=== PATIENT | female | born 1995 | race Caucasian/White ===

== ENCOUNTER 2023-05-24 08:57 | Outpatient (OUT) | payer BC, SELFPAY ==
--- NOTE | 2023-05-24 09:11 | US_ITS ---
The [address] [address] Patient Name: JOYCE CANTU MRN: [id number] date: 1995 Sex: F Assigned Patient Location: Current Patient Location: Accession/Order Number: [id number] Exam Date: 05/24/2023 09:15 Report Date: 05/24/2023 10:02 At the request of: NERIS ALLEN Procedure: US pelvis transvaginal EXAM: Pelvic ultrasound HISTORY: . Pelvic Pain , Amenorrhea N91.2 . COMPARISON: None. TECHNIQUE: Transvaginal scanning was performed FINDINGS: Scanning of the pelvis demonstrates an anteverted uterus measuring 7.3 x 3.7 x 5.1 cm. Endometrial complex measures 9 mm. Right ovary measures 4.8 x 2.2 x 2.1 cm. Color-flow is noted. Multiple follicles are noted and a peripheral location. Left ovary measures 2.8 x 2 x 2.4 cm. Color-flow is noted. Multiple follicles are noted in a peripheral location. Minimal fluid is noted in the cul-de-sac. US/US pelvis transvaginal IMPRESSION: 1 normal-appearing uterus and endometrial complex. 2. Multiple follicles in both ovaries which are in a somewhat peripheral location. This could be due to polycystic ovarian syndrome. Clinical correlation is suggested. 3. Minimal fluid in the cul-de-sac. Electronically authenticated by: GLENNY HERNANDEZ Date: 05/24/2023 10:02
[2023-05-24 10:23] LABS: HCG Quantitative <1 mIU/mL; Thyroid Stimulating Hormone 1.421 uIU/mL (0.358-3.740)
[2023-05-24 10:24] LABS: Basophils Absolute Auto 0.1 10^3/uL (0.0-0.1); Basophils Percent Auto 0.7 % (0.2-2.0); Eosinophils Absolute Auto 0.1 10^3/uL (0.0-0.7); Eosinophils Percent Auto 1.6 % (0.9-7.0); Hematocrit 37.1 % (36.0-48.0); Hemoglobin 12.6 g/dL (12.0-16.0); Immature Granulocytes Abs Auto 0.02 10^3/uL (0.00-0.03); Immature Granulocytes Pct Auto 0.3 % (0.0-0.5); Lymphocytes Absolute Auto 3.5 10^3/uL (1.2-3.8); Lymphocytes Percent Auto 51.6 % (20.5-60.0); Mean Corpuscular Volume 88.3 fL (81.0-99.0); Monocytes Absolute Auto 0.5 10^3/uL (0.3-0.8); Monocytes Percent Auto 6.8 % (1.7-12.0); Neutrophils Absolute Auto 2.6 10^3/uL (1.4-6.5); Platelet Count 287 10^3/uL (150-450); Red Cell Distribution Width 11.5 % (11.0-15.0); White Blood Count 6.7 10^3/uL (4.0-11.0)
[2023-05-25 04:07] LABS: Prolactin 10.1 ng/mL (4.8-23.3)
== END 2023-05-24 08:58 | disposition home or self-care (01) ==
LOC: US 09:03
PROVIDERS: PCP Nurse Practitioner Family; Visit Provider Obstetrics & Gynecology
DX: N91.2 Amenorrhea, unspecified (principal); R10.2 Pelvic and perineal pain
CPT/HCPCS: 36415; 76830; 84146; 84443; 84702; 85025

== ENCOUNTER 2024-05-08 09:06 | Outpatient (OUT) | payer BC, SELFPAY ==
--- NOTE | 2024-05-08 09:07 | US_ITS ---
The [address] [address] Patient Name: JOYCE CANTU MRN: [id number] date: 1995 Sex: F Assigned Patient Location: [facility] Current Patient Location: Accession/Order Number: [id number] Exam Date: 05/08/2024 09:08 Report Date: 05/09/2024 05:02 At the request of: NERIS ALLEN Procedure: US OB transvaginal EXAMINATION: US OB transvaginal HISTORY: MISSED MENSES COMPARISON: No relevant comparison available. FINDINGS: GESTATIONAL SAC: Present and normal appearing. YOLK SAC: Present and normal appearing. POLE: Present and normal appearing. CARDIAC: Present. UTERUS: Normal size and appearance. OVARIES: Right: Normal. Left: Normal. CERVIX: 4.0 cm in length and closed. CUL-DE-SAC: Normal. OTHER: Trace amount of free fluid within pelvic cul-de-sac, likely physiologic. AGE BY LMP: 8 weeks 1 day JAGJIT BY LMP: 12/17/2024 AGE BY US CRL: 7 weeks 1 day JAGJIT BY US CRL: 12/24/2024 US/US OB transvaginal IMPRESSION: 1. Single live intrauterine . Electronically authenticated by: KARSTEN RAWLS Date: 05/09/2024 05:02
--- OUTSIDE RECORDS SUMMARY | 2024-05-08 09:21 | XMS_ITS | CCD ---
Author Organization [facility] Care Team Providers Care [employer] Name Role Phone STEPHANIE OHARA Referring Unavailable STEPHANIE OHARA Primary Care Unavailable Stephanie Ohara Primary Care Provider [phone] CHAD MARIE Attending Unavailable STEPHANIE OHARA Primary Care Unavailable LEV, DR STEPHANIE Olguin Primary Care Unavailable OHARA, DR STEPHANIE Olguin Consulting Unavailable LEV, DR STEPHANIE Olguin Attending Unavailable LEV, DR STEPHANIE Olguin Admitting Unavailable JEANNINE ., CAREN Attending Unavailable JEANNINE ., CAREN Admitting Unavailable LEV, DR STEPHANIE Olguin Primary Care Unavailable JEANNINE .CAREN Consulting Unavailable TIFFANY ., DR CORDON Attending Unavailable OHARA, DR STEPHANIE Olguin Primary Care Unavailable TIFFANY ., DR CORDON Admitting Unavailable TIFFANY ., DR CORDON Consulting Unavailable TIFFANY ., DR CORDON Attending Unavailable TIFFANY ., DR CORDON Admitting Unavailable OHARA, DR STEPHANIE Olguin Primary Care Unavailable TIFFANY ., DR CORDON Attending Unavailable OHARA, DR STEPHANIE Olguin Primary Care Unavailable TIFFANY ., DR CORDON Admitting Unavailable TIFFANY ., DR CORDON Attending Unavailable OHARA, DR STEPHANIE Olguin Primary Care Unavailable TIFFANY ., DR CORDON Admitting Unavailable TIFFANY ., DR CORDON Attending Unavailable TIFFANY ., DR CORDON Admitting Unavailable OHARA, DR STEPHANIE Olguin Primary Care Unavailable TIFFANY ., DR CORDON Attending Unavailable TIFFANY ., DR CORDON Admitting Unavailable TIFFANY ., DR CORDON Consulting Unavailable LEV, DR STEPHANIE Olguin Primary Care Unavailable EMILY II, JOCELYN Consulting Unavailable TIFFANY ., DR CORDON Procedure Practitioner Unavail able TIFFANY ., DR CORDON Attending Unavailable TIFFANY ., DR CORDON Admitting Unavailable GLENNY TORRES V Consulting Unavailable LEV, DR STEPHANIE Olguin Primary Care Unavailable TFIFANY ., DR CORDON Consulting Unavailable OHARA, DR STEPHANIE Olguin Primary Care Unavailable TIFFANY ., DR CORDON Consulting Unavailable TIFFANY ., DR CORDON Attending Unavailable TIFFANY ., DR CORDON Admitting Unavailable JEANNINE ., CAREN Attending Unavailable JEANNINE ., CAREN Admitting Unavailable JEANNINE ., CAREN Consulting Unavailable LEV, DR STEPHANIE Olguin Primary Care Unavailable TIFFANY ., DR CORDON Attending Unavailable TIFFANY ., DR CORDON Admitting Unavailable GLENNY TORRES V Consulting Unavailable OHARA, DR STEPHANIE Olguin Primary Care Unavailable TIFFANY ., DR CORDON Consulting Unavailable TIFFANY ., DR CORDON Attending Unavailable TIFFANY ., DR CORDON Admitting Unavailable TIFFANY ., DR CORDON Consulting Unavailable LEV, DR STEPHANIE Olguin Primary Care Unavailable Estrada Castro Consulting Unavailable TIFFANY ., DR CORDON Attending Unavailable OHARA, DR STEPHANIE Olguin Primary Care Unavailable GLENNY TORRES V Consulting Unavailable TIFFANY ., DR CORDON Admitting Unavailable TIFFANY ., DR CORDON Consulting Unavailable Allergies Allergy Classification Reported Allergen(s) Allergy Type Date of Onset Reaction(s) Facility (1 source) Penicillins Propensity to adverse reactions to drug 8 [place], [place] (1 source) Amoxicillin Drug Allergy [facility] (2 sources) Penicillin Drug Allergy 3 [facility] Medications Current Medications Medication Drug Class(es) Dates Sig (Normalized) Sig (Original) benzoyl peroxide 0.025 mg/mg / clindamycin phosphate 0.012 mg/mg topical gel (1 source) Lincosamide Antibacterial Start: 11-15-2015 ACANYA 1.2-2.5 % GEL ethinyl estradiol 0.035 mg / norgestimate 0.25 mg oral tablet (1 source) Progestin, Estrogen Start: 01-10-2016 take 1 tablet by mouth once daily norgestimate-ethin yl estradiol (ORTHO-CYCLEN, 28,) 0.25-35 MG-MCG per tablet Indications: Dysmenorrhea in adolescent Take 1 tablet by mouth daily 1 packet 12 01/10/2016 Active ibuprofen 800 mg oral tablet (1 source) Nonsteroidal Anti-inflammatory Drug Start: 07-12-2020 End: 07-22-2020 take 1 tablet by mouth every eight hours as needed for pain ibuprofen (ADVIL;MOTRIN) 800 MG tablet Take 1 tablet by mouth every 8 hours as needed for Pain 30 tablet 0 07/12/2020 07/22/2020 Active minocycline 100 mg oral capsule (1 source) Tetracycline-class Drug minocycline (MINOCIN;DYNACIN) 100 MG capsule Take 50 mg by mouth daily 0 Active Problems Active Problems Problem Classification Problem Date Documented Date Episodic/Chronic Administrative/social admission (2 sources) Encounter for examination for admission to educational institution; Translations: [Encounter for examination for admission to educational institution] Onset: 10-13-2018 Episodic Immunizations and screening for infectious disease (9 sources) Encounter for screening for human papillomavirus (HPV); Translations: [Encounter for screening for infections with a predominantly sexual mode of transmission] Onset: 01-23-2022 Episodic Menstrual disorders (5 sources) Irregular menstruation, unspecified; Translations: [Secondary amenorrhea] Onset: 11-22-2021 Chronic OB-related trauma to perineum and vulva (2 sources) First degree perineal laceration during delivery; Translations: [Other specified trauma to perineum and vulva] Onset: 08-16-2022 Episodic Other complications of (4 sources) Uterine size-date discrepancy, third trimester; Translations: [UTERINE SZ-DATE DISCREPANCY 3RD TRI] Onset: 07-31-2022 Episodic Other and delivery including normal (16 sources) Encounter for care and examination of lactating mother; Translations: [Encounter for routine follow-up] Onset: 01-01-2022 Episodic Other screening for suspected conditions (not mental disorders or infectious disease) (9 sources) Encounter for screening for malignant neoplasm of cervix; Translations: [Encounter for other specified screening] Onset: 01-25-2022 Episodic Residual codes; unclassified (1 source) 39 weeks gestation of ; Translations: [39 WEEKS GESTATION OF ] Onset: 08-16-2022 Episodic Residual codes; unclassified (1 source) 38 weeks gestation of ; Translations: [38 WEEKS GESTATION OF ] Onset: 08-05-2022 Episodic Unclassified (1 source) Sprain of left ankle; Translations: [Sprain of left ankle, unspecified ligament, initial encounter] Past or Other Problems Problem Classification Problem Date Documented Date Episodic/Chronic Malaise and fatigue (1 source) Other fatigue; Translations: [OTHER FATIGUE] Onset: 06-08-2022 Episodic Other complications of (1 source) Other specified related conditions, unspecified trimester; Translations: [OTH SPEC PREG RELATED COND UNS TRI] Onset: 07-17-2022 Episodic Other female genital disorders (1 source) Other specified noninflammatory disorders of vagina; Translations: [OTH SPEC NONINFLAMMATORY D/O VAGINA] Onset: 07-17-2022 Episodic Residual codes; unclassified (1 source) 34 weeks gestation of ; Translations: [34 WEEKS GESTATION OF ] Onset: 07-07-2022 Episodic Residual codes; unclassified (1 source) Family history of diabetes mellitus; Translations: [FAMILY HISTORY OF DIABETES MELLITUS] Onset: 11-22-2021 Episodic Results Test Name Value Interpretation Reference Range Facility PAP ACOG PANEL 2: 21 to 29on 10-22-2022 . . [facility] Comment on above: Performed By: #### C BC #### [facility] [address] [address] [address] Missy Gonzalez Age Gdln ACOG Testing [facility] Comment on above: Performed By: #### C BC #### [facility] [address] [address] [address] Missy Gonzalez DIAGNOSIS: Comment [facility] Comment on above: Result Comment: NEGA TIVE FOR INTRAEPITHELIAL LESION OR MALIGNANCY. Performed By: #### C BC #### [facility] [address] [address] [address] Missy Gonzalez Methodology: Comment [facility] Comment on above: Result Comment: This liquid based ThinPrep(R) pap test was screened with the use of an image guided system. Performed By: #### C BC #### [facility] [address] [address] [address] Missy Gonzalez Note: Comment [facility] Comment on above: Result Comment: The Pap smear is a screening test designed to aid in the detection of premalignant and malignant conditions of the uterine cervix. It is not a diagnostic procedure and should not be used as the sole means of detecting cervical cancer. Both false-positive and false-negative reports do occur. . Performed By: #### C BC #### [facility] [address] [place] [address] Dr. Missy Gonzalez Performed by: Comment Normal [facility] Comment on above: Result Comment: Cindy Blum, Chef Under Performed By: #### C BC #### [facility] [address] [place] [address] Dr. Missy Gonzalez Reflex Criteria: Comment Normal [facility] Comment on above: Result Comment: The HPV DNA reflex criteria were not met with this specimen result therefore, no HPV testing was performed. . Performed By: #### C BC #### [facility] [address] [place] [address] Dr. Missy Gonzalez Specimen adequacy: Comment Normal [facility] Comment on above: Result Comment: Sati sfactory for evaluation. No endocervical component is identified. Performed By: #### C BC #### [facility] [address] [place] [address] Dr. Missy Gonzalez CBC AUTO DIFFon 08-08-2022 BASO # 0.1 103/ul Normal 0.0-0.1 [facility] Comment on above: Performed By: #### C BC #### [facility] [address] [place] [address] Dr. Missy Gonzalez Basophils/100 WBC (Bld) 0.4 % Normal 0.2-2.0 [facility] Comment on above: Performed By: #### C BC #### [facility] [address] [place] [address] Dr. Missy Gonzalez EO # 0.1 103/ul Normal 0.0-0.7 [facility] Comment on above: Performed By: #### C BC #### [facility] [address] [place] [address] Dr. Missy Gonzalez Eosinophils/100 WBC (Bld) 0.9 % Normal 0.9-7.0 [facility] Comment on above: Performed By: #### C BC #### [facility] [address] [place] [address] Dr. Missy Gonzalez Erythrocyte distribution width (RBC) [Ratio] 13.7 % Normal 11.0-15.0 [facility] Comment on above: Performed By: #### C BC #### [facility] [address] [place] [address] Dr. Missy Gonzalez Hematocrit (Bld) [Volume fraction] 28.9 % Critically low 36.0-48.0 [facility] Comment on above: Performed By: #### C BC #### [facility] [address] [place] [address] Dr. Missy Gonzalez Hemoglobin (Bld) [Mass/Vol] 10.0 g/dL Critically low 12.0-16.0 [facility] Comment on above: Performed By: #### C BC #### [facility] [address] [place] [address] Dr. Missy Gonzalez IG # 0.15 10e3/ul Critically high 0.00-0.03 [facility] Comment on above: Performed By: #### C BC #### [facility] [address] [place] [address] Dr. Missy Gonzalez IG % 1.2 % Critically high 0.0-0.5 [facility] Comment on above: Performed By: #### C BC #### [facility] [address] [place] [address] Dr. Missy Gonzalez LYMPH # 2.7 103/ul Normal 1.2-3.8 [facility] Comment on above: Performed By: #### C BC #### [facility] [address] [place] [address] Dr. Missy Gonzalez Lymphocytes/100 WBC (Bld) 21.4 % Normal 20.5-60.0 [facility] Comment on above: Performed By: #### C BC #### [facility] [address] [place] [address] Dr. Missy Gonzalez MANUAL DIFF REQ NO Normal [facility] Comment on above: Performed By: #### C BC #### [facility] [address] [place] [address] Dr. Missy Gonzalez MCH (RBC) [Entitic mass] 31.7 pg Normal 26.7-34.0 [facility] Comment on above: Performed By: #### C BC #### [facility] [address] [address] [address] Missy Gonzalez MCHC (RBC) [Mass/Vol] 34.6 g/dL Normal 29.9-35.2 [facility] Comment on above: Performed By: #### C BC #### [facility] [address] [address] [address] Missy Gonzalez MCV (RBC) [Entitic vol] 91.7 fL Normal 81.0-99.0 [facility] Comment on above: Performed By: #### C BC #### [facility] [address] [address] [address] Missy Gonzalez MONO # 0.9 103/ul Critically high 0.3-0.8 [facility] Comment on above: Performed By: #### C BC #### [facility] [address] [place] [address] Dr. Missy Gonzalez Monocytes/100 WBC (Bld) 6.8 % Normal 1.7-12.0 [facility] Comment on above: Performed By: #### C BC #### [facility] [address] [place] [address] Dr. Missy Gonzalez NEUT # 8.9 103/ul Critically high 1.4-6.5 [facility] Comment on above: Performed By: #### C BC #### [facility] [address] [place] [address] Dr. Missy Gonzalez Neutrophils/100 WBC (Bld) 69.3 % Normal 43.0-75.0 [facility] Comment on above: Performed By: #### C BC #### [facility] [address] [place] [address] Dr. Missy Gonzalez Platelet mean volume (Bld) [Entitic vol] 10.8 fL Normal 9.5-13.5 [facility] Comment on above: Performed By: #### C BC #### [facility] [address] [address] [address] Missy Gonzalez PLT 235 103/ul Normal 150-450 [facility] Comment on above: Performed By: #### C BC #### [facility] [address] [address] [address] Missy Gonzalez RBC 3.15 106/ul Critically low 4.20-5.40 [facility] Comment on above: Performed By: #### C BC #### [facility] [address] [address] [address] Missy Gonzalez WBC 12.8 103/ul Critically high 4.0-11.0 [facility] Comment on above: Performed By: #### C BC #### [facility] [address] [place] [address] Dr. Missy Gonzalez CBC AUTO DIFFon 08-06-2022 BASO # 0.1 103/ul Normal 0.0-0.1 [facility] Comment on above: Performed By: #### P REG #### [facility] [address] [place] [address] Dr. Missy Gonzalez Basophils/100 WBC (Bld) 0.6 % Normal 0.2-2.0 [facility] Comment on above: Performed By: #### P REG #### [facility] [address] [place] [address] Dr. Missy Gonzalez EO # 0.1 103/ul Normal 0.0-0.7 [facility] Comment on above: Performed By: #### P REG #### [facility] [address] [place] [address] Dr. Missy Gonzalez Eosinophils/100 WBC (Bld) 0.9 % Normal 0.9-7.0 [facility] Comment on above: Performed By: #### P REG #### [facility] [address] [place] [address] Dr. Missy Gonzalez Erythrocyte distribution width (RBC) [Ratio] 13.0 % Normal 11.0-15.0 [facility] Comment on above: Performed By: #### P REG #### [facility] [address] [place] [address] Dr. Missy Gonzalez Hematocrit (Bld) [Volume fraction] 34.6 % Critically low 36.0-48.0 [facility] Comment on above: Performed By: #### P REG #### [facility] [address] [address] [address] Missy Gonzalez Hemoglobin (Bld) [Mass/Vol] 12.3 g/dL Normal 12.0-16.0 [facility] Comment on above: Performed By: #### P REG #### [facility] [address] [address] [address] Missy Gonzalez IG # 0.05 10e3/ul Critically high 0.00-0.03 [facility] Comment on above: Performed By: #### P REG #### [facility] [address] [address] [address] Missy Gonzalez IG % 0.6 % Critically high 0.0-0.5 [facility] Comment on above: Performed By: #### P REG #### [facility] [address] [place] [address] Dr. Missy Gonzalez LYMPH # 2.3 103/ul Normal 1.2-3.8 [facility] Comment on above: Performed By: #### P REG #### [facility] [address] [address] [address] Missy Gonzalez Lymphocytes/100 WBC (Bld) 27.9 % Normal 20.5-60.0 [facility] Comment on above: Performed By: #### P REG #### [facility] [address] [place] [address] Dr. Missy Gonzalez MANUAL DIFF REQ NO Normal [facility] Comment on above: Performed By: #### P REG #### [facility] [address] [address] [address] Missy Gonzalez MCH (RBC) [Entitic mass] 31.6 pg Normal 26.7-34.0 [facility] Comment on above: Performed By: #### P REG #### [facility] [address] [address] [address] Missy Gonzalez MCHC (RBC) [Mass/Vol] 35.5 g/dL Critically high 29.9-35.2 [facility] Comment on above: Performed By: #### P REG #### [facility] [address] [place] [address] Dr. Missy Gonzalez MCV (RBC) [Entitic vol] 88.9 fL Normal 81.0-99.0 [facility] Comment on above: Performed By: #### P REG #### [facility] [address] [place] [address] Dr. Missy Gonzalez MONO # 0.6 103/ul Normal 0.3-0.8 [facility] Comment on above: Performed By: #### P REG #### [facility] [address] [place] [address] Dr. Missy Gonzalez Monocytes/100 WBC (Bld) 6.9 % Normal 1.7-12.0 [facility] Comment on above: Performed By: #### P REG #### [facility] [address] [place] [address] Dr. Missy Gonzalez NEUT # 5.2 103/ul Normal 1.4-6.5 [facility] Comment on above: Performed By: #### P REG #### [facility] [address] [place] [address] Dr. Missy Gonzalez Neutrophils/100 WBC (Bld) 63.1 % Normal 43.0-75.0 [facility] Comment on above: Performed By: #### P REG #### [facility] [address] [place] [address] Dr. Missy Gonzalez Platelet mean volume (Bld) [Entitic vol] 10.2 fL Normal 9.5-13.5 [facility] Comment on above: Performed By: #### P REG #### [facility] [address] [place] [address] Dr. Missy Gonzalez PLT 245 103/ul Normal 150-450 [facility] Comment on above: Performed By: #### P REG #### [facility] [address] [place] [address] Dr. Missy Gonzalez RBC 3.89 106/ul Critically low 4.20-5.40 [facility] Comment on above: Performed By: #### P REG #### [facility] [address] [place] [address] Dr. Missy Gonzalez WBC 8.2 103/ul Normal 4.0-11.0 [facility] Comment on above: Performed By: #### P REG #### [facility] [address] [place] [address] Dr. Missy Gonzalez DRUG SCREEN RAPID (URINE)on 08-06-2022 AMP Negative Normal NEGATIVE [facility] Comment on above: Performed By: #### D RUGRPD #### [facility] [address] [place] [address] Dr. Missy Gonzalez BAR Negative Normal NEGATIVE [facility] Comment on above: Performed By: #### D RUGRPD #### [facility] [address] [place] [address] Dr. Missy Gonzalez BUP Negative Normal NEGATIVE [facility] Comment on above: Performed By: #### D RUGRPD #### [facility] [address] [place] [address] Dr. Missy Gonzalez BZO Negative Normal NEGATIVE [facility] Comment on above: Performed By: #### D RUGRPD #### [facility] [address] [place] [address] Dr. Missy Gonzalez MCKENNA Negative Normal NEGATIVE [facility] Comment on above: Performed By: #### D RUGRPD #### [facility] [address] [place] [address] Dr. Missy Gonzalez CUT-OFFS SEE BELOW Normal [facility] Comment on above: Result Comment: AMP (Amphetamine): 500ng/mL, BAR (Barbituates): 200 ng/mL, BZO (Benzodiazepines): 150 ng/mL, BUP (Buprenorphine): 10 ng/mL, MCKENNA (Cocaine): 150 ng/mL, mAMP (Methamphetamine): 500 ng/mL, MTD (Methadone): 200 ng/mL, OPI (Opiates): 100 ng/mL, OXY (Oxycodone): 100 ng/mL, PCP (Phencyclidine): 25 ng/mL, PPX (Propoxyphene): 300 ng/mL, THC (Cannabinoids): 50 ng/mL, TCA (Trycyclic Antidepressants): 300 ng/mL Performed By: #### D RUGRPD #### [facility] [address] [address] [address] Missy Gonzalez DRUG CUT HEADER DRUG CLASS TEST SYSTEM CUT-OFF CONCENTRATIONS ARE FOLLOWS: Normal [facility] Comment on above: Performed By: #### D RUGRPD #### [facility] [address] [address] [address] Missy Gonzalez mAMP Negative Normal NEGATIVE [facility] Comment on above: Performed By: #### D RUGRPD #### [facility] [address] [address] [address] Missy Gonzalez MTD Negative Normal NEGATIVE [facility] Comment on above: Performed By: #### D RUGRPD #### [facility] [address] [place] [address] Dr. Missy Gonzalez OPI Negative Normal NEGATIVE [facility] Comment on above: Performed By: #### D RUGRPD #### [facility] [address] [place] [address] Dr. Missy Gonzalez OXY Negative Normal NEGATIVE [facility] Comment on above: Performed By: #### D RUGRPD #### [facility] [address] [place] [address] Dr. Missy Gonzalez PCP Negative Normal NEGATIVE [facility] Comment on above: Performed By: #### D RUGRPD #### [facility] [address] [place] [address] Dr. Missy Gonzalez PPX Negative Normal NEGATIVE [facility] Comment on above: Performed By: #### D RUGRPD #### [facility] [address] [address] [address] Missy Gonzalze TCA Negative Normal NEGATIVE [facility] Comment on above: Performed By: #### D RUGRPD #### [facility] [address] [address] [address] Missy Gonzalez THC Negative Normal NEGATIVE [facility] Comment on above: Performed By: #### D RUGRPD #### [facility] [address] [place] [address] Dr. Missy Gonzalez TYPE AND SCREENon 08-06-2022 TYPE AND SCREEN Negative Normal [facility] Comment on above: Performed By: #### C BC #### [facility] [address] [address] [address] Missy Gonzalez US PREG GROWTHon 07-31-2022 US PREG GROWTH EXAMINATION: US PREG GROWTH HISTORY: Uterine size for dates discrepancy COMPARISON: No relevant comparison available. FINDINGS: Heart Rate: 140.0 bpm Amniotic Fluid Volume: 9.8 cm Number: 1.0 Position: Cephalic presentation, longitudinal lie Maximum Vertical Pocket: 1.9 cm cm 1.6 cm cm 4.8 cm cm 1.4 cm cm BIOMETRY: BPD: 9.5 cm cm; 38 weeks 4 days; 82% HC: 33.6 cmcm; 38 weeks 3 days, 37% AC: 33.4 cm cm; 37 weeks 2 days, 44% FL: 7.1 cm cm; 36 weeks 2 days; 12.8 % % EFW: 3176.7 grams, 7 lbs. 0 oz., 42% FL/AC: 21.3 FL/BPD: 75.0 HC/AC: 1.0 GESTATIONAL AGE: Age by EDC: 38 weeks 1 days JAGJIT by EDC: 08/13/2022 Age by US: 37 weeks 5 days JAGJIT by US: 08/16/2022 IMPRESSION: Normal interval growth Electronically authenticated by: GLENNY TORRES Date: 2022-07-31 13:51 Normal [facility] CHLAMYDIA/GONOCOCCUS CEDRIC (SW AB/URINE/PAPon 07-19-2022 Chlamydia trachomatis, CEDRIC Negative Normal Negative [facility] Comment on above: Performed By: #### P REG #### [facility] [address] [place] [address] Dr. Missy Gonzalez Neisseria gonorrhoeae, CEDRIC Negative Normal Negative [facility] Comment on above: Performed By: #### P REG #### [facility] [address] [address] [address] Missy Gonzalez VAGINITIS/VAGINOSIS DNA PROB Anurag 07-18-2022 Sarah species Negative Normal Negative [facility] Comment on above: Performed By: #### V AGINT #### [facility] [address] [address] [address] Missy Gonzalez Gardnerella vaginalis Negative Normal Negative [facility] Comment on above: Performed By: #### V AGINT #### [facility] [address] [address] [address] Missy Gonzalez Trichomonas vaginalis Negative Normal Negative [facility] Comment on above: Performed By: #### V AGINT #### [facility] [address] [address] [address] Missy Gonzalez GROUP B STREP CULTUREon 06-19 S. agalactiae Ag Ql (Unsp spec) Culture Observations: NEGATIVE FOR GROUP B STREPTOCOCCUS. Normal [facility] Comment on above: Performed By: #### C BC #### [facility] [address] [address] [address] Missy Gonzalez US PREG CERVICAL LENGTHon US PREG CERVICAL LENGTH EXAMINATION: US PREG CERVICAL LENGTH HISTORY: Uterine size for dates discrepancy COMPARISON: No relevant comparison available. FINDINGS: Cervix: 3.9 cm, closed IMPRESSION: Closed cervix measuring 3.9 cm Electronically authenticated by: GLENNY TORRES Date: 2022-07-03 16:13 Normal [facility] US PREG GROWTHon 07-03-2022 US PREG GROWTH EXAMINATION: US PREG GROWTH HISTORY: Uterine size for dates discrepancy COMPARISON: No relevant comparison available. FINDINGS: Heart Rate: 172.0 bpm Amniotic Fluid Volume: 12.9 cm Number: 1.0 Position: Cephalic presentation, longitudinal lie Maximum Vertical Pocket: 5.1 cm cm 1.5 cm cm 3.8 cm cm 2.5 cm cm BIOMETRY: BPD: 8.8 cm cm; 35 weeks 3 days; 84% HC: 31.6 cmcm; 35 weeks 3 days, 51% AC: 30.5 cm cm; 34 weeks 3 days, 66% FL: 6.5 cm cm; 33 weeks 4 days; 27.7 % % EFW: 2414.0 grams, 5 lbs. 5 oz., 55% FL/AC: 21.3 FL/BPD: 74.2 HC/AC: 1.0 GESTATIONAL AGE: Age by EDC: 34 weeks 0 days JAGJIT by EDC: 08/13/2022 Age by US: 34 weeks 5 days JAGJIT by US: 08/08/2022 IMPRESSION: Normal interval growth Electronically authenticated by: GLENNY TORRES Date: 2022-07-03 16:12 Normal [facility] US PREG ANATOMY SINGLEon US PREG ANATOMY SINGLE EXAMINATION: US PREG ANATOMY SINGLE HISTORY: screening COMPARISON: No relevant comparison available. TECHNIQUE: Transabdominal sonographic examination was performed for obstetrical and evaluation. FINDINGS: Number: 1 Heart Rate: 145.2 bpm H.B. /min Amniotic Fluid Volume: Placental Location: POSTERIOR with lower margin 4.5 cm from os. Cervix Length: 5 cm , closed. ANATOMY: Normal Structures -cerebellum, choroid plexus, cisterna magna, lateral cerebral ventricles, orbits, midline falx, hard palate, four-chamber heart, RVOT, LVOT, stomach, kidneys, bladder, umbilical cord insertion into abdomen, three-vessel cord, cervical spine, thoracic spine, lumbar spine, sacral spine, right upper extremity, left upper extremity, right lower extremity, left lower extremity. SUBOPTIMALLY SEEN: None ABNORMALITIES: None BIOMETRY: BPD: 5.1 cm 21 weeks 3 days HC: 18.2 cm 20 weeks 4 days AC: 16.1 cm 21 weeks 2 days FL: 3.2 cm 20 weeks 0 days EFW:372.5 grams; 84% FL/AC: 20.0 FL/BPD: 63.2 HC/AC: 1.1 GESTATIONAL AGE: Age by EDC: 20 weeks 0 days JAGJIT by EDC: 08/13/2022 Age by current US: 20 weeks 6 days JAGJIT by current US: 08/07/2022 IMPRESSION: 1. Single live intrauterine with growth detailed above. Electronically authenticated by: ESTRADA CASTRO Date: 2022-03-27 22:23 Normal [facility] HEP B SURFACE ANTIGEN SCREEN on 01-25-2022 HBsAg Screen Negative Normal Negative [facility] Comment on above: Performed By: #### P REG #### [facility] [address] [place] [address] Dr. Missy Gonzalez HEPATITIS C VIRUS AB W/ REFL EX QUANTon 01-25-2022 HCV AB 0.1 s/co ratio Normal 0.0-0.9 [facility] Comment on above: Performed By: #### P REG #### [facility] [address] [place] [address] Dr. Missy Gonzalez Interpretation: Comment Normal [facility] Comment on above: Result Comment: Nega tive Not infected with HCV, unless recent infection is suspected or other evidence exists to indicate HCV infection. Performed By: #### P REG #### [facility] [address] [place] [address] Dr. Missy Gonzalez HIV 1 AND 2 WITH REFLEXon HIV Screen 4th Generation wRfx Non-Reactive Normal Non Reactive [facility] Comment on above: Result Comment: HIV Negative HIV-1/HIV-2 antibodies and HIV-1 p24 antigen were NOT detected. There is no laboratory evidence of HIV infection. Performed By: #### P REG #### [facility] [address] [address] [address] Missy Gonzalez RPR QUANTon 01-25-2022 Rapid Plasma Reagin, Quant Non-Reactive Normal NonRea<1:1 [facility] Comment on above: Result Comment: Plea se Note: This test does not meet current guidelines for screening and diagnosis of syphilis. This test is intended for following treatment response in patients being treated for syphilis infection. To screen for syphilis infection, a reflex cascade that includes both RPR and a treponema-specific assay should be utilized, such as Treponema pallidum (Syphilis) Screening [place] ([id number]) or Rapid Plasma Reagin (RPR) Test With Reflex to Quantitative RPR and Confirmatory Treponema pallidum Antibodies ([id number]). Performed By: #### P REG #### [facility] [address] [place] [address] Dr. Missy Gonzalez RUBELLA AB IGGon 01-25-2022 Rubella Antibodies, IgG 1.27 index Normal Immune >0.99 [facility] Comment on above: Result Comment: Non- immune <0.90 Equivocal 0.90 - 0.99 Immune >0.99 Performed By: #### P REG #### [facility] [address] [place] [address] Dr. Missy Gonzalez CBC AUTO DIFFon 01-23-2022 BASO # 0.0 103/ul Normal 0.0-0.1 [facility] Comment on above: Performed By: #### P REG #### [facility] [address] [place] [address] Dr. Missy Gonzalez Basophils/100 WBC (Bld) 0.3 % Normal 0.2-2.0 [facility] Comment on above: Performed By: #### P REG #### [facility] [address] [place] [address] Dr. Missy Gonzalez EO # 0.1 103/ul Normal 0.0-0.7 [facility] Comment on above: Performed By: #### P REG #### [facility] [address] [place] [address] Dr. Missy Gonzalez Eosinophils/100 WBC (Bld) 0.8 % Critically low 0.9-7.0 [facility] Comment on above: Performed By: #### P REG #### [facility] [address] [place] [address] Dr. Missy Gonzalez Erythrocyte distribution width (RBC) [Ratio] 11.3 % Normal 11.0-15.0 [facility] Comment on above: Performed By: #### P REG #### [facility] [address] [place] [address] Dr. Missy Gonzalez Hematocrit (Bld) [Volume fraction] 35.2 % Critically low 36.0-48.0 [facility] Comment on above: Performed By: #### P REG #### [facility] [address] [place] [address] Dr. Missy Gonzalez Hemoglobin (Bld) [Mass/Vol] 12.0 g/dL Normal 12.0-16.0 [facility] Comment on above: Performed By: #### P REG #### [facility] [address] [place] [address] Dr. Missy Gonzalez IG # 0.03 10e3/ul Normal 0.00-0.03 [facility] Comment on above: Performed By: #### P REG #### [facility] [address] [place] [address] Dr. Missy Gonzalez IG % 0.4 % Normal 0.0-0.5 [facility] Comment on above: Performed By: #### P REG #### [facility] [address] [place] [address] Dr. Missy Gonzalez LYMPH # 1.9 103/ul Normal 1.2-3.8 [facility] Comment on above: Performed By: #### P REG #### [facility] [address] [place] [address] Dr. Missy Gonzalez Lymphocytes/100 WBC (Bld) 24.3 % Normal 20.5-60.0 [facility] Comment on above: Performed By: #### P REG #### [facility] [address] [place] [address] Dr. Missy Gonzalez MANUAL DIFF REQ NO Normal [facility] Comment on above: Performed By: #### P REG #### [facility] [address] [place] [address] Dr. Missy Gonzalez MCH (RBC) [Entitic mass] 30.8 pg Normal 26.7-34.0 [facility] Comment on above: Performed By: #### P REG #### [facility] [address] [place] [address] Dr. Missy Gonzalez MCHC (RBC) [Mass/Vol] 34.1 g/dL Normal 29.9-35.2 [facility] Comment on above: Performed By: #### P REG #### [facility] [address] [place] [address] Dr. Missy Gonzalez MCV (RBC) [Entitic vol] 90.5 fL Normal 81.0-99.0 [facility] Comment on above: Performed By: #### P REG #### [facility] [address] [place] [address] Dr. Missy Gonzalez MONO # 0.5 103/ul Normal 0.3-0.8 [facility] Comment on above: Performed By: #### P REG #### [facility] [address] [place] [address] Dr. Missy Gonzalez Monocytes/100 WBC (Bld) 6.3 % Normal 1.7-12.0 [facility] Comment on above: Performed By: #### P REG #### [facility] [address] [place] [address] Dr. Missy Gonzalez NEUT # 5.4 103/ul Normal 1.4-6.5 [facility] Comment on above: Performed By: #### P REG #### [facility] [address] [place] [address] Dr. Missy Gonzalez Neutrophils/100 WBC (Bld) 67.9 % Normal 43.0-75.0 [facility] Comment on above: Performed By: #### P REG #### [facility] [address] [place] [address] Dr. Missy Gonzalez Platelet mean volume (Bld) [Entitic vol] 9.5 fL Normal 9.5-13.5 [facility] Comment on above: Performed By: #### P REG #### [facility] [address] [place] [address] Dr. Missy Gonzalez PLT 320 103/ul Normal 150-450 [facility] Comment on above: Performed By: #### P REG #### [facility] [address] [place] [address] Dr. Missy Gonzalez RBC 3.89 106/ul Critically low 4.20-5.40 [facility] Comment on above: Performed By: #### P REG #### [facility] [address] [place] [address] Dr. Missy Gonzalez WBC 8.0 103/ul Normal 4.0-11.0 [facility] Comment on above: Performed By: #### P REG #### [facility] [address] [place] [address] Dr. Missy Gonzalez CULTURE URINEon 01-23-2022 CULTURE URINE Culture Observations : LIGHT GROWTH OF MIXED GENITAL JOSE. NO POTENTIAL PATHOGENS SEEN. Normal [facility] Comment on above: Performed By: #### U RCX #### [facility] [address] [place] [address] Dr. Missy Gonzalze GLYCOHEMOGLOBIN A1Con 2021 ADA RECOMMENDATION SEE BELOW Normal [facility] Comment on above: Result Comment: ADA RECOMMENDED LIMIT 4.0 - 6.0 ADA THERAPEUTIC TARGET < 7.0 ACTION SUGGESTED > 7.0 Performed By: #### A 1C #### [facility] [address] [place] [address] Dr. Missy Gonzalez Glucose [Mass/Vol] 103 mg/dL Normal [facility] Comment on above: Performed By: #### A 1C #### [facility] [address] [place] [address] Dr. Missy Gonzalez HbA1c (Bld) [Mass fraction] 5.2 % Normal 4.5-6.2 [facility] Comment on above: Performed By: #### A 1C #### [facility] [address] [place] [address] Dr. Missy Gonzalez MATEO BOX TEST PT SEND OUTo n 01-23-2022 SENT TO REF LAB 01/23/2022 Normal [facility] Comment on above: Performed By: #### C BC #### [facility] [address] [place] [address] Dr. Missy Gonzalez TYPE AND SCREENon 01-23-2022 TYPE AND SCREEN Negative Normal [facility] Comment on above: Performed By: #### C BC #### [facility] [address] [place] [address] Dr. Missy Gonzalez US PREG TVon 12-29-2021 US PREG TV EXAMINATION: US PREG TV HISTORY: Missed period COMPARISON: No relevant comparison available. FINDINGS: Transvaginal images Oneill intrauterine gestation Gestational sac: 2.50 cm, 7 weeks 1 day CRL: 1.31 cm, 7 weeks 4 days Yolk sac: 0.5 cm Heart rate: 140 bpm Cervix: Closed, 4.2 cm The uterus is normal in appearance. Anteverted, anteflexed The right ovary measures 4.3 x 1.6 x 3.9 cm. Corpus luteal cyst The left ovary is normal in appearance Clinical age: 8 weeks 5 days Clinical JAGJIT: 08/05/2022 Ultrasound age: 7 weeks 4 days Ultrasound JAGJIT: 08/13/2022 IMPRESSION: Viable oneill intrauterine gestation measuring 7 weeks 4 days Electronically authenticated by: GLENNY TORRES Date: 2021-12-29 16:46 Normal [facility] VIT D 1 25 DIHYDROXYon 11-19 Calcitriol(1,25 di-OH Vit D) 72.5 pg/mL Normal 19.9-79.3 [facility] Comment on above: Result Comment: Ef fective November 20, 2021 Calcitriol(1,25 di-OH Vit D) reference interval will be changing to: pg/mL . 0 - 6 months: 44.3 - 212.9 7 months - 1 year: 40.3 - 112.4 >1 year: 24.8 - 81.5 Performed By: #### P REG #### [facility] [address] [place] [address] Dr. Missy Gonzalez CBC AUTO DIFFon 11-16-2021 BASO # 0.1 103/ul Normal 0.0-0.1 [facility] Comment on above: Performed By: #### C BC #### [facility] [address] [place] [address] Dr. Missy Gonzalez Basophils/100 WBC (Bld) 0.7 % Normal 0.2-2.0 [facility] Comment on above: Performed By: #### C BC #### [facility] [address] [place] [address] Dr. Missy Gonzalez EO # 0.1 103/ul Normal 0.0-0.7 [facility] Comment on above: Performed By: #### C BC #### [facility] [address] [place] [address] Dr. Missy Gonzalez Eosinophils/100 WBC (Bld) 0.7 % Critically low 0.9-7.0 [facility] Comment on above: Performed By: #### C BC #### [facility] [address] [place] [address] Dr. Missy Gonzalez Erythrocyte distribution width (RBC) [Ratio] 11.2 % Normal 11.0-15.0 [facility] Comment on above: Performed By: #### C BC #### [facility] [address] [place] [address] Dr. Missy Gonzalez Hematocrit (Bld) [Volume fraction] 40.4 % Normal 36.0-48.0 [facility] Comment on above: Performed By: #### C BC #### [facility] [address] [place] [address] Dr. Missy Gonzalez Hemoglobin (Bld) [Mass/Vol] 13.4 g/dL Normal 12.0-16.0 [facility] Comment on above: Performed By: #### C BC #### [facility] [address] [place] [address] Dr. Missy Gonzalez IG # 0.02 10e3/ul Normal 0.00-0.03 [facility] Comment on above: Performed By: #### C BC #### [facility] [address] [place] [address] Dr. Missy Gonzalez IG % 0.3 % Normal 0.0-0.5 [facility] Comment on above: Performed By: #### C BC #### [facility] [address] [place] [address] Dr. Missy Gonzalez LYMPH # 2.6 103/ul Normal 1.2-3.8 [facility] Comment on above: Performed By: #### C BC #### [facility] [address] [place] [address] Dr. Missy Gonzalez Lymphocytes/100 WBC (Bld) 36.6 % Normal 20.5-60.0 [facility] Comment on above: Performed By: #### C BC #### [facility] [address] [place] [address] Dr. Missy Gonzalez MANUAL DIFF REQ NO Normal [facility] Comment on above: Performed By: #### C BC #### [facility] [address] [place] [address] Dr. Missy Gonzalez MCH (RBC) [Entitic mass] 30.7 pg Normal 26.7-34.0 [facility] Comment on above: Performed By: #### C BC #### [facility] [address] [place] [address] Dr. Missy Gonzalez MCHC (RBC) [Mass/Vol] 33.2 g/dL Normal 29.9-35.2 [facility] Comment on above: Performed By: #### C BC #### [facility] [address] [place] [address] Dr. Missy Gonzalez MCV (RBC) [Entitic vol] 92.7 fL Normal 81.0-99.0 [facility] Comment on above: Performed By: #### C BC #### [facility] [address] [place] [address] Dr. Missy Gonzalez MONO # 0.5 103/ul Normal 0.3-0.8 [facility] Comment on above: Performed By: #### C BC #### [facility] [address] [place] [address] Dr. Missy Gonzalez Monocytes/100 WBC (Bld) 6.5 % Normal 1.7-12.0 [facility] Comment on above: Performed By: #### C BC #### [facility] [address] [place] [address] Dr. Missy Gonzalez NEUT # 3.9 103/ul Normal 1.4-6.5 [facility] Comment on above: Performed By: #### C BC #### [facility] [address] [place] [address] Dr. Missy Gonzalez Neutrophils/100 WBC (Bld) 55.2 % Normal 43.0-75.0 [facility] Comment on above: Performed By: #### C BC #### [facility] [address] [place] [address] Dr. Missy Gonzalez Platelet mean volume (Bld) [Entitic vol] 8.7 fL Critically low 9.5-13.5 [facility] Comment on above: Performed By: #### C BC #### [facility] [address] [place] [address] Dr. Missy Gonzalez PLT 294 103/ul Normal 150-450 [facility] Comment on above: Performed By: #### C BC #### [facility] [address] [place] [address] Dr. Missy Gonzalez RBC 4.36 106/ul Normal 4.20-5.40 [facility] Comment on above: Performed By: #### C BC #### [facility] [address] [place] [address] Dr. Missy Gonzalez WBC 7.1 103/ul Normal 4.0-11.0 [facility] Comment on above: Performed By: #### C BC #### [facility] [address] [place] [address] Dr. Missy Gonzalez GLYCOHEMOGLOBIN A1Con 2021 ADA RECOMMENDATION SEE BELOW Normal [facility] Comment on above: Result Comment: ADA RECOMMENDED LIMIT 4.0 - 6.0 ADA THERAPEUTIC TARGET < 7.0 ACTION SUGGESTED > 7.0 Performed By: #### A 1C #### [facility] [address] [place] [address] Dr. Missy Gonzalez Glucose [Mass/Vol] 100 mg/dL Normal [facility] Comment on above: Performed By: #### A 1C #### [facility] [address] [place] [address] Dr. Missy Gonzalez HbA1c (Bld) [Mass fraction] 5.1 % Normal 4.5-6.2 [facility] Comment on above: Performed By: #### A 1C #### [facility] [address] [place] [address] Dr. Missy Gonzalez PREG HCG QUALon 11-16-2021 , QUAL Negative Normal NEGATIVE [facility] Comment on above: Performed By: #### P REG #### [facility] [address] [place] [address] Dr. Missy Gonzalez PROF 14(COMP METB)on 022 Albumin [Mass/Vol] 4.6 g/dL Normal 3.4-5.0 [facility] Comment on above: Performed By: #### T SH, CMP #### [facility] [address] [place] [address] Dr. Missy Gonzalez Albumin/Globulin [Mass ratio] 1.2 {ratio} Normal [facility] Comment on above: Performed By: #### T SH, CMP #### [facility] [address] [place] [address] Dr. Missy Gonzalez ALP [Catalytic activity/Vol] 69 U/L Normal 46-116 [facility] Comment on above: Performed By: #### T SH, CMP #### [facility] [address] [place] [address] Dr. Missy Gonzalez ALT [Catalytic activity/Vol] 30 U/L Normal 14-59 [facility] Comment on above: Performed By: #### T SH, CMP #### [facility] [address] [place] [address] Dr. Missy Gonzalez Anion gap [Moles/Vol] 15.0 mmol/L Normal [facility] Comment on above: Performed By: #### T SH, CMP #### [facility] [address] [place] [address] Dr. Missy Gonzalez AST [Catalytic activity/Vol] 20 U/L Normal 15-37 [facility] Comment on above: Performed By: #### T SH, CMP #### [facility] [address] [place] [address] Dr. Missy Gonzalez Bilirubin [Mass/Vol] 0.4 mg/dL Normal 0.2-1.0 [facility] Comment on above: Performed By: #### T SH, CMP #### [facility] [address] [place] [address] Dr. Missy Gonzalez Calcium [Mass/Vol] 9.1 mg/dL Normal 8.5-10.1 [facility] Comment on above: Performed By: #### T SH, CMP #### [facility] [address] [place] [address] Dr. Missy Gonzalez Chloride [Moles/Vol] 102 mmol/L Normal 98-107 [facility] Comment on above: Performed By: #### T SH, CMP #### [facility] [address] [place] [address] Dr. Missy Gonzalez CO2 [Moles/Vol] 27.3 mmol/L Normal 21.0-32.0 [facility] Comment on above: Performed By: #### T SH, CMP #### [facility] [address] [place] [address] Dr. Missy Gonzalez Creatinine [Mass/Vol] 0.63 mg/dL Normal 0.55-1.02 [facility] Comment on above: Performed By: #### T SH, CMP #### [facility] [address] [place] [address] Dr. Missy Gonzalez EGFR-AF NAURUAN >60 Normal >=60 [facility] Comment on above: Performed By: #### T SH, CMP #### [facility] [address] [place] [address] Dr. Missy Gonzalez EGFR-NON AF NAURUAN >60 Normal >=60 [facility] Comment on above: Performed By: #### T SH, CMP #### [facility] [address] [address] [address] Missy Gonzalez Globulin (S) [Mass/Vol] 3.8 g/dL Normal [facility] Comment on above: Performed By: #### T SH, CMP #### [facility] [address] [address] [address] Missy Gonzalez Glucose [Mass/Vol] 86 mg/dL Normal 74-106 [facility] Comment on above: Performed By: #### T SH, CMP #### [facility] [address] [place] [address] Dr. Missy Gonzalez Potassium [Moles/Vol] 4.3 mmol/L Normal 3.5-5.1 [facility] Comment on above: Performed By: #### T SH, CMP #### [facility] [address] [place] [address] Dr. Missy Gonzalez Protein [Mass/Vol] 8.4 g/dL Critically high 6.4-8.2 [facility] [facility] Comment on above: Performed By: #### T SH, CMP #### [facility] [address] [place] [address] Dr. Missy Gonzalez Sodium [Moles/Vol] 140 mmol/L Normal 136-145 [facility] Comment on above: Performed By: #### T SH, CMP #### [facility] [address] [address] [address] Missy Gonzalez Urea nitrogen [Mass/Vol] 11.0 mg/dL Normal 7.0-18.0 [facility] Comment on above: Performed By: #### T SH, CMP #### [facility] [address] [place] [address] Dr. Missy Gonzalez Urea nitrogen/Creatinine [Mass ratio] 17.5 mg/mg Normal [facility] Comment on above: Performed By: #### T SH, CMP #### [facility] [address] [place] [address] Dr. Msisy Gonzalez TSHon 11-16-2021 TSH 1.070 uIU/mL Normal 0.358-3.740 [facility] Comment on above: Performed By: #### T SH, CMP #### [facility] [address] [place] [address] Dr. Missy Gonzalez TSH RANGE SEE BELOW Normal [facility] Comment on above: Result Comment: <0.3 4 UIU/ml HYPERTHYROID 0.34-5.60 UIU/ml EUTHYROID >5.60 UIU/ml HYPOTHYROID Performed By: #### T SH, CMP #### [facility] [address] [place] [address] Dr. Missy Gonzalez Coding Summary.on 08-23-2020 Coding Summary. CODING DATE: 08/23/2020 FINAL [facility] STATUS: Home (Routine DC) PAYOR: Self Pay ADMIT DX: REASON FOR VISIT DX: Z01.419 Encounter for gynecological examination (general) (routine) without abnormal findings FINAL DX: PRINCIPAL: Z01.419 Encounter for gynecological examination (general) (routine) without abnormal findings SECONDARY: Z11.51 Encounter for screening for human papillomavirus (HPV) PYMT PROC APC STAT DESCRIPTION DOCTOR NAME DATE NOTE: The code number assigned matches the documented diagnosis and / or procedure in the patient's chart. However, the narrative phrase printed from the coding software may appear abbreviated, or result in slightly different terminology. Coded By: Ana Maria Guevara CphT Date Saved: 08/23/2020 07:49 am Normal [facility] XR ANKLE LEFT (MIN 3 VIEWS)o n 07-12-2020 XR ANKLE LEFT (MIN 3 VIEWS) X-RAY: LEFT ANKLE, THREE VIEWS REASON FOR EXAMINATION: Left ankle pain after tripping and falling a lot work. COMPARISONS: None available. FINDINGS: No fracture, dislocation or osseous destruction is seen. The ankle mortise is well maintained. Soft tissue swelling laterally. IMPRESSION: NO FRACTURE OR DISLOCATION. SOFT TISSUES LUNG LATERALLY. Interpreted by: Thelma Del Valle MD Signed by: Thelma Del Valle MD 07/12/20 Final result Normal [facility] NO FRACTURE OR DISLOCATION. SOFT TISSUES LUNG LATERALLY. [place], [place] X-RAY: LEFT ANKLE, THREE VIEWS REASON FOR EXAMINATION: Left ankle pain after tripping and falling a lot work. COMPARISONS: None available. FINDINGS: No fracture, dislocation or osseous destruction is seen. The ankle mortise is well maintained. Soft tissue swelling laterally. [place], [place] Chucho, Chpo Incoming Radiant Results From [employer]cribe[employer]Pacs - 07/12/2020 1:16 PM EST X-RAY: LEFT ANKLE, THREE VIEWS REASON FOR EXAMINATION: Left ankle pain after tripping and falling a lot work. COMPARISONS: None available. FINDINGS: No fracture, dislocation or osseous destruction is seen. The ankle mortise is well maintained. Soft tissue swelling laterally. IMPRESSION: NO FRACTURE OR DISLOCATION. SOFT TISSUES LUNG LATERALLY. [place], [place] Lab Miscellaneous-LCon 07-06 Test Code 427491 [facility] Comment on above: Performed By: #### 1 [id number] #### [facility] [address] [place] [address] Test Name IG PAP RFLX HPV [facility] Comment on above: Performed By: #### 1 [id number] #### [facility] [address] [place] [address] Physician Orderon 07-06-2020 Physician Order [id number]# 1.00CD:127 Normal [facility] Measles (Rubeola) Imon 10-15 Measles (Rubeola) Im 2.18 Normal >1.09 [facility] Comment on above: Result Comment: Interpretation: IMMUNE Reference Range: <0.91 Not Immune 0.91-1.09 Equivocal >1.09 Immune Performed By: #### M EI, RAOUL, VZI, EMELI #### [id number] [place] [address] Health Promotion Officer: Jacques Carpenter MD Mumps,Immun,Abon 10-15-2018 Mumps,Immun,Ab 3.24 Normal >1.09 [facility] Comment on above: Result Comment: Interpretation: IMMUNE Reference Range: <0.91 Not Immune 0.91-1.09 Equivocal >1.09 Immune Performed By: #### M EI, RAOUL, VZI, EMELI #### [address] [id number] Health Promotion Officer: Jacques Carpenter MD VZ Immunityon 10-15-2018 VZ Immunity 1.31 Normal >1.09 [facility] Comment on above: Result Comment: Interpretation: IMMUNE Reference Range: <0.91 Not Immune 0.91-1.09 Equivocal >1.09 Immune Performed By: #### M LUZ ELENA, RAOUL, VZI, EMELI #### [address] [id number] Health Promotion Officer: Jacques Carpenter MD Hep B Surf Abon 10-14-2018 Hep B Surf Ab 88.71 mIU/mL High <10 [facility] Comment on above: Result Comment: REFERENCE RANGE: <10.0 NON-REACTIVE/NOT IMMUNE >=10.0 REACTIVE/IMMUNE The presence of Anti-HBs usually indicates recovery from acute or chronic HBV infection or acquired immunity from HBV vaccination. Positive results (quantitative levels of equal to or greater than 10.0 mIU/mL) indicate an adequate immunity from previous infection, vaccination or immune globulin adminstration. Anti-HBc would help define positivity due to Hepatitis B infection. Performed By: #### A HBS #### [id number] Health Promotion Officer: Jacques Carpenter MD Rubella Ab, IgGon 10-14-2018 Rubella Ab, IgG 78.6 IU/mL Normal [facility] Comment on above: Result Comment: REFERENCE RANGE: <5.0 NON-REACTIVE (non-immune) 5.0 TO 9.9 EQUIVOCAL >=10.0 REACTIVE (immune) Performed By: #### M EI, RAOUL, VZI, EMELI #### [address] [id number] Health Promotion Officer: Jacques Carpenter MD Vital Signs Date Time Vital Sign Value Performing Clinician Facility 07-12-2020 12:46-0500 BMI (Body Mass Index) 31.01 kg/m2 Chadmadhuri Silveira [facility], [place] 07-12-2020 12:46-0500 Body Temperature 97.3 [degF] Chad Frank [place], [place] 07-12-2020 12:46-0500 Body weight 89.81 kg [place], [place] 07-12-2020 12:46-0500 BP Diastolic 102 mm[Hg] [place] 07-12-2020 12:46-0500 BP Systolic 152 mm[Hg] [place] 07-12-2020 12:46-0500 Height 170.2 cm [place] 07-12-2020 12:46-0500 Pulse (Heart Rate) 66 /min [place] 07-12-2020 12:46-0500 Pulse Oximetry 98 % [place] 07-12-2020 12:46-0500 Respiratory Rate 20 /min [place] 07-11-2020 17:08-0500 Body mass index (BMI) [Ratio] COMMENT [facility] Comment on above: Result Comment: Test Ordered: [id number] IGP ,rfx Aptima HPV all pth IGP,rfx Aptima HPV all pth Note WB TESTS RESULT FLAG UNITS REF RANGE LAB Clinician Provided Cytology Information No. of containers..01 ThinPrep Vial DIAGNOSIS: 01 NEGATIVE FOR INTRAEPITHELIAL LESION OR MALIGNANCY. CELLULAR CHANGES ASSOCIATED WITH INFLAMMATION ARE PRESENT. 01 Satisfactory for evaluation. Endocervical and/or squamous metaplastic cells (endocervical component) are present. 01 Phuong Campbell, Chef Under (ASCP) 01 Note 01 The Pap smear is a screening test designed to aid in the detection of premalignant and malignant conditions of the uterine cervix. It is not a diagnostic procedure and should not be used as the sole means of detecting cervical cancer. Both false-positive and false-negative reports do occur. Test Methodology: Note 01 This liquid based ThinPrep(R) pap test was screened with the use of an image guided system. . 01 The HPV DNA reflex criteria were not met with this specimen result therefore, no HPV testing was performed. FLAG LEGEND: L-Low Normal,H-High Normal,LL-Alert Low,HH-Alert High <-Panic Low,>-Panic High,A-Abnormal,AA-Critical Abnormal Performed at: 01 [facility] [address] [id number] Carie Hartman MD, Performed at: [facility] [address] [facility] [address] [id number] MD Minnie Darnell Performed By: #### 1 [id number] #### [facility] [address] [place] [id number] Encounters Encounter Date Encounter Type Care Provider Facility Start: 10-15-2022 End: 10-15-2022 ambulatory CAREN PAEZ . Facility:[facility] Start: 08-20-2022 End: 08-20-[address] NERIS ALLEN . Facility:[facility] Start: 08-15-2022 End: 08-15-[address] NERIS ALLEN . Facility:[facility] Start: 08-13-[address] NERIS ALLEN . Facili ty:[facility]1 Start: 08-06-2022 End: 08-08-2022 Evaluation and management of inpatient DR NERIS ALLEN . Facility:[facility] Start: 07-31-2022 End: 08-01-[address] NERIS ALLEN . Facility:[facility] Start: 07-16-2022 End: 07-16-2022 ambulatory CAREN PAEZ . Facility:[facility] Start: 07-02-2022 End: 07-03-[address] NERIS ALLEN . Facility:[facility] Start: 03-26-2022 End: 03-27-[address] NERIS ALLEN . Facility:[facility] Start: 03-22-[address] NERIS ALLEN . Facili ty:[facility]1 Start: 01-23-2022 End: 01-24-[address] STEPHANIE OHARA Facility:[facility] Start: 12-29-2021 End: 12-30-[address] NERIS ALLEN . Facility:[facility] Start: 11-22-2021 Encounter for genera l adult medical examination without abnormal findings DR STEPHANIE OHARA [facility] Start: 11-16-2021 End: 11-17-[address] STEPHANIE OHARA Facility:[facility] Start: 11-16-2021 End: 11-17-2021 Encounter for general adult medical examination without abnormal findings DR STEPHANIE OHARA Facility:[facility] Start: 07-12-2020 End: 07-12-2020 Emergency department patient visit CHAD MARIE [facility] Start: 07-12-2020 End: 07-12-2020 Emergency department patient visit Chad Marie Work Phone: [facility] ED Comment on above: Sprain of left ankle , unspecified ligament, initial encounter (Primary Dx) Start: 10-13-2018 End: 10-14-2018 Patient encounter procedure STEPHANIE OHARA [facility] Procedures Date Procedure Procedure Detail Performing Clinician Start: 08-06-2022 Delivery of Products of Conception, External Approach DR STEPHANIE OHARA Start: 08-06-2022 Drainage of Amniotic Fluid, Therapeutic from Products of Conception, Via Natural or Artificial Opening DR STEPHANIE OHARA Start: 08-06-2022 Introduction of Othe r Hormone into Peripheral Vein, Percutaneous Approach DR STEPHANIE OHARA Start: 08-06-2022 Repair Perineum Skin , External Approach DR STEPHANIE OHARA Start: 08-06-2022 Repair Vulva, 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 al Approach DR STEPHANIE OHARA Start: 07-12-2020 Radex ankle complete minimum 3 views Chad Marie Work Phone: Start: 10-13-2018 Hepatitis b surf ant ibody hbsab STEPHANIE OHARA Start: 10-13-2018 Antibody mumps STEPHANIEROXANE Broderick RAUN Start: 10-13-2018 Antibody rubeola STEPHANIE OHARA Start: 10-13-2018 Antibody varicella-zoster STEPHANIE LEV Start: 10-13-2018 Immunoassay infectio us agent antibody priyanka nos STEPHANIE OHARA Plan of Treatment Date Care Activity Detail Author Start: 02-16-2020 Influenza vaccination Flu vaccine (# 1) [place], [place] Start: 12-31-2019 DTaP/Tdap/Td vaccine (7 - Tdap) DTaP/Tdap/Td vaccine (7 - Tdap) [place] Start: 10-02-2018 Screening for Chlamy giuseppe trachomatis Chlamydia screen [place], [place] Start: 2018 Screening for malign ant neoplasm of cervix Cervical cancer screen [place], [place] Start: 2012 HIV screening HIV screen [place], [place] Start: 2008 HPV vaccine (1 - 2-d ose series) HPV vaccine (1 - 2-dose series) [place], [place] Start: 1997 Hepatitis C screening Hepatitis C sc reen [place], [place] Payers Date Payer Category Payer Unknown [id number] 1.2.8 [id number] 1997 Unknown [id number] 2.16.8 [id number] 1997 Unknown [id number] 2.16.8 [id number] 1997 Unknown [id number] 2.16.84 0.1.668146.3.579.2.593 1997 Unknown [id number] 2.16.84 0.1.524180.3.579.2.593 1997 Unknown [id number] 2.16.84 0.1.230382.3.579.2.593 1997 Unknown [id number] 2.16.84 0.1.976661.3.579.2.593 1997 Unknown [id number] 2.16.84 0.1.501628.3.579.2.593 1997 Unknown [id number] 2.16.84 0.1.441946.3.579.2.593 1997 Unknown [id number] 2.16.84 0.1.184453.3.579.2.593 1997 Unknown [id number] 2.16.84 0.1.571976.3.579.2.593 1997 Unknown [id number] 2.16.84 0.1.111615.3.579.2.593 1997 Unknown [id number] 2.16.84 0.1.059917.3.579.2.593 1997 Unknown [id number] 2.16.84 0.1.751803.3.579.2.593 1997 Unknown [id number] 2.16.84 0.1.334833.3.579.2.593 1997 Unknown [id number] 2.16.84 0.1.115201.3.579.2.593 1959 Self-pay 1959 Unknown [id number] 1959 Unknown [id number] 1959 Unknown [id number] Unknown [id number] .16.84 0.1.988478.3.579.2.593 Social History Date Type Detail Facility Start: 07-12-2020 Tobacco smoking stat [facility] Never smoker [place], [place] Start: 07-12-2020 Tobacco use and exposure Never used [place] Start: 07-12-2020 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 * Ankle Sprain (Lao) documented in this encounter Assessments Diagnosis Sprain of left ankle, unspecified ligament, initial encounter- Primary Additional Source Comments INFORMATION SOURCE (unrecogn ized section and content) DATE CREATED AUTHOR 10/21/2018 [facility] DATE CREATED AUTHOR AUTHOR'S ORGANIZ ATION 07/12/2020 [facility] DATE CREATED AUTHOR AUTHOR'S ORGANIZ ATION [facility] DATE CREATED AUTHOR AUTHOR'S ORGANIZ ATION 10/23/2022 [facility] Reason for Visit (unrecogniz ed section and content) Reason Comments Ankle Pain fell while at work a nd injured left ankle Ordered Prescriptions (unrec ognized section and content) Prescription Sig Dispensed Refills Start Date End Da te ibuprofen (ADVIL;MOTRIN) 800 MG tablet Take 1 tablet by mouth every 8 hours as needed for Pain 30 tablet 0 07/12/2020 07/22/2020 FOR RECORDS PERTAINING TO PATIENTS WHO ARE OR HAVE BEEN ENROLLED IN A CHEMICAL DEPENDENCY/SUBSTANCEABUSE PROGRAM, SOME INFORMATION MAY BE OMITTED. This clinical summary was aggregated from multiple sources. Caution should be exercised in using it in the provision of clinical care. This summary normalizes information from multiple sources, and as a consequence, information in this document may materially change the coding, format and clinical context of patient data. In addition, data may be omitted in some cases. CLINICAL DECISIONS SHOULD BE BASED ON THE PRIMARY CLINICAL RECORDS. [employer] provides no warranty or guarantee of the accuracy or completeness of information in this document.
== END 2024-05-08 09:07 | disposition home or self-care (01) ==
LOC: NOMS 09:06
PROVIDERS: PCP Nurse Practitioner Family; Visit Provider Obstetrics & Gynecology
DX: Z34.91 Encounter for supervision of normal pregnancy, unspecified, first trimester (principal); Z3A.01 Less than 8 weeks gestation of pregnancy; N92.6 Irregular menstruation, unspecified
CPT/HCPCS: 76817

== ENCOUNTER 2024-06-01 16:05 | Outpatient (OUT) | payer BC, SELFPAY ==
[2024-06-01 17:25] LABS: BOX Test Reference Lab UNITY; BOX Test Sent Out UNITY
[2024-06-01 17:28] LABS: Basophils Percent Auto 0.2 % (0.2-2.0); Eosinophils Absolute Auto 0.1 10^3/uL (0.0-0.7); Eosinophils Percent Auto 0.6 % (0.9-7.0); Hematocrit 36.3 % (36.0-48.0); Hemoglobin 12.4 g/dL (12.0-16.0); Immature Granulocytes Abs Auto 0.03 10^3/uL (0.00-0.03); Immature Granulocytes Pct Auto 0.3 % (0.0-0.5); Lymphocytes Absolute Auto 2.4 10^3/uL (1.2-3.8); Lymphocytes Percent Auto 26.4 % (20.5-60.0); Mean Corpuscular HGB Conc 34.2 g/dL (29.9-35.2); Mean Corpuscular Hemoglobin 30.8 pg (26.7-34.0); Mean Corpuscular Volume 90.1 fL (81.0-99.0); Mean Platelet Volume 9.5 fL (9.5-13.5); Monocytes Absolute Auto 0.5 10^3/uL (0.3-0.8); Monocytes Percent Auto 5.6 % (1.7-12.0); Neutrophils Percent Auto 66.9 % (43.0-75.0); Platelet Count 327 10^3/uL (150-450); Red Blood Count 4.03 10^6/uL (4.20-5.40); Red Cell Distribution Width 11.5 % (11.0-15.0)
[2024-06-01 17:43] LABS: Estimated Average Glucose 97 mg/dL
[2024-06-01 17:56] LABS: Amphetamine Screen Urine NEGATIVE (NEGATIVE); Barbiturates Screen Urine NEGATIVE (NEGATIVE); Benzodiazepines Screen Urine NEGATIVE (NEGATIVE); Buprenorphine Screen Urine NEGATIVE (NEGATIVE); Cannabinoid Screen Urine NEGATIVE (NEGATIVE); Cocaine Screen Urine NEGATIVE (NEGATIVE); Methadone Screen Urine NEGATIVE (NEGATIVE); Methamphetamines Screen Urine NEGATIVE (NEGATIVE); Opiate Screen Urine NEGATIVE (NEGATIVE); Oxycodone Screen Urine NEGATIVE (NEGATIVE); Phencyclidine Screen Urine NEGATIVE (NEGATIVE); Tricyclic Antidepressant Urine NEGATIVE (NEGATIVE)
[2024-06-03 08:10] LABS: HBsAg Screen Negative (Negative)
[2024-06-03 09:09] LABS: HIV Ab/p24 Ag Screen Non Reactive (Non Reactive); Rubella Antibodies, IgG 1.31 index (Immune >0.99)
[2024-06-03 14:08] LABS: Rapid Plasma Reagin, Quant Non Reactive titer (NonRea<1:1)
[2024-06-04 05:07] LABS: HCV Ab Non Reactive (Non Reactive)
== END 2024-06-01 16:06 | disposition home or self-care (01) ==
LOC: LAB 16:08
PROVIDERS: PCP Nurse Practitioner Family; Visit Provider Obstetrics & Gynecology
DX: Z34.01 Encounter for supervision of normal first pregnancy, first trimester (principal); Z36.0 Encounter for antenatal screening for chromosomal anomalies
CPT/HCPCS: 36415; 80307; 83036; 85025; 86592; 86762; 86803; 86850; 86900; 86901; 87086; 87340; 87389

== ENCOUNTER 2024-07-06 21:57 | Outpatient (REF) | payer BC, SELFPAY ==
--- OUTSIDE RECORDS SUMMARY | 2024-07-06 22:01 | XMS_ITS | CCD ---
Author Organization [facility] Care Team Providers Care Personnel Technician Name Role Phone STEPHANIE OHARA Referring Unavailable STEPHANIE OHARA Primary Care Unavailable Stephanie Ohara Primary Care Provider [phone] CHAD MARIE Attending Unavailable LEV, STEPHANIE Primary Care Unavailable LEV, DR STEPHANIE Olguin Primary Care Unavailable OHARA, DR STEPHANIE Olguin Consulting Unavailable LEV, DR STEPHANIE Olguin Attending Unavailable LEV, DR STEPHANIE Olguin Admitting Unavailable JEANNINE ., SOFIA Attending Unavailable EJANNINE ., SOFIA Admitting Unavailable LEV, DR STEPHANIE Olguin Primary Care Unavailable JEANNINE ., SOFIA Consulting Unavailable ANI ., DR CORDON Attending Unavailable OHARA, DR STEPHANIE Olguin Primary Care Unavailable ANI ., DR CORDON Admitting Unavailable ANI ., DR CORDON Consulting Unavailable ANI ., DR CORDON Attending Unavailable ANI ., DR CORDON Admitting Unavailable OHARA, DR STEPHANIE Olguin Primary Care Unavailable ANI ., DR CORDON Attending Unavailable OHARA, DR STEPHANIE Olguin Primary Care Unavailable ANI ., DR CORDON Admitting Unavailable ANI ., DR CORDON Attending Unavailable OHARA, DR STEPHANIE Olguin Primary Care Unavailable ANI ., DR CORDON Admitting Unavailable ANI ., DR CORDON Attending Unavailable ANI ., DR CORDON Admitting Unavailable OHARA, DR STEPHANIE Olguin Primary Care Unavailable ANI ., DR CORDON Attending Unavailable ANI ., DR CORDON Admitting Unavailable ANI ., DR CORDON Consulting Unavailable LEV, DR STEPHANIE Olguin Primary Care Unavailable EMILY II, JOCELYN Consulting Unavailable ANI ., DR CORDON Procedure Practitioner Unavail able ANI ., DR CORDON Attending Unavailable ANI ., DR CORDON Admitting Unavailable GLENNY TORRES V Consulting Unavailable LEV, DR STEPHANIE Olguin Primary Care Unavailable ANI ., DR CORDON Consulting Unavailable OHARA, DR STEPHANIE Olguin Primary Care Unavailable ANI ., DR CORDON Consulting Unavailable ANI ., DR CORDON Attending Unavailable ANI ., DR CORDON Admitting Unavailable JEANNINE ., SOFIA Attending Unavailable JEANNINE ., SOFIA Admitting Unavailable JEANNINE ., SOFIA Consulting Unavailable LEV, DR STEPHANIE Olguin Primary Care Unavailable ANI ., DR CORDON Attending Unavailable ANI ., DR CORDON Admitting Unavailable GLENNY TORRES V Consulting Unavailable LEV, DR STEPHANIE Olguin Primary Care Unavailable ANI ., DR CORDON Consulting Unavailable ANI ., DR CORDON Attending Unavailable ANI ., DR CORDON Admitting Unavailable ANI ., DR CORDON Consulting Unavailable LEV, DR STEPHANIE Olguin Primary Care Unavailable Estrada Castro Consulting Unavailable ANI ., DR CORDON Attending Unavailable OHARA, DR STEPHANIE Olguin Primary Care Unavailable GLENNY TORRES V Consulting Unavailable ANI ., DR CORDON Admitting Unavailable ANI ., DR CORDON Consulting Unavailable Unavailable Primary Care Provider UnavailNERIS [place] Attending Unavailable Allergies Allergy Classification Reported Allergen(s) Allergy Type Date of Onset Reaction(s) Facility (1 source) Penicillins Propensity to adverse reactions to drug 8 [place], [place] (1 source) Amoxicillin Drug Allergy [facility] (2 sources) Penicillin Drug Allergy 3 [facility] (6 sources) Penicillins Drug Allergy 4 [facility] Medications Current Medications Medication Drug Class(es) Dates Sig (Normalized) Sig (Original) benzoyl peroxide 0.025 mg/mg / clindamycin phosphate 0.012 mg/mg topical gel (1 source) Lincosamide Antibacterial Start: 11-15-2015 ACANYA 1.2-2.5 % GEL 24 hr buPROPion hydrochloride 150 mg extended release oral tablet (3 sources) Aminoketone Start: 01-15-2024 take 1 tablet by mouth once daily buPROPion XL (Wellbutrin XL) 150 MG 24 hr tablet Take 150 mg by mouth Daily 01/15/2024 Active ethinyl estradiol 0.035 mg / norgestimate 0.25 mg oral tablet (1 source) Progestin, Estrogen Start: 01-10-2016 take 1 tablet by mouth once daily norgestimate-ethiny l estradiol (ORTHO-CYCLEN, 28,) 0.25-35 MG-MCG per tablet Indications: Dysmenorrhea in adolescent Take 1 tablet by mouth daily 1 packet 12 01/10/2016 Active FLUoxetine 20 mg oral capsule (3 sources) Serotonin Reuptake Inhibitor Start: 02-04-2024 take 1 capsule by mouth once daily in the morning FLUoxetine (PROzac) 20 MG capsule TAKE 1 CAPSULE BY MOUTH EVERY DAY IN THE MORNING 02/04/2024 Active ibuprofen 800 mg oral tablet (1 [...] 50 mg by mouth daily 0 Active ondansetron 4 mg disintegrating oral tablet (4 sources) Serotonin-3 Receptor Antagonist Start: 04-23-2024 End: 05-23-2024 take 1 tablet by mouth every six hours for nausea ondansetron ODT (Zofran-ODT) 4 MG disintegrating tablet Indications: Nausea and vomiting in Take 1 tablet (4 mg) by mouth every 6 (six) hours if needed for nausea or vomiting 30 tablet 2 04/23/2024 05/23/2024 Active Vit-Fe Fumarate-FA (PNV Plus Multivitamin) 27-1 MG tablet (3 sources) Start: 06-08-2024 End: 07-08-2024 take 1 tablet by mouth once daily Vit-Fe Fumarate-FA (PNV Plus Multivitamin) 27-1 MG tablet Indications: First trimester Take 1 tablet by mouth Daily 30 tablet 11 06/08/2024 07/08/2024 Active Vit-Fe Fumarate-FA ( Vitamins) 28-0.8 MG tablet (3 sources) Start: 06-08-2024 End: 06-08-2025 take 1 tablet by mouth once daily Vit-Fe Fumarate-FA ( Vitamins) 28-0.8 MG tablet Indications: First trimester Take 1 tablet by mouth Daily 30 tablet 3 06/08/2024 06/08/2025 Active promethazine hydrochloride 12.5 mg oral tablet (6 sources) Phenothiazine Start: 06-08-2024 End: 09-06-2024 take 1 tablet by mouth every four hours promethazine (Phenergan) 12.5 MG tablet Indications: Nausea and vomiting in Take 1 tablet (12.5 mg) by mouth every 4 (four) hours 180 tablet 1 06/08/2024 09/06/2024 Active Start: 06-08-2024 take 1 tablet by ivan th every six hours as needed for nausea and nausea, then take 1 tablet by mouth every six hours as needed for nausea and nausea promethazine (Phenergan) 12.5 MG tablet Indications: First trimester Take 1 tablet (12.5 mg) by mouth every 6 (six) hours if needed for nausea or vomiting for up to 30 doses Take 1 tablet by mouth every 6 hours as needed for nausea. 30 tablet 2 06/08/2024 Active sertraline 50 mg oral tablet (6 sources) Serotonin Reuptake Inhibitor Start: 02-16-2024 sertraline (Zoloft) 50 MG tablet 02/16/2024 Active Completed/Discontinued Medications Medication Drug Class(es) Dates Sig (Normalized) Sig (Original) nitrofurantoin, macrocrystals 25 mg / nitrofurantoin, monohydrate 75 mg oral capsule (3 sources) Nitrofuran Antibacterial Start: 05-25-2024 End: 06-08-2024 take 1 capsule by mouth in the morning nitrofurantoin, macrocrystal-monoh ydrate, (Macrobid) 100 MG capsule Indications: UTI symptoms Take 1 capsule (100 mg) by mouth in the morning and 1 capsule (100 mg) before bedtime. Do all this for 7 days. 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 (2 sources) First degree perineal laceration during delivery; Translations: [Other specified trauma to perineum and vulva] Onset: 08-16-2022 Episodic Other complications of (4 sources) Uterine size-date discrepancy, third trimester; Translations: [UTERINE SZ-DATE DISCREPANCY 3RD TRI] Onset: 07-31-2022 Episodic Other complications of (2 sources) Vomiting of , unspecified; Translations: [Unspecified vomiting of , unspecified as to episode of care or not applicable] 06-08-2024 Episodic Other and delivery including normal (20 sources) Encounter for care and examination of [...] WEEKS GESTATION OF ] Onset: 08-05-2022 Episodic Residual codes; unclassified (2 sources) Gestation period, 11 weeks; Translations: [11 weeks gestation of ] 06-08-2024 Episodic Unclassified (1 source) Sprain of left ankle; Translations: [Sprain of left ankle, unspecified ligament, initial encounter] Past or Other Problems Problem Classification Problem Date Documented Date Episodic/Chronic Malaise and fatigue (1 source) Other fatigue; Translations: [OTHER FATIGUE] Onset: 11-22-2021 Episodic Other complications of (1 source) Other [...] Test Name Value Interpretation Reference Range Facility BOX TESTon 06-01-2024 BOX TEST SENT OUT [facility] BOX1 [facility] BOX2 06/01/2024 [facility] BOX [facility] HCG ( test) Ql (U)o n 05-08-2024 Interpretation and review of laboratory results Abnormal [facility] Preg Test, Ur Positive Negative [facility] Urinalysis macro (dipstick) panel (U)on 05-08-2024 Bilirubin, UA Negative Negative - 4(70) +++ mg/dL [facility] Blood, UA Negative Negative - 50 Brett/mcL [facility] Clarity, UA Clear [facility] Color, UA Yellow [facility] Glucose, UA Negative Negative - 2000(110) ++++ mg/dL [facility] Interpretation and review of laboratory results Normal [facility] Ketones, UA Negative Negative - 160(16) ++++ mg/dL [facility] Leukocytes, UA Negative Negative - 500+++ Torsten/mcL [facility] Nitrite, UA Negative Negative - Positive [facility] pH, UA 5.5 5 - 9 [facility] Protein, UA Negative Negative - 2000(20) ++++ mg/dL [facility] Spec Grav, UA 1.02 1 - 1.03 [facility] Urobilinogen, UA 1.0 0.2 - 12 mg/dL [facility] PAP ACOG PANEL 2: to on 10-22-2022 . . [facility] Comment on above: Performed By: #### C BC #### [facility] [address] [address] [address] Missy Gonzalez Age Gdln ACOG Testing Normal [facility] Comment on above: Performed By: #### C BC #### [facility] [address] [place], [place] [address] Dr. Missy Gonzalez DIAGNOSIS: Comment [facility] Comment on above: Result Comment: NEGA TIVE FOR INTRAEPITHELIAL LESION OR MALIGNANCY. Performed By: #### C BC #### [facility] [address] [place] [address] Dr. Missy Gonzalez Methodology: Comment Normal [facility] Comment on above: Result Comment: This liquid based ThinPrep(R) pap test was screened with the use of an image guided system. Performed By: #### C BC #### [facility] [address] [place] [address] Dr. Missy Gonzalez Note: Comment Normal [facility] Comment on above: Result Comment: The Pap smear is a screening test designed to aid in the detection of premalignant and malignant conditions of the uterine cervix. It is not a diagnostic procedure and should not be used as the sole means of detecting cervical cancer. Both false-positive and false-negative reports do occur. . Performed By: #### C BC #### [facility] [address] [place] [address] Dr. Missy Gonzalez Performed by: Comment Normal [facility] Comment on above: Result Comment: Cindy Blum, Dredge Operator Supervisor Performed By: #### C BC #### [facility] [address] [place] [address] Dr. Missy Gonzalez Reflex Criteria: Comment Normal [facility] Comment on above: Result Comment: The HPV DNA reflex criteria were not met with this specimen result therefore, no HPV testing was performed. . Performed By: #### C BC #### [facility] [address] [place] [address] Dr. Missy Gonzalez Specimen adequacy: Comment Normal [facility] Comment on above: Result Comment: Sati sfactory for evaluation. No endocervical component is identified. Performed By: #### C BC #### [facility] [address] [place] [address] Dr. Missy Gonzalez CBC AUTO DIFFon 08-08-2022 BASO # 0.1 103/ul Normal 0.0-0.1 [facility] Comment on above: Performed By: #### C BC #### [facility] [address] [place] [address] Dr. Missy Gonzalez Basophils/100 WBC (Bld) 0.4 % Normal 0.2-2.0 [facility] Comment on above: Performed By: #### C BC #### [facility] [address] [place] [address] Dr. Missy Gonzalez EO # 0.1 103/ul Normal 0.0-0.7 [facility] Comment on above: Performed By: #### C BC #### [facility] [address] [place] [address] Dr. Missy Gonzalez Eosinophils/100 WBC (Bld) 0.9 % Normal 0.9-7.0 [facility] Comment on above: Performed By: #### C BC #### [facility] [address] [place] [address] Dr. Missy Gonzalez Erythrocyte distribution width (RBC) [Ratio] 13.7 % Normal 11.0-15.0 [facility] Comment on above: Performed By: #### C BC #### [facility] [address] [place] [address] Dr. Missy Gonzalez Hematocrit (Bld) [Volume fraction] 28.9 % Critically low 36.0-48.0 [facility] Comment on above: Performed By: #### C BC #### [facility] [address] [place] [address] Dr. Missy Gonzalez Hemoglobin (Bld) [Mass/Vol] 10.0 g/dL Critically low 12.0-16.0 [facility] Comment on above: Performed By: #### C BC #### [facility] [address] [place] [address] Dr. Missy Gonzalez IG # 0.15 10e3/ul Critically high 0.00-0.03 [facility] Comment on above: Performed By: #### C BC #### [facility] [address] [place] [address] Dr. Missy Gonzalez IG % 1.2 % Critically high 0.0-0.5 [facility] Comment on above: Performed By: #### C BC #### [facility] [address] [place] [address] Dr. Missy Gonzalez LYMPH # 2.7 103/ul Normal 1.2-3.8 [facility] Comment on above: Performed By: #### C BC #### [facility] [address] [place] [address] Dr. Missy Gonzalez Lymphocytes/100 WBC (Bld) 21.4 % Normal 20.5-60.0 [facility] Comment on above: Performed By: #### C BC #### [facility] [address] [place] [address] Dr. Missy Gonzalez MANUAL DIFF REQ NO Normal [facility] Comment on above: Performed By: #### C BC #### [facility] [address] [place] [address] Dr. Missy Gonzalez MCH (RBC) [Entitic mass] 31.7 pg Normal 26.7-34.0 [facility] Comment on above: Performed By: #### C BC #### [facility] [address] [place] [address] Dr. Missy Gonzalez MCHC (RBC) [Mass/Vol] 34.6 g/dL Normal 29.9-35.2 [facility] Comment on above: Performed By: #### C BC #### [facility] [address] [place] [address] Dr. Missy Gonzalez MCV (RBC) [Entitic vol] 91.7 fL Normal 81.0-99.0 [facility] Comment on above: Performed By: #### C BC #### [facility] [address] [place] [address] Dr. Missy Gonzalez MONO # 0.9 103/ul Critically high 0.3-0.8 [facility] Comment on above: Performed By: #### C BC #### [facility] [address] [place] [address] Dr. Missy Gonzalez Monocytes/100 WBC (Bld) 6.8 % Normal 1.7-12.0 [facility] Comment on above: Performed By: #### C BC #### [facility] [address] [place] [address] Dr. Missy Gonzalez NEUT # 8.9 103/ul Critically high 1.4-6.5 [facility] Comment on above: Performed By: #### C BC #### [facility] [address] [address] [address] Missy Gonzalez Neutrophils/100 WBC (Bld) 69.3 % Normal 43.0-75.0 [facility] Comment on above: Performed By: #### C BC #### [facility] [address] [address] [address] Missy Gonzalez Platelet mean volume (Bld) [Entitic vol] 10.8 fL Normal 9.5-13.5 [facility] Comment on above: Performed By: #### C BC #### [facility] [address] [place] [address] Dr. Missy Gonzalez PLT 235 103/ul Normal 150-450 [facility] Comment on above: Performed By: #### C BC #### [facility] [address] [place] [address] Dr. Missy Gonzalez RBC 3.15 106/ul Critically low 4.20-5.40 [facility] Comment on above: Performed By: #### C BC #### [facility] [address] [place] [address] Dr. Missy Gonzalez WBC 12.8 103/ul Critically high 4.0-11.0 [facility] Comment on above: Performed By: #### C BC #### [facility] [address] [place] [address] Dr. Missy Gonzalez CBC AUTO DIFFon 08-06-2022 BASO # 0.1 103/ul Normal 0.0-0.1 [facility] Comment on above: Performed By: #### P REG #### [facility] [address] [place] [address] Dr. Missy Gonzalez Basophils/100 WBC (Bld) 0.6 % Normal 0.2-2.0 [facility] Comment on above: Performed By: #### P REG #### [facility] [address] [place] [address] Dr. Missy Gonzalez EO # 0.1 103/ul Normal 0.0-0.7 [facility] Comment on above: Performed By: #### P REG #### [facility] [address] [address] [address] Missy Gonzalez Eosinophils/100 WBC (Bld) 0.9 % Normal 0.9-7.0 [facility] Comment on above: Performed By: #### P REG #### [facility] [address] [address] [address] Missy Gonzalez Erythrocyte distribution width (RBC) [Ratio] 13.0 % Normal 11.0-15.0 [facility] Comment on above: Performed By: #### P REG #### [facility] [address] [place] [address] Dr. Missy Gonzalez Hematocrit (Bld) [Volume fraction] 34.6 % Critically low 36.0-48.0 [facility] Comment on above: Performed By: #### P REG #### [facility] [address] [place] [address] Dr. Missy Gonzalez Hemoglobin (Bld) [Mass/Vol] 12.3 g/dL Normal 12.0-16.0 [facility] Comment on above: Performed By: #### P REG #### [facility] [address] [place] [address] Dr. Missy Gonzalez IG # 0.05 10e3/ul Critically high 0.00-0.03 [facility] Comment on above: Performed By: #### P REG #### [facility] [address] [place] [address] Dr. Misys Gonzalez IG % 0.6 % Critically high 0.0-0.5 [facility] Comment on above: Performed By: #### P REG #### [facility] [address] [address] [address] Missy Gonzalez LYMPH # 2.3 103/ul Normal 1.2-3.8 [facility] Comment on above: Performed By: #### P REG #### [facility] [address] [place] [address] Dr. Missy Gonzalez Lymphocytes/100 WBC (Bld) 27.9 % Normal 20.5-60.0 [facility] Comment on above: Performed By: #### P REG #### [facility] [address] [place] [address] Dr. Missy Gonzalez MANUAL DIFF REQ NO Normal [facility] Comment on above: Performed By: #### P REG #### [facility] [address] [place] [address] Dr. Missy Gonzalez MCH (RBC) [Entitic mass] 31.6 pg Normal 26.7-34.0 [facility] Comment on above: Performed By: #### P REG #### [facility] [address] [place] [address] Dr. Missy Gonzalez MCHC (RBC) [Mass/Vol] 35.5 g/dL Critically high 29.9-35.2 [facility] Comment on above: Performed By: #### P REG #### [facility] [address] [place] [address] Dr. Missy Gonzalez MCV (RBC) [Entitic vol] 88.9 fL Normal 81.0-99.0 [facility] Comment on above: Performed By: #### P REG #### [facility] [address] [place] [address] Dr. Missy Gonzalez MONO # 0.6 103/ul Normal 0.3-0.8 [facility] Comment on above: Performed By: #### P REG #### [facility] [address] [place] [address] Dr. Missy Gonzalez Monocytes/100 WBC (Bld) 6.9 % Normal 1.7-12.0 [facility] Comment on above: Performed By: #### P REG #### [facility] [address] [place] [address] Dr. Missy Gonzalez NEUT # 5.2 103/ul Normal 1.4-6.5 [facility] Comment on above: Performed By: #### P REG #### [facility] [address] [place] [address] Dr. Missy Gonzalez Neutrophils/100 WBC (Bld) 63.1 % Normal 43.0-75.0 [facility] Comment on above: Performed By: #### P REG #### [facility] [address] [address] [address] Missy Gonzalez Platelet mean volume (Bld) [Entitic vol] 10.2 fL Normal 9.5-13.5 [facility] Comment on above: Performed By: #### P REG #### [facility] [address] [address] [address] Missy Gonzalez PLT 245 103/ul Normal 150-450 [facility] Comment on above: Performed By: #### P REG #### [facility] [address] [address] [address] Missy Gonzalez RBC 3.89 106/ul Critically low 4.20-5.40 [facility] Comment on above: Performed By: #### P REG #### [facility] [address] [place] [address] Dr. Missy Gonzalez WBC 8.2 103/ul Normal 4.0-11.0 [facility] Comment on above: Performed By: #### P REG #### [facility] [address] [place] [address] Dr. Missy Gonzalez DRUG SCREEN RAPID (URINE)on 08-06-2022 AMP Negative Normal NEGATIVE [facility] Comment on above: Performed By: #### D RUGRPD #### [facility] [address] [place] [address] Dr. Missy Gonzalez BAR Negative Normal NEGATIVE [facility] Comment on above: Performed By: #### D RUGRPD #### [facility] [address] [place] [address] Dr. Missy Gonzalez BUP Negative Normal NEGATIVE [facility] Comment on above: Performed By: #### D RUGRPD #### [facility] [address] [address] [address] Missy Gonzalez BZO Negative Normal NEGATIVE [facility] Comment on above: Performed By: #### D RUGRPD #### [facility] [address] [place] [address] Dr. Missy Gonzalez MCKENNA Negative Normal NEGATIVE [facility] Comment on above: Performed By: #### D RUGRPD #### [facility] [address] [place] [address] Dr. Missy Gonzalez CUT-OFFS SEE BELOW Normal [facility] Comment on above: Result Comment: AMP [...] ng/mL Performed By: #### D RUGRPD #### [facility] [address] [place] [address] Dr. Missy Gonzalez DRUG CUT HEADER DRUG CLASS TEST SYSTEM CUT-OFF CONCENTRATIONS ARE FOLLOWS: Normal [facility] Comment on above: Performed By: #### D RUGRPD #### [facility] [address] [place] [address] Dr. Missy Gonzalez mAMP Negative Normal NEGATIVE [facility] Comment on above: Performed By: #### D RUGRPD #### [facility] [address] [place] [address] Dr. Missy Gonzalez MTD Negative Normal NEGATIVE [facility] Comment on above: Performed By: #### D RUGRPD #### [facility] [address] [place] [address] Dr. Missy Gonzalez OPI Negative Normal NEGATIVE [facility] Comment on above: Performed By: #### D RUGRPD #### [facility] [address] [place] [address] Dr. Missy Gonzalez OXY Negative Normal NEGATIVE [facility] Comment on above: Performed By: #### D RUGRPD #### [facility] [address] [place] [address] Dr. Missy Gonzalez PCP Negative Normal NEGATIVE [facility] Comment on above: Performed By: #### D RUGRPD #### [facility] [address] [address] [address] Missy Gonzalez PPX Negative Normal NEGATIVE [facility] Comment on above: Performed By: #### D RUGRPD #### [facility] [address] [address] [address] Missy Gonzalez TCA Negative Normal NEGATIVE [facility] Comment on above: Performed By: #### D RUGRPD #### [facility] [address] [address] [address] Missy Gonzalez THC Negative Normal NEGATIVE [facility] Comment on above: Performed By: #### D RUGRPD #### [facility] [address] [place] [address] Dr. Missy Gonzalez TYPE AND SCREENon 08-06-2022 TYPE AND SCREEN Negative Normal [facility] Comment on above: Performed By: #### C BC #### [facility] [address] [place] [address] Dr. Missy Gonzalez US PREG GROWTHon 07-31-2022 [...] GLENNY TORRES Date: 2022-07-31 13:51 Normal [facility] CHLAMYDIA/GONOCOCCUS CEDRIC (SW AB/URINE/PAPon 07-19-2022 Chlamydia trachomatis, CEDRIC Negative Normal Negative [facility] Comment on above: Performed By: #### P REG #### [facility] [address] [place] [address] Dr. Missy Gonzalez Neisseria gonorrhoeae, CEDRIC Negative Normal Negative [facility] Comment on above: Performed By: #### P REG #### [facility] [address] [place] [address] Dr. Missy Gonzalez VAGINITIS/VAGINOSIS DNA PROB Anurag 07-18-2022 Sarah species Negative Normal Negative [facility] Comment on above: Performed By: #### V AGINT #### [facility] [address] [place] [address] Dr. Missy Gonzalez Gardnerella vaginalis Negative Normal Negative [facility] Comment on above: Performed By: #### V AGINT #### [facility] [address] [place] [address] Dr. Missy Gonzalez Trichomonas vaginalis Negative Normal Negative [facility] Comment on above: Performed By: #### V AGINT #### [facility] [address] [place] [address] Dr. Missy Gonzalez GROUP B STREP CULTUREon 06-19 S. agalactiae Ag Ql (Unsp spec) Culture Observations: NEGATIVE FOR GROUP B STREPTOCOCCUS. Normal [facility] Comment on above: Performed By: #### C BC #### [facility] [address] [place] [address] Dr. Missy Gonzalez US PREG CERVICAL LENGTHon US PREG CERVICAL LENGTH EXAMINATION: US PREG CERVICAL LENGTH HISTORY: Uterine size for dates discrepancy COMPARISON: No relevant comparison available. FINDINGS: Cervix: 3.9 cm, closed IMPRESSION: Closed cervix measuring 3.9 cm Electronically authenticated by: GLENNY TORRES Date: 2022-07-03 16:13 Normal [facility] US PREG GROWTHon 07-03-2022 US PREG GROWTH [...] by: GLENNY TORRES Date: 2022-07-03 16:12 Normal [facility] US PREG ANATOMY SINGLEon US PREG [...] with growth detailed above. Electronically authenticated by: SETRADA CASTRO Date: 2022-03-27 22:23 Normal [facility] HEP B SURFACE ANTIGEN SCREEN on 01-25-2022 HBsAg Screen Negative Normal Negative [facility] Comment on above: Performed By: #### P REG #### [facility] [address] [address] [address] Missy Gonzalez HEPATITIS C VIRUS AB W/ REFL EX QUANTon 01-25-2022 HCV AB 0.1 s/co ratio Normal 0.0-0.9 [facility] Comment on above: Performed By: #### P REG #### [facility] [address] [address] [address] Missy Gonzalez Interpretation: Comment Normal [facility] Comment on above: Result Comment: Nega tive Not infected with HCV, unless recent infection is suspected or other evidence exists to indicate HCV infection. Performed By: #### P REG #### [facility] [address] [address] [address] Missy Gonzalez HIV 1 AND 2 WITH REFLEXon HIV Screen 4th Generation wRfx Non-Reactive Normal Non Reactive [facility] Comment on above: Result Comment: HIV Negative HIV-1/HIV-2 antibodies and HIV-1 p24 antigen were NOT detected. There is no laboratory evidence of HIV infection. Performed By: #### P REG #### [facility] [address] [address] [address] Missy Gonzalez RPR QUANTon 01-25-2022 Rapid Plasma Reagin, Quant Non-Reactive Normal NonRea<1:1 [facility] Comment on above: Result Comment: Danielle munguia Note: This test does not meet current guidelines for screening and diagnosis of syphilis. This test is intended for following treatment response in patients being treated for syphilis infection. To screen for syphilis infection, a reflex cascade that includes both RPR and a treponema-specific assay should be utilized, such as Treponema pallidum (Syphilis) Screening [place] (820504) or Rapid Plasma Reagin (RPR) Test With Reflex to Quantitative RPR and Confirmatory Treponema pallidum Antibodies (488781). Performed By: #### P REG #### [facility] [address] [place] [address] Dr. Missy Gonzalez RUBELLA AB IGGon 01-25-2022 Rubella Antibodies, IgG 1.27 index Normal Immune >0.99 [facility] Comment on above: Result Comment: Non- immune <0.90 Equivocal 0.90 - 0.99 Immune >0.99 Performed By: #### P REG #### [facility] [address] [place] [address] Dr. Missy Gonzalez CBC AUTO DIFFon 01-23-2022 BASO # 0.0 103/ul Normal 0.0-0.1 [facility] Comment on above: Performed By: #### P REG #### [facility] [address] [place] [address] Dr. Missy Gonzalez Basophils/100 WBC (Bld) 0.3 % Normal 0.2-2.0 [facility] Comment on above: Performed By: #### P REG #### [facility] [address] [place] [address] Dr. Missy Gonzalez EO # 0.1 103/ul Normal 0.0-0.7 [facility] Comment on above: Performed By: #### P REG #### [facility] [address] [place] [address] Dr. Missy Gonzalez Eosinophils/100 WBC (Bld) 0.8 % Critically low 0.9-7.0 [facility] Comment on above: Performed By: #### P REG #### [facility] [address] [place] [address] Dr. Missy Gonzalez Erythrocyte distribution width (RBC) [Ratio] 11.3 % Normal 11.0-15.0 [facility] Comment on above: Performed By: #### P REG #### [facility] [address] [place] [address] Dr. Missy Gonzalez Hematocrit (Bld) [Volume fraction] 35.2 % Critically low 36.0-48.0 [facility] Comment on above: Performed By: #### P REG #### [facility] [address] [place] [address] Dr. Missy Gonzalez Hemoglobin (Bld) [Mass/Vol] 12.0 g/dL Normal 12.0-16.0 [facility] Comment on above: Performed By: #### P REG #### [facility] [address] [place] [address] Dr. Missy Gonzalez IG # 0.03 10e3/ul Normal 0.00-0.03 [facility] Comment on above: Performed By: #### P REG #### [facility] [address] [place] [address] Dr. iMssy Gonzalez IG % 0.4 % Normal 0.0-0.5 [facility] Comment on above: Performed By: #### P REG #### [facility] [address] [place] [address] Dr. Missy Gonzalez LYMPH # 1.9 103/ul Normal 1.2-3.8 [facility] Comment on above: Performed By: #### P REG #### [facility] [address] [place] [address] Dr. Missy Gonzalez Lymphocytes/100 WBC (Bld) 24.3 % Normal 20.5-60.0 [facility] Comment on above: Performed By: #### P REG #### [facility] [address] [place] [address] Dr. Missy Gonzalez MANUAL DIFF REQ NO Normal [facility] Comment on above: Performed By: #### P REG #### [facility] [address] [place] [address] Dr. Missy Gonzalez MCH (RBC) [Entitic mass] 30.8 pg Normal 26.7-34.0 [facility] Comment on above: Performed By: #### P REG #### [facility] [address] [place] [address] Dr. Missy Gonzalez MCHC (RBC) [Mass/Vol] 34.1 g/dL Normal 29.9-35.2 [facility] Comment on above: Performed By: #### P REG #### [facility] [address] [address] [address] Missy Gonzalez MCV (RBC) [Entitic vol] 90.5 fL Normal 81.0-99.0 [facility] Comment on above: Performed By: #### P REG #### [facility] [address] [address] [address] Missy Gonzalez MONO # 0.5 103/ul Normal 0.3-0.8 [facility] Comment on above: Performed By: #### P REG #### [facility] [address] [address] [address] Missy Gonzalez Monocytes/100 WBC (Bld) 6.3 % Normal 1.7-12.0 [facility] Comment on above: Performed By: #### P REG #### [facility] [address] [address] [address] Missy Gonzalez NEUT # 5.4 103/ul Normal 1.4-6.5 [facility] Comment on above: Performed By: #### P REG #### [facility] [address] [address] [address] Missy Gonzalez Neutrophils/100 WBC (Bld) 67.9 % Normal 43.0-75.0 [facility] Comment on above: Performed By: #### P REG #### [facility] [address] [address] [address] Missy Gonzalez Platelet mean volume (Bld) [Entitic vol] 9.5 fL Normal 9.5-13.5 [facility] Comment on above: Performed By: #### P REG #### [facility] [address] [address] [address] Missy Gonzalez PLT 320 103/ul Normal 150-450 [facility] Comment on above: Performed By: #### P REG #### [facility] [address] [address] [address] Missy Gonzalez RBC 3.89 106/ul Critically low 4.20-5.40 [facility] Comment on above: Performed By: #### P REG #### [facility] [address] [address] [address] Missy Gonzalez WBC 8.0 103/ul Normal 4.0-11.0 [facility] Comment on above: Performed By: #### P REG #### [facility] [address] [address] [address] Missy Gonzalez CULTURE URINEon 01-23-2022 CULTURE URINE Culture Observations : LIGHT GROWTH OF MIXED GENITAL JOSE. NO POTENTIAL PATHOGENS SEEN. Normal [facility] Comment on above: Performed By: #### U RCX #### [facility] [address] [place] [address] Dr. Missy Gonzalez GLYCOHEMOGLOBIN A1Con 2021 ADA RECOMMENDATION SEE BELOW Normal [facility] Comment on above: Result Comment: ADA RECOMMENDED LIMIT 4.0 - 6.0 ADA THERAPEUTIC TARGET < 7.0 ACTION SUGGESTED > 7.0 Performed By: #### A 1C #### [facility] [address] [place] [address] Dr. Missy Gonzalez Glucose [Mass/Vol] 103 mg/dL Normal [facility] Comment on above: Performed By: #### A 1C #### [facility] [address] [place] [address] Dr. Missy Gonzalez HbA1c (Bld) [Mass fraction] 5.2 % Normal 4.5-6.2 [facility] Comment on above: Performed By: #### A 1C #### [facility] [address] [place] [address] Dr. Missy Gonzalez MATEO BOX TEST PT SEND OUTo n 01-23-2022 SENT TO REF LAB 01/23/2022 Normal [facility] Comment on above: Performed By: #### C BC #### [facility] [address] [address] [address] Missy Gonzalez TYPE AND SCREENon 01-23-2022 TYPE AND SCREEN Negative Normal [facility] Comment on above: Performed By: #### C BC #### [facility] [address] [place] [address] Dr. Missy Gonzalez US PREG TVon 12-29-2021 [...] GLENNY TORRES Date: 2021-12-29 16:46 Normal [facility] VIT D 1 25 DIHYDROXYon 11-19 Calcitriol(1,25 di-OH Vit D) 72.5 pg/mL Normal 19.9-79.3 [facility] Comment on above: Result Comment: Ef fective November 20, 2021 Calcitriol(1,25 di-OH Vit D) reference interval will be changing to: pg/mL . 0 - 6 months: 44.3 - 212.9 7 months - 1 year: 40.3 - 112.4 >1 year: 24.8 - 81.5 Performed By: #### P REG #### [facility] [address] [place] [address] Dr. Missy Gonzalez CBC AUTO DIFFon 11-16-2021 BASO # 0.1 103/ul Normal 0.0-0.1 [facility] Comment on above: Performed By: #### C BC #### [facility] [address] [place] [address] Dr. Missy Gonzalez Basophils/100 WBC (Bld) 0.7 % Normal 0.2-2.0 [facility] Comment on above: Performed By: #### C BC #### [facility] [address] [place] [address] Dr. Missy Gonzalez EO # 0.1 103/ul Normal 0.0-0.7 [facility] Comment on above: Performed By: #### C BC #### [facility] [address] [place] [address] Dr. Missy Gonzalez Eosinophils/100 WBC (Bld) 0.7 % Critically low 0.9-7.0 [facility] Comment on above: Performed By: #### C BC #### [facility] [address] [place] [address] Dr. Missy Gonzalez Erythrocyte distribution width (RBC) [Ratio] 11.2 % Normal 11.0-15.0 [facility] Comment on above: Performed By: #### C BC #### [facility] [address] [place] [address] Dr. Missy Gonzalez Hematocrit (Bld) [Volume fraction] 40.4 % Normal 36.0-48.0 [facility] Comment on above: Performed By: #### C BC #### [facility] [address] [place] [address] Dr. Missy Gonzalez Hemoglobin (Bld) [Mass/Vol] 13.4 g/dL Normal 12.0-16.0 [facility] Comment on above: Performed By: #### C BC #### [facility] [address] [place] [address] Dr. Missy Gonzalez IG # 0.02 10e3/ul Normal 0.00-0.03 [facility] Comment on above: Performed By: #### C BC #### [facility] [address] [place] [address] Dr. Missy Gonzalez IG % 0.3 % Normal 0.0-0.5 [facility] Comment on above: Performed By: #### C BC #### [facility] [address] [place] [address] Dr. Missy Gonzalez LYMPH # 2.6 103/ul Normal 1.2-3.8 [facility] Comment on above: Performed By: #### C BC #### [facility] [address] [place] [address] Dr. Missy Gonzalez Lymphocytes/100 WBC (Bld) 36.6 % Normal 20.5-60.0 [facility] Comment on above: Performed By: #### C BC #### [facility] [address] [place] [address] Dr. Missy Gonzalez MANUAL DIFF REQ NO Normal [facility] Comment on above: Performed By: #### C BC #### [facility] [address] [place] [address] Dr. Missy Gonzalez MCH (RBC) [Entitic mass] 30.7 pg Normal 26.7-34.0 [facility] Comment on above: Performed By: #### C BC #### [facility] [address] [place] [address] Dr. Missy Goznalez MCHC (RBC) [Mass/Vol] 33.2 g/dL Normal 29.9-35.2 [facility] Comment on above: Performed By: #### C BC #### [facility] [address] [place] [address] Dr. Missy Gonzalez MCV (RBC) [Entitic vol] 92.7 fL Normal 81.0-99.0 [facility] Comment on above: Performed By: #### C BC #### [facility] [address] [place] [address] Dr. Missy Gonzalez MONO # 0.5 103/ul Normal 0.3-0.8 [facility] Comment on above: Performed By: #### C BC #### [facility] [address] [place] [address] Dr. Missy Gonzalez Monocytes/100 WBC (Bld) 6.5 % Normal 1.7-12.0 [facility] Comment on above: Performed By: #### C BC #### [facility] [address] [place] [address] Dr. Missy Gonzalez NEUT # 3.9 103/ul Normal 1.4-6.5 [facility] Comment on above: Performed By: #### C BC #### [facility] [address] [place] [address] Dr. Missy Gonzalez Neutrophils/100 WBC (Bld) 55.2 % Normal 43.0-75.0 [facility] Comment on above: Performed By: #### C BC #### [facility] [address] [place] [address] Dr. Missy Gonzalez Platelet mean volume (Bld) [Entitic vol] 8.7 fL Critically low 9.5-13.5 [facility] Comment on above: Performed By: #### C BC #### [facility] [address] [place] [address] Dr. Missy Gonzalez PLT 294 103/ul Normal 150-450 [facility] Comment on above: Performed By: #### C BC #### [facility] [address] [place] [address] Dr. Missy Gonzalez RBC 4.36 106/ul Normal 4.20-5.40 [facility] Comment on above: Performed By: #### C BC #### [facility] [address] [place] [address] Dr. Missy Gonzalez WBC 7.1 103/ul Normal 4.0-11.0 [facility] Comment on above: Performed By: #### C BC #### [facility] [address] [place] [address] Dr. Missy Gonzalez GLYCOHEMOGLOBIN A1Con 2021 ADA RECOMMENDATION SEE BELOW Normal [facility] Comment on above: Result Comment: ADA RECOMMENDED LIMIT 4.0 - 6.0 ADA THERAPEUTIC TARGET < 7.0 ACTION SUGGESTED > 7.0 Performed By: #### A 1C #### [facility] [address] [place] [address] Dr. Missy Gonzalez Glucose [Mass/Vol] 100 mg/dL Normal [facility] Comment on above: Performed By: #### A 1C #### [facility] [address] [place] [address] Dr. Missy Gonzalez HbA1c (Bld) [Mass fraction] 5.1 % Normal 4.5-6.2 [facility] Comment on above: Performed By: #### A 1C #### [facility] [address] [place] [address] Dr. Missy Gonzalez PREG HCG QUALon 11-16-2021 , QUAL Negative Normal NEGATIVE [facility] Comment on above: Performed By: #### P REG #### [facility] [address] [place] [address] Dr. Missy Gonzalez PROF 14(COMP METB)on 022 Albumin [Mass/Vol] 4.6 g/dL Normal 3.4-5.0 [facility] Comment on above: Performed By: #### T MAYRA, CMP #### [facility] [address] [place] [address] Dr. Missy Gonzalez Albumin/Globulin [Mass ratio] 1.2 {ratio} Normal [facility] Comment on above: Performed By: #### T MAYRA, CMP #### [facility] [address] [place] [address] Dr. Missy Gonzalez ALP [Catalytic activity/Vol] 69 U/L Normal 46-116 [facility] Comment on above: Performed By: #### T MAYRA, CMP #### [facility] [address] [place] [address] Dr. Missy Gonzalez ALT [Catalytic activity/Vol] 30 U/L Normal 14-59 [facility] Comment on above: Performed By: #### T MAYRA, CMP #### [facility] [address] [place] [address] Dr. Missy Gonzalez Anion gap [Moles/Vol] 15.0 mmol/L Normal [facility] Comment on above: Performed By: #### T MAYRA, CMP #### [facility] [address] [place] [address] Dr. Missy Gonzalez AST [Catalytic activity/Vol] 20 U/L Normal 15-37 [facility] Comment on above: Performed By: #### T MAYRA, CMP #### [facility] [address] [place] [address] Dr. Missy Gonzalez Bilirubin [Mass/Vol] 0.4 mg/dL Normal 0.2-1.0 [facility] Comment on above: Performed By: #### T MAYRA, CMP #### [facility] [address] [place] [address] Dr. Missy Gonzalez Calcium [Mass/Vol] 9.1 mg/dL Normal 8.5-10.1 [facility] Comment on above: Performed By: #### T MAYRA, CMP #### [facility] [address] [address] [address] Missy Gonzalez Chloride [Moles/Vol] 102 mmol/L Normal 98-107 [facility] Comment on above: Performed By: #### T SH, CMP #### [facility] [address] [place] [address] Dr. Missy Gonzalez CO2 [Moles/Vol] 27.3 mmol/L Normal 21.0-32.0 [facility] Comment on above: Performed By: #### T SH, CMP #### [facility] [address] [place] [address] Dr. Missy Gonzalez Creatinine [Mass/Vol] 0.63 mg/dL Normal 0.55-1.02 [facility] Comment on above: Performed By: #### T SH, CMP #### [facility] [address] [place] [address] Dr. Missy Gonzalez EGFR-AF VINCENTIAN >60 Normal >=60 [facility] Comment on above: Performed By: #### T SH, CMP #### [facility] [address] [place] [address] Dr. Missy Gonzalez EGFR-NON AF VINCENTIAN >60 Normal >=60 [facility] Comment on above: Performed By: #### T SH, CMP #### [facility] [address] [place] [address] Dr. Missy Gonzalez Globulin (S) [Mass/Vol] 3.8 g/dL Normal [facility] Comment on above: Performed By: #### T SH, CMP #### [facility] [address] [place] [address] Dr. Missy Gonzalez Glucose [Mass/Vol] 86 mg/dL Normal 74-106 [facility] Comment on above: Performed By: #### T SH, CMP #### [facility] [address] [place] [place] [address] Dr. Missy Gonzalez Potassium [Moles/Vol] 4.3 mmol/L Normal 3.5-5.1 [facility] Comment on above: Performed By: #### T SH, CMP #### [facility] [address] [place] [address] Dr. Missy Gonzalez Protein [Mass/Vol] 8.4 g/dL Critically high 6.4-8.2 [facility] Comment on above: Performed By: #### T SH, CMP #### [facility] [address] [address] [address] Missy Gonzalez Sodium [Moles/Vol] 140 mmol/L Normal 136-145 [facility] Comment on above: Performed By: #### T SH, CMP #### [facility] [address] [address] [address] Missy Gonzalez Urea nitrogen [Mass/Vol] 11.0 mg/dL Normal 7.0-18.0 [facility] Comment on above: Performed By: #### T SH, CMP #### [facility] [address] [place] [address] Dr. Missy Gonzalez Urea nitrogen/Creatinine [Mass ratio] 17.5 mg/mg Normal [facility] Comment on above: Performed By: #### T SH, CMP #### [facility] [address] [place] [address] Dr. Missy Gonzalez TSHon 11-16-2021 TSH 1.070 uIU/mL Normal 0.358-3.740 [facility] Comment on above: Performed By: #### T SH, CMP #### [facility] [address] [place] [address] Dr. Missy Gonzalez TSH RANGE SEE BELOW Normal [facility] Comment on above: Result Comment: <0.3 4 UIU/ml HYPERTHYROID 0.34-5.60 UIU/ml EUTHYROID >5.60 UIU/ml HYPOTHYROID Performed By: #### T SH, CMP #### [facility] [address] [place] [address] Dr. Missy Gonzalez Coding Summary.on 08-23-2020 Coding Summary. CODING DATE: 08/23/2020 FINAL [facility] STATUS: Home (Routine DC) PAYOR: Self [...] Del Valle MD 07/12/20 Final result Normal [facility] NO FRACTURE OR DISLOCATION. SOFT TISSUES LUNG LATERALLY. [place], [place] X-RAY: LEFT ANKLE, THREE VIEWS REASON FOR EXAMINATION: Left ankle pain after tripping and falling a lot work. COMPARISONS: None available. FINDINGS: No fracture, dislocation or osseous destruction is seen. The ankle mortise is well maintained. Soft tissue swelling laterally. [facility] Incoming Radiant Results From [facility] - 07/12/2020 1:16 PM EST X-RAY: LEFT ANKLE, THREE VIEWS REASON FOR EXAMINATION: Left ankle pain after tripping and falling a lot work. COMPARISONS: None available. FINDINGS: No fracture, dislocation or osseous destruction is seen. The ankle mortise is well maintained. Soft tissue swelling laterally. IMPRESSION: NO FRACTURE OR DISLOCATION. SOFT TISSUES LUNG LATERALLY. [facility] Miscellaneous-LCon 07-06 Test Code 356147 [facility] Comment on above: Performed By: #### 1 [id number] #### [facility] [address] [place] [address] Test Name IG PAP RFLX HPV [facility] Comment on above: Performed By: #### 1 [id number] #### [facility] [address] [place] [address] Physician Orderon 07-06-2020 Physician Order [id number]# 1.00CD:127 Normal [facility] Measles (Rubeola) Imon 10-15 Measles (Rubeola) Im 2.18 Normal >1.09 [facility] Comment on above: Result Comment: Interpretation: IMMUNE Reference Range: <0.91 Not Immune 0.91-1.09 Equivocal >1.09 Immune Performed By: #### M EI, RAOUL, VZI, EMELI #### [employer] [address] [place] [id number] Windows [employer] Developer: Jacques Carpenter MD Mumps,Immun,Abon 10-15-2018 Mumps,Immun,Ab 3.24 Normal >1.09 [facility] Comment on above: Result Comment: Interpretation: IMMUNE Reference Range: <0.91 Not Immune 0.91-1.09 Equivocal >1.09 Immune Performed By: #### M EI, RAOUL, VZI, EMELI #### [employer] [address] [place] [phone] [employer] Developer: Jacques Carpenter MD VZ Immunityon 10-15-2018 VZ Immunity 1.31 Normal >1.09 [facility] Comment on above: Result Comment: Interpretation: IMMUNE Reference Range: <0.91 Not Immune 0.91-1.09 Equivocal >1.09 Immune Performed By: #### M EI, RAOUL, VZI, EMELI #### [employer] [address] [place] [address] [id number] [employer] Developer: Jacques Carpenter MD Hep B Surf Abon 10-14-2018 Hep B Surf Ab 88.71 mIU/mL High <10 [facility] Comment on above: Result Comment: REFERENCE RANGE: [...] infection. Performed By: #### A HBS #### [employer] [address], [place] [id number] [employer] Developer: Jacques Carpenter MD Rubella Ab, IgGon 10-14-2018 Rubella Ab, IgG 78.6 IU/mL Normal [facility] Comment on above: Result Comment: REFERENCE RANGE: <5.0 NON-REACTIVE (non-immune) 5.0 TO 9.9 EQUIVOCAL >=10.0 REACTIVE (immune) Performed By: #### M EI, RAOUL, VZI, EMELI #### [employer] [address], [place] [id number] [employer] Developer: Jacques Carpenter MD Vital Signs Date Time Vital Sign Value Performing Clinician Facility 06-08-2024 16:05-0500 Body mass index (BMI) [Ratio] 31.48 kg/m2 [employer] Work Phone: [facility] 06-08-2024 16:05-0500 Body weight 91.17 kg [employer] Work Phone: [facility] 06-08-2024 16:05-0500 Diastolic blood pressure 70 mm[Hg] [facility] 06-08-2024 16:05-0500 Systolic blood pressure 118 mm[Hg] [facility] 07-12-2020 12:46-0500 BMI (Body Mass Index) 31.01 kg/m2 [facility] 07-12-2020 12:46-0500 Body Temperature 97.3 [degF] [facility] 07-12-2020 12:46-0500 Body weight 89.81 kg [facility] [place] 07-12-2020 12:46-0500 BP Diastolic 102 mm[Hg] [facility] , [place] 07-12-2020 12:46-0500 BP Systolic 152 mm[Hg] [facility]madhuri Marie [facility] , [place] 07-12-2020 12:46-0500 Height 170.2 cm Chadmadhuri Marie [facility] [place] 07-12-2020 12:46-0500 Pulse (Heart Rate) 66 /min Chadmadhuri Silveira [facility] 07-12-2020 12:46-0500 Pulse Oximetry 98 % Chadmadhuri Marie [facility] [place] 07-12-2020 12:46-0500 Respiratory Rate 20 /min [facility] 07-11-2020 17:08-0500 Body mass index (BMI) [Ratio] [...] (endocervical component) are present. 01 Phuong Campbell, Dredge Operator Supervisor (ASCP) 01 Note 01 The Pap smear [...] <-Panic Low,>-Panic High,A-Abnormal,AA-Critical Abnormal Performed at: 01 [facility] [address] [place] [address] Carie Hartman MD, Performed at: [facility] [address] [place], [place] [id number] MD Minnie Darnell Performed By: #### 1 [id number] #### [facility] [address] [place] [address] Encounters Encounter Date Encounter Type Care Provider Facility Start: 07-06-2024 End: 07-06-2024 Bamboo flowsheet Sofia VERDUGO Work Phone: [facility] Start: 07-06-2024 End: 07-06-2024 Bamboo flowsheet Sofia VERDUGO Work Phone: [facility] Start: 06-08-2024 End: 06-08-2024 ambulatory NERIS ANI Not Available Start: 06-08-2024 End: 06-08-2024 flow sheet Neris Ani DO Work Phone: [facility] Comment on above: First trimester preg dominique; 11 weeks gestation of ; Nausea and vomiting in Start: 06-08-2024 End: 06-08-2024 Bamboo flowsheet Neris Ani DO Work Phone: [facility] Start: 06-08-2024 End: 06-08-2024 Bamboo flowsheet Neris Ani DO Work Phone: [facility] Start: 06-01-2024 End: 06-01-2024 Clinisync Result Encounter Neris Ani DO Work Phone: [facility] Unsolicited Start: 06-01-2024 End: 06-01-2024 Clinisync Result Encounter Neris Law DO Work Phone: [facility] Unsolicited Start: 05-08-2024 End: 05-08-2024 ambulatory NERIS LAW Not Available Start: 05-08-2024 End: 05-08-2024 Office outpatient visit 5 minutes [facility] Ani Nurse [facility] Comment on above: GA: 7w1d Start: 10-15-2022 End: 10-15-2022 ambulatory SOFIA PAEZ . Facility:[facility] Start: 08-20-2022 End: 08-20-[address] NERIS LAW . Facility:[facility] Start: 08-15-2022 End: 08-15-[address] NERIS LAW . Facility:[facility] Start: 08-13-[address] NERIS LAW . Facili ty:[facility] Start: 08-06-2022 End: 08-08-2022 Evaluation and management of inpatient DR NERIS LAW . Facility:[facility] Start: 07-31-2022 End: 08-01-[address] NERIS LAW . Facility:[facility] Start: 07-16-2022 End: 07-16-2022 ambulatory SOFIA PAEZ . Facility:[facility] Start: 07-02-2022 End: 07-03-[address] NERIS LAW . Facility:[facility] Start: 03-26-2022 End: 03-27-[address] NERIS LAW . Facility:[facility] Start: 03-22-[address] NERIS LAW . Facili ty:[facility] Start: 01-23-2022 End: 01-24-[address] STEPHANIE OHARA Facility:[facility] Start: 12-29-2021 End: 12-30-[address] NERIS LAW . Facility:[facility] Start: 11-22-2021 Encounter for genera l adult medical examination without abnormal findings DR STEPHANIE OHARA [facility] Start: 11-16-2021 End: 11-17-[address] STEPHANIE OHARA Facility:[facility] Start: 11-16-2021 End: 11-17-2021 Encounter for general adult medical examination without abnormal findings DR STEPHANIE OHARA Facility: Start: 07-12-2020 End: 07-12-2020 Emergency department patient visit CHAD MARIE [facility] Start: 07-12-2020 End: 07-12-2020 Emergency department patient visit Chad Marie Work Phone: [facility] ED Comment on above: Sprain of left ankle , unspecified ligament, initial encounter (Primary Dx) Start: 10-13-2018 End: 10-14-2018 Patient encounter procedure STEPHANIE OHARA [facility] Procedures Date Procedure Procedure Detail Performing Clinician Start: 06-01-2024 BOX TEST Neris Fazi o DO Work Phone: Start: 05-08-2024 End: 05-08-2024 Urnls dip stick/tablet rgnt non-auto w/o micrscp Sofia VERDUGO Work Phone: Start: 08-06-2022 Delivery of Products of Conception, External Approach DR STEPHANIE OHARA Start: 08-06-2022 Drainage of Amniotic Fluid, Therapeutic from Products of Conception, Via Natural or Artificial Opening DR STEPHANIE OHARA Start: 08-06-2022 Introduction of Othe r Hormone into Peripheral Vein, Percutaneous Approach DR STEPHANIE OHARA Start: 08-06-2022 Repair Perineum Skin , External Approach DR STEPHANIE OHARA Start: 08-06-2022 Repair Vulva, Toggle Press Operator al Approach DR STEPHANIE OHARA Start: 07-12-2020 Radex ankle complete minimum 3 views Chad Marie Work Phone: Start: 10-13-2018 Hepatitis b surf ant ibody hbsab STEPHANIE OHARA Start: 10-13-2018 Antibody mumps STEPHANIE Broderick RAUN Start: 10-13-2018 Antibody rubeola STEPHANIE OHARA Start: 10-13-2018 Antibody varicella-zoster STEPHANIE OHARA Start: 10-13-2018 Immunoassay infectio us agent antibody priyanka nos STEPHANIE OHARA Plan of Treatment Date Care Activity Detail Author Start: 07-06-2024 End: 07-06-2024 Patient encounter procedure [facility] Comment on above: Arrived Start: 06-08-2024 End: 06-08-2024 Patient encounter procedure 06/08/2024 3:30 PM EST Routine [facility] [address] [place] [id number] Neris Law DO [address] [place] [address] [facility] Start: 05-08-2024 End: 05-08-2025 ABO/Rh ABO/Rh Lab Routine Missed menses , unspecified gestational age Expected: 05/08/2024 (Approximate), Expires: 05/08/2025 [facility] Comment on above: Expected: 05/08/2024 (Approximate), Expires: 05/08/2025 Start: 05-08-2024 End: 05-08-2025 Blood type and Indirect antibody screen panel - Blood Type and screen Lab Routine Missed menses , unspecified gestational age Expected: 05/08/2024 (Approximate), Expires: 05/08/2025 [facility] Work Phone: Comment on above: Expected: 05/08/2024 (Approximate), Expires: 05/08/2025 Start: 05-08-2024 End: 05-08-2025 Drugs of abuse panel - Urine by Screen method Rapid drug screen, urine Lab Routine , unspecified gestational age Encounter for supervision of normal first in first trimester Expected: 05/08/2024 (Approximate), Expires: 05/08/2025 [facility] Comment on above: Expected: 05/08/2024 (Approximate), Expires: 05/08/2025 Start: 05-08-2024 End: 05-08-2025 US Pelvis transvaginal US OB transvaginal Imaging Routine Missed menses Expected: 05/08/2024 (Approximate), Expires: 05/08/2025 [facility] Comment on above: Expected: 05/08/2024 (Approximate), Expires: 05/08/2025 Start: 02-16-2024 Influenza vaccination Influenza Vacc ine (#1) [facility] Start: 02-16-2020 Influenza vaccination Flu vaccine (# 1) [facility] [place] Start: 12-31-2019 DTaP/Tdap/Td vaccine (7 - Tdap) DTaP/Tdap/Td vaccine (7 - Tdap) [place], [place] Start: 10-02-2018 Screening for Chlamy giuseppe trachomatis Chlamydia screen [place], [place] Start: 2018 Screening for malign ant neoplasm of cervix Cervical cancer screen [place], [place] Start: 2012 HIV screening [facility] [place] [place] Start: 2008 HPV vaccine (1 - 2-d ose series) HPV vaccine (1 - 2-dose series) [place], [place] Start: 1997 Hepatitis C screening Hepatitis C sc reen [place], [place] Bacteria identified in Urine by Culture Urine culture Microbiology Routine Missed menses Ordered: 05/08/2024 [facility] Comment on above: Ordered: 05/08/2024 CBC W Auto Different ial panel - Blood CBC and differential Lab Routine Missed menses , unspecified gestational age Ordered: 05/08/2024 [facility] Comment on above: Ordered: 05/08/2024 Hemoglobin A1c/Hemoglobin.total in Blood Hemoglobin A1c Lab Routine Missed menses , unspecified gestational age Ordered: 05/08/2024 [facility] Comment on above: Ordered: 05/08/2024 Hepatitis B virus surface Ag [Presence] in Serum or Plasma by Immunoassay Hepatitis B surface antigen Lab Routine Missed menses , unspecified gestational age Ordered: 05/08/2024 [facility] Comment on above: Ordered: 05/08/2024 Hepatitis C virus Ab [Presence] in Serum or Plasma by Immunoassay Hepatitis C antibody Lab Routine Missed menses , unspecified gestational age Ordered: 05/08/2024 [facility] Comment on above: Ordered: 05/08/2024 HIV-1/HIV-2 antigen/antibody combination immunoassay HIV-1 and HIV-2 antibodies Lab Routine Missed menses , unspecified gestational age Ordered: 05/08/2024 [facility] Comment on above: Ordered: 05/08/2024 Reagin Ab [Presence] in Serum by RPR RPR Lab Routine Missed menses , unspecified gestational age Ordered: 05/08/2024 [facility] Comment on above: Ordered: 05/08/2024 Rubella antibody, IgG Rubella an tibody, IgG Lab Routine Missed menses , unspecified gestational age Ordered: 05/08/2024 [facility] Comment on above: Ordered: 05/08/2024 Immunizations Immunization Date Immunization Notes Care Provider Nano dhillon 03-26-2023 influenza virus vacc ine, unspecified formulation Noms Nurse [facility] Payers Date Payer Category Payer [facility] BCBS [id number] 2020 Unknown [id number] 1997 Unknown [id number] 2.16.840.1.829897.3.579.2. 173 1997 Unknown [id number] 2.16.840.1.108728.3.579.2. 185 1997 Unknown [id number] 2.16.840.1.135816.3.579.2. 593 1997 Unknown [id number] 2.16.840.1.725744.3.579.2. 593 1997 Unknown [id number] 2.16.840.1.047931.3.579.2. 593 1997 Unknown [id number] 2.16.840.1.967721.3.579.2. 593 1997 Unknown [id number] 2.16.840.1.899311.3.579.2. 593 1997 Unknown [id number] 2.16.840.1.557941.3.579.2. 593 1997 Unknown [id number] 2.16.840.1.596080.3.579.2. 593 1997 Unknown [id number] 2.16.840.1.675858.3.579.2. 593 1997 Unknown [id number] 2.16.840.1.473916.3.579.2. 593 1997 Unknown [id number] 2.16.840.1.258540.3.579.2. 593 1997 Unknown [id number] 2.16.840.1.331165.3.579.2. 593 1997 Unknown [id number] 2.16.840.1.457289.3.579.2. 593 1997 Unknown [id number] 2.16.840.1.129285.3.579.2. 593 1997 Unknown [id number] 2.16.840.1.444627.3.579.2. 1259 1997 Unknown [id number] 2.16.840.1.579664.3.579.2. 1259 1959 Self-pay 1959 Unknown [id number] 1959 Unknown [id number] 1959 Unknown [id number] Unknown [id number] 2.16.840.1.386765.3.579.2. 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) [place], [place] Start: 1997 Sex Assigned At Not on file M [place] Exposure to SARS-CoV -2 (event) Not sure [facility] [place] Start: 05-08-2024 Alcoholic beverage intake Lifetime non-drinker (finding) [facility] Start: 06-06-2023 History of Social function [facility] Start: 06-06-2023 Tobacco use panel [facility] Start: 04-02-2024 [facility] History of Present illness Narrative 06-08-2024 Bisi Corley MA - 06/08/2024 3:30 PM EST Note Date & Type Note Facility 06-08-2024 History of Presen t illness Narrative Reason for Appointment: Patient ID: Emy Cantu is a 29 y.o. female who presents for Routine Visit Patient presents today for Return OB appointment. MEDICATIONS Current Outpatient Medications Medication Instructions buPROPion XL (WELLBUTRIN XL) 150 mg, Daily FLUoxetine (PROzac) 20 MG capsule TAKE 1 CAPSULE BY MOUTH EVERY DAY IN THE MORNING ondansetron ODT (Zofran-ODT) 4 MG disintegrating tablet DISSOLVE 1 TABLET UNDER TONGUE EVERY 6 HOURS IF NEEDED FOR NAUSEA OR VOMITING Vit-Fe Fumarate-FA (PNV Plus Multivitamin) 27-1 MG tablet 1 tablet, Oral, Daily promethazine (PHENERGAN) 12.5 mg, Oral, Every 4 hours sertraline (Zoloft) 50 MG tablet ALLERGIES Allergies Allergen Reactions Penicillins Hives Other Reaction(s): Unknown PROBLEMS Active Ambulatory Problems Diagnosis Date Noted No Active Ambulatory Problems Resolved Ambulatory Problems Diagnosis Date Noted No Resolved Ambulatory Problems Past Medical History: Diagnosis Date Anxiety HISTORY PAST MEDICAL HISTORY SOCIAL HISTORY Past Medical History: Diagnosis Date Anxiety Social History Tobacco Use Smoking status: Never Smokeless tobacco: Never Substance Use Topics Alcohol use: Never Drug use: Never FAMILY HISTORY Family History Problem Relation Name Age of Onset Hypertension Maternal Grandfather Diabetes Maternal Grandfather Cancer Paternal Grandmother Other (Heart problems) Paternal Grandfather Hypertension Paternal Grandfather SURGICAL HISTORY Past Surgical History: Procedure Laterality Date WISDOM TOOTH EXTRACTION 04/19/2017 wisdom teeth REVIEW OF SYSTEMS Review of Systems: Review of Systems Constitutional: Negative. HENT: Negative. Eyes: Negative. Respiratory: Negative. Cardiovascular: Negative. Gastrointestinal: Negative. Genitourinary: Negative. Musculoskeletal: Negative. Skin: Negative. Neurological: Negative. All other systems reviewed and are negative. Hematological: Negative. Endocrine: Negative. Allergic/Immunologic: Negative. OBJECTIVE Objective: Physical Exam Constitutional: Appearance: Normal appearance. She is normal weight. HENT: Head: Normocephalic. Cardiovascular: Rate and Rhythm: Normal rate. Pulses: Normal pulses. Pulmonary: Effort: Pulmonary effort is normal. Breath sounds: Normal breath sounds. Abdominal: Palpations: Abdomen is soft. Musculoskeletal: General: Normal range of motion. Neurological: General: No focal deficit present. Mental Status: She is alert and oriented to person, place, and time. Psychiatric: Mood and Affect: Mood normal. Behavior: Behavior normal. Thought Content: Thought content normal. Judgment: Judgment normal. Vitals and nursing note reviewed. Vitals: Estimated body mass index is 31.48 kg/m as calculated from the following: Height as of 10/15/22: 5' 7 . Weight as of this encounter: 201 lb. BP: 118/70 Patient's last menstrual period was 03/12/2024. ASSESSMENT & PLAN ICD-10-CM 1. First trimester Z34.91 POCT urinalysis dipstick manually resulted Vit-Fe Fumarate-FA (PNV Plus Multivitamin) 27-1 MG tablet 2. 11 weeks gestation of Z3A.11 3. Nausea and vomiting in O21.9 promethazine (Phenergan) 12.5 MG tablet Return OB: Patient presents today for a routine obstetrics appointment. Patient is currently 11w4d . Patient states she is doing well but has complaints of being tired due to current . Patient has verbalizes frequent movement. labor precautions was discussed/given and patient was instructed to perform kick counts three times a day. Pt complains of having nausea and zofran is not helping. Promethazine was sent to pharmacy along with PNV. Orders Placed This Encounter Procedures POCT urinalysis dipstick manually resulted Follow Up: Patient is to return to office in 2 week for routine OB appointment. Documented by Bisi Corley MA on behalf of: Neris Law DO documented in this encounter [facility] History of Present illness Narrative 05-08-2024 Nell Lockwood LPN - 05/08/2024 9:30 AM EST Note Date & Type Note Facility 05-08-2024 History of Presen t illness Narrative Reason for Appointment: Patient ID: Emy Cantu is a 29 y.o. female who presents for Amenorrhea Patient presents today for a Nurse OB Intake appointment. Patient is 7w1d with a Estimated Date of Delivery: 12/24/24 OB History Para Term AB Living 2 SAB IAB Ectopic Multiple Live Births # Outcome Date GA Lbr Jaskaran/2nd Weight Sex Type Anes PTL Lv 2 Current 1 08/07/22 7 lb 4 oz M Current Medications: has a current medication list which includes the following prescription(s): sertraline and ondansetron odt. Medical History: Active Ambulatory Problems Diagnosis Date Noted No Active Ambulatory Problems Resolved Ambulatory Problems Diagnosis Date Noted No Resolved Ambulatory Problems Past Medical History: Diagnosis Date Anxiety Family History Problem Relation Name Age of Onset Hypertension Maternal Grandfather Diabetes Maternal Grandfather Cancer Paternal Grandmother Other (Heart problems) Paternal Grandfather Hypertension Paternal Grandfather Social History Tobacco Use Smoking status: Never Smokeless tobacco: Never Substance Use Topics Alcohol use: Never Drug use: Never Past Surgical History: Procedure Laterality Date WISDOM TOOTH EXTRACTION 04/19/2017 wisdom teeth Allergies Allergen Reactions Penicillins Hives Other Reaction(s): Unknown Vitals: Estimated body mass index is 28.82 kg/m as calculated from the following: Height as of 10/15/22: 5' 7 . Weight as of 10/15/22: 184 lb. BP: Patient's last menstrual period was 03/12/2024. Assessment/Plan Diagnoses and all orders for this visit: Missed menses - Type and screen; Future - ABO/Rh; Future - CBC and differential - Hemoglobin A1c - RPR - Rubella antibody, IgG - Hepatitis B surface antigen - Hepatitis C antibody - HIV-1 and HIV-2 antibodies - Urine culture - US OB transvaginal; Future - POCT , urine manually resulted - POCT urinalysis dipstick manually resulted , unspecified gestational age - Type and screen; Future - ABO/Rh; Future - CBC and differential - Hemoglobin A1c - RPR - Rubella antibody, IgG - Hepatitis B surface antigen - Hepatitis C antibody - HIV-1 and HIV-2 antibodies - Rapid drug screen, urine; Future Encounter for supervision of normal first in first trimester - Rapid drug screen, urine; Future Nurse Note: OB Intake: Patient presents today for first OB visit. Patients history has been reviewed in great detail including any potential risks. Patient signed consent forms and patient desires testing in both trimesters. Patient currently has no complaints and has been advised to drink 6-8 glasses of water a day, eat no raw or undercooked meat, and stay away from [facility]. Patient has also been advised to not change litter boxes and eat 6 small meals a day. Patient has been consulted regarding the do's and don'ts of . Patient was given labs and all questions and concerns were answered. Follow Up: Patient is to return in 4 weeks for routine OB appointment. Follow Up: Patient is to have labs drawn at directed and return to office for initial OB appointment with provider. Patient may call office as needed with any concerns or questions. Nurse Visit Completed by: Nell Lockwood LPN documented in this encounter [facility] Evaluation note Note Date & Type Note Facility Evaluation note Diagnosis Missed menses , unspecified gestational age Encounter for supervision of normal first in first trimester documented in this encounter [facility] Evaluation note Note Date & Type Note Facility Evaluation note Diagnosis First trimester state, incidental 11 weeks gestation of Nausea and vomiting in Unspecified vomiting of , unspecified as to episode of care documented in this encounter [facility] Summary Purpose Family History No Family History Records FoundNo Family History Records FoundNo Family History Records FoundNo Family History Records FoundNo Family History Records Found Advance Directives Documents on File Type Date Recorded 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 * Ankle Sprain ([place]) documented in this encounter Assessments Diagnosis Sprain of left ankle, unspecified ligament, initial encounter- Primary Additional Source Comments INFORMATION SOURCE (unrecogn ized section and content) DATE CREATED AUTHOR 10/21/2018 [facility] DATE CREATED AUTHOR AUTHOR'S ORGANIZ ATION 07/12/2020 [facility] DATE CREATED AUTHOR AUTHOR'S ORGANIZ ATION 09/29/2020 [facility] DATE CREATED AUTHOR AUTHOR'S ORGANIZ ATION 10/23/2022 [facility] DATE CREATED AUTHOR AUTHOR'S ORGANIZ ATION 06/10/2024 [facility] EPIC Reason for Visit (unrecogniz ed section and content) Reason Comments Ankle Pain fell while at work a nd injured left ankle Reason Comments Amenorrhea Reason Comments Routine Visit Ordered Prescriptions (unrec ognized section and content) [...] BE BASED ON THE PRIMARY CLINICAL RECORDS. [employer] [facility]. provides no warranty or guarantee of the accuracy or completeness of information in this document.
== END 2024-07-06 21:58 | disposition home or self-care (01) ==
LOC: LAB 21:57
PROVIDERS: PCP Nurse Practitioner Family; Visit Provider Physician Assistant
DX: Z01.419 Encounter for gynecological examination (general) (routine) without abnormal findings (principal)
CPT/HCPCS: 88175

== ENCOUNTER 2024-07-30 16:15 | Outpatient (OUT) | payer BC, SELFPAY ==
--- OUTSIDE RECORDS SUMMARY | 2024-07-30 16:20 | XMS_ITS | CCD ---
Author Organization [facility] Care Team Providers Care Dubbing Machine Operator Name Role Phone STEPHANIE OHARA Referring Unavailable STEPHANIE OHARA Primary Care Unavailable Stephanie Ohara Primary Care Provider CHAD MARIE Attending Unavailable LEV, STEPHANIE Primary Care Unavailable LEV, DR STEPHANIE Olguin Primary Care Unavailable OHARA, DR STEPHANIE Olguin Consulting Unavailable LEV, DR STEPHANIE Olguin Attending Unavailable LEV, DR STEPHANIE Olguin Admitting Unavailable JEANNINE ., SOFIA Attending Unavailable JEANNINE ., SOFIA Admitting Unavailable LEV, DR STEPHANIE [...] Primary Care Provider UnavailNERIS [place] Attending Unavailable JEANNINE, SOFIA Attending Unavailable Allergies Allergy Classification Reported Allergen(s) Allergy Type Date of Onset Reaction(s) Facility (1 source) Penicillins Propensity to adverse reactions to drug 8 [place], [place] (1 source) Amoxicillin Drug Allergy [facility] (2 sources) Penicillin Drug Allergy 3 [facility] (10 sources) Penicillins Drug Allergy 4 [facility] Medications Current Medications Medication Drug Class(es) [...] 01/10/2016 Active FLUoxetine 20 mg oral capsule (7 sources) Serotonin Reuptake Inhibitor Start: 02-04-2024 take [...] Active ondansetron 4 mg disintegrating oral tablet (8 sources) Serotonin-3 Receptor Antagonist Start: 04-23-2024 End: 05-23-2024 take 1 tablet by mouth every six hours for nausea ondansetron ODT (Zofran-ODT) 4 MG disintegrating tablet Indications: Nausea and vomiting in Take 1 tablet (4 mg) by mouth every 6 (six) hours if needed for nausea or vomiting 30 tablet 2 04/23/2024 05/23/2024 Active Vit-Fe Fumarate-FA (PNV Plus Multivitamin) 27-1 MG tablet (6 sources) Start: 06-08-2024 End: 07-08-2024 take 1 tablet by mouth once daily Vit-Fe Fumarate-FA (PNV Plus Multivitamin) 27-1 MG tablet Indications: First trimester Take 1 tablet by mouth Daily 30 tablet 11 06/08/2024 07/08/2024 Active Vit-Fe Fumarate-FA ( Vitamins) 28-0.8 MG tablet (7 sources) Start: 06-08-2024 End: 06-08-2025 take 1 tablet by mouth once daily Vit-Fe Fumarate-FA ( Vitamins) 28-0.8 MG tablet Indications: First trimester Take 1 tablet by mouth Daily 30 tablet 3 06/08/2024 06/08/2025 Active promethazine hydrochloride 12.5 mg oral tablet (14 sources) Phenothiazine Start: 06-08-2024 End: 09-06-2024 take [...] 06/08/2024 Active sertraline 50 mg oral tablet (10 sources) Serotonin Reuptake Inhibitor Start: 02-16-2024 sertraline (Zoloft) 50 MG tablet 02/16/2024 Active Completed/Discontinued Medications Medication Drug Class(es) Dates Sig (Normalized) Sig (Original) 24 hr buPROPion hydrochloride 150 mg extended release oral tablet (5 sources) Aminoketone Start: 01-15-2024 End: 07-06-2024 take 1 tablet by mouth once daily buPROPion XL (Wellbutrin XL) 150 MG 24 hr tablet Take 150 mg by mouth Daily 01/15/2024 07/06/2024 Discontinued (Other) nitrofurantoin, macrocrystals 25 mg / nitrofurantoin, monohydrate [...] Episodic Immunizations and screening for infectious disease (11 sources) Encounter for screening for human papillomavirus [...] care or not applicable] 06-08-2024 Episodic Other female genital disorders (2 sources) Vaginal discharge; Translations: [Other specified noninflammatory disorders of vagina] 07-06-2024 Episodic Other and delivery including normal (20 sources) Encounter for care and examination of lactating mother; Translations: [Encounter for routine follow-up] Onset: 01-01-2022 Episodic Other screening for suspected conditions (not mental disorders or infectious disease) (11 sources) Encounter for screening for malignant neoplasm [...] [11 weeks gestation of ] 06-08-2024 Episodic Residual codes; unclassified (2 sources) Gestation period, 16 weeks; Translations: [16 weeks gestation of ] 07-06-2024 Episodic Unclassified (1 source) Sprain of left [...] Test Name Value Interpretation Reference Range Facility IGP,APTIMA HPV,AGE GDLNon AGE GDLN ACOG TESTING Note . [facility] Comment on above: TESTS RESULT FLAG UN ITS REF RANGE LAB Clinician Provided Cytology Information Source.............Cervix No. of containers..01 ThinPrep Vial Age Algo ACOG Jordyn... FLAG LEGEND: L-Low Normal,H-High Normal,LL-Alert Low,HH-Alert High <-Panic Low,>-Panic High,A-Abnormal,AA-Critical Abnormal Performed at: 01 =G [facility] [place] [id number] Carie Hartman MD, IGP, RFX APTIMA HPV ASCU Note . [facility] Comment on above: TESTS RESULT FLAG UN ITS REF RANGE LAB DIAGNOSIS: 02 NEGATIVE FOR INTRAEPITHELIAL LESION OR MALIGNANCY. Specimen adequacy: 02 Satisfactory for evaluation. No endocervical component is identified. Performed by: 02 August Lentz, Soap Worker ([facility]) . 02 Note: Note 02 The Pap smear is a screening test designed to aid in the detection of premalignant and malignant conditions of the uterine cervix. It is not a diagnostic procedure and should not be used as the sole means of detecting cervical cancer. Both false-positive and false-negative reports do occur. Test Methodology: Note 02 This liquid based ThinPrep(R) pap test was screened with the use of an image guided system. . 02 The HPV DNA reflex criteria were not met with this specimen result therefore, no HPV testing was performed. FLAG LEGEND: L-Low Normal,H-High Normal,LL-Alert Low,HH-Alert High <-Panic Low,>-Panic High,A-Abnormal,AA-Critical Abnormal Performed at: [address] [facility] [address] [place] [address] Carie Hartman MD, Performed at: = - [facility] [address] [id number] Manganese Breaker: Carie Hartman MD, Phone: [phone] Performed at: [facility], [place] [id number] Manganese Breaker: Carie Hartman MD, Phone: [phone] [facility]HTRX)on 07-08-2024 ATOPOBIUM VAGINAE 0 [facility] ATOPOBIUM VAGINAE Not detected [facility] BVAB 2,3 (BACTERIAL VAGINOSIS ASSOCIATED BACTERIA 2, 3); MOBILUNCUS SPP 0 [facility] BVAB 2,3 (BACTERIAL VAGINOSIS ASSOCIATED BACTERIA 2, 3); MOBILUNCUS SPP Not detected [facility] SARAH ALBICANS, PARAPSILOSIS, TROPICALIS 0 [facility] SARAH ALBICANS, PARAPSILOSIS, TROPICALIS Not detected [facility] SARAH GLABRATA 0 [facility] SARAH GLABRATA Not detected [facility] SARAH KRUSEI 0 [facility] SARAH KRUSEI Not detected [facility] CHLAMYDIA TRACHOMATIS 0 [facility] CHLAMYDIA TRACHOMATIS Not detected [facility] GARDNERELLA VAGINALIS 0 [facility] GARDNERELLA VAGINALIS Not detected [facility] MEGASPHAERA (TYPES 1, 2) 0 [facility] MEGASPHAERA (TYPES 1, 2) Not detected [facility] MYCOPLASMA GENITALIUM 0 [facility] MYCOPLASMA GENITALIUM Not detected [facility] NEISSERIA GONORRHOEAE 0 [facility] NEISSERIA GONORRHOEAE Not detected [facility] TRICHOMONAS VAGINALIS 0 [facility] TRICHOMONAS VAGINALIS Not detected [facility] BOX TESTon 06-01-2024 BOX TEST SENT OUT [facility] [address] [facility] [address] 06/01/2024 [facility] test[facility] Ql (U)o n 05-08-2024 Interpretation and review of laboratory results Abnormal [facility] Preg Test, Ur Positive Negative [facility] Urinalysis macro (dipstick) panel (U)on 05-08-2024 Bilirubin, UA Negative Negative - 4(70) +++ mg/dL [facility] Blood, UA Negative Negative - 50 Brett/mcL [facility] Clarity, UA Clear [facility] Color, UA Yellow [facility] Glucose, UA Negative Negative - 2000(110) ++++ mg/dL [facility] Interpretation and review of laboratory results Normal [facility] Ketones, UA Negative Negative - 160(16) ++++ mg/dL [facility] Leukocytes, UA Negative Negative - 500+++ Torsten/mcL [facility] Nitrite, UA Negative Negative - Positive [facility] pH, UA 5.5 5 - 9 [facility] Protein, UA Negative Negative - 2000(20) ++++ mg/dL [facility] Spec Grav, UA 1.02 1 - 1.03 [facility] Urobilinogen, UA 1.0 0.2 - 12 mg/dL [facility] PAP ACOG PANEL 2: 21 to 29on 10-22-2022 . . Normal [facility] Comment on above: Performed By: #### C BC #### [facility] [address] [address] [address] Missy Gonzalez Age Gdln ACOG Testing - [facility] Comment on above: Performed By: #### C BC #### [facility] [address] [place] [address] Dr. Missy Gonzalez DIAGNOSIS: Comment [facility] Comment on above: Result Comment: NEGA TIVE FOR INTRAEPITHELIAL LESION OR MALIGNANCY. Performed By: #### C BC #### [facility] [address] [address] [address] Missy Gonzalez Methodology: Comment [facility] Comment on above: Result Comment: This liquid based ThinPrep(R) pap test was screened with the use of an image guided system. Performed By: #### C BC #### [facility] [address] [place] [address] Dr. Missy Gonzalez Note: Comment [facility] Comment on above: Result Comment: The Pap smear is a screening test designed to aid in the detection of premalignant and malignant conditions of the uterine cervix. It is not a diagnostic procedure and should not be used as the sole means of detecting cervical cancer. Both false-positive and false-negative reports do occur. . Performed By: #### C BC #### [facility] [address] [address] [address] Missy Gonzalez Performed by: Comment [facility] Comment on above: Result Comment: Cindy Blum, Soap Worker Performed By: #### C BC #### [facility] [address] [address] [address] Missy Gonzalez Reflex Criteria: Comment Normal [facility] Comment on above: Result Comment: The HPV DNA reflex criteria were not met with this specimen result therefore, no HPV testing was performed. . Performed By: #### C BC #### [facility] [address] [place] [address] Dr. Missy Gonzalez Specimen adequacy: Comment Normal [facility] Comment on above: Result Comment: Sati sfactory for evaluation. No endocervical component is identified. Performed By: #### C BC #### [facility] [address] [place] [address] Dr. Missy Gonzalez CBC AUTO DIFFon 08-08-2022 BASO # 0.1 103/ul Normal 0.0-0.1 [facility] Comment on above: Performed By: #### C BC #### [facility] [address] [place] [address] Dr. Missy Gonzalez Basophils/100 WBC (Bld) 0.4 % Normal 0.2-2.0 [facility] Comment on above: Performed By: #### C BC #### [facility] [address] [place] [address] Dr. Missy Gonzalez EO # 0.1 103/ul Normal 0.0-0.7 [facility] Comment on above: Performed By: #### C BC #### [facility] [address] [place] [address] Dr. Missy Gonzalez Eosinophils/100 WBC (Bld) 0.9 % Normal 0.9-7.0 [facility] Comment on above: Performed By: #### C BC #### [facility] [address] [place] [address] Dr. Missy Gonazlez Erythrocyte distribution width (RBC) [Ratio] 13.7 % Normal 11.0-15.0 [facility] Comment on above: Performed By: #### C BC #### [facility] [address] [place] [address] Dr. Missy Gonzalez Hematocrit (Bld) [Volume fraction] 28.9 % Critically low 36.0-48.0 [facility] Comment on above: Performed By: #### C BC #### [facility] [address] [place] [address] Dr. Missy Gonzalez Hemoglobin (Bld) [Mass/Vol] 10.0 g/dL Critically low 12.0-16.0 [facility] Comment on above: Performed By: #### C BC #### [facility] [address] [place] [address] Dr. Missy Gonzalez IG # 0.15 10e3/ul Critically high 0.00-0.03 [facility] Comment on above: Performed By: #### C BC #### [facility] [address] [place] [address] Dr. Missy Gonzalez IG % 1.2 % Critically high 0.0-0.5 [facility] Comment on above: Performed By: #### C BC #### [facility] [address] [place] [address] Dr. Missy Gonzalez LYMPH # 2.7 103/ul Normal 1.2-3.8 [facility] Comment on above: Performed By: #### C BC #### [facility] [address] [place] [address] Dr. Missy Gonzalez Lymphocytes/100 WBC (Bld) 21.4 % Normal 20.5-60.0 [facility] Comment on above: Performed By: #### C BC #### [facility] [address] [place] [address] Dr. Missy Gonzalez MANUAL DIFF REQ NO Normal [facility] Comment on above: Performed By: #### C BC #### [facility] [address] [place] [address] Dr. Missy Gonzalez MCH (RBC) [Entitic mass] 31.7 pg Normal 26.7-34.0 [facility] Comment on above: Performed By: #### C BC #### [facility] [address] [place] [address] Dr. Missy Gonzalez MCHC (RBC) [Mass/Vol] 34.6 g/dL Normal 29.9-35.2 [facility] Comment on above: Performed By: #### C BC #### [facility] [id number] Missy Gonzalez MCV (RBC) [Entitic vol] 91.7 fL Normal 81.0-99.0 [facility] Comment on above: Performed By: #### C BC #### [facility] [id number] Missy Gonzalez MONO # 0.9 103/ul Critically high 0.3-0.8 [facility] Comment on above: Performed By: #### C BC #### [facility] [address] [address] [address] Missy Gonzalez Monocytes/100 WBC (Bld) 6.8 % Normal 1.7-12.0 [facility] Comment on above: Performed By: #### C BC #### [facility] [address] [place] [address] Dr. Missy Gonzalez NEUT # 8.9 103/ul Critically high 1.4-6.5 [facility] Comment on above: Performed By: #### C BC #### [facility] [address] [place] [address] Dr. Missy Gonzalez Neutrophils/100 WBC (Bld) 69.3 % Normal 43.0-75.0 [facility] Comment on above: Performed By: #### C BC #### [facility] [address] [place] [address] Dr. Missy Gonzalez Platelet mean volume (Bld) [Entitic vol] 10.8 fL Normal 9.5-13.5 [facility] Comment on above: Performed By: #### C BC #### [facility] [address] [place] [address] Dr. Missy Gonzalez PLT 235 103/ul Normal 150-450 [facility] Comment on above: Performed By: #### C BC #### [facility] [address] [place], [place] [id number] Dr. Missy Gonzalez RBC 3.15 106/ul Critically low 4.20-5.40 [facility] Comment on above: Performed By: #### C BC #### [facility] [address] [address] [address] Missy Gonzalez WBC 12.8 103/ul Critically high 4.0-11.0 [facility] Comment on above: Performed By: #### C BC #### [facility] [address] [place] [address] Dr. Missy Gonzalez CBC AUTO DIFFon 08-06-2022 BASO # 0.1 103/ul Normal 0.0-0.1 [facility] Comment on above: Performed By: #### P REG #### [facility] [address] [place] [address] Dr. Missy Gonzalez Basophils/100 WBC (Bld) 0.6 % Normal 0.2-2.0 [facility] Comment on above: Performed By: #### P REG #### [facility] [address] [place] [address] Dr. Missy Gonzalez EO # 0.1 103/ul Normal 0.0-0.7 [facility] Comment on above: Performed By: #### P REG #### [facility] [address] [place] [address] Dr. Missy Gonzalez Eosinophils/100 WBC (Bld) 0.9 % Normal 0.9-7.0 [facility] Comment on above: Performed By: #### P REG #### [facility] [address] [place] [address] Dr. Missy Gonzalez Erythrocyte distribution width (RBC) [Ratio] 13.0 % Normal 11.0-15.0 [facility] Comment on above: Performed By: #### P REG #### [facility] [address] [place] [address] Dr. Missy Gonzalez Hematocrit (Bld) [Volume fraction] 34.6 % Critically low 36.0-48.0 [facility] Comment on above: Performed By: #### P REG #### [facility] [address] [place] [address] Dr. Missy Gonzalez Hemoglobin (Bld) [Mass/Vol] 12.3 g/dL Normal 12.0-16.0 [facility] Comment on above: Performed By: #### P REG #### [facility] [address] [address] [address] Missy Gonzalez IG # 0.05 10e3/ul Critically high 0.00-0.03 [facility] Comment on above: Performed By: #### P REG #### [facility] [address] [address] [address] Missy Gonzalez IG % 0.6 % Critically high 0.0-0.5 [facility] Comment on above: Performed By: #### P REG #### [facility] [address] [place] [address] Dr. Missy Gonzalez LYMPH # 2.3 103/ul Normal 1.2-3.8 [facility] Comment on above: Performed By: #### P REG #### [facility] [address] [place] [address] Dr. Missy Gonzalez Lymphocytes/100 WBC (Bld) 27.9 % Normal 20.5-60.0 [facility] Comment on above: Performed By: #### P REG #### [facility] [address] [place] [address] Dr. Missy Gonzalez MANUAL DIFF REQ NO Normal [facility] Comment on above: Performed By: #### P REG #### [facility] [address] [place] [address] Dr. Missy Gonzalez MCH (RBC) [Entitic mass] 31.6 pg Normal 26.7-34.0 [facility] Comment on above: Performed By: #### P REG #### [facility] [address] [place] [address] Dr. Missy Gonzalez MCHC (RBC) [Mass/Vol] 35.5 g/dL Critically high 29.9-35.2 [facility] Comment on above: Performed By: #### P REG #### [facility] [address] [place] [address] Dr. Missy Gonzalez MCV (RBC) [Entitic vol] 88.9 fL Normal 81.0-99.0 [facility] Comment on above: Performed By: #### P REG #### [facility] [address] [place] [address] Dr. Missy Gonzalez MONO # 0.6 103/ul Normal 0.3-0.8 [facility] Comment on above: Performed By: #### P REG #### [facility] [address] [address] [address] Missy Gonzalez Monocytes/100 WBC (Bld) 6.9 % Normal 1.7-12.0 [facility] Comment on above: Performed By: #### P REG #### [facility] [address] [address] [address] Missy Gonzalez NEUT # 5.2 103/ul Normal 1.4-6.5 [facility] Comment on above: Performed By: #### P REG #### [facility] [address] [place] [address] Dr. Missy Gonzalez Neutrophils/100 WBC (Bld) 63.1 % Normal 43.0-75.0 [facility] Comment on above: Performed By: #### P REG #### [facility] [address] [place] [address] Dr. Missy Gonzalez Platelet mean volume (Bld) [Entitic vol] 10.2 fL Normal 9.5-13.5 [facility] Comment on above: Performed By: #### P REG #### [facility] [address] [place] [address] Dr. Missy Gonzalez PLT 245 103/ul Normal 150-450 [facility] Comment on above: Performed By: #### P REG #### [facility] [address] [address] [address] Missy Gonzalez RBC 3.89 106/ul Critically low 4.20-5.40 [facility] Comment on above: Performed By: #### P REG #### [facility] [address] [place] [address] Dr. Missy Gonzalez WBC 8.2 103/ul Normal 4.0-11.0 [facility] Comment on above: Performed By: #### P REG #### [facility] [address] [place] [address] Dr. Missy Gonzalez DRUG SCREEN RAPID (URINE)on 08-06-2022 AMP Negative Normal NEGATIVE [facility] Comment on above: Performed By: #### D RUGRPD #### [facility] [address] [place] [address] Dr. Missy Gonzalez BAR Negative Normal NEGATIVE [facility] Comment on above: Performed By: #### D RUGRPD #### [facility] [address] [place] [address] Dr. Missy Gonzalez BUP Negative Normal NEGATIVE [facility] Comment on above: Performed By: #### D RUGRPD #### [facility] [address] [place] [address] Dr. Missy Gonzalez BZO Negative Normal NEGATIVE [facility] Comment on above: Performed By: #### D RUGRPD #### [facility] [address] [place] [address] Dr. Missy Gonzalez MCKENNA Negative Normal NEGATIVE [facility] Comment on above: Performed By: #### D RUGRPD #### [facility] [address] [place] [address] Dr. Missy Gonzalez CUT-OFFS SEE BELOW Normal [facility] Comment on above: Result Comment: AMP (Amphetamine): 500ng/mL, BAR (Barbituates): 200 ng/mL, BZO (Benzodiazepines): 150 ng/mL, BUP (Buprenorphine): 10 ng/mL, MCKENNA (Cocaine): 150 ng/mL, mAMP (Methamphetamine): 500 ng/mL, MTD (Methadone): 200 ng/mL, OPI (Opiates): 100 ng/mL, OXY (Oxycodone): 100 ng/mL, PCP (Phencyclidine): 25 ng/mL, PPX (Propoxyphene): 300 ng/mL, THC (Cannabinoids): 50 ng/mL, TCA (Trycyclic Antidepressants): 300 ng/mL Performed By: #### D RUGRPD #### [facility] [address] [place] [address] Dr. Missy Gonzalez DRUG CUT HEADER DRUG CLASS TEST SYSTEM CUT-OFF CONCENTRATIONS ARE FOLLOWS: Normal [facility] Comment on above: Performed By: #### D RUGRPD #### [facility] [address] [address] [address] Missy Gonzalez mAMP Negative Normal NEGATIVE [facility] Comment on above: Performed By: #### D RUGRPD #### [facility] [address] [address] [address] Missy Gonzalez MTD Negative Normal NEGATIVE [facility] Comment on above: Performed By: #### D RUGRPD #### [facility] [address] [address] [address] Missy Gonzalez OPI Negative Normal NEGATIVE [facility] Comment on above: Performed By: #### D RUGRPD #### [facility] Laboratory [address] [address] [address] Missy Gonzalez OXY Negative Normal NEGATIVE [facility] Comment on above: Performed By: #### D RUGRPD #### [facility] [address] [place] [address] Dr. Missy Gonzalez PCP Negative Normal NEGATIVE [facility] Comment on above: Performed By: #### D RUGRPD #### [facility] [address] [place] [address] Dr. Missy Gonzalez PPX Negative Normal NEGATIVE [facility] Comment on above: Performed By: #### D RUGRPD #### [facility] [address] [place] [address] Dr. Missy Gonzalez TCA Negative Normal NEGATIVE [facility] Comment on above: Performed By: #### D RUGRPD #### [facility] [address] [place] [address] Dr. Missy Gonzalez THC Negative Normal NEGATIVE [facility] Comment on above: Performed By: #### D RUGRPD #### [facility] [address] [place] [address] Dr. Missy Gonzalez TYPE AND SCREENon 08-06-2022 TYPE AND SCREEN Negative Normal [facility] Comment on above: Performed By: #### C BC #### [facility] [address] [place] [address] Dr. Missy Gonzalez US PREG GROWTHon 07-31-2022 [...] GLENNY TORRES Date: 2022-07-31 13:51 Normal [facility] CHLAMYDIA/GONOCOCCUS CEDRIC (SW AB/URINE/PAPon 07-19-2022 Chlamydia trachomatis, CEDRIC Negative Normal Negative [facility] Comment on above: Performed By: #### P REG #### [facility] [address] [place] [address] Dr. Missy Gonzalez Neisseria gonorrhoeae, CEDRIC Negative Normal Negative [facility] Comment on above: Performed By: #### P REG #### [facility] [address] [place] [address] Dr. Missy Gonzalez VAGINITIS/VAGINOSIS DNA PROB Anurag 07-18-2022 Sarah species Negative Normal Negative [facility] Comment on above: Performed By: #### V AGINT #### [facility] [address] [place] [address] Dr. Missy Gonzalez Gardnerella vaginalis Negative Normal Negative [facility] Comment on above: Performed By: #### V AGINT #### [facility] [address] [place] [address] Dr. Missy Gonzalez Trichomonas vaginalis Negative Normal Negative [facility] Comment on above: Performed By: #### V AGINT #### [facility] [address] [address] [address] Missy Gonzalez GROUP B STREP CULTUREon 06-19 S. agalactiae Ag Ql (Unsp spec) Culture Observations: NEGATIVE FOR GROUP B STREPTOCOCCUS. Normal [facility] Comment on above: Performed By: #### C BC #### [facility] [address] [place] [address] Dr. Missy Gonzalez US PREG CERVICAL LENGTHon US PREG CERVICAL LENGTH EXAMINATION: US PREG CERVICAL LENGTH HISTORY: Uterine size for dates discrepancy COMPARISON: No relevant comparison available. FINDINGS: Cervix: 3.9 cm, closed IMPRESSION: Closed cervix measuring 3.9 cm Electronically authenticated by: GLENNY TORRES Date: 2022-07-03 16:13 Normal [facility] US PREG GROWTHon 07-03-2022 US PREG GROWTH [...] by: GLENNY TORRES Date: 2022-07-03 16:12 Normal [facility] US PREG ANATOMY SINGLEon US PREG ANATOMY [...] by: ESTRADA CASTRO Date: 2022-03-27 22:23 Normal [facility] HEP B SURFACE ANTIGEN SCREEN on 01-25-2022 HBsAg Screen Negative Normal Negative [facility] Comment on above: Performed By: #### P REG #### [facility] [address] [address] [address] Missy Gonzalez HEPATITIS C VIRUS AB W/ REFL EX QUANTon 01-25-2022 HCV AB 0.1 s/co ratio Normal 0.0-0.9 [facility] Comment on above: Performed By: #### P REG #### [facility] [address] [address] [address] Missy Gonzalez Interpretation: Comment Normal [facility] Comment on above: Result Comment: Nega tive Not infected with HCV, unless recent infection is suspected or other evidence exists to indicate HCV infection. Performed By: #### P REG #### [facility] [address] [place] [address] Dr. Missy Gonzalez HIV 1 AND 2 WITH REFLEXon HIV Screen 4th Generation wRfx Non-Reactive Normal Non Reactive [facility] Comment on above: Result Comment: HIV Negative HIV-1/HIV-2 antibodies and HIV-1 p24 antigen were NOT detected. There is no laboratory evidence of HIV infection. Performed By: #### P REG #### [facility] [address] [address] [address] Missy Gonzalez RPR QUANTon 01-25-2022 Rapid Plasma Reagin, Quant Non-Reactive Normal NonRea<1:1 [facility] Comment on above: Result Comment: Plea se Note: This test does not meet current guidelines for screening and diagnosis of syphilis. This test is intended for following treatment response in patients being treated for syphilis infection. To screen for syphilis infection, a reflex cascade that includes both RPR and a treponema-specific assay should be utilized, such as Treponema pallidum (Syphilis) Screening Branch (047041) or Rapid Plasma Reagin (RPR) Test With Reflex to Quantitative RPR and Confirmatory Treponema pallidum Antibodies (770957). Performed By: #### P REG #### [facility] [address] [place] [address] Dr. Missy Gonzalez RUBELLA AB IGGon 01-25-2022 Rubella Antibodies, IgG 1.27 index Normal Immune >0.99 [facility] Comment on above: Result Comment: Non- immune <0.90 Equivocal 0.90 - 0.99 Immune >0.99 Performed By: #### P REG #### [facility] [address] [place] [address] Dr. Missy Gonzalez CBC AUTO DIFFon 01-23-2022 BASO # 0.0 103/ul Normal 0.0-0.1 [facility] Comment on above: Performed By: #### P REG #### [facility] [address] [place] [address] Dr. Missy Gonzalez Basophils/100 WBC (Bld) 0.3 % Normal 0.2-2.0 [facility] Comment on above: Performed By: #### P REG #### [facility] [address] [place] [address] Dr. Missy Gonzalez EO # 0.1 103/ul Normal 0.0-0.7 [facility] Comment on above: Performed By: #### P REG #### [facility] [address] [place] [address] Dr. Missy Gonzalez Eosinophils/100 WBC (Bld) 0.8 % Critically low 0.9-7.0 [facility] Comment on above: Performed By: #### P REG #### [facility] [address] [place] [address] Dr. Missy Gonzalez Erythrocyte distribution width (RBC) [Ratio] 11.3 % Normal 11.0-15.0 [facility] Comment on above: Performed By: #### P REG #### [facility] [address] [place] [address] Dr. Missy Gonzalez Hematocrit (Bld) [Volume fraction] 35.2 % Critically low 36.0-48.0 [facility] Comment on above: Performed By: #### P REG #### [facility] [address] [place] [address] Dr. Missy Gonzalez Hemoglobin (Bld) [Mass/Vol] 12.0 g/dL Normal 12.0-16.0 [facility] Comment on above: Performed By: #### P REG #### [facility] [address] [place] [address] Dr. Missy Gonzalez IG # 0.03 10e3/ul Normal 0.00-0.03 [facility] Comment on above: Performed By: #### P REG #### [facility] [address] [place] [address] Dr. Missy Gonzalez IG % 0.4 % Normal 0.0-0.5 [facility] Comment on above: Performed By: #### P REG #### [facility] [address] [place] [address] Dr. Missy Gonzalez LYMPH # 1.9 103/ul Normal 1.2-3.8 [facility] Comment on above: Performed By: #### P REG #### [facility] [address] [place] [address] Dr. Missy Gonzalez Lymphocytes/100 WBC (Bld) 24.3 % Normal 20.5-60.0 [facility] Comment on above: Performed By: #### P REG #### [facility] [address] [place] [address] Dr. Missy Gonzalez MANUAL DIFF REQ NO Normal [facility] Comment on above: Performed By: #### P REG #### [facility] [address] [place] [address] Dr. Missy Gonzalez MCH (RBC) [Entitic mass] 30.8 pg Normal 26.7-34.0 [facility] Comment on above: Performed By: #### P REG #### [facility] [address] [place] [address] Dr. Missy Gonzalez MCHC (RBC) [Mass/Vol] 34.1 g/dL Normal 29.9-35.2 [facility] Comment on above: Performed By: #### P REG #### [facility] [address] [place] [address] Dr. Missy Gonzalez MCV (RBC) [Entitic vol] 90.5 fL Normal 81.0-99.0 [facility] Comment on above: Performed By: #### P REG #### [facility] [address] [place] [address] Dr. Missy Gonzalez MONO # 0.5 103/ul Normal 0.3-0.8 [facility] Comment on above: Performed By: #### P REG #### [facility] [address] [place] [address] Dr. Missy Gonzalez Monocytes/100 WBC (Bld) 6.3 % Normal 1.7-12.0 [facility] Comment on above: Performed By: #### P REG #### [facility] [address] [place] [address] Dr. Missy Gonzalez NEUT # 5.4 103/ul Normal 1.4-6.5 [facility] Comment on above: Performed By: #### P REG #### [facility] [address] [place] [address] Dr. Missy Gonzalez Neutrophils/100 WBC (Bld) 67.9 % Normal 43.0-75.0 [facility] Comment on above: Performed By: #### P REG #### [facility] [address] [address] [address] Missy Gonzalez Platelet mean volume (Bld) [Entitic vol] 9.5 fL Normal 9.5-13.5 [facility] Comment on above: Performed By: #### P REG #### [facility] [address] [address] [address] Missy Gonzalez PLT 320 103/ul Normal 150-450 [facility] Comment on above: Performed By: #### P REG #### [facility] [address] [place] [address] Dr. Missy Gonzalez RBC 3.89 106/ul Critically low 4.20-5.40 [facility] Comment on above: Performed By: #### P REG #### [facility] [address] [place] [address] Dr. Missy Gonzalez WBC 8.0 103/ul Normal 4.0-11.0 [facility] Comment on above: Performed By: #### P REG #### [facility] [address] [place] [address] Dr. Missy Gonzalez CULTURE URINEon 01-23-2022 CULTURE URINE Culture Observations : LIGHT GROWTH OF MIXED GENITAL JOSE. NO POTENTIAL PATHOGENS SEEN. Normal [facility] Comment on above: Performed By: #### U RCX #### [facility] [address] [place] [address] Dr. Missy Gonzalez GLYCOHEMOGLOBIN A1Con 2021 ADA RECOMMENDATION SEE BELOW Normal [facility] Comment on above: Result Comment: ADA RECOMMENDED LIMIT 4.0 - 6.0 ADA THERAPEUTIC TARGET < 7.0 ACTION SUGGESTED > 7.0 Performed By: #### A 1C #### [facility] [address] [place] [address] Dr. Missy Gonzalez Glucose [Mass/Vol] 103 mg/dL Normal [facility] Comment on above: Performed By: #### A 1C #### [facility] [address] [place] [address] Dr. Missy Gonzalez HbA1c (Bld) [Mass fraction] 5.2 % Normal 4.5-6.2 [facility] Comment on above: Performed By: #### A 1C #### [facility] [address] [place] [address] Dr. Missy Gonzalez MATEO BOX TEST PT SEND OUTo n 01-23-2022 SENT TO REF LAB 01/23/2022 Normal [facility] Comment on above: Performed By: #### C BC #### [facility] [address] [place] [address] Dr. Missy Gonzalez TYPE AND SCREENon 01-23-2022 TYPE AND SCREEN Negative Normal [facility] Comment on above: Performed By: #### C BC #### [facility] [address] [place] [address] Dr. Missy Gonzalez US PREG TVon 12-29-2021 [...] GLENNY TORRES Date: 2021-12-29 16:46 Normal [facility] VIT D 1 25 DIHYDROXYon 11-19 Calcitriol(1,25 di-OH Vit D) 72.5 pg/mL Normal 19.9-79.3 [facility] Comment on above: Result Comment: Ef fective November 20, 2021 Calcitriol(1,25 di-OH Vit D) reference interval will be changing to: pg/mL . 0 - 6 months: 44.3 - 212.9 7 months - 1 year: 40.3 - 112.4 >1 year: 24.8 - 81.5 Performed By: #### P REG #### [facility] [address] [place] [address] Dr. Missy Gonzalez CBC AUTO DIFFon 11-16-2021 BASO # 0.1 103/ul Normal 0.0-0.1 [facility] Comment on above: Performed By: #### C BC #### [facility] [address] [place] [address] Dr. Missy Gonzalez Basophils/100 WBC (Bld) 0.7 % Normal 0.2-2.0 [facility] Comment on above: Performed By: #### C BC #### [facility] [address] [place] [address] Dr. Missy Gonzalez EO # 0.1 103/ul Normal 0.0-0.7 [facility] Comment on above: Performed By: #### C BC #### [facility] [address] [place] [address] Dr. Missy Gonzalez Eosinophils/100 WBC (Bld) 0.7 % Critically low 0.9-7.0 [facility] Comment on above: Performed By: #### C BC #### [facility] [address] [place] [address] Dr. Missy Gonzalez Erythrocyte distribution width (RBC) [Ratio] 11.2 % Normal 11.0-15.0 [facility] Comment on above: Performed By: #### C BC #### [facility] [address] [place] [address] Dr. Missy Gonzalez Hematocrit (Bld) [Volume fraction] 40.4 % Normal 36.0-48.0 [facility] Comment on above: Performed By: #### C BC #### [facility] [address] [place] [address] Dr. Missy Gonzalez Hemoglobin (Bld) [Mass/Vol] 13.4 g/dL Normal 12.0-16.0 [facility] Comment on above: Performed By: #### C BC #### [facility] [address] [place] [address] Dr. Missy Gonzalez IG # 0.02 10e3/ul Normal 0.00-0.03 [facility] Comment on above: Performed By: #### C BC #### [facility] [address] [place] [address] Dr. Missy Gonzalez IG % 0.3 % Normal 0.0-0.5 [facility] Comment on above: Performed By: #### C BC #### [facility] [address] [place] [address] Dr. Missy Gonzalez LYMPH # 2.6 103/ul Normal 1.2-3.8 [facility] Comment on above: Performed By: #### C BC #### [facility] [address] [place] [address] Dr. Missy Gonzalez Lymphocytes/100 WBC (Bld) 36.6 % Normal 20.5-60.0 [facility] Comment on above: Performed By: #### C BC #### [facility] [address] [place] [address] Dr. Missy Gonzalez MANUAL DIFF REQ NO Normal [facility] Comment on above: Performed By: #### C BC #### [facility] [address] [place] [address] Dr. Missy Gonzalez MCH (RBC) [Entitic mass] 30.7 pg Normal 26.7-34.0 [facility] Comment on above: Performed By: #### C BC #### [facility] [address] [place] [address] Dr. Missy Gonzalez MCHC (RBC) [Mass/Vol] 33.2 g/dL Normal 29.9-35.2 [facility] Comment on above: Performed By: #### C BC #### [facility] [address] [place] [address] Dr. Missy Gonzalez MCV (RBC) [Entitic vol] 92.7 fL Normal 81.0-99.0 [facility] Comment on above: Performed By: #### C BC #### [facility] [address] [place] [address] Dr. Missy Gonzalez MONO # 0.5 103/ul Normal 0.3-0.8 [facility] Comment on above: Performed By: #### C BC #### [facility] [address] [address] [address] Missy Gonzalez Monocytes/100 WBC (Bld) 6.5 % Normal 1.7-12.0 [facility] Comment on above: Performed By: #### C BC #### [facility] [address] [address] [address] Missy Gonzalez NEUT # 3.9 103/ul Normal 1.4-6.5 [facility] Comment on above: Performed By: #### C BC #### [facility] [address] [place] [address] Dr. Missy Gonzalez Neutrophils/100 WBC (Bld) 55.2 % Normal 43.0-75.0 [facility] Comment on above: Performed By: #### C BC #### [facility] [address] [place] [address] Dr. Missy Gonzalez Platelet mean volume (Bld) [Entitic vol] 8.7 fL Critically low 9.5-13.5 [facility] Comment on above: Performed By: #### C BC #### [facility] [address] [place] [address] Dr. Missy Gonzalez PLT 294 103/ul Normal 150-450 [facility] Comment on above: Performed By: #### C BC #### [facility] [address] [place] [address] Dr. Missy Gonzalez RBC 4.36 106/ul Normal 4.20-5.40 [facility] Comment on above: Performed By: #### C BC #### [facility] [address] [place] [address] Dr. Missy Gonzalez WBC 7.1 103/ul Normal 4.0-11.0 [facility] Comment on above: Performed By: #### C BC #### [facility] [address] [place] [address] Dr. Missy Gonzalez GLYCOHEMOGLOBIN A1Con 2021 ADA RECOMMENDATION SEE BELOW Normal [facility] Comment on above: Result Comment: ADA RECOMMENDED LIMIT 4.0 - 6.0 ADA THERAPEUTIC TARGET < 7.0 ACTION SUGGESTED > 7.0 Performed By: #### A 1C #### [facility] [address] [place] [address] Dr. Missy Gonzalez Glucose [Mass/Vol] 100 mg/dL Normal [facility] Comment on above: Performed By: #### A 1C #### [facility] [address] [place] [address] Dr. Missy Gonzalez HbA1c (Bld) [Mass fraction] 5.1 % Normal 4.5-6.2 [facility] Comment on above: Performed By: #### A 1C #### [facility] [address] [place] [address] Dr. Missy Gonzalez PREG HCG QUALon 11-16-2021 , QUAL Negative Normal NEGATIVE [facility] Comment on above: Performed By: #### P REG #### [facility] [address] [place] [address] Dr. Missy Gonzalez PROF 14(COMP METB)on 022 Albumin [Mass/Vol] 4.6 g/dL Normal 3.4-5.0 [facility] Comment on above: Performed By: #### T MAYRA, CMP #### [facility] [address] [place] [address] Dr. Missy Gonzalez Albumin/Globulin [Mass ratio] 1.2 {ratio} Normal [facility] Comment on above: Performed By: #### T MAYRA, CMP #### [facility] [address] [place] [address] Dr. Missy Gonzalez ALP [Catalytic activity/Vol] 69 U/L Normal 46-116 [facility] Comment on above: Performed By: #### T SH, CMP #### [facility] [address] [place] [address] Dr. Missy Gonzalez ALT [Catalytic activity/Vol] 30 U/L Normal 14-59 [facility] Comment on above: Performed By: #### T MAYRA, CMP #### [facility] [address] [place] [address] Dr. Missy Gonzalez Anion gap [Moles/Vol] 15.0 mmol/L Normal [facility] Comment on above: Performed By: #### T SH, CMP #### [facility] [address] [place] [address] Dr. Missy Gonzalez AST [Catalytic activity/Vol] 20 U/L Normal 15-37 [facility] Comment on above: Performed By: #### T SH, CMP #### [facility] [address] [place] [address] Dr. Missy Gonzalez Bilirubin [Mass/Vol] 0.4 mg/dL Normal 0.2-1.0 [facility] Comment on above: Performed By: #### T SH, CMP #### [facility] [address] [place] [address] Dr. Missy Gonzalez Calcium [Mass/Vol] 9.1 mg/dL Normal 8.5-10.1 [facility] Comment on above: Performed By: #### T SH, CMP #### [facility] [address] [place] [address] Dr. Missy Gonzalez Chloride [Moles/Vol] 102 mmol/L Normal 98-107 [facility] Comment on above: Performed By: #### T SH, CMP #### [facility] [address] [place] [address] Dr. Missy Gonzalez CO2 [Moles/Vol] 27.3 mmol/L Normal 21.0-32.0 [facility] Comment on above: Performed By: #### T SH, CMP #### [facility] [address] [place] [address] Dr. Missy Gonzalez Creatinine [Mass/Vol] 0.63 mg/dL Normal 0.55-1.02 [facility] Comment on above: Performed By: #### T SH, CMP #### [facility] [address] [place] [address] Dr. Missy Gonzalez EGFR-AF LAO >60 Normal >=60 [facility] Comment on above: Performed By: #### T SH, CMP #### [facility] [address] [place] [address] Dr. Missy Gonzalez EGFR-NON AF LAO >60 Normal >=60 [facility] Comment on above: Performed By: #### T SH, CMP #### [facility] [address] [address] [address] Missy Gonzalez Globulin (S) [Mass/Vol] 3.8 g/dL Normal [facility] Comment on above: Performed By: #### T SH, CMP #### [facility] [address] [address] [address] Missy Gonzalez Glucose [Mass/Vol] 86 mg/dL Normal 74-106 [facility] Comment on above: Performed By: #### T SH, CMP #### [facility] [address] [place] [address] Dr. Missy Gonzalez Potassium [Moles/Vol] 4.3 mmol/L Normal 3.5-5.1 [facility] Comment on above: Performed By: #### T SH, CMP #### [facility] [address] [place] [address] Dr. Missy Gonzalez Protein [Mass/Vol] 8.4 g/dL Critically high 6.4-8.2 [facility] Comment on above: Performed By: #### T SH, CMP #### [facility] [address] [place] [address] Dr. Missy Gonzalez Sodium [Moles/Vol] 140 mmol/L Normal 136-145 [facility] Comment on above: Performed By: #### T SH, CMP #### [facility] [address] [place] [address] Dr. Missy Gonzalez Urea nitrogen [Mass/Vol] 11.0 mg/dL Normal 7.0-18.0 [facility] Comment on above: Performed By: #### T SH, CMP #### [facility] [address] [place] [address] Dr. Missy Gonzalez Urea nitrogen/Creatinine [Mass ratio] 17.5 mg/mg Normal [facility] Comment on above: Performed By: #### T SH, CMP #### [facility] [address] [place] [address] Dr. Missy Gonzalez TSHon 11-16-2021 TSH 1.070 uIU/mL Normal 0.358-3.740 [facility] Comment on above: Performed By: #### T SH, CMP #### [facility] [address] [place], [place] [address] Dr. Missy Gonzalez TSH RANGE SEE BELOW Normal [facility] Comment on above: Result Comment: <0.3 4 UIU/ml HYPERTHYROID 0.34-5.60 UIU/ml EUTHYROID >5.60 UIU/ml HYPOTHYROID Performed By: #### T SH, CMP #### [facility] [address] [place], [place] [address] Dr. Missy Gonzalez Coding Summary.on 08-23-2020 Coding Summary. CODING DATE: 08/23/2020 FINAL [facility] STATUS: Home (Routine DC) PAYOR: Self Pay [...] CphT Date Saved: 08/23/2020 07:[address] [facility] XR ANKLE LEFT (MIN 3 VIEWS)o n [...] result Normal [facility] NO FRACTURE OR DISLOCATION. SOFT TISSUES LUNG LATERALLY. [facility] [place], [place] X-RAY: LEFT ANKLE, THREE VIEWS REASON FOR EXAMINATION: Left ankle pain after tripping and falling a lot work. COMPARISONS: None available. FINDINGS: No fracture, dislocation or osseous destruction is seen. The ankle mortise is well maintained. Soft tissue swelling laterally. [place], [place] Chucho, Chpo Incoming Radiant Results From [employer] - 07/12/2020 1:16 PM EST X-RAY: LEFT ANKLE, THREE VIEWS REASON FOR EXAMINATION: Left ankle pain after tripping and falling a lot work. COMPARISONS: None available. FINDINGS: No fracture, dislocation or osseous destruction is seen. The ankle mortise is well maintained. Soft tissue swelling laterally. IMPRESSION: NO FRACTURE OR DISLOCATION. SOFT TISSUES LUNG LATERALLY. [facility] 07[facility] [facility] Comment on above: Performed By: #### 1 [id number] #### [facility] [address] [place] [address] Test Name IG PAP RFLX HPV [facility] Comment on above: Performed By: #### 1 [id number] #### [facility] [address] [place] [address] Physician Orderon 07-06-2020 Physician Order [id number]# 1.00CD:[address] [facility] Measles (Rubeola) Imon 10-15 Measles (Rubeola) Im 2.18 Normal >1.09 [facility] Comment on above: Result Comment: Interpretation: IMMUNE Reference Range: <0.91 Not Immune 0.91-1.09 Equivocal >1.09 Immune Performed By: #### M EI, RAOUL, VZI, EMELI #### [facility] [address] [place] [address] [phone] Manganese Breaker: Jacques Carpenter MD Mumps,Immun,Abon 10-15-2018 Mumps,Immun,Ab 3.24 Normal >1.09 [facility] in Hospital Comment on above: Result Comment: Interpretation: IMMUNE Reference Range: <0.91 Not Immune 0.91-1.09 Equivocal >1.09 Immune Performed By: #### M EI, RAOUL, VZI, EMELI #### [facility] [address] [place] [address] [phone] Manganese Breaker: Jacques Carpenter MD VZ Immunityon 10-15-2018 VZ Immunity 1.31 Normal >1.09 [facility] Comment on above: Result Comment: Interpretation: IMMUNE Reference Range: <0.91 Not Immune 0.91-1.09 Equivocal >1.09 Immune Performed By: #### M EI, RAOUL, VZI, EMELI #### [facility] [address] [place] [address] [phone] Manganese Breaker: Jacques Carpenter MD Hep B Surf Abon 10-14-2018 Hep B Surf Ab 88.71 mIU/mL High <10 [facility] Comment on above: Result Comment: REFERENCE [...] infection. Performed By: #### A HBS #### [facility] [address] [place] [address] [phone] Manganese Breaker: Jacques Carpenter MD Rubella Ab, IgGon 10-14-2018 Rubella Ab, IgG 78.6 IU/mL Normal [facility] Comment on above: Result Comment: REFERENCE RANGE: <5.0 NON-REACTIVE (non-immune) 5.0 TO 9.9 EQUIVOCAL >=10.0 REACTIVE (immune) Performed By: #### M EI, RAOUL, VZI, EMELI #### [facility] [address] [place] [address] [phone] Manganese Breaker: Jacques Carpenter MD Vital Signs Date Time Vital Sign Value Performing Clinician Facility 07-06-2024 16:11-0500 Body mass index (BMI) [Ratio] 31.59 kg/m2 Sofia VERDUGO Work Phone: [facility] 07-06-2024 16:11-0500 Body weight 91.49 kg Sofia VERDUGO Work Phone: [facility] 07-06-2024 16:11-0500 Diastolic blood pressure 76 mm[Hg] Sofia Jeannine PA Work Phone: [facility] 07-06-2024 16:11-0500 Systolic blood pressure 114 mm[Hg] Sofia Jeannine PA Work Phone: [facility] 06-08-2024 16:05-0500 Body mass index (BMI) [Ratio] 31.48 kg/m2 Neris Ani DO Work Phone: [facility] 06-08-2024 16:05-0500 Body weight 91.17 kg Neris Ani DO Work Phone: [facility] 06-08-2024 16:05-0500 Diastolic blood pressure 70 mm[Hg] Neris Ani DO Work Phone: [facility] 06-08-2024 16:05-0500 Systolic blood pressure 118 mm[Hg] Neris Ani DO Work Phone: [facility] 07-12-2020 12:46-0500 BMI (Body Mass Index) 31.01 kg/m2 [facility] 07-12-2020 12:46-0500 Body Temperature 97.3 [degF] [facility] 07-12-2020 12:46-0500 Body weight 89.81 kg [facility] [place] 07-12-2020 12:46-0500 BP Diastolic 102 mm[Hg] [facility] [place] 07-12-2020 12:46-0500 BP Systolic 152 mm[Hg] [facility] [place] 07-12-2020 12:46-0500 Height 170.2 cm [facility] [place] 07-12-2020 12:46-0500 Pulse (Heart Rate) 66 /min [facility] 07-12-2020 12:46-0500 Pulse Oximetry 98 % [facility] [place] 07-12-2020 12:46-0500 Respiratory Rate 20 /min Chad Silveira [facility] , [facility] 07-11-2020 17:08-0500 Body mass index (BMI) [Ratio] COMMENT [facility] Comment on above: Result Comment: Test Ordered: [...] (endocervical component) are present. 01 Phuong Campbell, Soap Worker (ASCP) 01 Note 01 The Pap smear [...] Low,>-Panic High,A-Abnormal,AA-Critical Abnormal Performed at: 01 [facility] [address] [place] [address] Carie Hartman MD, Performed at: [facility] [place] [id number] MD Minnie Darnell Performed By: #### 1 [id number] #### [facility] [address] [place] [address] Encounters Encounter Date Encounter Type Care Provider Facility Start: 07-06-2024 End: 07-06-2024 Patient encounter procedure Sofia EVRDUGO Work Phone: [facility] Work Phone: Start: 07-06-2024 End: 07-06-2024 Periodic preventive med est patient 18-39 yrs Sofia VERDUGO Work Phone: [facility] Comment on above: Well woman exam with routine gynecological exam; Second trimester ; 16 weeks gestation of ; Vaginal discharge; STD exposure; Screening, , for anatomic survey Start: 07-06-2024 End: 07-06-2024 ambulatory SOFIA PAEZ Not Available Start: 07-06-2024 End: 07-06-2024 Bamboo flowsheet Sofia VERDUGO Work Phone: [facility] Start: 07-06-2024 End: 07-10-2024 Bamboo flowsheet Sofia VERDUGO Work Phone: [facility] Start: 07-06-2024 End: 07-10-2024 Clinisync Result Encounter Sofia VERDUGO Work Phone: [facility] Unsolicited Start: 07-06-2024 End: 07-08-2024 External Result Encounter Sofia VERDUGO Work Phone: [facility] Unsolicited Start: 06-08-2024 End: 06-08-2024 ambulatory NERIS DARDENO Not Available Start: 06-08-2024 End: 06-08-2024 flow sheet Neris Law DO Work Phone: [facility] Comment on above: First trimester preg dominique; 11 weeks gestation of ; Nausea and vomiting in Start: 06-08-2024 End: 06-08-2024 Bamboo flowsheet Neris Ani DO Work Phone: [facility] Start: 06-08-2024 End: 06-08-2024 Bamboo flowsheet Neris Ani DO Work Phone: [facility] Start: 06-01-2024 End: 06-01-2024 Clinisync [...] Start: 08-15-2022 End: 08-15-[address] NERIS ALW . Facility:[facility] Start: 08-13-[address] NERIS [...] examination without abnormal findings DR STEPHANIE OHARA [facility] Start: 11-16-2021 End: 11-17-[address] STEPHANIE OHARA Facility:[facility] Start: 11-16-2021 End: 11-17-2021 Encounter for general adult medical examination without abnormal findings DR STEPHANIE OHARA Facility:[facility] Start: 07-12-2020 End: 07-12-2020 Emergency department patient visit CHAD MARIE [facility] Start: 07-12-2020 End: 07-12-2020 Emergency department patient visit Chad Marie Work Phone: [facility] ED Comment on above: Sprain of left ankle , unspecified ligament, initial encounter (Primary Dx) Start: 10-13-2018 End: 10-14-2018 Patient encounter procedure STEPHANIE OHARA [facility] Procedures Date Procedure Procedure Detail Performing Clinician Start: 07-06-2024 RECURRENT VAGINITIS (HTRX) Sofia VERDUGO Work Phone: Start: 07-06-2024 IGP,APTIMA HPV,AGE GDLN Sofia VERDUGO Work Phone: Start: 06-01-2024 BOX TEST Neris ga DO Work Phone: Start: 05-08-2024 End: 05-08-2024 [...] DR STEPHANIE OHARA Start: 08-06-2022 Repair Vulva, Learning Coach al Approach DR STEPHANIE OHARA Start: 07-12-2020 [...] Treatment Date Care Activity Detail Author Start: 08-10-2024 End: 08-10-2024 Patient encounter procedure 08/10/2024 3:20 PM EST Routine [facility] [address] [phone] Neris Law, DO [address] [place] [address] [facility] Start: 08-10-2024 End: 08-10-2024 Professional / ancillary services management 08/10/2024 2:30 PM EST Ancillary Procedure [facility] [address] [place] [phone] [facility] Start: 07-06-2024 End: 07-06-2024 Patient encounter procedure [facility] Comment on above: Arrived Start: 07-06-2024 End: 01-03-2025 Alpha fetoprotein, maternal Alpha fetoprotein, maternal Lab Routine Second trimester 16 weeks gestation of Expected: 07/06/2024 (Approximate), Expires: 01/03/2025 [facility] Comment on above: Expected: 07/06/2024 (Approximate), Expires: 01/03/2025 Start: 07-06-2024 End: 07-06-2025 US for US OB 14+ weeks anatomy scan Imaging Routine Screening, , for anatomic survey Expected: 07/06/2024, Expires: 07/06/2025 [facility] Comment on above: Expected: 07/06/2024 , Expires: 07/06/2025 Start: 06-08-2024 End: 06-08-2024 Patient encounter procedure 06/08/2024 3:30 PM EST Routine [facility] [address] [place] [phone] Neris Law DO [address] [place] [address] [facility] Start: 05-08-2024 End: 05-08-2025 ABO/Rh ABO/Rh Lab Routine Missed menses , unspecified gestational age Expected: 05/08/2024 (Approximate), Expires: 05/08/2025 [facility] Comment on above: Expected: 05/08/2024 (Approximate), Expires: 05/08/2025 Start: 05-08-2024 End: 05-08-2025 Blood type and Indirect antibody screen panel - Blood Type and screen Lab Routine Missed menses , unspecified gestational age Expected: 05/08/2024 (Approximate), Expires: 05/08/2025 [facility] Work Phone: Comment on above: Expected: 05/08/2024 (Approximate), Expires: 05/08/2025 Start: 05-08-2024 End: 05-08-2025 Drugs of abuse panel - Urine by Screen method Rapid drug screen, urine Lab Routine , unspecified gestational age Encounter for supervision of normal first in first trimester Expected: 05/08/2024 (Approximate), Expires: 05/08/2025 [facility] Comment on above: Expected: 05/08/2024 (Approximate), Expires: 05/08/2025 Start: 05-08-2024 End: 05-08-2025 US Pelvis transvaginal US OB transvaginal Imaging Routine Missed menses Expected: 05/08/2024 (Approximate), Expires: 05/08/2025 [facility] Comment on above: Expected: 05/08/2024 (Approximate), Expires: 05/08/2025 Start: 02-16-2024 Influenza vaccination Influenza Vacc ine (#1) [facility] Start: 02-16-2020 Influenza vaccination Flu vaccine (# 1) [place] Start: 12-31-2019 DTaP/Tdap/Td vaccine (7 - Tdap) DTaP/Tdap/Td vaccine (7 - Tdap) [place] Start: 10-02-2018 Screening for Chlamy giuseppe trachomatis Chlamydia screen [place], [place] Start: 2018 Screening for malign ant neoplasm of cervix Cervical cancer screen [place], [place] Start: 2012 HIV screening HIV screen [facility] [place], [place] Start: 2008 HPV vaccine (1 - 2-d ose series) HPV vaccine (1 - 2-dose series) [place], [place] Start: 1997 Hepatitis C screening Hepatitis C sc reen [place], [place] Bacteria identified in Urine by Culture Urine culture Microbiology Routine Missed menses Ordered: 05/08/2024 [facility] Comment on above: Ordered: 05/08/2024 CBC W Auto Different ial panel - Blood CBC and differential Lab Routine Missed menses , unspecified gestational age Ordered: 05/08/2024 [facility] Comment on above: Ordered: 05/08/2024 CHLAMYDIA TRACHOMATI S (GENITO/STI) CHLAMYDIA TRACHOMATIS (GENITO/STI) Lab Routine STD exposure Ordered: 07/06/2024 [facility] Comment on above: Ordered: 07/06/2024 Cytology Cervical or vaginal smear or scraping study Pap Smear Pathology and Cytology Routine Well woman exam with routine gynecological exam Ordered: 07/06/2024 [facility] Comment on above: Ordered: 07/06/2024 Hemoglobin A1c/Hemoglobin.total in Blood Hemoglobin A1c Lab Routine Missed menses , unspecified gestational age Ordered: 05/08/2024 [facility] Comment on above: Ordered: 05/08/2024 Hepatitis B virus surface Ag [Presence] in Serum or Plasma by Immunoassay Hepatitis B surface antigen Lab Routine Missed menses , unspecified gestational age Ordered: 05/08/2024 [facility] Comment on above: Ordered: 05/08/2024 Hepatitis C virus Ab [Presence] in Serum or Plasma by Immunoassay Hepatitis C antibody Lab Routine Missed menses , unspecified gestational age Ordered: 05/08/2024 [facility] Comment on above: Ordered: 05/08/2024 HIV-1/HIV-2 antigen/antibody combination immunoassay HIV-1 and HIV-2 antibodies Lab Routine Missed menses , unspecified gestational age Ordered: 05/08/2024 [facility] Comment on above: Ordered: 05/08/2024 Neisseria gonorrhoea e DNA [Presence] in Unspecified specimen by CEDRIC with probe detection Neisseria gonorrhea DNA probe, direct Lab Routine STD exposure Ordered: 07/06/2024 [facility] Comment on above: Ordered: 07/06/2024 Reagin Ab [Presence] in Serum by RPR RPR Lab Routine Missed menses , unspecified gestational age Ordered: 05/08/2024 [facility] Comment on above: Ordered: 05/08/2024 Rubella antibody, IgG Rubella an tibody, IgG Lab Routine Missed menses , unspecified gestational age Ordered: 05/08/2024 [facility] Comment on above: Ordered: 05/08/2024 SURESWAB(R) ADVANCED VAGINITIS PLUS, TMA SURESWAB(R) ADVANCED VAGINITIS PLUS, TMA Pathology and Cytology Routine Vaginal discharge Ordered: 07/06/2024 [facility] Work Phone: Comment on above: Ordered: 07/06/2024 Immunizations Immunization Date Immunization Notes Care Provider Nano ellis 03-26-2023 influenza virus vacc ine, unspecified formulation Nom Nurse [facility] Payers Date Payer Category Payer [facility] .[id number] 2020 Unknown [id number]. [id number] 1997 Unknown [id number] 2.16.840.1.804239.3.579.2. 173 1997 Unknown [id number] 2.16.840.1.199487.3.579.2. 185 1997 Unknown [id number] 2.16.840.1.026341.3.579.2. 593 1997 Unknown [id number] 2.16.840.1.378428.3.579.2. 593 1997 Unknown [id number] 2.16.840.1.322188.3.579.2. 593 1997 Unknown [id number] 2.16.840.1.927372.3.579.2. 593 1997 Unknown [id number] 2.16.840.1.235233.3.579.2. 593 1997 Unknown [id number] 2.16.840.1.013136.3.579.2. 593 1997 Unknown [id number] 2.16.840.1.177428.3.579.2. 593 1997 Unknown [id number] 2.16.840.1.184812.3.579.2. 593 1997 Unknown [id number] 2.16.840.1.501074.3.579.2. 593 1997 Unknown [id number] 2.16.840.1.109748.3.579.2. 593 1997 Unknown [id number] 2.16.840.1.632918.3.579.2. 593 1997 Unknown [id number] 2.16.840.1.352751.3.579.2. 593 1997 Unknown [id number] 2.16.840.1.684313.3.579.2. 593 1997 Unknown [id number] 2.16.840.1.735890.3.579.2. 1259 1997 Unknown [id number] 2.16.840.1.020133.3.579.2. 1259 1997 Unknown [id number] 2.16.840.1.136788.3.579.2. 1259 1959 Self-pay 1959 Unknown [id number] 1959 Unknown [id number] 1959 Unknown [id number] Unknown [id number] 2.16.840.1.134302.3.579.2. 593 Social History Date Type Detail Facility Start: 07-12-2020 End: 06-06-2023 Tobacco smoking status [facility] Never smoker [facility] Start: 07-12-2020 End: 06-06-2023 Tobacco use and exposure Never used [place] Start: 07-12-2020 Alcohol intake Current non-dr sap specialist of alcohol (finding) [place], [place] Start: 1997 Sex Assigned At Not on file [place] Exposure to SARS-CoV -2 (event) Not sure [place] Start: 05-08-2024 End: 07-06-2024 Alcoholic beverage intake Lifetime non-drinker (finding) [facility] Start: 06-06-2023 End: 05-08-2024 History of Social function [facility] Start: 06-06-2023 End: 05-08-2024 Tobacco use panel [facility] Start: 04-02-2024 [facility] History of Present illness Narrative 07-06-2024 LUCINA Singletary - 07/06/2024 4:00 PM EST Note Date & Type Note Facility 07-06-2024 History of Presen t illness Narrative Reason for Appointment: Patient ID: Emy Cantu is a 29 y.o. female who presents for Routine Visit, STI Screening, and Well Women Visit Patient presents today for Annual Exam. and Return OB appointment. MEDICATIONS Current Outpatient Medications Medication Instructions FLUoxetine (PROzac) 20 MG capsule TAKE 1 CAPSULE BY MOUTH EVERY DAY IN THE MORNING ondansetron ODT (Zofran-ODT) 4 MG disintegrating tablet DISSOLVE 1 TABLET UNDER TONGUE EVERY 6 HOURS IF NEEDED FOR NAUSEA OR VOMITING Vit-Fe Fumarate-FA (PNV Plus Multivitamin) 27-1 MG tablet 1 tablet, Oral, Daily Vit-Fe Fumarate-FA ( Vitamins) 28-0.8 MG tablet 1 tablet, Oral, Daily promethazine (PHENERGAN) 12.5 mg, Oral, Every 4 hours promethazine (PHENERGAN) 12.5 mg, Oral, Every 6 hours PRN, Take 1 tablet by mouth every 6 hours as needed for nausea. sertraline (Zoloft) 50 MG tablet ALLERGIES Allergies [...] Exam Constitutional: Appearance: Normal appearance. She is well-developed and normal weight. Genitourinary: Vulva normal. Right Adnexa: not tender and no mass present. Left Adnexa: not tender and no mass present. No cervical discharge. Breasts: Breasts are soft. Right: Normal. Left: Normal. HENT: Head: Normocephalic. Nose: Nose normal. Mouth/Throat: Mouth: Mucous membranes are moist. Cardiovascular: Rate and Rhythm: Normal rate and regular rhythm. Pulses: Normal pulses. Pulmonary: Effort: Pulmonary effort is normal. Breath sounds: Normal breath sounds. Abdominal: General: Bowel sounds are normal. There is no distension. Palpations: Abdomen is soft. Tenderness: There is no abdominal tenderness. There is no guarding or rebound. Musculoskeletal: General: No swelling. Normal range of motion. Cervical back: Normal range of motion. Right lower leg: No edema. Left lower leg: No edema. Neurological: General: No focal deficit present. Mental Status: She is alert and oriented to person, place, and time. Skin: General: Skin is warm and dry. Psychiatric: Mood and Affect: Mood normal. Behavior: Behavior normal. Thought Content: Thought content normal. Judgment: Judgment normal. Vitals and nursing note reviewed. Exam conducted with a monomer recovery supervisor present. Vitals: Estimated body mass index is 31.59 kg/m as calculated from the following: Height as of 10/15/22: 5' 7 . Weight as of this encounter: 201 lb 11.2 oz. BP: 114/76 Patient's last menstrual period was 03/12/2024. ASSESSMENT & PLAN ICD-10-CM 1. Well woman exam with routine gynecological exam Z01.419 Pap Smear 2. Second trimester Z34.92 Alpha fetoprotein, maternal Alpha fetoprotein, maternal 3. 16 weeks gestation of Z3A.16 Alpha fetoprotein, maternal Alpha fetoprotein, maternal 4. Vaginal discharge N89.8 SURESWAB(R) ADVANCED VAGINITIS PLUS, TMA 5. STD exposure Z20.2 CHLAMYDIA TRACHOMATIS (GENITO/STI) Neisseria gonorrhea DNA probe, direct 6. Screening, , for anatomic survey Z36.89 US OB 14+ weeks anatomy scan Return OB/Annual Exam: Patient presents today for an annual exam/routine obstetrics appointment. Patient is currently 15w4d . Patient is doing well and states she has no complaints. Pap/cultures was obtained without difficulty and [facility]. Orders Placed This Encounter Procedures US OB 14+ weeks anatomy scan CHLAMYDIA TRACHOMATIS (GENITO/STI) Neisseria gonorrhea DNA probe, direct Alpha fetoprotein, maternal Follow Up: Patient is to return to our office in 4 weeks for routine OB appointment Documented by Nell Lockwood LPN on behalf of: LUCINA Singletary documented in this encounter [facility] History of Present illness Narrative 06-08-2024 Bisi [...] or undercooked meat, and stay away from [facility]. Patient has also been advised to not [...] Nell Lockwood LPN documented in this encounter [facility] Evaluation note Note Date & Type Note Facility Evaluation note Diagnosis Missed menses , unspecified gestational age Encounter for supervision of normal first in first trimester documented in this encounter [facility] Healthcare Evaluation note Note Date & Type Note Facility Evaluation note Diagnosis First trimester state, incidental 11 weeks gestation of Nausea and vomiting in Unspecified vomiting of , unspecified as to episode of care documented in this encounter [facility] Healthcare Evaluation note Note Date & Type Note Facility Evaluation note Diagnosis Well woman exam with routine gynecological exam Routine gynecological examination Second trimester state, incidental 16 weeks gestation of Vaginal discharge Leukorrhea, not specified as infective STD exposure Screening, , for anatomic survey Encounter for anatomic survey documented in this encounter [facility] Healthcare Summary Purpose Family History No Family History Records FoundNo Family History Records FoundNo Family History Records FoundNo Family History Records FoundNo Family History Records Found Advance Directives Documents on File Type Date Recorded Patient Burner 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 * Ankle Sprain (Citizen Of [place]) documented in this encounter Assessments Diagnosis Sprain of left ankle, unspecified ligament, initial encounter- Primary Additional Source Comments INFORMATION SOURCE (unrecogn ized section and content) DATE CREATED AUTHOR 10/21/2018 [facility] DATE CREATED AUTHOR AUTHOR'S ORGANIZ ATION 07/12/2020 Jordana Eugene [facility] DATE CREATED AUTHOR AUTHOR'S ORGANIZ ATION 09/29/2020 [facility] DATE CREATED AUTHOR AUTHOR'S ORGANIZ ATION 10/23/2022 [facility] DATE CREATED AUTHOR AUTHOR'S ORGANIZ ATION 07/08/2024 [facility] EPIC Reason for Visit (unrecogniz ed section and content) Reason Comments Ankle Pain fell while at work a nd injured left ankle Reason Comments Amenorrhea Reason Comments Routine Visit Reason Comments Routine Visit STI Screening Well Women Visit Ordered Prescriptions (unrec ognized section and [...] BE BASED ON THE PRIMARY CLINICAL RECORDS. [employer] provides no warranty or guarantee of the accuracy or completeness of information in this document.
[2024-07-30 16:47] LABS: Basophils Percent Auto 0.2 % (0.2-2.0); Eosinophils Percent Auto 0.7 % (0.9-7.0); Hematocrit 35.7 % (36.0-48.0); Hemoglobin 12.4 g/dL (12.0-16.0); Immature Granulocytes Abs Auto 0.04 10^3/uL (0.00-0.03); Immature Granulocytes Pct Auto 0.7 % (0.0-0.5); Lymphocytes Absolute Auto 2.2 10^3/uL (1.2-3.8); Lymphocytes Percent Auto 36.7 % (20.5-60.0); Mean Corpuscular HGB Conc 34.7 g/dL (29.9-35.2); Mean Corpuscular Hemoglobin 31.2 pg (26.7-34.0); Mean Corpuscular Volume 89.7 fL (81.0-99.0); Mean Platelet Volume 9.3 fL (9.5-13.5); Monocytes Absolute Auto 0.4 10^3/uL (0.3-0.8); Monocytes Percent Auto 6.4 % (1.7-12.0); Neutrophils Absolute Auto 3.3 10^3/uL (1.4-6.5); Neutrophils Percent Auto 55.3 % (43.0-75.0); Platelet Count 323 10^3/uL (150-450); Red Blood Count 3.98 10^6/uL (4.20-5.40)
[2024-07-30 17:10] LABS: Alanine Aminotransferase 47 U/L (14-59); Albumin Globulin Ratio 0.7; Albumin Level 2.9 g/dL (3.4-5.0); Alkaline Phosphatase 102 U/L (46-116); Anion Gap 13.5; Aspartate Amino Transferase 37 U/L (15-37); BUN Creatinine Ratio 7.7; Bilirubin Total 0.3 mg/dL (0.2-1.0); Calcium 8.7 mg/dL (8.5-10.1); Carbon Dioxide 23.5 mmol/L (21.0-32.0); Chloride 103 mmol/L (98-107); Estimated GFR (African America >60 (>=60 mL/min/1.73m^2); Estimated GFR (Non-African Ame >60 (>=60 mL/min/1.73m^2); Globulin 4.2 g/dL; Glucose 91 mg/dL (74-106); Sodium 136 mmol/L (136-145); Thyroid Stimulating Hormone 0.202 uIU/mL (0.358-3.740); Total Protein 7.1 g/dL (6.4-8.2)
== END 2024-07-30 16:16 | disposition home or self-care (01) ==
LOC: LAB 16:17
PROVIDERS: PCP Nurse Practitioner Family; Visit Provider Obstetrics & Gynecology
DX: Z34.92 Encounter for supervision of normal pregnancy, unspecified, second trimester (principal); O99.891 Other specified diseases and conditions complicating pregnancy; R39.9 Unspecified symptoms and signs involving the genitourinary system; R42 Dizziness and giddiness; Z3A.19 19 weeks gestation of pregnancy
CPT/HCPCS: 36415; 80053; 82728; 84443; 85025

== ENCOUNTER 2024-07-30 16:21 | Outpatient (OUT) | payer BC, SELFPAY ==
--- OUTSIDE RECORDS SUMMARY | 2024-07-30 16:25 | XMS_ITS | CCD ---
Author Organization [facility] Care Team Providers Care Stripe Matcher Name Role Phone STEPHANIE OHARA Referring Unavailable STEPHANIE OHARA Primary Care Unavailable Stephanie Ohara Primary Care Provider [phone] CHAD MARIE Attending Unavailable LEV, STEPHANIE Primary [...] Propensity to adverse reactions to drug 8 [place], [place] (1 source) Amoxicillin Drug Allergy [facility] (2 sources) Penicillin Drug Allergy 3 [facility] (10 sources) Penicillins Drug Allergy 4 [facility] Medications Current Medications Medication Drug [...] GDLNon AGE GDLN ACOG TESTING Note . [facility] Comment on above: TESTS RESULT FLAG UN ITS REF RANGE LAB Clinician Provided Cytology Information Source.............Cervix No. of containers..01 ThinPrep Vial Age Algo ACOG Jordyn... FLAG LEGEND: L-Low Normal,H-High Normal,LL-Alert Low,HH-Alert High <-Panic Low,>-Panic High,A-Abnormal,AA-Critical Abnormal Performed at: 01 =G [facility] [place] [address] Carie Hartman MD, IGP, RFX APTIMA HPV ASCU Note . [facility] Comment on above: TESTS RESULT FLAG UN ITS REF RANGE LAB DIAGNOSIS: 02 NEGATIVE FOR INTRAEPITHELIAL LESION OR MALIGNANCY. Specimen adequacy: 02 Satisfactory for evaluation. No endocervical component is identified. Performed by: 02 August Lentz, Emergency Medical Tech ([facility]) . 02 Note: Note [...] Low,>-Panic High,A-Abnormal,AA-Critical Abnormal Performed at: [address] [facility] [address] [place] [address] Carie Hartman MD, Performed at: = - [facility] [address] [id number] Coconut Candy Maker: Carie Hartman MD, Phone: [phone] Performed at: [facility], [place] [id number] Coconut Candy Maker: Carie Hartman MD, Phone: [phone] [facility] RECURRENT VAGINITIS (HTRX)on 07-08-2024 ATOPOBIUM VAGINAE 0 [facility] ATOPOBIUM VAGINAE Not detected [facility] BVAB 2,3 (BACTERIAL VAGINOSIS ASSOCIATED BACTERIA 2, 3); MOBILUNCUS SPP 0 [facility] BVAB 2,3 (BACTERIAL VAGINOSIS ASSOCIATED BACTERIA 2, 3); MOBILUNCUS SPP Not detected [facility] SARAH ALBICANS, PARAPSILOSIS, TROPICALIS 0 [facility] SARAH ALBICANS, PARAPSILOSIS, TROPICALIS Not detected [facility] SARAH GLABRATA 0 [facility] SARAH GLABRATA Not detected [facility] SARAH KRUSEI 0 [facility] SARAH KRUSEI Not detected [facility] CHLAMYDIA TRACHOMATIS 0 [facility] CHLAMYDIA TRACHOMATIS Not detected [facility] GARDNERELLA VAGINALIS 0 [facility] GARDNERELLA VAGINALIS Not detected [facility] MEGASPHAERA (TYPES 1, 2) 0 [facility] MEGASPHAERA (TYPES 1, 2) Not detected [facility] MYCOPLASMA GENITALIUM 0 [facility] MYCOPLASMA GENITALIUM Not detected [facility] NEISSERIA GONORRHOEAE 0 [facility] NEISSERIA GONORRHOEAE Not detected [facility] TRICHOMONAS VAGINALIS 0 [facility] TRICHOMONAS VAGINALIS Not detected [facility] BOX TESTon 06-01-2024 BOX TEST SENT OUT [facility] BOX1 [facility] B[address]2 06/01/2024 [facility] ( test) Ql (U)o n 05-08-2024 Interpretation and review of laboratory results Abnormal [facility] Preg Test, Ur Positive Negative [facility] Urinalysis macro (dipstick) panel (U)on 05-08-2024 Bilirubin, UA Negative Negative - 4(70) +++ mg/dL [facility] Blood, UA Negative Negative - 50 Brett/mcL [facility] Clarity, UA Clear [facility] Color, UA Yellow [facility] Glucose, UA Negative Negative - 2000(110) ++++ mg/dL [facility] Interpretation and review of laboratory results Normal [facility] Ketones, UA Negative Negative - 160(16) ++++ mg/dL [facility] Leukocytes, UA Negative Negative - 500+++ Torsten/mcL [facility] Nitrite, UA Negative Negative - Positive [facility] pH, UA 5.5 5 - 9 [facility] Protein, UA Negative Negative - 2000(20) ++++ mg/dL [facility] Spec Grav, UA 1.02 1 - 1.03 [facility] Urobilinogen, UA 1.0 0.2 - 12 mg/dL [facility] PAP ACOG PANEL 2: 23 to 31on 10-22-[address] [facility] Comment on above: Performed By: #### C BC #### [facility] [address] [address] [address] Missy Gonzalez Age Gdln ACOG Testing - [facility] Comment on above: Performed By: #### C BC #### [facility] [address] [place] [address] Dr. Missy Gonzalez DIAGNOSIS: Comment [facility] Comment on above: Result Comment: NEGA TIVE FOR INTRAEPITHELIAL LESION OR MALIGNANCY. Performed By: #### C BC #### [facility] [address] [address] [address] Missy Gonzalez Methodology: Comment [facility] Comment on above: Result Comment: This liquid based ThinPrep(R) pap test was screened with the use of an image guided system. Performed By: #### C BC #### [facility] [address] [place] [address] Dr. Missy Gonzalez Note: Comment [facility] Comment on above: Result Comment: The Pap smear is a screening test designed to aid in the detection of premalignant and malignant conditions of the uterine cervix. It is not a diagnostic procedure and should not be used as the sole means of detecting cervical cancer. Both false-positive and false-negative reports do occur. . Performed By: #### C BC #### [facility] [address] [address] [address] Missy Gonzalez Performed by: Comment [facility] Comment on above: Result Comment: Cindy Blum, Emergency Medical Tech Performed By: #### C BC #### [facility] [address] [address] [address] Missy Gonzalez Reflex Criteria: Comment Normal [facility] Comment on above: Result Comment: The HPV DNA reflex criteria were not met with this specimen result therefore, no HPV testing was performed. . Performed By: #### C BC #### [facility] [address] [place] [address] Dr. Missy Gonzalez Specimen adequacy: Comment Normal [facility] Comment on above: Result Comment: Sati sfactory for evaluation. No endocervical component is identified. Performed By: #### C BC #### [facility] [address] [place] [address] Dr. Missy Gonzalez CBC AUTO DIFFon 08-08-2022 BASO # 0.1 103/ul Normal 0.0-0.1 [facility] Comment on above: Performed By: #### C BC #### [facility] [address] [place] [address] Dr. Missy Gonzalez Basophils/100 WBC (Bld) 0.4 % Normal 0.2-2.0 [facility] Comment on above: Performed By: #### C BC #### [facility] [address] [place] [address] Dr. Missy Gonzalez EO # 0.1 103/ul Normal 0.0-0.7 [facility] Comment on above: Performed By: #### C BC #### [facility] [address] [place] [address] Dr. Missy Gonzalez Eosinophils/100 WBC (Bld) 0.9 % Normal 0.9-7.0 [facility] Comment on above: Performed By: #### C BC #### [facility] [address] [place] [address] Dr. Missy Gonzalez Erythrocyte distribution width (RBC) [Ratio] 13.7 % Normal 11.0-15.0 [facility] Comment on above: Performed By: #### C BC #### [facility] [address] [place] [address] Dr. Missy Gonzalez Hematocrit (Bld) [Volume fraction] 28.9 % Critically low 36.0-48.0 [facility] Comment on above: Performed By: #### C BC #### [facility] [address] [place] [address] Dr. Missy Gonzalez Hemoglobin (Bld) [Mass/Vol] 10.0 g/dL Critically low 12.0-16.0 [facility] Comment on above: Performed By: #### C BC #### [facility] [address] [place] [address] Dr. Missy Gonzalez IG # 0.15 10e3/ul Critically high 0.00-0.03 [facility] Comment on above: Performed By: #### C BC #### [facility] [address] [place] [address] Dr. Missy Gonzalez IG % 1.2 % Critically high 0.0-0.5 [facility] Comment on above: Performed By: #### C BC #### [facility] [address] [place] [address] Dr. Missy Gonzalez LYMPH # 2.7 103/ul Normal 1.2-3.8 [facility] Comment on above: Performed By: #### C BC #### [facility] [address] [place] [address] Dr. Missy Gonzalez Lymphocytes/100 WBC (Bld) 21.4 % Normal 20.5-60.0 [facility] Comment on above: Performed By: #### C BC #### [facility] [address] [place] [address] Dr. Missy Gonzalez MANUAL DIFF REQ NO Normal [facility] Comment on above: Performed By: #### C BC #### [facility] [address] [place] [address] Dr. Missy Gonzalez MCH (RBC) [Entitic mass] 31.7 pg Normal 26.7-34.0 [facility] Comment on above: Performed By: #### C BC #### [facility] [address] [place] [address] Dr. Missy Gonzalez MCHC (RBC) [Mass/Vol] 34.6 g/dL Normal 29.9-35.2 [facility] Comment on above: Performed By: #### C BC #### [facility] [address] [id number] [address] Missy Gonzalez MCV (RBC) [Entitic vol] 91.7 fL Normal 81.0-99.0 [facility] Comment on above: Performed By: #### C BC #### [facility] [address] [id number] [address] Missy Gonzalez MONO # 0.9 103/ul Critically high 0.3-0.8 [facility] Comment on above: Performed By: #### C BC #### [facility] [address] [address] [address] Missy Gonzalez Monocytes/100 WBC (Bld) 6.8 % Normal 1.7-12.0 [facility] Comment on above: Performed By: #### C BC #### [facility] [address] [place] [address] Dr. Missy Gonzalez NEUT # 8.9 103/ul Critically high 1.4-6.5 [facility] Comment on above: Performed By: #### C BC #### [facility] [address] [place] [address] Dr. Missy Gonzalez Neutrophils/100 WBC (Bld) 69.3 % Normal 43.0-75.0 [facility] Comment on above: Performed By: #### C BC #### [facility] [address] [place] [address] Dr. Missy Gonzalez Platelet mean volume (Bld) [Entitic vol] 10.8 fL Normal 9.5-13.5 [facility] Comment on above: Performed By: #### C BC #### [facility] [address] [place] [address] Dr. Missy Gonzalez PLT 235 103/ul Normal 150-450 [facility] Comment on above: Performed By: #### C BC #### [facility] [address] [place], [place] [id number] Dr. Missy Gonzalez RBC 3.15 106/ul Critically low 4.20-5.40 [facility] Comment on above: Performed By: #### C BC #### [facility] [address] [address] [address] Missy Gonzalez WBC 12.8 103/ul Critically high 4.0-11.0 [facility] Comment on above: Performed By: #### C BC #### [facility] [address] [place] [address] Dr. Missy Gonzalez CBC AUTO DIFFon 08-06-2022 BASO # 0.1 103/ul Normal 0.0-0.1 [facility] Comment on above: Performed By: #### P REG #### [facility] [address] [place] [address] Dr. Missy Gonzalez Basophils/100 WBC (Bld) 0.6 % Normal 0.2-2.0 [facility] Comment on above: Performed By: #### P REG #### [facility] [address] [place] [address] Dr. Missy Gonzalez EO # 0.1 103/ul Normal 0.0-0.7 [facility] Comment on above: Performed By: #### P REG #### [facility] [address] [place] [address] Dr. Misys Gonzalez Eosinophils/100 WBC (Bld) 0.9 % Normal 0.9-7.0 [facility] Comment on above: Performed By: #### P REG #### [facility] [address] [place] [address] Dr. Missy Gonzalez Erythrocyte distribution width (RBC) [Ratio] 13.0 % Normal 11.0-15.0 [facility] Comment on above: Performed By: #### P REG #### [facility] [address] [place] [address] Dr. Missy Gonzalez Hematocrit (Bld) [Volume fraction] 34.6 % Critically low 36.0-48.0 [facility] Comment on above: Performed By: #### P REG #### [facility] [address] [place] [address] Dr. Missy Gonzalez Hemoglobin (Bld) [Mass/Vol] 12.3 g/dL Normal 12.0-16.0 [facility] Comment on above: Performed By: #### P REG #### [facility] [address] [address] [address] Missy Gonzalez IG # 0.05 10e3/ul Critically high 0.00-0.03 [facility] Comment on above: Performed By: #### P REG #### [facility] [address] [address] [address] Missy Gonzalez IG % 0.6 % Critically high 0.0-0.5 [facility] Comment on above: Performed By: #### P REG #### [facility] [address] [place] [address] Dr. Missy Gonzalez LYMPH # 2.3 103/ul Normal 1.2-3.8 [facility] Comment on above: Performed By: #### P REG #### [facility] [address] [place] [address] Dr. Missy Gonzalez Lymphocytes/100 WBC (Bld) 27.9 % Normal 20.5-60.0 [facility] Comment on above: Performed By: #### P REG #### [facility] [address] [place] [address] Dr. Missy Gonzalez MANUAL DIFF REQ NO Normal [facility] Comment on above: Performed By: #### P REG #### [facility] [address] [place] [address] Dr. Missy Gonzalez MCH (RBC) [Entitic mass] 31.6 pg Normal 26.7-34.0 [facility] Comment on above: Performed By: #### P REG #### [facility] [address] [place] [address] Dr. Missy Gonzalez MCHC (RBC) [Mass/Vol] 35.5 g/dL Critically high 29.9-35.2 [facility] Comment on above: Performed By: #### P REG #### [facility] [address] [place] [address] Dr. Missy Gonzalez MCV (RBC) [Entitic vol] 88.9 fL Normal 81.0-99.0 [facility] Comment on above: Performed By: #### P REG #### [facility] [address] [place] [address] Dr. Missy Gonzalez MONO # 0.6 103/ul Normal 0.3-0.8 [facility] Comment on above: Performed By: #### P REG #### [facility] [address] [address] [address] Missy Gonzalez Monocytes/100 WBC (Bld) 6.9 % Normal 1.7-12.0 [facility] Comment on above: Performed By: #### P REG #### [facility] [address] [address] [address] Missy Gonzalez NEUT # 5.2 103/ul Normal 1.4-6.5 [facility] Comment on above: Performed By: #### P REG #### [facility] [address] [place] [address] Dr. Missy Gonzalez Neutrophils/100 WBC (Bld) 63.1 % Normal 43.0-75.0 [facility] Comment on above: Performed By: #### P REG #### [facility] [address] [place] [address] Dr. Missy Gonzalez Platelet mean volume (Bld) [Entitic vol] 10.2 fL Normal 9.5-13.5 [facility] Comment on above: Performed By: #### P REG #### [facility] [address] [place] [address] Dr. Missy Gonzalez PLT 245 103/ul Normal 150-450 [facility] Comment on above: Performed By: #### P REG #### [facility] [address] [address] [address] Missy Gonzalez RBC 3.89 106/ul Critically low 4.20-5.40 [facility] Comment on above: Performed By: #### P REG #### [facility] [address] [place] [address] Dr. Missy Gonzalez WBC 8.2 103/ul Normal 4.0-11.0 [facility] Comment on above: Performed By: #### P REG #### [facility] [address] [place] [address] Dr. Missy Gonzalez DRUG SCREEN RAPID (URINE)on 08-06-2022 AMP Negative Normal NEGATIVE [facility] Comment on above: Performed By: #### D RUGRPD #### [facility] [address] [place] [address] Dr. Missy Gonzalez BAR Negative Normal NEGATIVE [facility] Comment on above: Performed By: #### D RUGRPD #### [facility] [address] [place] [address] Dr. Missy Gonzalez BUP Negative Normal NEGATIVE [facility] Comment on above: Performed By: #### D RUGRPD #### [facility] [address] [place] [address] Dr. Missy Gonzalez BZO Negative Normal NEGATIVE [facility] Comment on above: Performed By: #### D RUGRPD #### [facility] [address] [place] [address] Dr. Missy Gonzalez MCKENNA Negative Normal NEGATIVE [facility] Comment on above: Performed By: #### D RUGRPD #### [facility] [address] [place] [address] Dr. Missy Gonzalez CUT-OFFS SEE BELOW Normal [facility] Comment on above: Result Comment: AMP (Amphetamine): 500ng/mL, BAR (Barbituates): 200 ng/mL, BZO (Benzodiazepines): 150 ng/mL, BUP (Buprenorphine): 10 ng/mL, MCKENNA (Cocaine): 150 ng/mL, mAMP (Methamphetamine): 500 ng/mL, MTD (Methadone): 200 ng/mL, OPI (Opiates): 100 ng/mL, OXY (Oxycodone): 100 ng/mL, PCP (Phencyclidine): 25 ng/mL, PPX (Propoxyphene): 300 ng/mL, THC (Cannabinoids): 50 ng/mL, TCA (Trycyclic Antidepressants): 300 ng/mL Performed By: #### D RUGRPD #### [facility] [address] [place] [address] Dr. Missy Gonzalez DRUG CUT HEADER DRUG CLASS TEST SYSTEM CUT-OFF CONCENTRATIONS ARE FOLLOWS: Normal [facility] Comment on above: Performed By: #### D RUGRPD #### [facility] [address] [address] [address] Missy Gonzalez mAMP Negative Normal NEGATIVE [facility] Comment on above: Performed By: #### D RUGRPD #### [facility] [address] [address] [address] Missy Gonzalez MTD Negative Normal NEGATIVE [facility] Comment on above: Performed By: #### D RUGRPD #### [facility] [address] [address] [address] Missy Gonzalez OPI Negative Normal NEGATIVE [facility] Comment on above: Performed By: #### D RUGRPD #### [facility] [address] [address] [address] Missy Gonzalez OXY Negative Normal NEGATIVE [facility] Comment on above: Performed By: #### D RUGRPD #### [facility] [address] [place] [address] Dr. Missy Gonzalez PCP Negative Normal NEGATIVE [facility] Comment on above: Performed By: #### D RUGRPD #### [facility] [address] [place] [address] Dr. Missy Gonzalez PPX Negative Normal NEGATIVE [facility] Comment on above: Performed By: #### D RUGRPD #### [facility] [address] [place] [address] Dr. Missy Gonzalez TCA Negative Normal NEGATIVE [facility] Comment on above: Performed By: #### D RUGRPD #### [facility] [address] [place] [address] Dr. Missy Gonzalez THC Negative Normal NEGATIVE [facility] Comment on above: Performed By: #### D RUGRPD #### [facility] [address] [place] [address] Dr. Missy Gonzalez TYPE AND SCREENon 08-06-2022 TYPE AND SCREEN Negative Normal [facility] Comment on above: Performed By: #### C BC #### [facility] [address] [place] [address] Dr. Missy Gonzalez US PREG GROWTHon 07-31-2022 [...] GLENNY TORRES Date: 2022-07-31 13:51 Normal [facility] CHLAMYDIA/GONOCOCCUS CEDRIC (SW AB/URINE/PAPon 07-19-2022 Chlamydia trachomatis, CEDRIC Negative Normal Negative [facility] Comment on above: Performed By: #### P REG #### [facility] [address] [place] [address] Dr. Missy Gonzalez Neisseria gonorrhoeae, CEDRIC Negative Normal Negative [facility] Comment on above: Performed By: #### P REG #### [facility] [address] [place] [address] Dr. Missy Gonzalez VAGINITIS/VAGINOSIS DNA PROB Anurag 07-18-2022 Sarah species Negative Normal Negative [facility] Comment on above: Performed By: #### V AGINT #### [facility] [address] [place] [address] Dr. Missy Gonzalez Gardnerella vaginalis Negative Normal Negative [facility] Comment on above: Performed By: #### V AGINT #### [facility] [address] [place] [address] Dr. Missy Gonzalez Trichomonas vaginalis Negative Normal Negative [facility] Comment on above: Performed By: #### V AGINT #### [facility] [address] [address] [address] Missy Gonzalez GROUP B STREP CULTUREon 06-19 S. agalactiae Ag Ql (Unsp spec) Culture Observations: NEGATIVE FOR GROUP B STREPTOCOCCUS. Normal [facility] Comment on above: Performed By: #### C BC #### [facility] [address] [place] [address] Dr. Missy Gonzalez US PREG CERVICAL LENGTHon US PREG CERVICAL LENGTH EXAMINATION: US PREG CERVICAL LENGTH HISTORY: Uterine size for dates discrepancy COMPARISON: No relevant comparison available. FINDINGS: Cervix: 3.9 cm, closed IMPRESSION: Closed cervix measuring 3.9 cm Electronically authenticated by: GLENNY TORRES Date: 2022-07-03 16:[address] [facility] US PREG GROWTHon 07-03-2022 US PREG [...] by: GLENNY TORRES Date: 2022-07-03 16:[address] [facility] US PREG ANATOMY SINGLEon US PREG ANATOMY [...] ESTRADA CASTRO Date: 2022-03-27 22:23 Normal [facility] HEP B SURFACE ANTIGEN SCREEN on 01-25-2022 HBsAg Screen Negative Normal Negative [facility] Comment on above: Performed By: #### P REG #### [facility] [address] [address] [address] Missy Gonzalez HEPATITIS C VIRUS AB W/ REFL EX QUANTon 01-25-2022 HCV AB 0.1 s/co ratio Normal 0.0-0.9 [facility] Comment on above: Performed By: #### P REG #### [facility] [address] [address] [address] Missy Gonzalez Interpretation: Comment Normal [facility] Comment on above: Result Comment: Nega tive Not infected with HCV, unless recent infection is suspected or other evidence exists to indicate HCV infection. Performed By: #### P REG #### [facility] [address] [place] [address] Dr. Missy Gonzalez HIV 1 AND 2 WITH REFLEXon HIV Screen 4th Generation wRfx Non-Reactive Normal Non Reactive [facility] Comment on above: Result Comment: HIV Negative HIV-1/HIV-2 antibodies and HIV-1 p24 antigen were NOT detected. There is no laboratory evidence of HIV infection. Performed By: #### P REG #### [facility] [address] [address] [address] Missy Gonzalez RPR QUANTon 01-25-2022 Rapid Plasma Reagin, Quant Non-Reactive Normal NonRea<1:1 [facility] Comment on above: Result Comment: Plea se Note: This test does not meet current guidelines for screening and diagnosis of syphilis. This test is intended for following treatment response in patients being treated for syphilis infection. To screen for syphilis infection, a reflex cascade that includes both RPR and a treponema-specific assay should be utilized, such as Treponema pallidum (Syphilis) Screening [place] (469248) or Rapid Plasma Reagin (RPR) Test With Reflex to Quantitative RPR and Confirmatory Treponema pallidum Antibodies ([id number]). Performed By: #### P REG #### [facility] [address] [place] [address] Dr. Missy Gonzalez RUBELLA AB IGGon 01-25-2022 Rubella Antibodies, IgG 1.27 index Normal Immune >0.99 [facility] Comment on above: Result Comment: Non- immune <0.90 Equivocal 0.90 - 0.99 Immune >0.99 Performed By: #### P REG #### [facility] [address] [place] [address] Dr. Missy Gonzalez CBC AUTO DIFFon 01-23-2022 BASO # 0.0 103/ul Normal 0.0-0.1 [facility] Comment on above: Performed By: #### P REG #### [facility] [address] [place] [address] Dr. Missy Gonzalez Basophils/100 WBC (Bld) 0.3 % Normal 0.2-2.0 [facility] Comment on above: Performed By: #### P REG #### [facility] [address] [place] [address] Dr. Missy Gonzalez EO # 0.1 103/ul Normal 0.0-0.7 [facility] Comment on above: Performed By: #### P REG #### [facility] [address] [place] [address] Dr. Missy Gonzalez Eosinophils/100 WBC (Bld) 0.8 % Critically low 0.9-7.0 [facility] Comment on above: Performed By: #### P REG #### [facility] [address] [place] [address] Dr. Missy Gonzalez Erythrocyte distribution width (RBC) [Ratio] 11.3 % Normal 11.0-15.0 [facility] Comment on above: Performed By: #### P REG #### [facility] [address] [place] [address] Dr. Missy Gonzalez Hematocrit (Bld) [Volume fraction] 35.2 % Critically low 36.0-48.0 [facility] Comment on above: Performed By: #### P REG #### [facility] [address] [place] [address] Dr. Missy Gonzalez Hemoglobin (Bld) [Mass/Vol] 12.0 g/dL Normal 12.0-16.0 [facility] Comment on above: Performed By: #### P REG #### [facility] [address] [place] [address] Dr. Missy Gonzalez IG # 0.03 10e3/ul Normal 0.00-0.03 [facility] Comment on above: Performed By: #### P REG #### [facility] [address] [place] [address] Dr. Missy Gonzalez IG % 0.4 % Normal 0.0-0.5 [facility] Comment on above: Performed By: #### P REG #### [facility] [address] [place] [address] Dr. Missy Gonzalez LYMPH # 1.9 103/ul Normal 1.2-3.8 [facility] Comment on above: Performed By: #### P REG #### [facility] [address] [place] [address] Dr. Missy Gonzalez Lymphocytes/100 WBC (Bld) 24.3 % Normal 20.5-60.0 [facility] Comment on above: Performed By: #### P REG #### [facility] [address] [place] [address] Dr. Missy Gonzalez MANUAL DIFF REQ NO Normal [facility] Comment on above: Performed By: #### P REG #### [facility] [address] [place] [address] Dr. Missy Gonzalez MCH (RBC) [Entitic mass] 30.8 pg Normal 26.7-34.0 [facility] Comment on above: Performed By: #### P REG #### [facility] [address] [place] [address] Dr. Missy Gonzalez MCHC (RBC) [Mass/Vol] 34.1 g/dL Normal 29.9-35.2 [facility] Comment on above: Performed By: #### P REG #### [facility] [address] [place] [address] Dr. Missy Gonzalez MCV (RBC) [Entitic vol] 90.5 fL Normal 81.0-99.0 [facility] Comment on above: Performed By: #### P REG #### [facility] [address] [place] [address] Dr. Missy Gonzalez MONO # 0.5 103/ul Normal 0.3-0.8 [facility] Comment on above: Performed By: #### P REG #### [facility] [address] [place] [address] Dr. Missy Gonzalez Monocytes/100 WBC (Bld) 6.3 % Normal 1.7-12.0 [facility] Comment on above: Performed By: #### P REG #### [facility] [address] [place] [address] Dr. Missy Gonzalez NEUT # 5.4 103/ul Normal 1.4-6.5 [facility] Comment on above: Performed By: #### P REG #### [facility] [address] [place] [address] Dr. Missy Gonzalez Neutrophils/100 WBC (Bld) 67.9 % Normal 43.0-75.0 [facility] Comment on above: Performed By: #### P REG #### [facility] [address] [address] [address] Missy Gonzalez Platelet mean volume (Bld) [Entitic vol] 9.5 fL Normal 9.5-13.5 [facility] Comment on above: Performed By: #### P REG #### [facility] [address] [address] [address] Missy Gonzalez PLT 320 103/ul Normal 150-450 [facility] Comment on above: Performed By: #### P REG #### [facility] [address] [place] [address] Dr. Missy Gonzalez RBC 3.89 106/ul Critically low 4.20-5.40 [facility] Comment on above: Performed By: #### P REG #### [facility] [address] [place] [address] Dr. Missy Gonzalez WBC 8.0 103/ul Normal 4.0-11.0 [facility] Comment on above: Performed By: #### P REG #### [facility] [address] [place] [address] Dr. Missy Gonzalez CULTURE URINEon 01-23-2022 CULTURE URINE Culture Observations : LIGHT GROWTH OF MIXED GENITAL JOSE. NO POTENTIAL PATHOGENS SEEN. Normal [facility] Comment on above: Performed By: #### U RCX #### [facility] [address] [place] [address] Dr. Missy Gonzalez GLYCOHEMOGLOBIN A1Con 2021 ADA RECOMMENDATION SEE BELOW Normal [facility] Comment on above: Result Comment: ADA RECOMMENDED LIMIT 4.0 - 6.0 ADA THERAPEUTIC TARGET < 7.0 ACTION SUGGESTED > 7.0 Performed By: #### A 1C #### [facility] [address] [place] [address] Dr. Missy Gonzalez Glucose [Mass/Vol] 103 mg/dL Normal [facility] Comment on above: Performed By: #### A 1C #### [facility] [address] [place] [address] Dr. Missy Gonzalez HbA1c (Bld) [Mass fraction] 5.2 % Normal 4.5-6.2 [facility] Comment on above: Performed By: #### A 1C #### [facility] [address] [place] [address] Dr. Missy Gonzalez MATEO BOX TEST PT SEND OUTo n 01-23-2022 SENT TO REF LAB 01/23/2022 Normal [facility] Comment on above: Performed By: #### C BC #### [facility] [address] [place] [address] Dr. Missy Gonzalez TYPE AND SCREENon 01-23-2022 TYPE AND SCREEN Negative Normal [facility] Comment on above: Performed By: #### C BC #### [facility] [address] [place] [address] Dr. Missy Gonzalez US PREG TVon 12-29-2021 [...] GLENNY TORRES Date: 2021-12-29 16:46 Normal [facility] VIT D 1 25 DIHYDROXYon 11-19 Calcitriol(1,25 di-OH Vit D) 72.5 pg/mL Normal 19.9-79.3 [facility] Comment on above: Result Comment: Ef fective November 20, 2021 Calcitriol(1,25 di-OH Vit D) reference interval will be changing to: pg/mL . 0 - 6 months: 44.3 - 212.9 7 months - 1 year: 40.3 - 112.4 >1 year: 24.8 - 81.5 Performed By: #### P REG #### [facility] [address] [place] [address] Dr. Missy Gonzalez CBC AUTO DIFFon 11-16-2021 BASO # 0.1 103/ul Normal 0.0-0.1 [facility] Comment on above: Performed By: #### C BC #### [facility] [address] [place] [address] Dr. Missy Gonzalez Basophils/100 WBC (Bld) 0.7 % Normal 0.2-2.0 [facility] Comment on above: Performed By: #### C BC #### [facility] [address] [place] [address] Dr. Missy Gonzalez EO # 0.1 103/ul Normal 0.0-0.7 [facility] Comment on above: Performed By: #### C BC #### [facility] [address] [place] [address] Dr. Missy Gonzalez Eosinophils/100 WBC (Bld) 0.7 % Critically low 0.9-7.0 [facility] Comment on above: Performed By: #### C BC #### [facility] [address] [place] [address] Dr. Missy Gonzalez Erythrocyte distribution width (RBC) [Ratio] 11.2 % Normal 11.0-15.0 [facility] Comment on above: Performed By: #### C BC #### [facility] [address] [place] [address] Dr. Missy Gonzalez Hematocrit (Bld) [Volume fraction] 40.4 % Normal 36.0-48.0 [facility] Comment on above: Performed By: #### C BC #### [facility] [address] [place] [address] Dr. Missy Gonzalez Hemoglobin (Bld) [Mass/Vol] 13.4 g/dL Normal 12.0-16.0 [facility] Comment on above: Performed By: #### C BC #### [facility] [address] [place] [address] Dr. Missy Gonzalez IG # 0.02 10e3/ul Normal 0.00-0.03 [facility] Comment on above: Performed By: #### C BC #### [facility] [address] [place] [address] Dr. Missy Gonzalez IG % 0.3 % Normal 0.0-0.5 [facility] Comment on above: Performed By: #### C BC #### [facility] [address] [place] [address] Dr. Missy Gonzalez LYMPH # 2.6 103/ul Normal 1.2-3.8 [facility] Comment on above: Performed By: #### C BC #### [facility] [address] [place] [address] Dr. Missy Gonzalez Lymphocytes/100 WBC (Bld) 36.6 % Normal 20.5-60.0 [facility] Comment on above: Performed By: #### C BC #### [facility] [address] [place] [address] Dr. Missy Gonzalez MANUAL DIFF REQ NO Normal [facility] Comment on above: Performed By: #### C BC #### [facility] [address] [place] [address] Dr. Missy Gonzalez MCH (RBC) [Entitic mass] 30.7 pg Normal 26.7-34.0 [facility] Comment on above: Performed By: #### C BC #### [facility] [address] [place] [address] Dr. Missy Gonzalez MCHC (RBC) [Mass/Vol] 33.2 g/dL Normal 29.9-35.2 [facility] Comment on above: Performed By: #### C BC #### [facility] [address] [place] [address] Dr. Missy Gonzalez MCV (RBC) [Entitic vol] 92.7 fL Normal 81.0-99.0 [facility] Comment on above: Performed By: #### C BC #### [facility] [address] [place] [address] Dr. Missy Gonzalez MONO # 0.5 103/ul Normal 0.3-0.8 [facility] Comment on above: Performed By: #### C BC #### [facility] [address] [address] [address] Missy Gonzalez Monocytes/100 WBC (Bld) 6.5 % Normal 1.7-12.0 [facility] Comment on above: Performed By: #### C BC #### [facility] [address] [address] [address] Missy Gonzalez NEUT # 3.9 103/ul Normal 1.4-6.5 [facility] Comment on above: Performed By: #### C BC #### [facility] [address] [place] [address] Dr. Missy Gonzalez Neutrophils/100 WBC (Bld) 55.2 % Normal 43.0-75.0 [facility] Comment on above: Performed By: #### C BC #### [facility] [address] [place] [address] Dr. Missy Gonzalez Platelet mean volume (Bld) [Entitic vol] 8.7 fL Critically low 9.5-13.5 [facility] Comment on above: Performed By: #### C BC #### [facility] [address] [place] [address] Dr. Missy Gonzalez PLT 294 103/ul Normal 150-450 [facility] Comment on above: Performed By: #### C BC #### [facility] [address] [place] [address] Dr. Missy Gonzalez RBC 4.36 106/ul Normal 4.20-5.40 [facility] Comment on above: Performed By: #### C BC #### [facility] [address] [place] [address] Dr. Missy Gonzalez WBC 7.1 103/ul Normal 4.0-11.0 [facility] Comment on above: Performed By: #### C BC #### [facility] [address] [place] [address] Dr. Missy Gonzalez GLYCOHEMOGLOBIN A1Con 2021 ADA RECOMMENDATION SEE BELOW Normal [facility] Comment on above: Result Comment: ADA RECOMMENDED LIMIT 4.0 - 6.0 ADA THERAPEUTIC TARGET < 7.0 ACTION SUGGESTED > 7.0 Performed By: #### A 1C #### [facility] [address] [place] [address] Dr. Missy Gonzalez Glucose [Mass/Vol] 100 mg/dL Normal [facility] Comment on above: Performed By: #### A 1C #### [facility] [address] [place] [address] Dr. Missy Gonzalez HbA1c (Bld) [Mass fraction] 5.1 % Normal 4.5-6.2 [facility] Comment on above: Performed By: #### A 1C #### [facility] [address] [place] [address] Dr. Missy Gonzalez PREG HCG QUALon 11-16-2021 , QUAL Negative Normal NEGATIVE [facility] Comment on above: Performed By: #### P REG #### [facility] [address] [place] [address] Dr. Missy Gonzalez PROF 14(COMP METB)on 022 Albumin [Mass/Vol] 4.6 g/dL Normal 3.4-5.0 [facility] Comment on above: Performed By: #### T MAYRA, CMP #### [facility] [address] [place] [address] Dr. Missy Gonzalez Albumin/Globulin [Mass ratio] 1.2 {ratio} Normal [facility] Comment on above: Performed By: #### T MAYRA, CMP #### [facility] [address] [place] [address] Dr. Missy Gonzalez ALP [Catalytic activity/Vol] 69 U/L Normal 46-116 [facility] Comment on above: Performed By: #### T SH, CMP #### [facility] [address] [place] [address] Dr. Missy Gonzalez ALT [Catalytic activity/Vol] 30 U/L Normal 14-59 [facility] Comment on above: Performed By: #### T MAYRA, CMP #### [facility] [address] [place] [address] Dr. Missy Gonzalez Anion gap [Moles/Vol] 15.0 mmol/L Normal [facility] Comment on above: Performed By: #### T SH, CMP #### [facility] [address] [place] [address] Dr. Missy Gonzalez AST [Catalytic activity/Vol] 20 U/L Normal 15-37 [facility] Comment on above: Performed By: #### T SH, CMP #### [facility] [address] [place] [address] Dr. Missy Gonzalez Bilirubin [Mass/Vol] 0.4 mg/dL Normal 0.2-1.0 [facility] Comment on above: Performed By: #### T SH, CMP #### [facility] [address] [place] [address] Dr. Missy Gonzalez Calcium [Mass/Vol] 9.1 mg/dL Normal 8.5-10.1 [facility] Comment on above: Performed By: #### T SH, CMP #### [facility] [address] [place] [address] Dr. Missy Gonzalez Chloride [Moles/Vol] 102 mmol/L Normal 98-107 [facility] Comment on above: Performed By: #### T SH, CMP #### [facility] [address] [place] [address] Dr. Missy Gonzalez CO2 [Moles/Vol] 27.3 mmol/L Normal 21.0-32.0 [facility] Comment on above: Performed By: #### T SH, CMP #### [facility] [address] [place] [address] Dr. Missy Gonzalez Creatinine [Mass/Vol] 0.63 mg/dL Normal 0.55-1.02 [facility] Comment on above: Performed By: #### T SH, CMP #### [facility] [address] [place] [address] Dr. Missy Gonzalez EGFR-AF BARBADIAN >60 Normal >=60 [facility] Comment on above: Performed By: #### T SH, CMP #### [facility] [address] [place] [address] Dr. Missy Gonzalez EGFR-NON AF BARBADIAN >60 Normal >=60 [facility] Comment on above: Performed By: #### T SH, CMP #### [facility] [address] [address] [address] Missy Gonzalez Globulin (S) [Mass/Vol] 3.8 g/dL Normal [facility] Comment on above: Performed By: #### T SH, CMP #### [facility] [address] [address] [address] Missy Gonzalez Glucose [Mass/Vol] 86 mg/dL Normal 74-106 [facility] Comment on above: Performed By: #### T SH, CMP #### [facility] [address] [place] [address] Dr. iMssy Gonzalez Potassium [Moles/Vol] 4.3 mmol/L Normal 3.5-5.1 [facility] Comment on above: Performed By: #### T SH, CMP #### [facility] [address] [place] [address] Dr. Missy Gonzalez Protein [Mass/Vol] 8.4 g/dL Critically high 6.4-8.2 [facility] Comment on above: Performed By: #### T SH, CMP #### [facility] [address] [place] [address] Dr. Missy Gonzalez Sodium [Moles/Vol] 140 mmol/L Normal 136-145 [facility] Comment on above: Performed By: #### T SH, CMP #### [facility] [address] [place] [address] Dr. Missy Gonzalez Urea nitrogen [Mass/Vol] 11.0 mg/dL Normal 7.0-18.0 [facility] Comment on above: Performed By: #### T SH, CMP #### [facility] [address] [place] [address] Dr. Missy Gonzalez Urea nitrogen/Creatinine [Mass ratio] 17.5 mg/mg Normal [facility] Comment on above: Performed By: #### T SH, CMP #### [facility] [address] [place] [address] Dr. Missy Gonzalez TSHon 11-16-2021 TSH 1.070 uIU/mL Normal 0.358-3.740 [facility] Comment on above: Performed By: #### T SH, CMP #### [facility] [address] [place], [place] [address] Dr. Missy Gonzalez TSH RANGE SEE BELOW Normal [facility] Comment on above: Result Comment: <0.3 4 UIU/ml HYPERTHYROID 0.34-5.60 UIU/ml EUTHYROID >5.60 UIU/ml HYPOTHYROID Performed By: #### T SH, CMP #### [facility] [address] [place], [place] [address] Dr. Missy Gonzalez Coding Summary.on 08-23-2020 Coding Summary. CODING DATE: 08/23/2020 FINAL [facility] STATUS: Home (Routine DC) PAYOR: Self [...] CphT Date Saved: 08/23/2020 07:49 am Normal [facility] XR ANKLE LEFT (MIN 3 VIEWS)o n [...] Del Valle MD 07/12/20 Final result Normal [facility] NO FRACTURE OR DISLOCATION. SOFT TISSUES LUNG LATERALLY. [facility] [place], [place] X-RAY: LEFT ANKLE, THREE VIEWS REASON FOR EXAMINATION: Left ankle pain after tripping and falling a lot work. COMPARISONS: None available. FINDINGS: No fracture, dislocation or osseous destruction is seen. The ankle mortise is well maintained. Soft tissue swelling laterally. [place], [place] Chucho, Chpo Incoming Radiant Results From [facility] - 07/12/2020 1:16 PM EST X-RAY: LEFT ANKLE, THREE VIEWS REASON FOR EXAMINATION: Left ankle pain after tripping and falling a lot work. COMPARISONS: None available. FINDINGS: No fracture, dislocation or osseous destruction is seen. The ankle mortise is well maintained. Soft tissue swelling laterally. IMPRESSION: NO FRACTURE OR DISLOCATION. SOFT TISSUES LUNG LATERALLY. [facility]06 Test Code 442303 [facility] Comment on above: Performed By: #### 1 [id number] #### [facility] [address] [place] [address] Test Name IG PAP RFLX HPV [facility] Comment on above: Performed By: #### 1 [id number] #### [facility] [address] [place] [address] Physician Orderon 07-06-2020 Physician Order [id number]# 1.00CD:127 Normal [facility] Measles (Rubeola) Imon 10-15 Measles (Rubeola) Im 2.18 Normal >1.09 [facility] Comment on above: Result Comment: Interpretation: IMMUNE Reference Range: <0.91 Not Immune 0.91-1.09 Equivocal >1.09 Immune Performed By: #### M EI, RAOUL, VZI, EMELI #### [facility] [employer] [address] [place] [address] [phone] [employer]ut Candy Maker: Jacques Carpenter MD Mumps,Immun,Abon 10-15-2018 Mumps,Immun,Ab 3.24 Normal >1.09 [facility] Comment on above: Result Comment: Interpretation: IMMUNE Reference Range: <0.91 Not Immune 0.91-1.09 Equivocal >1.09 Immune Performed By: #### M EI, RAOUL, VZI, EMELI #### [facility] [employer] [address] [place] [address] [phone] [employer] Maker: Jacques Carpenter MD VZ Immunityon 10-15-2018 VZ Immunity 1.31 Normal >1.09 [facility] Comment on above: Result Comment: Interpretation: IMMUNE Reference Range: <0.91 Not Immune 0.91-1.09 Equivocal >1.09 Immune Performed By: #### M EI, RAOUL, VZI, EMELI #### [facility] [employer] [address] [place] [address] [phone] [employer]ut Candy Maker: Jacques Carpenter MD Hep B Surf Abon 10-14-2018 Hep B Surf Ab 88.71 mIU/mL High <10 [facility] Comment on above: Result Comment: REFERENCE [...] infection. Performed By: #### A HBS #### [facility] [employer] [address] [place] [address] [phone] [employer] Maker: Jacques Carpenter MD Rubella Ab, IgGon 10-14-2018 Rubella Ab, IgG 78.6 IU/mL Normal [facility] Comment on above: Result Comment: REFERENCE RANGE: <5.0 NON-REACTIVE (non-immune) 5.0 TO 9.9 EQUIVOCAL >=10.0 REACTIVE (immune) Performed By: #### M EI, RAOUL, VZI, EMELI #### [facility] [employer] [address] [place] [address] [phone] [employer] C[employer] Maker: Jacques Carpenter MD Vital Signs Date Time Vital Sign Value Performing Clinician Facility 07-06-2024 16:11-0500 Body mass index (BMI) [Ratio] 31.59 kg/m2 Sofia VERDUGO Work Phone: [facility] 07-06-2024 16:11-0500 Body weight 91.49 kg Sofia VERDUGO Work Phone: [facility] 07-06-2024 16:11-0500 Diastolic blood pressure 76 mm[Hg] Sofia Jeannine PA Work Phone: [facility] 07-06-2024 16:11-0500 Systolic blood pressure 114 mm[Hg] Sofia Jeannine PA Work Phone: [facility] 06-08-2024 16:05-0500 Body mass index (BMI) [Ratio] 31.48 kg/m2 Neris Ani DO Work Phone: [facility] 06-08-2024 16:05-0500 Body weight 91.17 kg Neris Ani DO Work Phone: [facility] 06-08-2024 16:05-0500 Diastolic blood pressure 70 mm[Hg] Neris Ani DO Work Phone: [facility] 06-08-2024 16:05-0500 Systolic blood pressure 118 mm[Hg] Neris Ani DO Work Phone: [facility] 07-12-2020 12:46-0500 BMI (Body Mass Index) 31.01 kg/m2 [facility] [place] 07-12-2020 12:46-0500 Body Temperature 97.3 [degF] [facility] [place] 07-12-2020 12:46-0500 Body weight 89.81 kg [facility] [place] 07-12-2020 12:46-0500 BP Diastolic 102 mm[Hg] [facility] [place] 07-12-2020 12:46-0500 BP Systolic 152 mm[Hg] [facility] [place] 07-12-2020 12:46-0500 Height 170.2 cm [facility] [place] 07-12-2020 12:46-0500 Pulse (Heart Rate) 66 /min [facility] 07-12-2020 12:46-0500 Pulse Oximetry 98 % [facility] [place] 07-12-2020 12:46-0500 Respiratory Rate 20 /min Chad Silveira [facility] , [facility] 07-11-2020 17:08-0500 Body mass index (BMI) [Ratio] COMMENT [facility] Comment on above: Result Comment: Test [...] (endocervical component) are present. 01 Phuong Campbell, Emergency Medical Tech (ASCP) 01 Note 01 The Pap smear [...] High,A-Abnormal,AA-Critical Abnormal Performed at: 01 [facility] [address] [place] [address] Carie Hartman MD, Performed at: [facility] [place] [id number] MD Minnie Darnell Performed By: #### 1 [id number] #### [facility] [address] [place] [address] Encounters Encounter Date Encounter Type Care Provider Facility Start: 07-06-2024 End: 07-06-2024 Patient encounter procedure Sofia VERDUGO Work Phone: [facility] Work Phone: Start: 07-06-2024 End: 07-06-2024 Periodic preventive med est patient 18-39 yrs Sofia VERDUGO Work Phone: [facility] Comment on above: Well woman exam with routine gynecological exam; Second trimester ; 16 weeks gestation of ; Vaginal discharge; STD exposure; Screening, , for anatomic survey Start: 07-06-2024 End: 07-06-2024 ambulatory SOFIA PAZE Not Available Start: 07-06-2024 End: 07-06-2024 Bamboo [...] examination without abnormal findings DR STEPHANIE OHARA [facility] Start: 11-16-2021 End: 11-17-[address] STEPHANIE OHARA Facility:[facility] Start: 11-16-2021 End: 11-17-2021 Encounter for general adult medical examination without abnormal findings DR STEPHANIE OHARA Facility:[facility] Start: 07-12-2020 End: 07-12-2020 Emergency department patient visit CHAD [facility] Start: 07-12-2020 End: 07-12-2020 Emergency department patient visit Chad Marie Work Phone: [facility] ED Comment on above: Sprain of left ankle , unspecified ligament, initial encounter (Primary Dx) Start: 10-13-2018 End: 10-14-2018 Patient encounter procedure STEPHANIE OHARA [facility] Procedures Date Procedure Procedure Detail Performing Clinician [...] DR STEPHANIE OHARA Start: 08-06-2022 Repair Vulva, Correction Worker al Approach DR STEPHANIE OHARA Start: 07-12-2020 Radex ankle complete minimum 3 views Chad Marie Work Phone: Start: 10-13-2018 Hepatitis b surf ant ibody hbsab STEHPANIE OHARA Start: 10-13-2018 Antibody mumps STEPHANIE Broderick RAUN Start: 10-13-2018 Antibody rubeola STEPHANIE OHARA Start: 10-13-2018 Antibody varicella-zoster STEPHANIE OHARA Start: 10-13-2018 Immunoassay infectio us agent antibody priyanka nos STEPHANIE OHARA Plan of Treatment Date Care Activity Detail Author Start: 08-10-2024 End: 08-10-2024 Patient encounter procedure 08/10/2024 3:20 PM EST Routine [facility] [address] [place] [id number] Neris Law, DO [address] [place] [address] [facility] Start: 08-10-2024 End: 08-10-2024 Professional / ancillary services management 08/10/2024 2:30 PM EST Ancillary Procedure [facility] [address] [place] [phone] [facility] Start: 07-06-2024 End: 07-06-2024 [...] encounter procedure 06/08/2024 3:30 PM EST Routine [facility] [address] [place] [phone] Neris Law DO [address] [place] [address] [facility] Start: 05-08-2024 End: 05-08-2025 ABO/Rh ABO/Rh Lab Routine Missed menses , unspecified gestational age Expected: 05/08/2024 (Approximate), Expires: 05/08/2025 [facility] Comment on above: Expected: 05/08/2024 (Approximate), Expires: 05/08/2025 Start: 05-08-2024 End: 05-08-2025 Blood type and Indirect antibody screen panel - Blood Type and screen Lab Routine Missed menses , unspecified gestational age Expected: 05/08/2024 (Approximate), Expires: 05/08/2025 [facility] Work Phone: Comment on above: Expected: 05/08/2024 (Approximate), Expires: 05/08/2025 Start: 05-08-2024 End: 05-08-2025 Drugs of abuse panel - Urine by Screen method Rapid drug screen, urine Lab Routine , unspecified gestational age Encounter for supervision of normal first in first trimester Expected: 05/08/2024 (Approximate), Expires: 05/08/2025 [facility] Comment on above: Expected: 05/08/2024 (Approximate), Expires: 05/08/2025 Start: 05-08-2024 End: 05-08-2025 US Pelvis transvaginal US OB transvaginal Imaging Routine Missed menses Expected: 05/08/2024 (Approximate), Expires: 05/08/2025 [facility] Comment on above: Expected: 05/08/2024 (Approximate), Expires: 05/08/2025 Start: 02-16-2024 Influenza vaccination Influenza Vacc ine (#1) [facility] Start: 02-16-2020 Influenza vaccination Flu vaccine (# 1) [place], [place] Start: 12-31-2019 DTaP/Tdap/Td vaccine (7 - Tdap) DTaP/Tdap/Td vaccine (7 - Tdap) [place], [place] Start: 10-02-2018 Screening for Chlamy giuseppe trachomatis Chlamydia screen [place], [place] Start: 2018 Screening for malign ant neoplasm of cervix Cervical cancer screen [place], [place] Start: 2012 HIV screening HIV screen [facility] [place], [place] Start: 2008 HPV vaccine (1 - 2-d ose series) HPV vaccine (1 - 2-dose series) [place], [place] Start: 1997 Hepatitis C screening Hepatitis C sc reen [place], [place] Bacteria identified in Urine by Culture Urine culture Microbiology Routine Missed menses Ordered: 05/08/2024 [facility] Comment on above: Ordered: 05/08/2024 CBC W Auto Different ial panel - Blood CBC and differential Lab Routine Missed menses , unspecified gestational age Ordered: 05/08/2024 [facility] Comment on above: Ordered: 05/08/2024 CHLAMYDIA TRACHOMATI S (GENITO/STI) CHLAMYDIA TRACHOMATIS (GENITO/STI) Lab Routine STD exposure Ordered: 07/06/2024 [facility] Comment on above: Ordered: 07/06/2024 Cytology Cervical or vaginal smear or scraping study Pap Smear Pathology and Cytology Routine Well woman exam with routine gynecological exam Ordered: 07/06/2024 [facility] Comment on above: Ordered: 07/06/2024 Hemoglobin A1c/Hemoglobin.total in Blood Hemoglobin A1c Lab Routine Missed menses , unspecified gestational age Ordered: 05/08/2024 [facility] Comment on above: Ordered: 05/08/2024 Hepatitis B virus surface Ag [Presence] in Serum or Plasma by Immunoassay Hepatitis B surface antigen Lab Routine Missed menses , unspecified gestational age Ordered: 05/08/2024 [facility] Comment on above: Ordered: 05/08/2024 Hepatitis C virus Ab [Presence] in Serum or Plasma by Immunoassay Hepatitis C antibody Lab Routine Missed menses , unspecified gestational age Ordered: 05/08/2024 [facility] Comment on above: Ordered: 05/08/2024 HIV-1/HIV-2 antigen/antibody combination immunoassay HIV-1 and HIV-2 antibodies Lab Routine Missed menses , unspecified gestational age Ordered: 05/08/2024 [facility] Comment on above: Ordered: 05/08/2024 Neisseria gonorrhoea e DNA [Presence] in Unspecified specimen by CEDRIC with probe detection Neisseria gonorrhea DNA probe, direct Lab Routine STD exposure Ordered: 07/06/2024 [facility] Comment on above: Ordered: 07/06/2024 Reagin Ab [Presence] in Serum by RPR RPR Lab Routine Missed menses , unspecified gestational age Ordered: 05/08/2024 [facility] Comment on above: Ordered: 05/08/2024 Rubella antibody, IgG Rubella an tibody, IgG Lab Routine Missed menses , unspecified gestational age Ordered: 05/08/2024 [facility] Comment on above: Ordered: 05/08/2024 SURESWAB(R) ADVANCED VAGINITIS PLUS, TMA SURESWAB(R) ADVANCED VAGINITIS PLUS, TMA Pathology and Cytology Routine Vaginal discharge Ordered: 07/06/2024 [facility] Work Phone: Comment on above: Ordered: 07/06/2024 Immunizations Immunization Date Immunization Notes Care Provider Nano ellis 03-26-2023 influenza virus vacc ine, unspecified formulation Nom Nurse [facility] Payers Date Payer Category Payer [facility] [id number] 2020 Unknown [id number]. [id number] 1997 Unknown [id number] 2.16.840.1.460613.3.579.2. 173 1997 Unknown [id number] 2.16.840.1.230949.3.579.2. 185 1997 Unknown [id number] 2.16.840.1.058077.3.579.2. 593 1997 Unknown [id number] 2.16.840.1.678372.3.579.2. 593 1997 Unknown [id number] 2.16.840.1.193625.3.579.2. 593 1997 Unknown [id number] 2.16.840.1.549825.3.579.2. 593 1997 Unknown [id number] 2.16.840.1.578750.3.579.2. 593 1997 Unknown [id number] 2.16.840.1.368064.3.579.2. 593 1997 Unknown [id number] 2.16.840.1.004363.3.579.2. 593 1997 Unknown [id number] 2.16.840.1.508553.3.579.2. 593 1997 Unknown [id number] 2.16.840.1.812653.3.579.2. 593 1997 Unknown [id number] 2.16.840.1.115236.3.579.2. 593 1997 Unknown [id number] 2.16.840.1.818995.3.579.2. 593 1997 Unknown [id number] 2.16.840.1.450906.3.579.2. 593 1997 Unknown [id number] 2.16.840.1.395329.3.579.2. 593 1997 Unknown [id number] 2.16.840.1.940925.3.579.2. 1259 1997 Unknown [id number] 2.16.840.1.005623.3.579.2. 1259 1997 Unknown [id number] 2.16.840.1.796128.3.579.2. 1259 1959 Self-pay 1959 Unknown [id number] 1959 Unknown [id number] 1959 Unknown [id number] Unknown [id number] 2.16.840.1.084535.3.579.2. 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 Exam conducted with a art museum docent present. Vitals: Estimated body mass index is [...] obtained without difficulty [facility]. Orders Placed This [...] or undercooked meat, and stay away from [facility]. Patient has also been advised to [...] Nell Lockwood LPN documented in this encounter [facility] Evaluation note Note Date & Type Note Facility Evaluation note Diagnosis Missed menses , unspecified gestational age Encounter for supervision of normal first in first trimester documented in this encounter [facility] Evaluation note Note Date & Type Note Facility Evaluation note Diagnosis First trimester state, incidental 11 weeks gestation of Nausea and vomiting in Unspecified vomiting of , unspecified as to episode of care documented in this encounter [facility] Evaluation note Note Date & Type Note Facility Evaluation note Diagnosis Well woman exam with routine gynecological exam Routine gynecological examination Second trimester state, incidental 16 weeks gestation of Vaginal discharge Leukorrhea, not specified as infective STD exposure Screening, , for anatomic survey Encounter for anatomic survey documented in this encounter [facility] Summary Purpose Family History No Family History Records FoundNo Family History Records FoundNo Family History Records FoundNo Family History Records FoundNo Family History Records Found Advance Directives Documents on File Type Date Recorded 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 * Ankle Sprain (Turkish) documented in this encounter Assessments Diagnosis Sprain of left ankle, unspecified ligament, initial encounter- Primary Additional Source Comments INFORMATION SOURCE (unrecogn ized section and content) DATE CREATED AUTHOR 10/21/2018 [facility] DATE CREATED AUTHOR AUTHOR'S ORGANIZ ATION 07/12/2020 [facility] DATE CREATED AUTHOR AUTHOR'S ORGANIZ ATION 09/29/2020 [facility] DATE CREATED AUTHOR AUTHOR'S ORGANIZ ATION 10/23/2022 [facility] DATE CREATED AUTHOR AUTHOR'S ORGANIZ ATION 07/08/2024 [facility] EPIC Reason for [...] BE BASED ON THE PRIMARY CLINICAL RECORDS. [employer] provides no warranty or guarantee of the accuracy or completeness of information in this document.
== END 2024-07-30 16:22 | disposition home or self-care (01) ==
LOC: LAB 16:21
PROVIDERS: PCP Nurse Practitioner Family; Visit Provider Physician Assistant
DX: Z34.92 Encounter for supervision of normal pregnancy, unspecified, second trimester (principal)
CPT/HCPCS: 36415; 82105

== ENCOUNTER 2024-09-28 07:45 | Outpatient (OUT) | payer BC, SELFPAY ==
--- OUTSIDE RECORDS SUMMARY | 2024-09-28 07:49 | XMS_ITS | CCD ---
Author Organization [facility] Care Team Providers Care Hogshead Packer Name Role Phone STEPHANIE OHARA Referring Unavailable [...] [employer] Unavailable Unavailable Primary Care Provider Unavailabl e ANI, NERIS Attending Unavailable JEANNINE, SOFIA Referring Unavailable ANI, NERIS Attending Unavailable JEANNINE, SOFIA Attending Unavailable ANI, NERIS Attending Unavailable Allergies Allergy Classification Reported Allergen(s) Allergy Type Date of Onset Reaction(s) Facility (1 source) Penicillins Propensity to adverse reactions to drug 8 [place], [place] (1 source) Amoxicillin Drug Allergy [facility] (2 sources) Penicillin Drug Allergy 3 [facility] (15 sources) Penicillins Drug Allergy 4 [facility] Medications Current Medications Medication Drug Class(es) [...] Active ondansetron 4 mg disintegrating oral tablet (13 sources) Serotonin-3 Receptor Antagonist Start: 08-18-2024 ondansetron ODT (Zofran-ODT) 4 MG disintegrating tablet Indications: Vomiting of , unspecified DISSOLVE 1 TABLET UNDER TONGUE EVERY 6 HOURS IF NEEDED FOR NAUSEA OR VOMITING 30 tablet 4 08/18/2024 Active Start: 04-23-2024 End: 05-23-2024 take 1 tablet by mouth every six hours for nausea ondansetron ODT (Zofran-ODT) 4 MG disintegrating tablet Indications: Nausea and vomiting in Take 1 tablet (4 mg) by mouth every 6 (six) hours if needed for nausea or vomiting 30 tablet 2 04/23/2024 05/23/2024 Active polysaccharide iron complex 391 mg oral capsule (3 sources) Start: 07-30-2024 End: 08-29-2024 take 1 capsule by mouth once daily iron polysaccharides (ProFe) 391.3 (180 Fe) MG capsule Indications: Iron deficiency anemia, unspecified iron deficiency anemia type Take 1 capsule (391.3 mg) by mouth Daily 30 capsule 3 07/30/2024 08/29/2024 Active Vit-Fe Fumarate-FA (PNV Plus Multivitamin) 27-1 MG tablet (6 sources) Start: 06-08-2024 End: 07-08-2024 take 1 tablet by mouth once daily Vit-Fe Fumarate-FA (PNV Plus Multivitamin) 27-1 MG tablet Indications: First trimester Take 1 tablet by mouth Daily 30 tablet 11 06/08/2024 07/08/2024 Active Vit-Fe Fumarate-FA ( Vitamins) 28-0.8 MG tablet (12 sources) Start: 06-08-2024 End: 06-08-2025 take 1 tablet by mouth once daily Vit-Fe Fumarate-FA ( Vitamins) 28-0.8 MG tablet Indications: First trimester Take 1 tablet by mouth Daily 30 tablet 3 06/08/2024 06/08/2025 Active sertraline 50 mg oral tablet (15 sources) Serotonin Reuptake Inhibitor Start: 02-16-2024 sertraline [...] by mouth Daily 01/15/2024 07/06/2024 Discontinued (Other) FLUoxetine 20 mg oral capsule (12 sources) Serotonin Reuptake Inhibitor Start: 02-04-2024 End: 09-02-2024 take 1 capsule by mouth once daily in the morning FLUoxetine (PROzac) 20 MG capsule TAKE 1 CAPSULE BY MOUTH EVERY DAY IN THE MORNING 02/04/2024 09/02/2024 Discontinued metoclopramide 10 mg oral tablet (5 sources) Dopamine-2 Receptor Antagonist Start: 07-07-2024 End: 09-02-2024 metoclopramide (Reglan) 10 MG tablet Indications: Nausea and vomiting in Take 1 tablet (10 mg) by mouth in the morning and 1 tablet (10 mg) at noon and 1 tablet (10 mg) in the evening. Take before meals. Take 1 tablet by mouth 30 minutes prior to meals 3 times daily as needed for nausea.. 90 tablet 07/07/2024 09/02/2024 Discontinued nitrofurantoin, macrocrystals 25 mg / nitrofurantoin, monohydrate 75 mg oral capsule (3 sources) Nitrofuran Antibacterial Start: 05-25-2024 End: 06-08-2024 take 1 capsule by mouth in the morning nitrofurantoin, macrocrystal-monohy drate, (Macrobid) 100 MG capsule Indications: UTI symptoms Take 1 capsule (100 mg) by mouth in the morning and 1 capsule (100 mg) before bedtime. Do all this for 7 days. 14 capsule 05/25/2024 06/08/2024 Discontinued (Therapy completed) promethazine hydrochloride 12.5 mg oral tablet (20 sources) Phenothiazine Start: 06-08-2024 End: 09-06-2024 take 1 tablet by mouth every four hours promethazine (Phenergan) 12.5 MG tablet Indications: Nausea and vomiting in Take 1 tablet (12.5 mg) by mouth every 4 (four) hours 180 tablet 1 06/08/2024 09/02/2024 Discontinued Start: 06-08-2024 End: 09-02-2024 take 1 tablet by mouth every six [...] needed for nausea. 30 tablet 2 06/08/2024 09/02/2024 Discontinued Problems Active Problems Problem Classification Problem Date Documented Date Episodic/Chronic Administrative/social admission (2 sources) Encounter for examination for admission to educational institution; Translations: [Encounter for examination for admission to educational institution] Onset: 10-13-2018 Episodic Conditions associated with dizziness or vertigo (2 sources) Lightheadedness; Translations: [Dizziness and giddiness] 07-30-2024 Episodic Deficiency and other anemia (2 sources) Iron deficiency anemia; Translations: [Iron deficiency anemia, unspecified] 07-30-2024 Episodic Genitourinary symptoms and ill-defined conditions (2 sources) Urinary symptoms ; Translations: [Unspecified symptoms and signs involving the genitourinary system] 07-30-2024 Episodic Immunizations and screening for infectious disease [...] conditions (not mental disorders or infectious disease) (13 sources) Encounter for screening for malignant neoplasm [...] [16 weeks gestation of ] 07-06-2024 Episodic Residual codes; unclassified (2 sources) Gestation period, 19 weeks; Translations: [19 weeks gestation of ] 07-30-2024 Episodic Residual codes; unclassified (2 sources) Gestation period, 23 weeks; Translations: [23 weeks gestation of ] 09-02-2024 Episodic Unclassified (1 source) Sprain of left [...] Test Name Value Interpretation Reference Range Facility Urinalysis macro (dipstick) panel (U)on 09-02-2024 Bilirubin, UA Negative Negative - 4(70) +++ mg/dL [facility] Blood, UA Negative Negative - 50 Brett/mcL [facility] Clarity, UA Clear [facility] Color, UA Yellow [facility] Glucose, UA Negative Negative - 2000(110) ++++ mg/dL [facility] Interpretation and review of laboratory results Abnormal [facility] Ketones, UA Negative Negative - 160(16) ++++ mg/dL [facility] Leukocytes, UA Trace Negative - 500+++ Torsten/mcL [facility] Nitrite, UA Negative Negative - Positive [facility] pH, UA 6.5 5 - 9 [facility] Protein, UA Negative Negative - 2000(20) ++++ mg/dL [facility] Spec Grav, UA 1.02 1 - 1.03 [facility] Urobilinogen, UA 1.0 0.2 - 12 mg/dL [facility] US OB 14+ WEEKS ANATOMY SCAN on 07-31-2024 US OB 14+ WEEKS ANATOMY SCAN TITLE OF EXAM: OB Ultrasound: REASON FOR EXAM: Anatomy, near syncope episode. COMPARISON: None TECHNIQUE: Grayscale and M-mode Doppler imaging is performed. FINDINGS: heart rate: 154 bpm BPD: 4.6 cm (19.9 weeks, 80%) HC: 17.2 cm (19.8 weeks, 72%) AC: 15.2 cm (20.4 weeks, 83%) FL: 3.1 cm (19.6 weeks, 60%) GA for sonogram: 19.7 wk (18.3-21.1) Cervix length: 5.4 cm JAGJIT: 12/24/2024 Weight Estimate: Weight: 327 gm / 0 lbs, 11 oz (90% for 279-375 gm) [place] Normal: 281 gm (234-329 gm) [place] Wt%: 90% for 19.1 wks Lie: Transverse Amniotic Fluid: Subjectively normal Placental Location: Anterior Distance from Placenta edge to Cervical os: 7.4 cm Cervical Length: 5.4 cm Closed Heart Rate: 154 bpm Anatomy Observed: Lateral Ventricles: Visualized Cerebellum: Visualized Posterior Fossa: Visualized Nose Lips: Visualized Orbits: Visualized 4 Chamber heart: Visualized RVOT/LVOT: Visualized Diaphragm: Visualized Stomach: Visualized Kidneys: Visualized Abd Cord Insert: Visualized Bladder: Visualized Umbilical Arteries: Visualized 3 Vessel Cord: Visualized Spine: Visualized Extremities: Visualized Gender: XX AUA: 19 w 6 d JAGJIT: 12/19/2024 GA: 19 w 1 d JAGJIT: 12/24/2024 Single live intrauterine gestation with noted visualized anatomy above, including the brain, heart, face, orbits, diaphragm, stomach, kidneys, and appendicular skeleton. No appreciable abnormality of these structures. Three-vessel umbilical cord. Placental cord insertion appears to be distant from the placental edge. No appreciable placenta previa or abruptio. IMPRESSION: Single live intrauterine gestation sonographically measuring 19.7 weeks. No appreciable anatomic abnormality of the observed and maternal structures. Notable weight 90th percentile. Dictated and transcribed 07/31/24/dpd This report has been electronically signed and approved by the interpreting radiologist. Normal Not Available Comment on above: Order Comment: US OB ANATOMY SINGLE W US OB CERVICAL LENGTH Estimated Date of Delivery: 12/24/24 Gestational Age as of 07/06/2024: 15w4d ALL CBC WITH AUTO DIFFon BASOPHILS ABSOLUTE AUTO 0 [facility] Basophils/100 WBC (Bld) 0.2 % 0.2 - 2.0 % [facility] Eosinophils/100 WBC (Bld) 0.7 % Low 0.9 - 7.0 % [facility] Erythrocyte distribution width (RBC) [Ratio] 12 % 11.0 - 15.0 % [facility] Hematocrit (Bld) [Volume fraction] 35.7 % Low 36.0 - 48.0 % [facility] Hemoglobin (Bld) [Mass/Vol] 12.4 g/dL 12.0 - 16.0 g/dL [facility] IMMATURE GRANULOCYTES ABS AUTO 0.04 High [facility] Immature granulocytes/100 WBC (Bld) 0.7 % High 0.0 - 0.5 % [facility] Interpretation and review of laboratory results Abnormal [facility] LYMPHOCYTES ABSOLUTE AUTO 2.2 [facility] Lymphocytes/100 WBC (Bld) 36.7 % 20.5 - 60.0 % [facility] MCH (RBC) [Entitic mass] 31.2 pg 26.7 - 34.0 pg [facility] MCHC (RBC) [Mass/Vol] 34.7 g/dL 29.9 - 35.2 g/dL [facility] MCV (RBC) [Entitic vol] 89.7 fL 81.0 - 99.0 fL [facility] MONOCYTES ABSOLUTE AUTO 0.4 [facility] Monocytes/100 WBC (Bld) 6.4 % 1.7 - 12.0 % [facility] NEUTROPHILS ABSOLUTE AUTO 3.3 [facility] Neutrophils/100 WBC (Bld) 55.3 % 43.0 - 75.0 % [facility] Platelet mean volume (Bld) [Entitic vol] 9.3 fL Low 9.5 - 13.5 fL [facility] TBH EO # 0 [facility] TB PLT 323 [facility] RBC 3.98 Low [facility] WBC 6 [facility] IGP,APTIMA HPV,AGE GDLNon AGE GDLN ACOG TESTING Note . [facility] Comment on above: TESTS RESULT FLAG UN ITS REF RANGE LAB Clinician Provided Cytology Information Source.............Cervix No. of containers..01 ThinPrep Vial Age Algo ACOG Jordyn... FLAG LEGEND: L-Low Normal,H-High Normal,LL-Alert Low,HH-Alert High <-Panic Low,>-Panic High,A-Abnormal,AA-Critical Abnormal Performed at: 01 =[facility] [address] [place] [address] Carie Hartman MD, IGP, RFX APTIMA HPV ASCU Note . [facility] Comment on above: TESTS RESULT FLAG UN ITS REF RANGE LAB DIAGNOSIS: 02 NEGATIVE FOR INTRAEPITHELIAL LESION OR MALIGNANCY. Specimen adequacy: 02 Satisfactory for evaluation. No endocervical component is identified. Performed by: Jaxon Lentz, Homeworker ([facility]) . 02 Note: Note 02 The [...] <-Panic Low,>-Panic High,A-Abnormal,AA-Critical Abnormal Performed at: [address] [id number] Carie Hartman MD, Performed at: =[facility] [id number] Computer Technologist: Carie Hartman MD, Phone: [phone] Performed at: [facility] [address] [id number] Computer Technologist: Carie Hartman MD, Phone: [phone] [facility] RECURRENT VAGINITIS (HTRX)on 07-08-2024 ATOPOBIUM VAGINAE 0 [facility] ATOPOBIUM VAGINAE Not detected [facility] BVAB 2,3 (BACTERIAL VAGINOSIS ASSOCIATED BACTERIA 2, 3); MOBILUNCUS SPP 0 [facility] BVAB 2,3 (BACTERIAL VAGINOSIS ASSOCIATED BACTERIA 2, 3); MOBILUNCUS SPP Not detected [facility] SARAH ALBICANS, PARAPSILOSIS, TROPICALIS 0 [facility] SARAH ALBICANS, PARAPSILOSIS, TROPICALIS Not detected [facility] SARAH GLABRATA 0 [facility] SARAH GLABRATA Not detected [facility] SARAH KRUSEI 0 [facility] SARAH KRUSEI Not detected [facility] CHLAMYDIA TRACHOMATIS 0 [facility] CHLAMYDIA TRACHOMATIS Not detected [facility] GARDNERELLA VAGINALIS 0 [facility] GARDNERELLA VAGINALIS Not detected [facility] MEGASPHAERA (TYPES 1, 2) 0 [facility] MEGASPHAERA (TYPES 1, 2) Not detected [facility] MYCOPLASMA GENITALIUM 0 [facility] MYCOPLASMA GENITALIUM Not detected [facility] NEISSERIA GONORRHOEAE 0 [facility] NEISSERIA GONORRHOEAE Not detected [facility] TRICHOMONAS VAGINALIS 0 [facility] TRICHOMONAS VAGINALIS Not detected [facility] BOX TESTon 06-01-2024 BOX TEST SENT OUT [facility] BOX1 [facility] BOX2 06/01/2024 [facility] ( test) Ql (U)o n 05-08-2024 Interpretation and review of laboratory results Abnormal [facility] Preg Test, Ur Positive Negative [facility] Urinalysis macro (dipstick) panel (U)on 05-08-2024 Bilirubin, UA Negative Negative - 4(70) +++ mg/dL [facility] Blood, UA Negative Negative - 50 Brett/mcL [facility] Clarity, UA Clear [facility] Color, UA Yellow [facility] Glucose, UA Negative Negative - 2000(110) ++++ mg/dL [facility] Interpretation and review of laboratory results Normal [facility] Ketones, UA Negative Negative - 160(16) ++++ mg/dL [facility] Leukocytes, UA Negative Negative - 500+++ Torsten/mcL [facility] Nitrite, UA Negative Negative - Positive [facility] pH, UA 5.5 5 - 9 [facility] Protein, UA Negative Negative - 2000(20) ++++ mg/dL [facility] Spec Grav, UA 1.02 1 - 1.03 [facility] Urobilinogen, UA 1.0 0.2 - 12 mg/dL [facility] PAP ACOG PANEL 2: 21 to 29on 10-22-2022 . . Normal [facility] Comment on above: Performed By: #### C BC #### [facility] [address] [address] [address] Missy Gonzalez Age Gdln ACOG Testing - [facility] Comment on above: Performed By: #### C BC #### [facility] [address] [address] [address] Missy Gonzalez DIAGNOSIS: Comment [facility] Comment on above: Result Comment: NEGA TIVE FOR INTRAEPITHELIAL LESION OR MALIGNANCY. Performed By: #### C BC #### [facility] [address] [address] [address] Missy Gonzalez Methodology: Comment [facility] Comment on above: Result Comment: This liquid based ThinPrep(R) pap test was screened with the use of an image guided system. Performed By: #### C BC #### [facility] [address] [address] [address] Missy Gonzalez Note: Comment [facility] Comment on above: Result Comment: The Pap smear is a screening test designed to aid in the detection of premalignant and malignant conditions of the uterine cervix. It is not a diagnostic procedure and should not be used as the sole means of detecting cervical cancer. Both false-positive and false-negative reports do occur. . Performed By: #### C BC #### [facility] [address] [place] [address] Dr. Missy Gonzalez Performed by: Comment Normal [facility] Comment on above: Result Comment: Cindy Blum, Homeworker Performed By: #### C BC #### [facility] [address] [place] [address] Dr. Missy Gonzalez Reflex Criteria: Comment Normal [facility] Comment on above: Result Comment: The HPV DNA reflex criteria were not met with this specimen result therefore, no HPV testing was performed. . Performed By: #### C BC #### [facility] [address] [place] [address] Dr. Missy Gonzalez Specimen adequacy: Comment Normal [facility] Comment on above: Result Comment: Sati sfactory for evaluation. No endocervical component is identified. Performed By: #### C BC #### [facility] [address] [place] [address] Dr. Missy Gonzalez CBC AUTO DIFFon 08-08-2022 BASO # 0.1 103/ul Normal 0.0-0.1 [facility] Comment on above: Performed By: #### C BC #### [facility] [address] [place] [address] Dr. Missy Gonzalez Basophils/100 WBC (Bld) 0.4 % Normal 0.2-2.0 [facility] Comment on above: Performed By: #### C BC #### [facility] [address] [place] [address] Dr. Missy Gonzalez EO # 0.1 103/ul Normal 0.0-0.7 [facility] Comment on above: Performed By: #### C BC #### [facility] [address] [place] [address] Dr. Missy Gonzalez Eosinophils/100 WBC (Bld) 0.9 % Normal 0.9-7.0 [facility] Comment on above: Performed By: #### C BC #### [facility] [address] [place] [address] Dr. Missy Gonzalez Erythrocyte distribution width (RBC) [Ratio] 13.7 % Normal 11.0-15.0 [facility] Comment on above: Performed By: #### C BC #### [facility] [address] [place] [address] Dr. Missy Gonzalez Hematocrit (Bld) [Volume fraction] 28.9 % Critically low 36.0-48.0 [facility] Comment on above: Performed By: #### C BC #### [facility] [address] [place] [address] Dr. Missy Gonzalez Hemoglobin (Bld) [Mass/Vol] 10.0 g/dL Critically low 12.0-16.0 [facility] Comment on above: Performed By: #### C BC #### [facility] [address] [place] [address] Dr. Missy Gonzalez IG # 0.15 10e3/ul Critically high 0.00-0.03 [facility] Comment on above: Performed By: #### C BC #### [facility] [address] [place] [address] Dr. Missy Gonzalez IG % 1.2 % Critically high 0.0-0.5 [facility] Comment on above: Performed By: #### C BC #### [facility] [address] [place] [address] Dr. Missy Gonzalez LYMPH # 2.7 103/ul Normal 1.2-3.8 [facility] Comment on above: Performed By: #### C BC #### [facility] [address] [place] [address] Dr. Missy Gonzalez Lymphocytes/100 WBC (Bld) 21.4 % Normal 20.5-60.0 [facility] Comment on above: Performed By: #### C BC #### [facility] [address] [place] [address] Dr. Missy Gonzalez MANUAL DIFF REQ NO Normal [facility] Comment on above: Performed By: #### C BC #### [facility] [address] [address] [address] Missy Gonzalez MCH (RBC) [Entitic mass] 31.7 pg Normal 26.7-34.0 [facility] Comment on above: Performed By: #### C BC #### [facility] [address] [place] [address] Dr. Missy Gonzalez MCHC (RBC) [Mass/Vol] 34.6 g/dL Normal 29.9-35.2 [facility] Comment on above: Performed By: #### C BC #### [facility] [address] [place] [address] Dr. Missy Gonzalez MCV (RBC) [Entitic vol] 91.7 fL Normal 81.0-99.0 [facility] Comment on above: Performed By: #### C BC #### [facility] [address] [place] [address] Dr. Missy Gonzalez MONO # 0.9 103/ul Critically high 0.3-0.[address] [facility] Comment on above: Performed By: #### C BC #### [facility] [address] [place] [address] Dr. Missy Gonzalez Monocytes/100 WBC (Bld) 6.8 % Normal 1.7-12.0 [facility] Comment on above: Performed By: #### C BC #### [facility] [address] [place] [address] Dr. Missy Gonzalez NEUT # 8.9 103/ul Critically high 1.4-6.[address] [facility] Comment on above: Performed By: #### C BC #### [facility] [address] [place] [address] Dr. Missy Gonzalez Neutrophils/100 WBC (Bld) 69.3 % Normal 43.0-75.0 [facility] Comment on above: Performed By: #### C BC #### [facility] [address] [place] [address] Dr. Missy Gonzalez Platelet mean volume (Bld) [Entitic vol] 10.8 fL Normal 9.5-13.5 [facility] Comment on above: Performed By: #### C BC #### [facility] [address] [place] [address] Dr. Missy Gonzalez PLT 235 103/ul Normal 150-450 [facility] Comment on above: Performed By: #### C BC #### [facility] [address] [place] [address] Dr. Missy Gonzalez RBC 3.15 106/ul Critically low 4.20-5.[address] [facility] Comment on above: Performed By: #### C BC #### [facility] [address] [place] [address] Dr. Missy Gonzalez WBC 12.8 103/ul Critically high 4.0-11.0 [facility] Comment on above: Performed By: #### C BC #### [facility] [address] [place] [address] Dr. Missy Gonzalez CBC AUTO DIFFon 08-06-2022 BASO # 0.1 103/ul Normal 0.0-0.1 [facility] Comment on above: Performed By: #### P REG #### [facility] [address] [place] [address] Dr. Missy Gonzalez Basophils/100 WBC (Bld) 0.6 % Normal 0.2-2.0 [facility] Comment on above: Performed By: #### P REG #### [facility] [address] [place] [address] Dr. Missy Gonzalez EO # 0.1 103/ul Normal 0.0-0.7 [facility] Comment on above: Performed By: #### P REG #### [facility] [address] [place] [address] Dr. Missy Gonzalez Eosinophils/100 WBC (Bld) 0.9 % Normal 0.9-7.0 [facility] Comment on above: Performed By: #### P REG #### [facility] [address] [place] [address] Dr. Missy Gonzalez Erythrocyte distribution width (RBC) [Ratio] 13.0 % Normal 11.0-15.0 [facility] Comment on above: Performed By: #### P REG #### [facility] [address] [address] [address] Missy Gonzalez Hematocrit (Bld) [Volume fraction] 34.6 % Critically low 36.0-48.0 [facility] Comment on above: Performed By: #### P REG #### [facility] [address] [address] [address] Missy Gonzalez Hemoglobin (Bld) [Mass/Vol] 12.3 g/dL Normal 12.0-16.0 [facility] Comment on above: Performed By: #### P REG #### [facility] [address] [place] [address] Dr. Missy Gonzalez IG # 0.05 10e3/ul Critically high 0.00-0.03 [facility] Comment on above: Performed By: #### P REG #### [facility] [address] [place] [address] Dr. Missy Gonzalez IG % 0.6 % Critically high 0.0-0.5 [facility] Comment on above: Performed By: #### P REG #### [facility] [address] [place] [address] Dr. Missy Gonzalez LYMPH # 2.3 103/ul Normal 1.2-3.8 [facility] Comment on above: Performed By: #### P REG #### [facility] [address] [place] [address] Dr. Missy Gonzalez Lymphocytes/100 WBC (Bld) 27.9 % Normal 20.5-60.0 [facility] Comment on above: Performed By: #### P REG #### [facility] [address] [place] [address] Dr. Missy Gonzalez MANUAL DIFF REQ NO Normal [facility] [facility] Comment on above: Performed By: #### P REG #### [facility] [address] [place] [address] Dr. Missy Gonzalez MCH (RBC) [Entitic mass] 31.6 pg Normal 26.7-34.0 [facility] Comment on above: Performed By: #### P REG #### [facility] [address] [address] [address] Missy Gonzalez MCHC (RBC) [Mass/Vol] 35.5 g/dL Critically high 29.9-35.2 [facility] Comment on above: Performed By: #### P REG #### [facility] [address] [address] [address] Missy Gonzalez MCV (RBC) [Entitic vol] 88.9 fL Normal 81.0-99.0 [facility] Comment on above: Performed By: #### P REG #### [facility] [address] [address] [address] Missy Gonzalez MONO # 0.6 103/ul Normal 0.3-0.8 [facility] Comment on above: Performed By: #### P REG #### [facility] [address] [place] [address] Dr. Missy Gonzalez Monocytes/100 WBC (Bld) 6.9 % Normal 1.7-12.0 [facility] Comment on above: Performed By: #### P REG #### [facility] [address] [place] [address] Dr. Missy Gonzalez NEUT # 5.2 103/ul Normal 1.4-6.5 [facility] Comment on above: Performed By: #### P REG #### [facility] [address] [place] [address] Dr. Missy Gonzalez Neutrophils/100 WBC (Bld) 63.1 % Normal 43.0-75.0 [facility] Comment on above: Performed By: #### P REG #### [facility] [address] [place] [address] Dr. Missy Gonzalez Platelet mean volume (Bld) [Entitic vol] 10.2 fL Normal 9.5-13.5 [facility] Comment on above: Performed By: #### P REG #### [facility] [address] [place] [address] Dr. Missy Gonzalez PLT 245 103/ul Normal 150-450 [facility] Comment on above: Performed By: #### P REG #### [facility] [address] [place] [address] Dr. Missy Gonzalez RBC 3.89 106/ul Critically low 4.20-5.40 [facility] Comment on above: Performed By: #### P REG #### [facility] [address] [place] [address] Dr. Missy Gonzalez WBC 8.2 103/ul Normal 4.0-11.0 [facility] Comment on above: Performed By: #### P REG #### [facility] [address] [place] [address] Dr. Missy Gonzalez DRUG SCREEN RAPID (URINE)on 08-06-2022 AMP Negative Normal NEGATIVE [facility] Comment on above: Performed By: #### D RUGRPD #### [facility] [address] [place] [address] Dr. Missy Gonzalez BAR Negative Normal NEGATIVE [facility] Comment on above: Performed By: #### D RUGRPD #### [facility] [address] [place] [address] Dr. Missy Gonzalez BUP Negative Normal NEGATIVE [facility] Comment on above: Performed By: #### D RUGRPD #### [facility] [address] [place] [address] Dr. Missy Gonzalez BZO Negative Normal NEGATIVE [facility] Comment on above: Performed By: #### D RUGRPD #### [facility] [address] [place] [address] Dr. Missy Gonzalez MCKENNA Negative Normal NEGATIVE [facility] Comment on above: Performed By: #### D RUGRPD #### [facility] [address] [place] [address] Dr. Missy Gonzalez CUT-OFFS SEE BELOW Normal [facility] Comment on above: Result Comment: AMP (Amphetamine): 500ng/mL, BAR (Barbituates): 200 ng/mL, BZO (Benzodiazepines): 150 ng/mL, BUP (Buprenorphine): 10 ng/mL, MCKENNA (Cocaine): 150 ng/mL, mAMP (Methamphetamine): 500 ng/mL, MTD (Methadone): 200 ng/mL, OPI (Opiates): 100 ng/mL, OXY (Oxycodone): 100 ng/mL, PCP (Phencyclidine): 25 ng/mL, PPX (Propoxyphene): 300 ng/mL, THC (Cannabinoids): 50 ng/mL, TCA (Trycyclic Antidepressants): 300 ng/mL Performed By: #### D RUGRPD #### [facility] [address] [place] [address] Dr. Missy Gonzalez DRUG CUT HEADER DRUG CLASS TEST SYSTEM CUT-OFF CONCENTRATIONS ARE FOLLOWS: Normal [facility] Comment on above: Performed By: #### D RUGRPD #### [facility] [address] [place] [address] Dr. Missy Gonzalez mAMP Negative Normal NEGATIVE [facility] Comment on above: Performed By: #### D RUGRPD #### [facility] [address] [place] [address] Dr. Missy Gonzalez MTD Negative Normal NEGATIVE [facility] Comment on above: Performed By: #### D RUGRPD #### [facility] [address] [place] [address] Dr. Missy Gonzalez OPI Negative Normal NEGATIVE [facility] Comment on above: Performed By: #### D RUGRPD #### [facility] [address] [place] [address] Dr. Missy Gonzalez OXY Negative Normal NEGATIVE [facility] Comment on above: Performed By: #### D RUGRPD #### [facility] [address] [place] [address] Dr. Missy Gonzalez PCP Negative Normal NEGATIVE [facility] Comment on above: Performed By: #### D RUGRPD #### [facility] [address] [place] [address] Dr. Missy Gonzalez PPX Negative Normal NEGATIVE [facility] Comment on above: Performed By: #### D RUGRPD #### [facility] [address] [place] [address] Dr. Missy Gonzalez TCA Negative Normal NEGATIVE [facility] Comment on above: Performed By: #### D RUGRPD #### [facility] [address] [place] [address] Dr. Missy Gonzalez THC Negative Normal NEGATIVE The [facility] Comment on above: Performed By: #### D RUGRPD #### [facility] [address] [address] [address] Missy Gonzalez TYPE AND SCREENon 08-06-2022 TYPE AND SCREEN Negative Normal [facility] Comment on above: Performed By: #### C BC #### [facility] [address] [address] [address] Missy Gonzalez US PREG GROWTHon 07-31-2022 [...] GLENNY TORRES Date: 2022-07-31 13:51 Normal [facility] CHLAMYDIA/GONOCOCCUS CEDRIC (SW AB/URINE/PAPon 07-19-2022 Chlamydia trachomatis, CEDRIC Negative Normal Negative [facility] Comment on above: Performed By: #### P REG #### [facility] [address] [place] [address] Dr. Missy Gonzalez Neisseria gonorrhoeae, CEDRIC Negative Normal Negative [facility] Comment on above: Performed By: #### P REG #### [facility] [address] [place] [address] Dr. Missy Gonzalez VAGINITIS/VAGINOSIS DNA PROB Anurag 07-18-2022 Sarah species Negative Normal Negative The [facility] Comment on above: Performed By: #### V AGINT #### [facility] [address] [place] [address] Dr. Missy Gonzalez Gardnerella vaginalis Negative Normal Negative [facility] Comment on above: Performed By: #### V AGINT #### [facility] [address] [place] [address] Dr. Missy Gonzalez Trichomonas vaginalis Negative Normal Negative [facility] Comment on above: Performed By: #### V AGINT #### [facility] [address] [place] [address] Dr. Missy Gonzalez GROUP B STREP CULTUREon 06-19 S. agalactiae Ag Ql (Unsp spec) Culture Observations: NEGATIVE FOR GROUP B STREPTOCOCCUS. Normal [facility] Comment on above: Performed By: #### C BC #### [facility] [address] [place] [address] Dr. Missy Gonzalez US PREG CERVICAL LENGTHon US PREG CERVICAL LENGTH EXAMINATION: US PREG CERVICAL LENGTH HISTORY: Uterine size for dates discrepancy COMPARISON: No relevant comparison available. FINDINGS: Cervix: 3.9 cm, closed IMPRESSION: Closed cervix measuring 3.9 cm Electronically authenticated by: GLENNY TORRES Date: 2022-07-03 16:13 Normal [facility] US PREG GROWTHon 07-03-2022 US PREG GROWTH [...] GLENNY TORRES Date: 2022-07-03 16:12 Normal [facility] US PREG ANATOMY SINGLEon US PREG ANATOMY [...] ESTRADA CASTRO Date: 2022-03-27 22:23 Normal [facility] HEP B SURFACE ANTIGEN SCREEN on 01-25-2022 HBsAg Screen Negative Normal Negative [facility] Comment on above: Performed By: #### P REG #### [facility] [address] [place] [address] Dr. Missy Gonzalez HEPATITIS C VIRUS AB W/ REFL EX QUANTon 01-25-2022 HCV AB 0.1 s/co ratio Normal 0.0-0.9 The [facility] Comment on above: Performed By: #### P REG #### [facility] [address] [place] [address] Dr. Missy Gonzalez Interpretation: Comment Normal The [facility] Comment on above: Result Comment: Nega tive Not infected with HCV, unless recent infection is suspected or other evidence exists to indicate HCV infection. Performed By: #### P REG #### [facility] [address] [place] [address] Dr. Missy Gonzalez HIV 1 AND 2 WITH REFLEXon HIV Screen 4th Generation wRfx Non-Reactive Normal Non Reactive [facility] Comment on above: Result Comment: HIV Negative HIV-1/HIV-2 antibodies and HIV-1 p24 antigen were NOT detected. There is no laboratory evidence of HIV infection. Performed By: #### P REG #### [facility] [address] [place] [address] Dr. Missy Gonzalez RPR QUANTon 01-25-2022 Rapid Plasma Reagin, Quant Non-Reactive Normal NonRea<1:1 [facility] Comment on above: Result Comment: Danielle munguia Note: This test does not meet current guidelines for screening and diagnosis of syphilis. This test is intended for following treatment response in patients being treated for syphilis infection. To screen for syphilis infection, a reflex cascade that includes both RPR and a treponema-specific assay should be utilized, such as Treponema pallidum (Syphilis) Screening Delong (628290) or Rapid Plasma Reagin (RPR) Test With Reflex to Quantitative RPR and Confirmatory Treponema pallidum Antibodies (997358). Performed By: #### P REG #### [facility] [address] [place] [address] Dr. Missy Gonzalez RUBELLA AB IGGon 01-25-2022 Rubella Antibodies, IgG 1.27 index Normal Immune >0.99 [facility] Comment on above: Result Comment: Non- immune <0.90 Equivocal 0.90 - 0.99 Immune >0.99 Performed By: #### P REG #### [facility] [address] [address] [address] Missy Gonzalez CBC AUTO DIFFon 01-23-2022 BASO # 0.0 103/ul Normal 0.0-0.1 [facility] Comment on above: Performed By: #### P REG #### [facility] [address] [place] [address] Dr. Missy Gonzalez Basophils/100 WBC (Bld) 0.3 % Normal 0.2-2.0 [facility] Comment on above: Performed By: #### P REG #### [facility] [address] [place] [address] Dr. Missy Gonzalez EO # 0.1 103/ul Normal 0.0-0.7 [facility] Comment on above: Performed By: #### P REG #### [facility] [address] [place] [address] Dr. Missy Gonzalez Eosinophils/100 WBC (Bld) 0.8 % Critically low 0.9-7.0 [facility] Comment on above: Performed By: #### P REG #### [facility] [address] [place] [address] Dr. Missy Gonzalez Erythrocyte distribution width (RBC) [Ratio] 11.3 % Normal 11.0-15.0 [facility] Comment on above: Performed By: #### P REG #### [facility] [address] [place] [address] Dr. Missy Gonzalez Hematocrit (Bld) [Volume fraction] 35.2 % Critically low 36.0-48.0 [facility] Comment on above: Performed By: #### P REG #### [facility] [address] [place] [address] Dr. Missy Gonzalez Hemoglobin (Bld) [Mass/Vol] 12.0 g/dL Normal 12.0-16.0 [facility] Comment on above: Performed By: #### P REG #### [facility] [address] [place] [address] Dr. Missy Gonzalez IG # 0.03 10e3/ul Normal 0.00-0.03 [facility] Comment on above: Performed By: #### P REG #### [facility] [address] [place] [address] Dr. Missy Gonzalez IG % 0.4 % Normal 0.0-0.5 [facility] Comment on above: Performed By: #### P REG #### [facility] [address] [place] [address] Dr. Missy Gonzalez LYMPH # 1.9 103/ul Normal 1.2-3.8 [facility] Comment on above: Performed By: #### P REG #### [facility] [address] [place] [address] Dr. Missy Gonzalez Lymphocytes/100 WBC (Bld) 24.3 % Normal 20.5-60.0 [facility] Comment on above: Performed By: #### P REG #### [facility] [address] [place] [address] Dr. Missy Gonzalez MANUAL DIFF REQ NO Normal [facility] Comment on above: Performed By: #### P REG #### [facility] [address] [place] [address] Dr. Missy Gonzalez MCH (RBC) [Entitic mass] 30.8 pg Normal 26.7-34.0 [facility] Comment on above: Performed By: #### P REG #### [facility] [address] [place] [address] Dr. Missy Gonzalez MCHC (RBC) [Mass/Vol] 34.1 g/dL Normal 29.9-35.2 [facility] Comment on above: Performed By: #### P REG #### [facility] [address] [place] [address] Dr. Missy Gonzalez MCV (RBC) [Entitic vol] 90.5 fL Normal 81.0-99.0 [facility] Comment on above: Performed By: #### P REG #### [facility] [address] [place] [address] Dr. Missy Gonzalez MONO # 0.5 103/ul Normal 0.3-0.8 [facility] Comment on above: Performed By: #### P REG #### [facility] [address] [place] [address] Dr. Missy Gonzalez Monocytes/100 WBC (Bld) 6.3 % Normal 1.7-12.0 [facility] Comment on above: Performed By: #### P REG #### [facility] [address] [place] [address] Dr. Missy Gonzalez NEUT # 5.4 103/ul Normal 1.4-6.5 [facility] Comment on above: Performed By: #### P REG #### [facility] [address] [place] [address] Dr. Missy Gonzalez Neutrophils/100 WBC (Bld) 67.9 % Normal 43.0-75.0 [facility] Comment on above: Performed By: #### P REG #### [facility] [address] [place] [address] Dr. Missy Gonzalez Platelet mean volume (Bld) [Entitic vol] 9.5 fL Normal 9.5-13.5 [facility] Comment on above: Performed By: #### P REG #### [facility] [address] [place] [address] Dr. Missy Gonzalez PLT 320 103/ul Normal 150-450 [facility] Comment on above: Performed By: #### P REG #### [facility] [address] [place] [address] Dr. Missy Gonzalez RBC 3.89 106/ul Critically low 4.20-5.[address] [facility] Comment on above: Performed By: #### P REG #### [facility] [address] [place] [address] Dr. Missy Gonzalez WBC 8.0 103/ul Normal 4.0-11.0 [facility] Comment on above: Performed By: #### P REG #### [facility] [address] [place] [address] Dr. Missy Gonzalez CULTURE URINEon 01-23-2022 CULTURE URINE Culture Observations : LIGHT GROWTH OF MIXED GENITAL JOSE. NO POTENTIAL PATHOGENS SEEN. Normal [facility] Comment on above: Performed By: #### U RCX #### [facility] [address] [place] [address] Dr. Missy Gonzalez GLYCOHEMOGLOBIN A1Con 2021 ADA RECOMMENDATION SEE BELOW Normal [facility] Comment on above: Result Comment: ADA RECOMMENDED LIMIT 4.0 - 6.0 ADA THERAPEUTIC TARGET < 7.0 ACTION SUGGESTED > 7.0 Performed By: #### A 1C #### [facility] [address] [address] [address] Missy Gonzalez Glucose [Mass/Vol] 103 mg/dL Normal [facility] Comment on above: Performed By: #### A 1C #### [facility] [address] [address] [address] Missy Gonzalez HbA1c (Bld) [Mass fraction] 5.2 % Normal 4.5-6.2 [facility] Comment on above: Performed By: #### A 1C #### [facility] [address] [place] [address] Dr. Missy Gonzalez MATEO BOX TEST PT SEND OUTo n 01-23-2022 SENT TO REF LAB 01/23/[address] [facility] Comment on above: Performed By: #### C BC #### [facility] [address] [place] [address] Dr. Missy Gonzalez TYPE AND SCREENon 01-23-2022 TYPE AND SCREEN Negative Normal [facility] Comment on above: Performed By: #### C BC #### [facility] [address] [place] [address] Dr. Missy Gonzalez US PREG TVon 12-29-2021 [...] GLENNY TORRES Date: 2021-12-29 16:46 Normal [facility] VIT D 1 25 DIHYDROXYon 11-19 Calcitriol(1,25 di-OH Vit D) 72.5 pg/mL Normal 19.9-79.3 [facility] Comment on above: Result Comment: Ef fective November 20, 2021 Calcitriol(1,25 di-OH Vit D) reference interval will be changing to: pg/mL . 0 - 6 months: 44.3 - 212.9 7 months - 1 year: 40.3 - 112.4 >1 year: 24.8 - 81.5 Performed By: #### P REG #### [facility] [address] [place] [address] Dr. Missy Gonzalez CBC AUTO DIFFon 11-16-2021 BASO # 0.1 103/ul Normal 0.0-0.1 [facility] Comment on above: Performed By: #### C BC #### [facility] [address] [place] [address] Dr. Missy Gonzalez Basophils/100 WBC (Bld) 0.7 % Normal 0.2-2.0 [facility] Comment on above: Performed By: #### C BC #### [facility] [address] [place] [address] Dr. Missy Gonzalez EO # 0.1 103/ul Normal 0.0-0.7 [facility] Comment on above: Performed By: #### C BC #### [facility] [address] [place] [address] Dr. Missy Gonzalez Eosinophils/100 WBC (Bld) 0.7 % Critically low 0.9-7.0 [facility] Comment on above: Performed By: #### C BC #### [facility] [address] [place] [address] Dr. Missy Gonzalez Erythrocyte distribution width (RBC) [Ratio] 11.2 % Normal 11.0-15.0 [facility] Comment on above: Performed By: #### C BC #### [facility] [address] [place] [address] Dr. Missy Gonzalez Hematocrit (Bld) [Volume fraction] 40.4 % Normal 36.0-48.0 [facility] Comment on above: Performed By: #### C BC #### [facility] [address] [place] [address] Dr. Missy Gonzalez Hemoglobin (Bld) [Mass/Vol] 13.4 g/dL Normal 12.0-16.0 [facility] Comment on above: Performed By: #### C BC #### [facility] [address] [place] [address] Dr. Missy Gonzalez IG # 0.02 10e3/ul Normal 0.00-0.03 [facility] Comment on above: Performed By: #### C BC #### [facility] [address] [place] [address] Dr. Missy Gonzalez IG % 0.3 % Normal 0.0-0.5 [facility] Comment on above: Performed By: #### C BC #### [facility] [address] [place] [address] Dr. Missy Gonzalez LYMPH # 2.6 103/ul Normal 1.2-3.8 [facility] Comment on above: Performed By: #### C BC #### [facility] [address] [place] [address] Dr. Missy Gonzalez Lymphocytes/100 WBC (Bld) 36.6 % Normal 20.5-60.0 [facility] Comment on above: Performed By: #### C BC #### [facility] [address] [place] [address] Dr. Missy Gonzalez MANUAL DIFF REQ NO Normal The [facility] Comment on above: Performed By: #### C BC #### [facility] [address] [place] [address] Dr. Missy Gonzalez MCH (RBC) [Entitic mass] 30.7 pg Normal 26.7-34.0 [facility] Comment on above: Performed By: #### C BC #### [facility] [address] [place] [address] Dr. Missy Gonzalez MCHC (RBC) [Mass/Vol] 33.2 g/dL Normal 29.9-35.2 [facility] Comment on above: Performed By: #### C BC #### [facility] [address] [place] [address] Dr. Missy Gonzalez MCV (RBC) [Entitic vol] 92.7 fL Normal 81.0-99.0 [facility] Comment on above: Performed By: #### C BC #### [facility] [address] [place] [address] Dr. Missy Gonzalez MONO # 0.5 103/ul Normal 0.3-0.8 [facility] Comment on above: Performed By: #### C BC #### [facility] [address] [place] [address] Dr. Missy Gonzalez Monocytes/100 WBC (Bld) 6.5 % Normal 1.7-12.0 [facility] Comment on above: Performed By: #### C BC #### [facility] [address] [place] [address] Dr. Missy Gonzalez NEUT # 3.9 103/ul Normal 1.4-6.5 [facility] Comment on above: Performed By: #### C BC #### [facility] [address] [place] [address] Dr. Missy Gonzalez Neutrophils/100 WBC (Bld) 55.2 % Normal 43.0-75.0 [facility] Comment on above: Performed By: #### C BC #### [facility] [address] [place] [address] Dr. Missy Gonzalez Platelet mean volume (Bld) [Entitic vol] 8.7 fL Critically low 9.5-13.5 [facility] Comment on above: Performed By: #### C BC #### [facility] [address] [place] [address] Dr. Missy Gonzalez PLT 294 103/ul Normal 150-450 [facility] Comment on above: Performed By: #### C BC #### [facility] [address] [place] [address] Dr. Missy Gonzalez RBC 4.36 106/ul Normal 4.20-5.40 [facility] Comment on above: Performed By: #### C BC #### [facility] [address] [place] [address] Dr. Missy Gonzalez WBC 7.1 103/ul Normal 4.0-11.0 [facility] Comment on above: Performed By: #### C BC #### [facility] [address] [place] [address] Dr. Missy Gonzalez GLYCOHEMOGLOBIN A1Con 2021 ADA RECOMMENDATION SEE BELOW Normal [facility] Comment on above: Result Comment: ADA RECOMMENDED LIMIT 4.0 - 6.0 ADA THERAPEUTIC TARGET < 7.0 ACTION SUGGESTED > 7.0 Performed By: #### A 1C #### [facility] [address] [place] [address] Dr. Missy Gonzalez Glucose [Mass/Vol] 100 mg/dL Normal [facility] Comment on above: Performed By: #### A 1C #### [facility] [address] [place] [address] Dr. Missy Gonzalez HbA1c (Bld) [Mass fraction] 5.1 % Normal 4.5-6.2 [facility] Comment on above: Performed By: #### A 1C #### [facility] [address] [place] [address] Dr. Missy Gonzalez PREG HCG QUALon 11-16-2021 , QUAL Negative Normal NEGATIVE The [facility] Comment on above: Performed By: #### P REG #### [facility] [address] [place] [address] Dr. Missy Gonzalez PROF 14(COMP METB)on 022 Albumin [Mass/Vol] 4.6 g/dL Normal 3.4-5.0 [facility] Comment on above: Performed By: #### T SH, CMP #### [facility] [address] [place] [address] Dr. Missy Gonzalez Albumin/Globulin [Mass ratio] 1.2 {ratio} Normal [facility] Comment on above: Performed By: #### T SH, CMP #### [facility] [address] [place] [address] Dr. Missy Gonzalez ALP [Catalytic activity/Vol] 69 U/L Normal 46-116 [facility] Comment on above: Performed By: #### T MAYRA, CMP #### [facility] [address] [place] [address] Dr. Missy Gonzalez ALT [Catalytic activity/Vol] 30 U/L Normal 14-59 [facility] Comment on above: Performed By: #### T MAYRA, CMP #### [facility] [address] [address] [address] Missy Gonzalez Anion gap [Moles/Vol] 15.0 mmol/L Normal [facility] Comment on above: Performed By: #### T MAYRA, CMP #### [facility] [address] [place] [address] Dr. Missy Gonzalez AST [Catalytic activity/Vol] 20 U/L Normal 15-37 [facility] Comment on above: Performed By: #### T MAYRA, CMP #### [facility] [address] [place] [address] Dr. Missy Gonzalez Bilirubin [Mass/Vol] 0.4 mg/dL Normal 0.2-1.0 [facility] Comment on above: Performed By: #### T MAYRA, CMP #### [facility] [address] [place] [address] Dr. Missy Gonzalez Calcium [Mass/Vol] 9.1 mg/dL Normal 8.5-10.1 [facility] Comment on above: Performed By: #### T MAYRA, CMP #### [facility] [address] [place] [address] Dr. Missy Gonzalez Chloride [Moles/Vol] 102 mmol/L Normal 98-107 [facility] Comment on above: Performed By: #### T MAYRA, CMP #### [facility] [address] [place] [address] Dr. Missy Gonzalez CO2 [Moles/Vol] 27.3 mmol/L Normal 21.0-32.0 [facility] Comment on above: Performed By: #### T MAYRA, CMP #### [facility] [address] [place] [address] Dr. Missy Gonzalez Creatinine [Mass/Vol] 0.63 mg/dL Normal 0.55-1.02 [facility] Comment on above: Performed By: #### T SH, CMP #### [facility] [address] [place] [address] Dr. Missy Gonzalez EGFR-AF SRI LANKAN >60 Normal >=60 [facility] Comment on above: Performed By: #### T SH, CMP #### [facility] [address] [address] [address] Missy Gonzalez EGFR-NON AF SRI LANKAN >60 Normal >=60 [facility] Comment on above: Performed By: #### T SH, CMP #### [facility] [address] [place] [address] Dr. Missy Gonzalez Globulin (S) [Mass/Vol] 3.8 g/dL Normal [facility] Comment on above: Performed By: #### T SH, CMP #### [facility] [address] [place] [address] Dr. Missy Gonzalez Glucose [Mass/Vol] 86 mg/dL Normal 74-106 [facility] Comment on above: Performed By: #### T SH, CMP #### [facility] [address] [place] [address] Dr. Missy Gonzalez Potassium [Moles/Vol] 4.3 mmol/L Normal 3.5-5.1 [facility] Comment on above: Performed By: #### T SH, CMP #### [facility] [address] [place] [address] Dr. Missy Gonzalez Protein [Mass/Vol] 8.4 g/dL Critically high 6.4-8.2 [facility] Comment on above: Performed By: #### T SH, CMP #### [facility] [address] [place] [address] Dr. Missy Gonzalez Sodium [Moles/Vol] 140 mmol/L Normal 136-145 [facility] Comment on above: Performed By: #### T SH, CMP #### [facility] [address] [place] [address] Dr. Missy Gonzalez Urea nitrogen [Mass/Vol] 11.0 mg/dL Normal 7.0-18.0 [facility] Comment on above: Performed By: #### T SH, CMP #### [facility] [address] [place] [address] Dr. Missy Gonzalez Urea nitrogen/Creatinine [Mass ratio] 17.5 mg/mg Normal [facility] Comment on above: Performed By: #### T SH, CMP #### [facility] [address] [place] [address] Dr. Missy Gonzalez TSHon 11-16-2021 TSH 1.070 uIU/mL Normal 0.358-3.740 [facility] Comment on above: Performed By: #### T SH, CMP #### [facility] [address] [place] [address] Dr. Missy Gonzalez TSH RANGE SEE BELOW Normal [facility] Comment on above: Result Comment: <0.3 4 UIU/ml HYPERTHYROID 0.34-5.60 UIU/ml EUTHYROID >5.60 UIU/ml HYPOTHYROID Performed By: #### T SH, CMP #### [facility] [address] [place] [address] Dr. Missy Gonzalez Coding Summary.on 08-23-2020 Coding Summary. CODING DATE: 08/23/2020 [facility] STATUS: Home (Routine DC) PAYOR: Self [...] CphT Date Saved: 08/23/2020 07:49 am Normal [facility] XR ANKLE LEFT (MIN 3 [...] Del Valle MD 07/12/20 Final result Normal [facility] NO FRACTURE OR DISLOCATION. SOFT TISSUES LUNG LATERALLY. [place], [place] X-RAY: LEFT ANKLE, THREE VIEWS REASON FOR EXAMINATION: Left ankle pain after tripping and falling a lot work. COMPARISONS: None available. FINDINGS: No fracture, dislocation or osseous destruction is seen. The ankle mortise is well maintained. Soft tissue swelling laterally. [place], [place] Chucho, Chpo Incoming Radiant Results From [employer] - 07/12/2020 1:16 PM EST X-RAY: LEFT ANKLE, THREE VIEWS REASON FOR EXAMINATION: Left ankle pain after tripping and falling a lot work. COMPARISONS: None available. FINDINGS: No fracture, dislocation or osseous destruction is seen. The ankle mortise is well maintained. Soft tissue swelling laterally. IMPRESSION: NO FRACTURE OR DISLOCATION. SOFT TISSUES LUNG LATERALLY. [place], [place] Lab Miscellaneous-LCon 07-06 Test Code 916828 [facility] Comment on above: Performed By: #### 1 [id number] #### [facility] [address] [place] [address] Test Name IG PAP RFLX HPV [facility] Comment on above: Performed By: #### 1 [id number] #### [facility] [address] [place] [address] Physician Orderon 07-06-2020 Physician Order [id number]# 1.00CD:127 Normal [facility] Measles (Rubeola) Imon 10-15 Measles (Rubeola) Im 2.18 Normal >1.09 [facility] Comment on above: Result Comment: Interpretation: IMMUNE Reference Range: <0.91 Not Immune 0.91-1.09 Equivocal >1.09 Immune Performed By: #### M EI, RAOUL, VZI, EMELI #### [address] [id number] Computer Technologist: Jacques Carpenter MD Mumps,Immun,Abon 10-15-2018 Mumps,Immun,Ab 3.24 Normal >1.[address] [facility] Comment on above: Result Comment: Interpretation: IMMUNE Reference Range: <0.91 Not Immune 0.91-1.09 Equivocal >1.09 Immune Performed By: #### M EI, RAOUL, VZI, EMELI #### [address] [id number] Computer Technologist: Jacques Carpenter MD VZ Immunityon 10-15-2018 VZ Immunity 1.31 Normal >1.09 [facility] Comment on above: Result Comment: Interpretation: IMMUNE Reference Range: <0.91 Not Immune 0.91-1.09 Equivocal >1.09 Immune Performed By: #### M EI, RAOUL, VZI, EMELI #### [address] [id number] Computer Technologist: Jacques Carpenter MD Hep B Surf Abon 10-14-2018 Hep B Surf Ab 88.71 mIU/mL High <10 [facility] Comment on above: Result Comment: [...] infection. Performed By: #### A HBS #### [place] [address] Computer Technologist: Jacques Carpenter MD Rubella Ab, IgGon 10-14-2018 Rubella Ab, IgG 78.6 IU/mL Normal [facility] Comment on above: Result Comment: REFERENCE RANGE: <5.0 NON-REACTIVE (non-immune) 5.0 TO 9.9 EQUIVOCAL >=10.0 REACTIVE (immune) Performed By: #### M EI, RAOUL, VZI, EMELI #### [employer] [address] [place] [address] Computer Technologist: Jacques Carpenter MD Vital Signs Date Time Vital Sign Value Performing Clinician Facility 09-02-2024 15:31-0400 Body mass index (BMI) [Ratio] 31.29 kg/m2 Neris Ani DO Work Phone: [facility] 09-02-2024 15:31-0400 Body weight 90.63 kg Neris Ani DO Work Phone: [facility] 09-02-2024 15:31-0400 Diastolic blood pressure 70 mm[Hg] Neris Ani DO Work Phone: [facility] 09-02-2024 15:31-0400 Systolic blood pressure 110 mm[Hg] Neris Ani DO Work Phone: [facility] 07-30-2024 15:39-0500 Body mass index (BMI) [Ratio] 30.85 kg/m2 Neris Ani DO Work Phone: [facility] 07-30-2024 15:39-0500 Body weight 89.36 kg Neris Ani DO Work Phone: [facility] 07-30-2024 15:39-0500 Diastolic blood pressure 70 mm[Hg] Neris Ani DO Work Phone: [facility] 07-30-2024 15:39-0500 Systolic blood pressure 112 mm[Hg] Neris Ani DO Work Phone: [facility] 07-06-2024 16:11-0500 Body mass index (BMI) [Ratio] 31.59 kg/m2 Sofia VERDUGO Work Phone: [facility] 07-06-2024 16:11-0500 Body weight 91.49 kg Sofia VERDUGO Work Phone: [facility] 07-06-2024 16:11-0500 Diastolic blood pressure 76 mm[Hg] Sofia VERDUGO Work Phone: [facility] 07-06-2024 16:11-0500 Systolic blood pressure 114 mm[Hg] Sofia VERDUGO Work Phone: [facility] 06-08-2024 16:05-0500 Body mass index (BMI) [Ratio] 31.48 kg/m2 Neris Ani DO Work Phone: [facility] 06-08-2024 16:05-0500 Body weight 91.17 kg Neris Ani DO Work Phone: [facility] 06-08-2024 16:05-0500 Diastolic blood pressure 70 mm[Hg] Neris Ani DO Work Phone: [facility] 06-08-2024 16:05-0500 Systolic blood pressure 118 mm[Hg] Neris Ani DO Work Phone: [facility] 07-12-2020 12:46-0500 BMI (Body Mass Index) 31.01 kg/m2 [facility] 07-12-2020 12:46-0500 Body Temperature 97.3 [degF] [facility] 07-12-2020 12:46-0500 Body weight 89.81 kg [facility] [place] 07-12-2020 12:46-0500 BP Diastolic 102 mm[Hg] [facility] [place] 07-12-2020 12:46-0500 BP Systolic 152 mm[Hg] [facility] [place] 07-12-2020 12:46-0500 Height 170.2 cm [facility] [place] 07-12-2020 12:46-0500 Pulse (Heart Rate) 66 /min [facility] 07-12-2020 12:46-0500 Pulse Oximetry 98 % [facility] [place] 07-12-2020 12:46-0500 Respiratory Rate 20 /min [facility] 07-11-2020 17:08-0500 Body mass index (BMI) [Ratio] COMMENT [facility] Comment on above: Result Comment: Test Ordered: [...] (endocervical component) are present. 01 Phuong Campbell, Homeworker (ASCP) 01 Note 01 The Pap smear [...] Low,>-Panic High,A-Abnormal,AA-Critical Abnormal Performed at: [address] [facility] [place] [address] Carie Hartman MD, Performed at: [facility] KAREN Gonsales [id number] MD Minnie Darnell Performed By: #### 1 [id number] #### [facility] [address] [place] [address] Encounters Encounter Date Encounter Type Care Provider Facility Start: 09-02-2024 End: 09-02-2024 flow sheet Neris Ani DO Work Phone: [facility] Comment on above: 23 weeks gestation o f ; Second trimester ; Diabetes mellitus screening Start: 09-02-2024 End: 09-02-2024 ambulatory NERIS DARDENO Not Available Start: 07-31-2024 End: 07-31-2024 ambulatory SOFIA PAEZ Not Available Start: 07-30-2024 End: 07-30-2024 ambulatory NERIS ANI Not Available Start: 07-30-2024 End: 07-30-2024 flow sheet Neris Ani DO Work Phone: [facility] Comment on above: 19 weeks gestation o f ; Second trimester ; UTI symptoms; Lightheaded; Iron deficiency anemia, unspecified iron deficiency anemia type Start: 07-30-2024 End: 07-30-2024 Clinisync Result Encounter Neris Ani DO Work Phone: [facility] External Department Unsolicited Start: 07-30-2024 End: 07-30-2024 Clinisync Result Encounter Neris Ani DO Work Phone: [facility] External Department Unsolicited Start: 07-06-2024 End: 07-06-2024 Patient encounter procedure Sofia VERDUGO Work Phone: [facility] Work Phone: Start: 07-06-2024 End: 07-06-2024 [...] Unsolicited Start: 06-08-2024 End: 06-08-2024 ambulatory NERIS ANI Not Available Start: 06-08-2024 End: 06-08-2024 flow sheet Neris Ani DO Work Phone: [facility] Comment [...] Unsolicited Start: 05-08-2024 End: 05-08-2024 ambulatory NERIS ANI Not Available Start: 05-08-2024 End: 05-08-2024 Office [...] without abnormal findings DR STEPHANIE OHARA [facility] Start: 11-16-2021 End: 11-17-[address] STEPHANIE OHARA Facility:[facility] Start: 11-16-2021 End: 11-17-2021 Encounter for general adult medical examination without abnormal findings DR STEPHANIE OHARA Facility:[facility] Start: 07-12-2020 End: 07-12-2020 Emergency department patient visit CHAD MARIE [facility] Start: 07-12-2020 End: 07-12-2020 Emergency department patient visit Chad Marie Work Phone: [facility] ED Comment on above: Sprain of left ankle , unspecified ligament, initial encounter (Primary Dx) Start: 10-13-2018 End: 10-14-2018 Patient encounter procedure STEPHANIE OHARA [facility] Procedures Date Procedure Procedure Detail Performing Clinician Start: 09-02-2024 Urnls dip stick/tabl et rgnt non-auto w/o micrscp Neris Ani DO Work Phone: Start: 07-30-2024 ALL CBC WITH AUTO DIFF Neris Ani DO Work Phone: Start: 07-06-2024 RECURRENT VAGINITIS (HTRX) Sofia VERDUGO Work Phone: Start: 07-06-2024 IGP,APTIMA HPV,AGE GDLN Sofia VERDUGO Work Phone: Start: 06-01-2024 BOX TEST Neris Fazi o [...] DR STEPHANIE OHARA Start: 08-06-2022 Repair Vulva, Boiling House Hand al Approach DR STEPHANIE OHARA Start: 07-12-2020 [...] Treatment Date Care Activity Detail Author Start: 09-30-2024 End: 09-30-2024 Patient encounter procedure 09/30/2024 2:50 PM EDT Routine [facility] [address] [place] [address] Neris Law, DO [address] [place] [address] [place] [address] [facility] Start: 09-02-2024 End: 09-02-2025 CBC panel - Blood by Automated count CBC Lab Routine Diabetes mellitus screening Expected: 09/02/2024 (Approximate), Expires: 09/02/2025 [facility] Work Phone: Comment on above: Expected: 09/02/2024 (Approximate), Expires: 09/02/2025 Start: 09-02-2024 End: 09-02-2025 Measurement of glucose 1 hour after glucose challenge for glucose tolerance test Glucose tolerance, 1 hour Lab Routine Diabetes mellitus screening Expected: 09/02/2024 (Approximate), Expires: 09/02/2025 [facility] Comment on above: Expected: 09/02/2024 (Approximate), Expires: 09/02/2025 Start: 08-10-2024 End: 08-10-2024 Patient encounter procedure 08/10/2024 3:20 PM EST Routine [facility] [address] [place] [address] Neris Law, DO [address] [place] [address] [place] [address] [facility] Start: 08-10-2024 End: 08-10-2024 Professional / ancillary services management 08/10/2024 2:30 PM EST Ancillary Procedure [facility] [address] [place] [address] [facility] Start: 07-31-2024 End: 07-31-2024 Professional / ancillary services management 07/31/2024 10:30 AM EST Ancillary Procedure [facility] [address] [place] [id number] [facility] Start: 07-06-2024 End: 07-06-2024 Patient encounter procedure [facility] Comment on above: Arrived Start: 07-06-2024 End: 01-03-2025 Alpha fetoprotein, maternal Alpha fetoprotein, maternal Lab Routine Second trimester 16 weeks gestation of Expected: 07/06/2024 (Approximate), Expires: 01/03/2025 [facility] Comment on above: Expected: 07/06/2024 (Approximate), Expires: 01/03/2025 Start: 07-06-2024 End: 07-06-2025 US for US OB 14+ weeks anatomy scan Imaging Routine Screening, , for anatomic survey Expected: 07/06/2024, Expires: 07/06/2025 [facility] Comment on above: Expected: 07/06/2024 , Expires: 07/06/2025 Start: 06-08-2024 End: 06-08-2024 Patient encounter procedure 06/08/2024 3:30 PM EST Routine [facility] [address] [place] [address] Neris Law, DO [address] [place] [address] [facility] Start: 05-08-2024 End: 05-08-2025 ABO/Rh ABO/Rh Lab Routine Missed menses , unspecified gestational age Expected: 05/08/2024 (Approximate), Expires: 05/08/2025 [facility] Comment on above: Expected: 05/08/2024 (Approximate), Expires: 05/08/2025 Start: 05-08-2024 End: 05-08-2025 Blood type and Indirect antibody screen panel - Blood Type and screen Lab Routine Missed menses , unspecified gestational age Expected: 05/08/2024 (Approximate), Expires: 05/08/2025 [facility] Work Phone: Comment on above: Expected: 05/08/2024 (Approximate), Expires: 05/08/2025 Start: 05-08-2024 End: 05-08-2025 Drugs of abuse panel - Urine by Screen method Rapid drug screen, urine Lab Routine , unspecified gestational age Encounter for supervision of normal first in first trimester Expected: 05/08/2024 (Approximate), Expires: 05/08/2025 [facility] Comment on above: Expected: 05/08/2024 (Approximate), Expires: 05/08/2025 Start: 05-08-2024 End: 05-08-2025 US Pelvis transvaginal US OB transvaginal Imaging Routine Missed menses Expected: 05/08/2024 (Approximate), Expires: 05/08/2025 [facility] Comment on above: Expected: 05/08/2024 (Approximate), Expires: 05/08/2025 Start: 02-16-2024 Influenza vaccination Influenza Vacc ine (#1) [facility] Start: 02-16-2020 Influenza vaccination Flu vaccine (# 1) [place], [place] Start: 12-31-2019 DTaP/Tdap/Td vaccine (7 - Tdap) DTaP/Tdap/Td vaccine (7 - Tdap) [place] Start: 10-02-2018 Screening for Chlamy giuseppe trachomatis Chlamydia screen [place], [place] Start: 2018 Screening for malign ant neoplasm of cervix Cervical cancer screen [place], [place] Start: 2012 HIV screening HIV screen [place], [place] Start: 2008 HPV vaccine (1 - 2-d ose series) HPV vaccine (1 - 2-dose series) [place], [place] Start: 1997 Hepatitis C screening Hepatitis C sc reen [place], [place] Bacteria identified in Urine by Culture Urine culture Microbiology Routine Missed menses Ordered: 05/08/2024 [facility] Comment on above: Ordered: 05/08/2024 CBC W Auto Different ial panel - Blood CBC and differential Lab Routine Missed menses , unspecified gestational age Ordered: 05/08/2024 [facility] Comment on above: Ordered: 05/08/2024 CBC W Auto Different ial panel - Blood CBC and differential Lab Routine 19 weeks gestation of Second trimester UTI symptoms Lightheaded Ordered: 07/30/2024 [facility] Comment on above: Ordered: 07/30/2024 CHLAMYDIA TRACHOMATI S (GENITO/STI) CHLAMYDIA TRACHOMATIS (GENITO/STI) Lab Routine STD exposure Ordered: 07/06/2024 [facility] Comment on above: Ordered: 07/06/2024 Comprehensive metabo lic 2000 panel - Serum or Plasma Comprehensive metabolic panel Lab Routine 19 weeks gestation of Second trimester UTI symptoms Lightheaded Ordered: 07/30/2024 [facility] Work Phone: Comment on above: Ordered: 07/30/2024 Cytology Cervical or vaginal smear or scraping study Pap Smear Pathology and Cytology Routine Well woman exam with routine gynecological exam Ordered: 07/06/2024 [facility] Comment on above: Ordered: 07/06/2024 Ferritin [Mass/volum e] in Serum or Plasma Ferritin Lab Routine 19 weeks gestation of Second trimester UTI symptoms Lightheaded Ordered: 07/30/2024 [facility] Comment on above: Ordered: 07/30/2024 Hemoglobin A1c/Hemoglobin.total in Blood Hemoglobin A1c Lab Routine Missed menses , unspecified gestational age Ordered: 05/08/2024 [facility] Comment on above: Ordered: 05/08/2024 Hepatitis B virus surface Ag [Presence] in Serum or Plasma by Immunoassay Hepatitis B surface antigen Lab Routine Missed menses , unspecified gestational age Ordered: 05/08/2024 [facility] Comment on above: Ordered: 05/08/2024 Hepatitis C virus Ab [Presence] in Serum or Plasma by Immunoassay Hepatitis C antibody Lab Routine Missed menses , unspecified gestational age Ordered: 05/08/2024 [facility] Comment on above: Ordered: 05/08/2024 HIV-1/HIV-2 antigen/antibody combination immunoassay HIV-1 and HIV-2 antibodies Lab Routine Missed menses , unspecified gestational age Ordered: 05/08/2024 [facility] Comment on above: Ordered: 05/08/2024 Neisseria gonorrhoea e DNA [Presence] in Unspecified specimen by CEDRIC with probe detection Neisseria gonorrhea DNA probe, direct Lab Routine STD exposure Ordered: 07/06/2024 [facility] Comment on above: Ordered: 07/06/2024 Reagin Ab [Presence] in Serum by RPR RPR Lab Routine Missed menses , unspecified gestational age Ordered: 05/08/2024 [facility] Comment on above: Ordered: 05/08/2024 Rubella antibody, IgG Rubella an tibody, IgG Lab Routine Missed menses , unspecified gestational age Ordered: 05/08/2024 [facility] Comment on above: Ordered: 05/08/2024 SURESWAB(R) ADVANCED VAGINITIS PLUS, TMA SURESWAB(R) ADVANCED VAGINITIS PLUS, TMA Pathology and Cytology Routine Vaginal discharge Ordered: 07/06/2024 [facility] Work Phone: Comment on above: Ordered: 07/06/2024 Thyrotropin [Units/volume] in Serum or Plasma TSH Lab Routine 19 weeks gestation of Second trimester UTI symptoms Lightheaded Ordered: 07/30/2024 [facility] Comment on above: Ordered: 07/30/2024 Immunizations Immunization Date Immunization Notes Care Provider Fa jacquie 03-26-2023 influenza virus vacc ine, unspecified formulation Noms Nurse [facility] Payers Date Payer Category Payer [facility] [employer] [id number] 2020 Unknown [id number]. [id number] 1997 Unknown [id number] 2.16.840.1.122975.3.579.2. 173 1997 Unknown [id number] 2.16.840.1.703697.3.579.2. 185 1997 Unknown [id number] 2.16.840.1.024125.3.579.2. 593 1997 Unknown [id number] 2.16.840.1.366698.3.579.2. 593 1997 Unknown [id number] 2.16.840.1.197361.3.579.2. 593 1997 Unknown [id number] 2.16.840.1.645117.3.579.2. 593 1997 Unknown [id number] 2.16.840.1.066919.3.579.2. 593 1997 Unknown [id number] 2.16.840.1.485708.3.579.2. 593 1997 Unknown [id number] 2.16.840.1.521230.3.579.2. 593 1997 Unknown [id number] 2.16.840.1.244535.3.579.2. 593 1997 Unknown [id number] 2.16.840.1.952626.3.579.2. 593 1997 Unknown [id number] 2.16.840.1.315767.3.579.2. 593 1997 Unknown [id number] 2.16.840.1.499961.3.579.2. 593 1997 Unknown [id number] 2.16.840.1.773565.3.579.2. 593 1997 Unknown [id number] 2.16.840.1.240846.3.579.2. 593 1997 Unknown [id number] 2.16.840.1.876790.3.579.2. 1259 1997 Unknown [id number] 2.16.840.1.088981.3.579.2. 1259 1997 Unknown [id number] 2.16.840.1.406666.3.579.2. 1259 1997 Unknown [id number] 2.16.840.1.331913.3.579.2. 1259 1997 Unknown [id number] 2.16.840.1.903058.3.579.2. 1259 1997 Unknown [id number] 2.16.840.1.383039.3.579.2. 1259 1959 Self-pay 1959 Unknown [id number] 1959 Unknown [id number] 1959 Unknown [id number] Unknown [id number] 2.16.840.1.914657.3.579.2. 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) [place], [place] Start: 1997 Sex Assigned At Not on file [place] Exposure to SARS-CoV -2 (event) Not sure [place] Start: 05-08-2024 End: 09-02-2024 Alcoholic beverage intake Lifetime non-drinker (finding) [facility] Start: 06-06-2023 End: 05-08-2024 History of Social function [facility] Start: 06-06-2023 End: 05-08-2024 Tobacco use panel [facility] Start: 04-02-2024 [facility] History of Present illness Narrative 09-02-2024 Halina Mustafa LPN - 09/02/2024 3:10 PM EDT Note Date & Type Note Facility 09-02-2024 History of Presen t illness Narrative Reason for Appointment: Patient ID: Emy Vega is a 29 y.o. female who presents for Routine Visit Patient presents today for Return OB appointment. MEDICATIONS Current Outpatient Medications Medication Instructions ondansetron ODT (Zofran-ODT) 4 MG disintegrating tablet DISSOLVE 1 TABLET UNDER TONGUE EVERY 6 HOURS IF NEEDED FOR NAUSEA OR VOMITING Vit-Fe Fumarate-FA ( Vitamins) 28-0.8 MG tablet 1 tablet, Oral, Daily sertraline (Zoloft) 50 MG tablet ALLERGIES Allergies [...] Exam Constitutional: Appearance: Normal appearance. She is well-developed. Cardiovascular: Rate and Rhythm: Normal rate and regular rhythm. Pulmonary: Effort: Pulmonary effort is normal. Breath sounds: Normal breath sounds. Abdominal: General: Bowel sounds are normal. There is no distension. Palpations: Abdomen is soft. Tenderness: There is no abdominal tenderness. There is no guarding or rebound. Musculoskeletal: General: No swelling. Normal range of motion. Right lower leg: No edema. Left lower leg: No edema. Neurological: Mental Status: She is alert and oriented to person, place, and time. Skin: General: Skin is warm and dry. Psychiatric: Mood and Affect: Mood normal. Behavior: Behavior normal. Vitals and nursing note reviewed. Exam conducted with a bed maker present. Vitals: Estimated body mass index is 31.29 kg/m as calculated from the following: Height as of 10/15/22: 5' 7 . Weight as of this encounter: 199 lb 12.8 oz. BP: 110/70 Patient's last menstrual period was 03/12/2024. ASSESSMENT & PLAN ICD-10-CM 1. 23 weeks gestation of Z3A.23 POCT urinalysis dipstick manually resulted 2. Second trimester Z34.92 POCT urinalysis dipstick manually resulted 3. Diabetes mellitus screening Z13.1 CBC Glucose tolerance, 1 hour CBC Glucose tolerance, 1 hour Patient presents today for a routine obstetrics appointment. Patient is currently 23w6d with a Estimated Date of Delivery: 12/24/24. Pt given glucola order with instructions. Pt to return in 4 weeks for scheduled OB appt Pt given weight restriction for work 30 pound Documented by Halina Mustafa LPN on behalf of: Neris Law DO documented in this encounter [facility] History of Present illness Narrative 07-30-2024 Shanae Martin LPN - 07/30/2024 2:50 PM EST Note Date & Type Note Facility 07-30-2024 History of Presen t illness Narrative Reason for Appointment: Patient ID: Emy Vega is a 29 y.o. female who presents for No chief complaint on file. Patient presents today for Return OB appointment. MEDICATIONS Current Outpatient Medications Medication Instructions FLUoxetine (PROzac) 20 MG capsule TAKE 1 CAPSULE BY MOUTH EVERY DAY IN THE MORNING metoclopramide (REGLAN) 10 mg, Oral, 3 times daily before meals, Take 1 tablet by mouth 30 minutes prior to meals 3 times daily as needed for nausea. ondansetron ODT (Zofran-ODT) 4 MG disintegrating tablet DISSOLVE 1 TABLET UNDER TONGUE EVERY 6 HOURS IF NEEDED FOR NAUSEA OR VOMITING Vit-Fe Fumarate-FA ( Vitamins) 28-0.8 MG tablet [...] SYSTEMS Review of Systems: Review of Systems All other systems reviewed and are negative. OBJECTIVE Objective: Physical Exam Constitutional: Appearance: Normal appearance. She is well-developed. Cardiovascular: Rate and Rhythm: Normal rate and regular rhythm. Pulmonary: Effort: Pulmonary effort is normal. Breath sounds: Normal breath sounds. Abdominal: General: Bowel sounds are normal. There is no distension. Palpations: Abdomen is soft. Tenderness: There is no abdominal tenderness. There is no guarding or rebound. Musculoskeletal: General: No swelling. Normal range of motion. Right lower leg: No edema. Left lower leg: No edema. Neurological: Mental Status: She is alert and oriented to person, place, and time. Skin: General: Skin is warm and dry. Psychiatric: Mood and Affect: Mood normal. Behavior: Behavior normal. Vitals and nursing note reviewed. Exam conducted with a bed maker present. Vitals: Estimated body mass index is 30.85 kg/m as calculated from the following: Height as of 10/15/22: 5' 7 . Weight as of this encounter: 197 lb. BP: 112/70 Patient's last menstrual period was 03/12/2024. ASSESSMENT & PLAN ICD-10-CM 1. 19 weeks gestation of Z3A.19 2. Second trimester Z34.92 3. UTI symptoms R39.9 4. Lightheaded R42 Return OB: Patient presents today for a routine obstetrics appointment. Patient is currently 19w0d . Patient states she is doing well but has complaints of being tired due to current . Patient has verbalizes frequent movement. Patient to have labs and move ultrasound up. Patient to increase electrolytes. Patient advised everything will be quicker in pelvic pain since previous . No orders of the defined types were placed in this encounter. Follow Up: Patient is to return to office in 1 week for routine OB appointment. Documented by Shanae Martin LPN on behalf of: Neris Law DO documented in this encounter [facility] History of Present illness Narrative 07-06-2024 LUCINA Singletary - 07/06/2024 4:00 PM EST Note Date & Type Note Facility 07-06-2024 History of Presen t illness Narrative Reason for Appointment: Patient ID: Emy Vega is a 29 y.o. female who presents [...] nursing note reviewed. Exam conducted with a bed maker present. Vitals: Estimated body mass index is [...] obtained without difficulty and [facility] obtained. Orders Placed This Encounter Procedures US OB 14+ weeks anatomy scan CHLAMYDIA TRACHOMATIS (GENITO/STI) Neisseria gonorrhea DNA probe, direct Alpha fetoprotein, maternal Follow Up: Patient is to return to our office in 4 weeks for routine OB appointment Documented by Nell Lockwood LPN on behalf of: LUCINA Singletary documented in this encounter [facility] History of Present illness Narrative 06-08-2024 Bisi Corley MA - 06/08/2024 3:30 PM EST Note Date & Type Note Facility 06-08-2024 History of Presen t illness Narrative Reason for Appointment: Patient ID: Emy Vega is a 29 y.o. female who presents [...] Narrative Reason for Appointment: Patient ID: Emy Vega is a 29 y.o. female who presents [...] or undercooked meat, and stay away from [facility]. Patient has also been advised to [...] Nell Lockwood LPN documented in this encounter [facility] Evaluation note Note Date & [...] care documented in this encounter [facility] Evaluation note Note Date & Type Note Facility Evaluation note Diagnosis Well woman exam with routine gynecological exam Routine gynecological examination Second trimester state, incidental 16 weeks gestation of Vaginal discharge Leukorrhea, not specified as infective STD exposure Screening, , for anatomic survey Encounter for anatomic survey documented in this encounter [facility] Evaluation note Note Date & Type Note Facility Evaluation note Diagnosis 19 weeks gestation of Second trimester state, incidental UTI symptoms Lightheaded Dizziness and giddiness Iron deficiency anemia, unspecified iron deficiency anemia type documented in this encounter [facility] Evaluation note Note Date & Type Note Facility Evaluation note Diagnosis 23 weeks gestation of Second trimester state, incidental Diabetes mellitus screening Screening for diabetes mellitus documented in this encounter [facility] Summary Purpose Family History No Family History Records FoundNo Family History Records FoundNo Family History Records FoundNo Family History Records FoundNo Family History Records Found Advance Directives No Advanced Directives Records FoundDocuments on File Type Date Recorded Patient Credit Or Loans Officer Expl anation ACP-Advance Directive 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 * Ankle Sprain (Estonian) documented in this encounter Assessments Diagnosis Sprain of left ankle, unspecified ligament, initial encounter- Primary Additional Source Comments INFORMATION SOURCE (unrecogn ized section and content) DATE CREATED AUTHOR 10/21/2018 [facility] DATE CREATED AUTHOR AUTHOR'S ORGANIZ ATION 07/12/2020 [facility] DATE CREATED AUTHOR AUTHOR'S ORGANIZ ATION 09/29/2020 [facility] DATE CREATED AUTHOR AUTHOR'S ORGANIZ ATION 10/23/2022 [facility] DATE CREATED AUTHOR AUTHOR'S ORGANIZ ATION 09/04/2024 [facility] EPIC Reason for Visit (unrecogniz [...] BE BASED ON THE PRIMARY CLINICAL RECORDS. [facility] [employer] provides no warranty or guarantee of the accuracy or completeness of information in this document.
[2024-09-28 08:59] LABS: Basophils Percent Auto 0.4 % (0.2-2.0); Eosinophils Absolute Auto 0.1 10^3/uL (0.0-0.7); Hematocrit 33.7 % (36.0-48.0); Hemoglobin 11.6 g/dL (12.0-16.0); Immature Granulocytes Pct Auto 1.2 % (0.0-0.5); Lymphocytes Absolute Auto 2.3 10^3/uL (1.2-3.8); Mean Corpuscular HGB Conc 34.4 g/dL (29.9-35.2); Mean Corpuscular Hemoglobin 31.3 pg (26.7-34.0); Mean Corpuscular Volume 90.8 fL (81.0-99.0); Mean Platelet Volume 8.8 fL (9.5-13.5); Monocytes Absolute Auto 0.4 10^3/uL (0.3-0.8); Monocytes Percent Auto 4.7 % (1.7-12.0); Neutrophils Absolute Auto 5.2 10^3/uL (1.4-6.5); Neutrophils Percent Auto 64.7 % (43.0-75.0); Platelet Count 323 10^3/uL (150-450); Red Blood Count 3.71 10^6/uL (4.20-5.40); Red Cell Distribution Width 12.9 % (11.0-15.0); White Blood Count 8.1 10^3/uL (4.0-11.0)
[2024-09-28 09:17] LABS: Glucose 1 Hour 154 mg/dL (<130)
== END 2024-09-28 07:46 | disposition home or self-care (01) ==
LOC: LAB 07:46
PROVIDERS: PCP Nurse Practitioner Family; Visit Provider Obstetrics & Gynecology
DX: Z13.1 Encounter for screening for diabetes mellitus (principal)
CPT/HCPCS: 36415; 82950; 85025

== ENCOUNTER 2024-09-30 10:52 | Outpatient (OUT) | payer BC, SELFPAY ==
[2024-09-30 11:12] LABS: Glucose Fasting 76 mg/dL (<95)
[2024-09-30 12:19] LABS: Glucose 1 Hour 166 mg/dL (<180)
[2024-09-30 13:18] LABS: Glucose 2 Hour 158 mg/dL (<155)
[2024-09-30 14:32] LABS: Glucose 3 Hour 120 mg/dL (<140)
== END 2024-09-30 10:53 | disposition home or self-care (01) ==
LOC: LAB 10:52
PROVIDERS: PCP Nurse Practitioner Family; Visit Provider Obstetrics & Gynecology
DX: R73.09 Other abnormal glucose (principal)
CPT/HCPCS: 36415; 82951; 82952

== ENCOUNTER 2024-10-17 10:58 | Outpatient (OUT) | payer BC, SELFPAY ==
--- NOTE | 2024-10-17 11:00 | US_ITS ---
[address] [address] Patient Name: JOYCE CANTU MRN: [id number] date: 1995 Sex: F Assigned Patient Location: Current Patient Location: Accession/Order Number: [id number] Exam Date: 10/18/2024 20:28 Report Date: 10/18/2024 20:30 At the request of: NERIS ALLEN DO Procedure: US OB growth Growth ultrasound. Reason for exam: Excessive growth. COMPARISON: Ultrasound 05/09/2024 technique: Transabdominal imaging of the gravid uterus was obtained. FINDINGS: Single live intrauterine measuring 31 weeks 4 days by anatomic measurements. Estimated weight is 1739 g. heart rate is 163 bpm. TIGIST is normal at 12.99 cm. position is cephalic at time of scanning. US/US OB growth IMPRESSION: Single live intrauterine 31 weeks 4 days by anatomic measurements. Appropriate growth by dating. Impression dictated by: Arnav Smith Jr., D.O. 10/18/2024 8:30 PM Dictation Location: [employer] Electronically authenticated by: [id number] Y Date: 10/18/2024 20:30
== END 2024-10-17 10:59 | disposition home or self-care (01) ==
LOC: US 10:58
PROVIDERS: PCP Nurse Practitioner Family; Visit Provider Obstetrics & Gynecology
DX: O36.63X0 Maternal care for excessive fetal growth, third trimester, not applicable or unspecified (principal); Z3A.31 31 weeks gestation of pregnancy
CPT/HCPCS: 76816

== ENCOUNTER 2024-10-19 14:16 | Observation (INO) | payer BC, SELFPAY ==
[2024-10-19 14:32] VITALS: BP 115/65; PULSE 116; TEMP 35.8
[2024-10-19 14:40] VITALS: TEMP 36.6; O2SAT 98
[2024-10-19 15:14] LABS: Bilirubin Urine MODERATE (NEGATIVE); Blood Urine NEGATIVE (NEGATIVE); Clarity Urine CLEAR (CLEAR); Color Urine DK. ORANGE (YELLOW); Glucose Urine UA NEGATIVE (NEGATIVE); Ketones Urine >=80 mg/dL (NEGATIVE); Leukocyte Esterase Urine NEGATIVE (NEGATIVE); Nitrite Urine NEGATIVE (NEGATIVE); Protein Urine 100 mg/dL (NEG/TRACE); Specific Gravity Urine 1.025 (1.005-1.025)
[2024-10-19 15:19] LABS: Urine Microscopic Indicated NO
[2024-10-19] MEDS: 0.9 % SODIUM CHLORIDE 1,000 ML 1000 ML IV (16:36)
[2024-10-19] MEDS: ONDANSETRON PF 4 MG/2 ML VIAL IV ×2 (16:40→18:48)
[2024-10-19] MEDS: 0.9 % SODIUM CHLORIDE 1,000 ML 150 ML IV (17:35)
[2024-10-19 17:45] LABS: Hematocrit 33.7 % (36.0-48.0); Hemoglobin 11.6 g/dL (12.0-16.0); Mean Corpuscular HGB Conc 34.4 g/dL (29.9-35.2); Mean Corpuscular Hemoglobin 31.4 pg (26.7-34.0); Mean Corpuscular Volume 91.1 fL (81.0-99.0); Mean Platelet Volume 10.3 fL (9.5-13.5); Platelet Count 245 10^3/uL (150-450); Red Cell Distribution Width 13.5 % (11.0-15.0); White Blood Count 7.4 10^3/uL (4.0-11.0)
[2024-10-19 17:58] LABS: Alanine Aminotransferase 24 U/L (14-59); Albumin Globulin Ratio 0.8; Albumin Level 2.4 g/dL (3.4-5.0); Alkaline Phosphatase 128 U/L (46-116); Amylase 72 U/L (25-115); Anion Gap 14.6; Aspartate Amino Transferase 39 U/L (15-37); BUN Creatinine Ratio 12.8; Bilirubin Total 0.6 mg/dL (0.2-1.0); Calcium 8.1 mg/dL (8.5-10.1); Carbon Dioxide 23.1 mmol/L (21.0-32.0); Chloride 101 mmol/L (98-107); Estimated GFR (African America >60 (>=60 mL/min/1.73m^2); Estimated GFR (Non-African Ame >60 (>=60 mL/min/1.73m^2); Globulin 3.2 g/dL; Glucose 68 mg/dL (74-106); Sodium 135 mmol/L (136-145); Total Protein 5.6 g/dL (6.4-8.2)
[2024-10-19 18:02] LABS: Potassium 3.7 mmol/L (3.5-5.1)
[2024-10-19 18:06] LABS: Lymphocytes Absolute Manual 0.74 10^3/uL (1.20-3.80); Monocytes Absolute Manual 0.29 10^3/uL (0.30-0.80); Segmented Neut Absolute Manual 6.36 10^3/uL (1.4-6.5)
[2024-10-19] MEDS: METOCLOPRAMIDE HCL 10 MG/2 ML VIAL IVP (18:48)
== END 2024-10-19 19:42 | disposition home or self-care (01) ==
LOC: FBC 14:17
PROVIDERS: Admitting Provider Obstetrics & Gynecology; PCP Nurse Practitioner Family; Visit Provider Obstetrics & Gynecology
DX: O21.2 Late vomiting of pregnancy (principal); O47.03 False labor before 37 completed weeks of gestation, third trimester; Z3A.30 30 weeks gestation of pregnancy
CPT/HCPCS: 36415; 59025; 76815; 76817; 80053; 81003; 82150; 83690; 85007; 85027; 96361; 96374; 96375; 96376; G0378; G0379; J2405; J2765

== ENCOUNTER 2024-11-25 14:28 | Outpatient (REF) | payer BC, SELFPAY ==
--- OUTSIDE RECORDS SUMMARY | 2024-08-12 04:18 | XMS_ITS | Continuity of Care Document ---
Author Organization [facility] Address [address] [address] Phone Care Team Providers Care Clam Treader Name Role Phone Eligio GOSS, Shaniqua Unavailable Unavailable Allergies, Adverse Reactions, Alerts Substance Reaction Status Criticality Penicillins Active No Information Medications Medication Instructions Dosage Effective Dates (start - stop) Status Comments sertraline 50 mg tablet take 1 tablet by oral route every day 50 MG - Active ondansetron [address] 1 tablet by translingual route 6 times every day on top of the tongue where they will dissolve, then swallow 4 MG - Active + DHA 28 mg iron-975 mcg-200 mg oral pack - Active Iron (ferrous sulfate) 325 mg (65 mg iron) tablet take 1 tablet by oral route every day 325 MG - Active Procedures Procedure Date PREV VISIT, EST, AGE 18-39 Bp scrn perf rec interval DIAST BP < 80 MM HG SYST BP < 130 MM HG MED LIST DOCD IN [facility] RVW MEDS BY RX/DR IN [facility] TOBACCO NON-USER IMMUNIZATION ADMIN FLU VACCINE NO PRESERV 3 & > OFFICE/OUTPATIENT VISIT, EST DIAST BP 80-89 MM HG SYST BP < 130 MM HG MED LIST DOCD IN [facility] RVW MEDS BY RX/DR IN [facility] TOBACCO NON-USER Pos clin depres scrn f/u doc OFFICE/OUTPATIENT VISIT, EST OFFICE/OUTPATIENT VISIT, EST Bp scrn perf rec interval DIAST BP < 80 MM HG SYST BP < 130 MM HG Pos clin depres scrn f/u doc OFFICE/OUTPATIENT VISIT, EST LDL-C 100-129 MG/DL DIAST BP 80-89 MM HG SYST BP >=130-139MM HG MED LIST DOCD IN [facility] RVW MEDS BY RX/DR IN [facility] TOBACCO NON-USER Pos clin depres scrn f/u doc OFFICE/OUTPATIENT VISIT, EST Bp scrn perf rec interval LDL-C 100-129 MG/DL DIAST BP < 80 MM HG SYST BP < 130 MM HG MED LIST DOCD IN [facility] RVW MEDS BY RX/DR IN [facility] TOBACCO NON-USER Pt inelig neg scrn depres INFLUENZA ASSAY W/OPTIC COVID-19 Antigen Test STREP A ASSAY W/OPTIC COVID-19 Antigen Test IMMUNIZATION ADMIN FLU VAC NO PRSV 4 MELBA 3 YRS+ COVID-19 Antigen Test COVID-19 Antigen Test OFFICE/OUTPATIENT VISIT, EST OFFICE/OUTPATIENT VISIT, NEW ROUTINE VENIPUNCTURE TB Read TB INTRADERMAL TEST Admin Moderna Bvalent Booster 18 And Old er Moderna Bivalent Booster 18 And Older Ja IMMUNIZATION ADMIN TDAP VACCINE >7 IM ROUTINE VENIPUNCTURE IMMUNIZATION ADMIN FLU VAC NO PRSV 4 MELBA 3 YRS+ COVID-19 Antigen Test Rapid RT-PCR Rapid RT-PCR COVID-19 Antigen Test COVID-19 Antigen Test COVID-19 Antigen Test Covid Testing [facility] IMMUNIZATION ADMIN HPV 9 Valent Covid Testing [facility] Moderna Booster Moderna Booster TB INTRADERMAL TEST TB Read TB INTRADERMAL TEST TB Read TB INTRADERMAL TEST Moderna COVID Vaccine Admin Dose 2 Moderna COVID-19 Vaccine Moderna COVID Vaccine Admin Dose 1 Moderna COVID-19 Vaccine Advance Directives Directive Yes / No Effective Date File Name No Information Encounters Encounter Description Practice Location Reason(s) For Visit Diagnoses Date Provider Providers Copied on Encounter PREV VISIT, EST, AGE 18-39 [facility], [address] [place] [address], [id number] , [place] tel:[phone] [facility] (chief complaint) Body mass index [BMI] 31.0-31.9, adultAnxiety with depressionEncounter for general adult medical examination without abnormal findings 5 Eligio Mcgovern. [address] [place] [address], [id number] , [place]. tel:[phone] [facility], [address] [place] [address], [id number] , [place] tel: [phone] [facility] No Information 5 Alexis Simpson. [address], [place], [id number] , [place]. tel: [phone] [facility], [address], [place], [id number] , [place] tel: [phone] [facility] No Information 5 Eligio Mcgovern. [address] [place] [address], [id number] , [place]. tel: [phone] OFFICE/OUTPA TIENT VISIT, [facility], [address] [place] [address], [id number] , [place] tel: [phone] [facility] anxiety/dep ression f/u (chief complaint) Anxiety with depressionBody mass index [BMI] 31.0-31.9, adult Oct- 4 Eligio Mcgovern. [address] [place] [address], [id number] , [place]. tel: [phone] OFFICE/OUTPA TIENT VISIT, [facility], [address] [place] [address], [id number] , [place] tel: [phone] [facility] medication (chief complaint) Disturbance of skin sensation 4 Eligio Mcgvoern. [address] [place] [address], [id number] , [place]. tel:[phone] OFFICE/OUTPA TIENT VISIT, [facility], [address] [place] [address], [id number] , [place] tel:+ [phone] [facility] med f/u (chief complaint) Body mass index [BMI] 31.0-31.9, adultAnxiety with depressionMajor depression in remission 4 Eligio Mcgovern. [address] [place] [address], [id number] , [place]. tel:[phone] OFFICE/OUTPA TIENT VISIT, [facility], [address], [place], [id number] , [place] tel:+ [phone] [facility] check up (chief complaint) Body mass index [BMI] 31.0-31.9, adultAnxiety with depression 4 Eligio Mcgovern. [address] [place] [address], [id number] , [place]. tel:+ [phone] OFFICE/OUTPA TIENT VISIT, [facility], [address], [place], [id number] , [place] tel:+ [phone] [facility] sick visit (chief complaint)S ore throat (chief complaint) Body mass index [BMI] 31.0-31.9, adultStrep pharyngitisLymphade nopathy 4 Eligio Mcgovern. [address] [place] [address], [id number] , [place]. tel: [phone] [facility], [address] [place] [address], [id number] , [place] tel: [phone] [facility] Encounter For Screening For Covid-19Acute pharyngitis, unspecified 4 Visci DO Deangelo. [address] [place] [address], [id number] , [place]. tel: [phone] [facility], [address] [place] [address], [id number] , [place] tel: [phone] [facility] No Information 3 Visci DO Deangelo. [address] [place] [address], [id number] , [place]. tel:[phone] [facility], [address] [place] [address], [id number] , [place] tel:[phone] [facility] Encounter For Screening For Covid-19 3 Visci DO Deangelo. [address] [place] [address], [id number] , [place]. tel: [phone] [facility], [address], [place], [id number] , [place] tel: [phone] [facility] Encounter For Screening For Covid-19 3 Alexis Simpson. [address], [place], [id number] , [place]. tel:[phone] OFFICE/OUTPA TIENT VISIT, [facility], [address], [place], [id number] , [place] tel:+ [phone] [facility] moods (chief complaint) Mood disturbanceAnxiety with depression 3 Eligio Mcgovern. [address], [place], [id number] , [place]. tel:[phone] OFFICE/OUTPA TIENT VISIT, [facility], [address], [place], [id number] , [place] tel: [phone] [facility] Establish care (chief complaint)L ab draw (chief complaint) Fatigue, unspecified typeBody mass index [BMI] 29.0-29.9, adult 3 Eligio TESTER OPERATOR HELPER Shaniqua. [address], [place], [id number] , [place]. tel: [phone] [facility], [address], [place], [id number] , [place] tel: [phone] [facility] Encounter for screening for other viral diseasesEncounter for screening for other viral diseases 3 Eligio GOSS Shaniqua. [address], [place], [id number] , [place]. tel:+ [phone] [facility], [address], [place], [id number] , [place] tel:+ [phone] [facility] No Information 3 Alexis Simpson. [address], [place], [id number] , [place]. tel:+ [phone] [facility], [address], [place], [id number] , [place] tel:[phone] [facility] Encounter for screening for respiratory tuberculosis 3 Viscjorge Simpson. [address], [place], [id number] , [place]. tel: [phone] [facility], [address], [place], [id number] , [place] tel: [phone] [facility] No Information 3 Viscjorge Simpson. [address], [place], [id number] , [place]. tel: [phone] [facility], [address], [place], [id number] , [place] tel: [phone] [facility] No Information 2 Viscjorge Simpson. [address], [place], [id number] , [place]. tel: [phone] [facility], [address] [place] [address], [id number] , [place] tel: [phone] [facility] 28 weeks gestation of 2 Dieter HUNTER WEB CONTENT MANAGER-C Navya. [address] [place], [address], [place]. tel: [phone] [facility], [address] [place] [address], [id number] , [place] tel: [phone] [facility] No Information 2 Alexis Simpson. [address], [place], [id number] , [place]. tel: [phone] [facility], [address], [place], [id number] , [place] tel: [phone] [facility] Encounter For Screening For Covid-19 Feb- 2 Viscjorge Simpson. [address] [place] [address], [id number] , [place]. tel: [phone] [facility], [address] [place] [address], [id number] , [place] tel: [phone] [facility] Encounter For Screening For Covid-19 Sep-0 7-202 2 Viscjorge Simpson. [address], [place], [id number] , [place]. tel:+ [phone] [facility], [address], [place], [id number] , [place] tel: [phone] [facility] Encounter For Screening For Covid-19 2 Viscjorge Simpson. [address], [place], [id number] , [place]. tel: [phone] [facility], [address], [place], [id number] , [place] tel: [phone] [facility] Encounter for screening for other viral diseases 1 Alexis Simpson. [address], [place], [id number] , [place]. tel: [phone] [facility], [address], [place], [id number] , [place] tel: [phone] [facility] No Information 1 Alxeis Simpson. [address], [place], [id number] , [place]. tel: [phone] [facility], [address], [place], [id number] , [place] tel: [phone] [facility] Encounter For Screening For Covid-19 1 Alexis Simpson. [address], [place], [id number] , [place]. tel: [phone] [facility], [address], [place], [id number] , [place] tel: [phone] [facility] No Information 1 Alexis Simpson. [address], [place], [id number] , [place]. tel: [phone] [facility], [address], [place], [id number] , [place] tel: [phone] [facility] Encounter for screening for respiratory tuberculosis 1 Alexis Simpson. [address], [place], [id number] , [place]. tel: [phone] [facility], [address], [place], [id number] , [place] tel: [phone] [facility] Encounter for screening for respiratory tuberculosis 1 Alexis Simpson. [address], [place], [id number] , [place]. tel: [phone] [facility], [address] [place] [address], [id number] , [place] tel: [phone] [facility] No Information 1 Alexis Simpson. [address], [place], [id number] , [place]. tel: [phone] [facility], [address] [place] [address], [id number] , [place] tel: [phone] [facility] Encounter for screening for respiratory tuberculosis 1 Alexis Simpson. [address], [place], [id number] , [place]. tel: [phone] [facility], [address] [place] [address], [id number] , [place] tel: [phone] [facility] No Information 1 Alexis Simpson. [address] [place] [address], [id number] , [place]. tel: [phone] [facility], [address] [place] [address], [id number] , [place] tel: [phone] [facility] No Information 0 Alexis Simpson. [address] [place] [address], [id number] , [place]. tel: [phone] Family History Family Member Type Diagnosis Age At Onset Mother Problem Prediabetic Immunizations Vaccine Date Status Comments Fluarix/Flulaval administered Source: New Immunization Record Flulaval/ Fluarix administered Source: Ne w Immunization Record Moderna BIV(6Y+) administered Source: New Immunization Record Tdap (Boostrix) administered Source: New Immunization Record Flulaval/ Fluarix administered Source: Ne w Immunization Record HPV (9-valent) administered Source: New I mmunization Record Moderna Booster administered Source: New Immunization Record Moderna COVID administered Source: New Im munization Record Moderna COVID administered Source: New Im munization Record meningococcal MCV4P administered Source: Other Registry Influenza, live, quadrivalen t, intranasal administered Source: Other Regist ry Influenza, live, quadrivalen t, intranasal administered Source: Other Regist ry influenza, whole administered Source: Oth er Registry Influenza, live, trivalent, intranasal administered Source: Other Regist ry Influenza, live, trivalent, intranasal administered Source: Other Regist ry Influenza, live, trivalent, intranasal administered Source: Other Regist ry DTP administered Source: Other R egistry varicella administered Source: Other R egistry meningococcal MCV4P administered Source: Other Registry Novel [id number], nasal administer ed Source: Other Registry Influenza, live, trivalent, intranasal administered Source: Other Regist ry Influenza, live, trivalent, intranasal administered Source: Other Regist ry Influenza, live, trivalent, intranasal administered Source: Other Regist ry MMR administered Source: Other R egistry IPV administered Source: Other R egistry DTaP, unspecified formulation administere d Source: Other Registry varicella administered Source: Other R egistry varicella administered Source: Other R egistry OPV administered Source: Other R egistry MMR administered Source: Other R egistry Hib, unspecified formulation administered Source: Other Registry DTaP, unspecified formulation administere d Source: Other Registry Hib, unspecified formulation administered Source: Other Registry Hep B, adult administered Source: Other R egistry DTaP, unspecified formulation administere d Source: Other Registry OPV administered Source: Other R egistry Hib, unspecified formulation administered Source: Other Registry DTaP, unspecified formulation administere d Source: Other Registry OPV administered Source: Other R egistry Hib, unspecified formulation administered Source: Other Registry Hep B, adult administered Source: Other R egistry DTaP, unspecified formulation administere d Source: Other Registry Hib, unspecified formulation administered Source: Other Registry Hep B, adult administered Source: Other R egistry Payers Payer name Insurance type Covered democrat ID Authorkarla ticathryn(s) [place] [id number] [facility] [id number] [facility] [id number] [facility] CI [id number] [facility] CI [id number] [facility] CI [id number] [facility] CI [id number] [facility] CI [id number] [facility] CI [id number] Social History Type Description Quantity Date Captured Comments Alcohol Use Details No Caffeine Use Details coffee Tobacco Use Status Current non-smoker Smoking Status Never smoker Sex Female Sexual Orientation Straight or heterosexual Gender Identity Female Vital Signs Date / Time: Height Weight BMI Pulse Rate Blood Pressure Temperature Respiratory Rate Body Surface Area Head Circumference Head Circ. Percentile Wt./Jaskaran. Percentile BMI percentile Pulse Ox Inhaled Ox 8:48 AM 67.00 in 89.811 kg (198.00 lbs) 31.0 1 kg/m eter (2) 96 /min 118/78 mm[Hg] 98.60 F 18 /min 97 % Chief Complaint And Reason For Visit From encounter dated '08/12/2024 08:18'. Wellness (chief complaint). Description: Patient presents for wellness. Patient is feeling a littlecongested but thinks it is allergies. She denies use of alcohol, substances, tobacco, or nicotine. Patient has no other concerns. --Aaron, LPNPt [address] Law is her OB. . Presents with her son today for wellness today. However, they are both getting over flu A. She is stillfeeling a bit congested with a mild cough. She also endorses seasonal allergies and believes this is a major contributor at this time. Zyrtec has been helpful. She has had some related nausea and continues zoloft. Otherwise is feeling healthy and has no health concerns. 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 Due on du e Goal Lipid panel. Due on 037 due Goal Depression screening. Due on due Goal PAP. Due on due Goal Influenza vaccine. Due on due Goal Unhealthy drug use screening . Due on due Goal Tdap Vaccine. Due on 2031 due Goal PRAPARE ASSESSMENT. Due on due Goal RLP. Due on due Goal Tdap due Goal Hepatitis C screening. Due o n due Goal Dietary manageme nt education, guidance, and counseling completed Goal Depression screening. Due on due Goal PRAPARE ASSESSMENT. Due on due Goal PAP. Due on due Goal Hep A. Due on du e Goal Tdap Vaccine. Due on 2031 due Goal Hepatitis C screening. Due o n due Goal Unhealthy drug use screening . Due on due Goal Tdap due Goal Influenza vaccine. Due on due Goal Lipid panel. Due on due Goal RLP. Due on due Goal Hep A. Due on du e Goal PAP. Due on due Goal Unhealthy drug use screening . Due on due Goal Tdap due Goal Lipid panel. Due on due Goal Hepatitis C screening. Due o n due Goal Tdap Vaccine. Due on 2031 due Goal Depression screening. Due on due Goal PRAPARE ASSESSMENT. Due on due Goal RLP. Due on due Goal Influenza vaccine. Due on due Goal Hep A. Due on du e Goal Tdap Vaccine. Due on 2031 due Goal Influenza vaccine. Due on Oc due Goal PAP. Due on due Goal PRAPARE ASSESSMENT. Due on O due Goal RLP. Due on due Goal Hepatitis C screening. Due o n due Goal Depression screening. Due on due Goal Tdap due Goal Unhealthy drug use screening . Due on due Goal Lipid panel. Due on due Goal Dietary manageme nt education, guidance, and counseling completed Goal Lipid panel. Due on due Goal Tdap Vaccine. Due on 2031 due Goal Unhealthy drug use screening . Due on due Goal PRAPARE ASSESSMENT. Due on A due Goal RLP. Due on due Goal Influenza vaccine. Due on due Goal Depression screening. Due on due Goal Tdap due Goal Hepatitis C screening. Due o n due Goal PAP. Due on due Goal Tdap Vaccine. Due on 2031 due Goal Influenza vaccine. Due on due Goal PRAPARE ASSESSMENT. Due on due Goal Tdap due Goal RLP. Due on due Goal PAP. Due on due Goal Depression screening. Due on due Goal Lipid panel. Due on due Goal Hep A. Due on du e Goal Hepatitis C screening. Due o n due Goal Unhealthy drug use screening . Due on due Goal Dietary manageme nt education, guidance, and counseling completed Goal Influenza vaccine. Due on due Goal PAP. Due on due Goal Hepatitis C screening. Due o n due Goal Tdap Vaccine. Due on 2031 due Goal Depression screening. Due on due Goal PRAPARE ASSESSMENT. Due on due Goal Hep A. Due on du e Goal Tdap due Goal RLP. Due on due Goal Lipid panel. Due on due Goal Unhealthy drug use screening . Due on due Goal Dietary manageme nt education, guidance, and counseling completed Goal PRAPARE ASSESSMENT. Due on due Goal Unhealthy drug use screening . Due on due Goal Tdap Vaccine. Due on 2031 due Goal Hepatitis C screening. Due o n due Goal Depression screening. Due on due Goal Influenza vaccine. Due on due Goal Hep A. Due on du e Goal Tdap due Goal PAP. Due on due Goal Lipid panel. Due on due Goal RLP. Due on due Goal Hep A. Due on du e Goal Influenza vaccine. Due on due Goal Tdap Vaccine. Due on 2031 due Goal Tdap due Goal Hepatitis C screening. Due o n due Goal RLP. Due on due Goal PAP. Due on due Goal PRAPARE ASSESSMENT. Due on F due Goal Lipid panel. Due on due Goal Depression screening. Due on due Goal Unhealthy drug use screening . Due on due Goal Dietary manageme nt education, guidance, and counseling completed Goal Unhealthy drug use screening . Due on due Goal Hepatitis C screening. Due o n due Goal Tdap Vaccine. Due on 2031 due Goal Influenza vaccine. Due on Oc due Goal RLP. Due on due Goal PRAPARE ASSESSMENT. Due on O due Goal Lipid panel. Due on due Goal Hep A. Due on du e Goal Depression screening. Due on due Goal Tdap due Goal PAP. Due on due Goal PAP. Due on due Goal RLP. Due on due Goal PRAPARE ASSESSMENT. Due on due Goal Lipid panel. Due on due Goal Tdap Vaccine. Due on 2031 due Goal Tdap due Goal Influenza vaccine. Due on due Goal Depression screening. Due on due Goal Hep A. Due on du e Goal Influenza vaccine. Due on due Goal Lipid panel. Due on due Goal PRAPARE ASSESSMENT. Due on S due Goal Tdap Vaccine. Due on 2031 due Goal Tdap due Goal PAP. Due on due Goal RLP. Due on due Goal Depression screening. Due on due Goal Hep A. Due on du e Goal Tdap Vaccine. Due on 2031 due Goal Lipid panel. Due on due Goal PRAPARE ASSESSMENT. Due on due Goal Tdap due Goal RLP. Due on due Goal PAP. Due on due Goal Depression screening. Due on due Goal Influenza vaccine. Due on due Goal PAP. Due on due Goal Tdap due Goal Depression screening. Due on due Goal RLP. Due on due Goal Lipid panel. Due on due Goal PRAPARE ASSESSMENT. Due on due Goal Influenza vaccine. Due on due Goal Tdap Vaccine. Due on 2031 due Goal Dietary manageme nt education, guidance, and counseling completed Goal Hep A. Due on du e Goal Tdap due Goal RLP. Due on due Goal PAP. Due on due Goal Influenza vaccine. Due on due Goal Tdap Vaccine. Due on 2031 due Goal Depression screening. Due on due Goal PRAPARE ASSESSMENT. Due on due Goal RLP. Due on due Goal Influenza vaccine. Due on due Goal Hep A. Due on du e Goal PRAPARE ASSESSMENT. Due on due Goal Tdap Vaccine. Due on 2031 due Goal PAP. Due on due Goal Tdap due Goal Depression screening. Due on due Goal Influenza vaccine. Due on due Goal RLP. Due on due Goal PAP. Due on due Goal PRAPARE ASSESSMENT. Due on due Goal Tdap due Goal Depression screening. Due on due Goal Hep A. Due on du e Goal Hep A. Due on du e Goal Tdap Vaccine. Due on 2031 due Goal RLP. Due on due Goal Tdap due Goal PRAPARE ASSESSMENT. Due on J due Goal Influenza vaccine. Due on due Goal Depression screening. Due on due Goal PAP. Due on due Goal PRAPARE ASSESSMENT. Due on due Goal Depression screening. Due on due Goal PAP. Due on due Goal RLP. Due on due Goal Influenza vaccine. Due on due Goal Tdap due Goal Lipid panel. Due on 037 due Goal Influenza vaccine. Due on due Goal Depression screening. Due on due Goal Tdap. Due on due Goal RLP. Due on due Goal PRAPARE ASSESSMENT. Due on D due Goal PAP. Due on due Goal Depression screening. Due on due Goal PAP. Due on due Goal PRAPARE ASSESSMENT. Due on O due Goal Influenza vaccine. Due on Oc due Goal Tdap. Due on due Goal RLP. Due on due Goal RLP. Due on due Goal Tdap. Due on due Goal Depression screening. Due on due Goal PRAPARE ASSESSMENT. Due on S ep due Goal PAP. Due on due Goal Influenza vaccine. Due on Se due Goal RLP. Due on due Goal Tdap. Due on due Goal Depression screening. Due on due Goal PRAPARE ASSESSMENT. Due on S ep due Goal PAP. Due on due Goal Influenza vaccine. Due on Se due Appointment Emy Vega BOOKED History Of Present Illness Encounter Date Complaint History Of Prese nt Illness Wellness Patient presents for wellness. Patient is feeling a little congested but thinks it is allergies. She denies use of alcohol, substances, tobacco, or nicotine. Patient has no other concerns. --Edilberto Walker [address] Law is her OB. . Presents with her son today for wellness today. However, they are both getting over flu A. She is still feeling a bit congested with a mild cough. She also endorses seasonal allergies and believes this is a major contributor at this time. Zyrtec has been helpful. She has had some related nausea and continues zoloft. Otherwise is feeling healthy and has no health concerns. 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 Pt states she stopped taking her Prozac d/t decreased libido. Patricio Mendoza notes she stopped the prozac due for above stated reasons. She said she does not recall this being an issue in the past but it is now. She discusses she previously stopped the wellbutrin due to skin paresthesias. However, she states after stopping, the sensations continued until she changed her bath soap so she questions if it was a reaction to wellbutrin at all. In light of this and her libido issues with prozac, she would like to return to wellbutrin because she felt better emotionally on that medication. If the sensation issues return, will plan to trial zoloft. Jose L GOSS medication Telehealth today . Pt reports her legs feels like bug crawling on her for past 2 weeks. No rash or bites. Now feels on her trunk and slightly on her arms. No change in personal care products. She started wellbutrin approx 1 month ago. She would like to switch her medication from wellbutrin back to prozac because she feels this is the most likely explanation for her symptoms. Jose L GOSS med f/u Patient here for medication f/u. Pt states she stopped taking the Wellbutrin for about 2wks d/t headaches, states she did restart last week. Pt feels like the medication is helping. RIZWAN MendozaNoted above. Pt notes she scheduled a vision exam due to her headaches and was told her vision has actually improved and this was likely the cause of her headaches. She had stopped the wellbutrin thinking this was the cause of her headaches but resumed it after her vision exam. She notes an improvement in her moods/anxiety/depression since resuming it last week. She also notes her stress has improved as her daycare situation has gotten better and [place] is doing better overall as well. She would like to continue it for now however also states she and her have decided to try and get . As discussed previously, wellbutrin may be a medication that her OB would want to stop during . Pt understands this possibility. Jose L GOSS check up Patient here for check up and concerns with depression and feeling overwhelmed. PHQ-2 moderate depression, GAD7-12, moderate anxiety. RIZWAN MendozaNoted above. Feeling stressed, low motivation and overwhelmed. She is not feeling good about herself or her body. She was initially planning to try for another baby in Jan but decided she wants to put that on hold and do some self care. Son is 16 months old. She is interested in trying wellbutrin. Jose L GOSS Sore throat Onset: 3 Days. T he problem has worsened. The symptoms are persistent. Symptoms are associated with sick family member. Associated symptoms include chills/rigors, fever, pharyngitis and lymphadenopathy. Additional information: Jose L GOSS. sick visit Patient here for sick visit. Patient started feeling sick saturday. Sore throat and swollen lymph nodes. Possible fever.. had chills and sweating. Tired. Positive Strep test today. No other issues at this time.Gabriela Benavides. moods Pt indicates a n umber of stressors in her life right now and sometimes feeling overwhelmed. She works very hard to meet expectations and feels she is falling short. Discussion on her stressors. Pt recently tried to switch antidepressants from celexa to cymbalta due to fatigue. However, she has been having some intrusive thoughts and sleep disturbances since the switch. She is not suicidal and shows much love and affection regarding her family showing good attachment.Jose L GOSS [facility]. Pt report being very tired. Drinking caffeine to stay awake. Zoie Ribeiro RNNoted above. Pt noted significant fatigue since her baby was born. He is now 5 months old and mom reports he sleeps well through the night. Pt notes she knows some fatigue is normal at this point but feels it is now excessive, like something is wrong. She continues to take her vitamin. She was not a gestational diabetic.Pt does not feel like she is depressed. She is taking her meds as prescribed and feels her condition is well managed.Caffeine- at least 1 cup coffee dailyNo ETOH, no drug use.No nicotinePt goes to bed around 8pm and gets up 6am on average.Jose L GOSS Lab draw Lab draw from [facility] x 1 attempt, tolerated well, pressure dressing to area. Zoie Ribeiro RN Functional Status Date Functional Assessmen t No Information Instructions Date Instruction Additional Infor genoveva Recommend:annual phy sical exams, sooner with concerns or problems- annual vision exam- biannual dental exams-annual womens health exam, mammogram beginning age 40-Follow up November prior to delivering baby Related to Encounter for general adult medical examination without abnormal findings Giving encouragement to exercise Related to Body mass index [BMI] 31.0-31.9, adult Dietary management e ducation, guidance, and counseling Related to Body mass index [BMI] 31.0-31.9, adult Follow up 3 months Related to An xiety with depression Giving encouragement to exercise Related to Body mass index [BMI] 31.0-31.9, adult Dietary management e ducation, guidance, and counseling Related to Body mass index [BMI] 31.0-31.9, adult Wellbutrin every oth er day x 1 week then stopMay start prozac nowFollow up March as planned, sooner if symptoms do not improve Related to Disturbance of skin sensation Follow up 3 months Related to An xiety with depression Giving encouragement to exercise Related to Body mass index [BMI] 31.0-31.9, adult Dietary management e ducation, guidance, and counseling Related to Body mass index [BMI] 31.0-31.9, adult Follow up 4 weeks Related to Anx iety with depression Giving encouragement to exercise Related to Body mass index [BMI] 31.0-31.9, adult Dietary management e ducation, guidance, and counseling Related to Body mass index [BMI] 31.0-31.9, adult Medications as presc ribed.OTC medications for additional symptom management.Increase fluids and diet as tolerated. Call if symptoms worsen or do not improve as expected.Take precautions to prevent spread of illness such as wash hands frequently and stay away from other healthy individuals Related to Strep pharyngitis Giving encouragement to exercise Related to Body mass index [BMI] 31.0-31.9, adult Dietary management e ducation, guidance, and counseling Related to Body mass index [BMI] 31.0-31.9, adult Giving encouragement to exercise Related to Body mass index [BMI] 29.0-29.9, adult Dietary management e ducation, guidance, and counseling Related to Body mass index [BMI] 29.0-29.9, adult Assessments Type Assessment Date assessment Body mass index [BMI] 31.0-31.9, adult assessment Anxiety with depression 025 assessment Encounter for genera l adult medical examination without abnormal findings impression Generally well appea ring adult female. Discuss age appropriate preventative care. Pt UTD. Recommend regular exercise and heart healthy diet.Encourage no nicotine, conservative alcohol consumption and limit caffeine. impression Stable, continue zoloft. PHQ 0. Mental Status Date Cognitive Assessment Orientation - [place] ed to time, place, person, situation. Patient Care Teams Name Effective Dates (start - stop) Status Members No Information
--- OUTSIDE RECORDS SUMMARY | 2024-11-11 15:30 | XMS_ITS | Encounter Summary ---
Author Organization [facility] Address [address] [facility] [place] [address] Care Team Providers Care Perinatal Educator Name Role Phone Unavailable Primary Care Provider Unavailabl e Reason for Referral * Imaging (Routine) - Closed Specialty Diagnoses / Procedures Referred By Contac t Referred To Contact Obstetrics and Gynecology Diagnoses Third trimester Heart palpitations Procedures Echocardiogram 2D complete Maribell Guillen NP [address] [place] [address] Phone: tel: fax: Maribell Guillen NP [facility] [place] [address] Phone: tel: fax: Referral ID Status Reason Start Date Expiration Date V isits Requested Visits Authorized [id number] Closed Perform Procedure 11/11/2024 05/10/2025 1 1 Reason for Visit * Reason Comments Routine Visit Encounter Details Date Type Department Care Team (Latest Contact Info) Description 11/11/2024 3:30 PM EDT Routine [facility] [address] [place] [address] Domenic Law DO [address], [place] [address] 33 weeks gestation of ; Third trimester ; Heart palpitations Social History Tobacco Use Types Packs/Day Years Used Date Smoking Tobacco: Never Smokeless Tobacco: Never Alcohol Use Standard Drinks/Week Comments Never 0 (1 standard drink = 0.6 oz pur e alcohol) Estimated Date of Delivery Comme nts Yes 12/24/2024 Based on Ultraso und Sex and Gender Information Value Date Recorded Sex Assigned at Not on file Legal Sex Female 11:47 PM EDT Gender Identity Not on file Sexual Orientation Not on file documented as of this encounter Last Filed Vital Signs Vital Sign Reading Time Taken Comments Blood Pressure 120/82 11/11/2024 3:58 PM EDT Pulse - - Temperature - - Respiratory Rate - - Oxygen Saturation - - Inhaled Oxygen Concentration - - Weight 91.5 kg (201 lb 12.8 oz) 11/11/2024 3:58 PM EDT Height - - Body Mass Index 31.61 10/15/2022 12:00 PM EDT documented in this encounter Plan of Treatment Upcoming Encounters Date Type Department Care Team (Late st Contact Info) Description 12/02/2024 3:10 PM EDT Routine [facility] [address] [place] [address] Domenic Law, DO [address] [place], [place] [id number] Scheduled Orders Name Type Priority Associated Diagnoses Orde r Schedule ECG 12 lead unit performed ECG Routine Third trimester Heart palpitations Expected: 11/11/2024 (Approximate), Expires: 11/11/2025 Echocardiogram 2D complete Echocardiography Routine Third trimester Heart palpitations Expected: 11/11/2024 (Approximate), Expires: 11/11/2026 documented as of this encounter Procedures Procedure Name Priority Date/Time Associated Diagnosis Comments POCT URINALYSIS DIPSTICK Routine 11/11/2024 4:05 PM EDT 33 weeks gestation of Third trimester documented in this encounter Results * (ABNORMAL) POCT urinalysis dipstick manually resulted (11/11/2024 4:05 PM EDT) Color, UA Yellow Clarity, UA Clear Glucose, UA Negative Negative - 2000(110) ++++ mg/dL Bilirubin, UA Negative Negative - 4(70) +++ mg/dL Ketones, UA Negative Negative - 160(16) ++++ mg/dL Spec Grav, UA 1.025 1 - 1.03 Blood, UA Negative Negative - 50 Brett/mcL pH, UA 6.0 5 - 9 Protein, UA Trace Negative - 2000(20) ++++ mg/dL Urobilinogen, UA 0.2 0.2 - 12 mg/dL Leukocytes, UA Negative Negative - 500+++ Torsten/mcL Nitrite, UA Negative Negative - Positive Urine 11/11/2024 4:05 PM EDT Domenic Law DO POINT OF CARE TEST ENTER/EDIT OR DERABLES Final Result documented in this encounter Visit Diagnoses Diagnosis 33 weeks gestation of Third trimester state, incidental Heart palpitations Palpitations documented in this encounter
--- OUTSIDE RECORDS SUMMARY | 2024-11-25 13:10 | XMS_ITS | Encounter Summary ---
Author Organization [facility] Address [address] [facility] [place] [address] Care Team Providers Care System Support Technician Name Role Phone Unavailable Primary Care Provider Unavailabl e Reason for Visit * Reason Comments Routine Visit Encounter Details Date Type Department Care Team (Late st Contact Info) Description 11/25/2024 1:10 PM EDT Routine [facility] [address] [place] [phone] Domenic Law, DO [address] [place] [address] 35 weeks gestation of ; Third trimester Social History Tobacco Use Types Packs/Day Years [...] Sign Reading Time Taken Comments Blood Pressure 120/78 11/25/2024 1:08 PM EDT Pulse - - Temperature - - Respiratory Rate - - Oxygen Saturation - - Inhaled Oxygen Concentration - - Weight 91.5 kg (201 lb 12.8 oz) 11/25/2024 1:08 PM EDT Height - - Body Mass Index 31.61 10/15/2022 12:00 PM EDT documented in this encounter Progress Notes * Halina Mustafa, SHIPPING ASSISTANT - 11/25/2024 1:10 PM EDT Reason for Appointment: Patient ID: Emy Vega [...] Constitutional: Appearance: Normal appearance. She is well-developed. Genitourinary: Vulva normal. Cardiovascular: Rate and Rhythm: Normal rate and [...] nursing note reviewed. Exam conducted with a immunohematologist present. Vitals: Estimated body mass index is 31.61 kg/m?? as calculated from the following: Height as of 10/15/22: 5' 7 . Weight as of this encounter: 201 lb 12.8 oz. BP: 120/78 Patient's last menstrual period was 03/12/2024. ASSESSMENT & PLAN ICD-10-CM 1. 35 weeks gestation of Z3A.35 POCT urinalysis dipstick manually resulted 2. Third trimester Z34.93 CULTURE, GROUP B STREP WITH SUSCEPTIBLITY CULTURE, GROUP B STREP WITH SUSCEPTIBLITY POCT urinalysis dipstick manually resulted Patient is doing well but has complaints of being tired and having maternal discomfort due to . Patient verbalized frequent movement and was instructed to perform kick counts three times per day. labor precautions were given, LARC consent was signed/declined, and GBS was obtained. Cervical check was performed and patient is 1cm dilated. Pt is having contractions not consistently at this time. Labor precautions discussed. Orders Placed This Encounter Procedures CULTURE, GROUP B STREP WITH SUSCEPTIBLITY POCT urinalysis dipstick manually resulted Follow Up: Patient is to return to office in 1 week for routine OB appointment Documented by Halina Mustafa LPN on behalf of: Domenic Law DO documented in this encounter Plan of Treatment Upcoming Encounters Date Type Department Care Team (Late st Contact Info) Description 12/02/2024 3:10 PM EDT Routine [facility] [address] [place] [phone] Domenic Law DO [address] [place] [address] Scheduled Orders Name Type Priority Associated Diagnoses Orde r Schedule CULTURE, GROUP B STREP WITH SUSCEPTIBLITY Lab Routine Third trimester Expected: 11/25/2024, Expires: 11/25/2025 documented as of this encounter Procedures Procedure Name Priority Date/Time Associated Diagnosis Comments POCT URINALYSIS DIPSTICK Routine 11/25/2024 1:14 PM EDT 35 weeks gestation of Third trimester documented in this encounter Results * (ABNORMAL) POCT urinalysis dipstick manually resulted (11/25/2024 1:14 PM EDT) Color, UA Yellow Clarity, UA Clear Glucose, UA Negative Negative - 2000(110) ++++ mg/dL Bilirubin, UA Negative Negative - 4(70) +++ mg/dL Ketones, UA Positive Negative - 160(16) ++++ mg/dL Spec Grav, UA 1.015 1 - 1.03 Blood, UA Negative Negative - 50 Brett/mcL pH, UA 7.0 5 - 9 Protein, UA Trace Negative - 2000(20) ++++ mg/dL Urobilinogen, UA 1.0 0.2 - 12 mg/dL Leukocytes, UA Trace Negative - 500+++ Torsten/mcL Nitrite, UA Negative Negative - Positive Urine 11/25/2024 1:14 PM EDT Domenic Law DO POINT OF CARE TEST ENTER/EDIT OR DERABLES Final Result documented in this encounter Visit Diagnoses Diagnosis 35 weeks gestation of Third trimester state, incidental documented in this encounter
--- OUTSIDE RECORDS SUMMARY | 2024-11-25 14:31 | XMS_ITS | Encounter Summary ---
Author Organization [facility] Address [address] [facility] [place] [address] Care Team Providers Care Equipment Associate Name Role Phone Unavailable Primary Care Provider Unavailabl e Encounter Details Date Type Department Care Team (Late st Contact Info) Description 06/01/2024 Abstract [facility] [address] [place] [address] Domenic Law DO [facility] Patrick Miguel, [id number] Social History Tobacco Use Types Packs/Day Years [...] on file documented as of this encounter Plan of Treatment Upcoming Encounters Date Type Department Care Team (Late st Contact Info) Description 12/02/2024 3:10 PM EDT Routine [facility] [address] [place] [address] Domenic Law DO [facility] Patrick Miguel, [id number] documented as of this encounter Visit Diagnoses Not on filedocumented in this encounter
--- OUTSIDE RECORDS SUMMARY | 2024-11-25 14:31 | XMS_ITS | Encounter Summary ---
Author Organization [facility] Address [address] [facility] [place] [address] Care Team Providers Care Casino Floorperson Name Role Phone Unavailable Primary Care Provider Unavailabl e Encounter Details Date Type Department Care Team (Late st Contact Info) Description 05/24/2023 Clinisync Result Encounter [facility] External Department Unsolicited Neris Law, DO [address] [place] [address] Social History Tobacco Use Types Packs/Day Years Used Date Smoking Tobacco: Never Assessed Comments Unknown Sex and Gender Information Value Date Recorded Sex Assigned at Not on file Legal Sex Female 11:47 PM EDT Gender Identity Not on file Sexual Orientation Not on file documented as of this encounter Plan of Treatment Upcoming Encounters Date Type Department Care Team (Late st Contact Info) Description 12/02/2024 3:10 PM EDT Routine [facility] [address] [place] [phone] Neris Law, DO [address] [place] [address] documented as of this encounter Procedures Procedure Name Priority Date/Time Associated Diagnosis Comments US PELVIS TRANSVAGINAL 05/24/2023 10:02 AM EST TBH PROLACTIN Routine 05/24/2023 9:41 AM EST TBH PREG QUANT HCG Routine 05/24/2023 9: 41 AM EST ALL THYROID STIM HORMONE Routine 05/24/2023 9:41 AM EST ALL CBC WITH AUTO DIFF Routine 05/24/2023 9:41 AM EST documented in this encounter Results * US PELVIS TRANSVAGINAL (05/24/2023 10:02 AM EST) Anatomical Region Laterality Modality Other 05/24/2023 10:0 2 AM EST Narrative 05/24/2023 10:05 [place] [address] Ultrasound Report Signed Patient: JOYCE CANTU MR#: [id number] : 1995 Acct:[id number] Age/Sex: 28 / F ADM Date: 05/24/23 Loc: US Attending Dr: Neris Law D.O. Ordering Physician: Neris Law D.O. Date of Service: 05/24/23 Procedure(s): US pelvis transvaginal Accession Number(s): [id number] cc: Neris Law D.O.; Shaniqua Del Valle NP [address] [address] Patient Name: JOYCE CANTU MRN: [id number] date: 1995 Sex: F Assigned Patient Location: US Current Patient Location: US Accession/Order Number: [id number] Exam Date: 05/24/2023 09:15 Report Date: 05/24/2023 10:02 At the request of: NERIS LAW Procedure: US pelvis transvaginal EXAM: Pelvic ultrasound HISTORY: . Pelvic Pain , Amenorrhea N91.2 . COMPARISON: None. TECHNIQUE: Transvaginal scanning was performed FINDINGS: Scanning of the pelvis demonstrates an anteverted uterus measuring 7.3 x 3.7 x 5.1 cm. Endometrial complex measures 9 mm. Right ovary measures 4.8 x 2.2 x 2.1 cm. Color-flow is noted. Multiple follicles are noted and a peripheral location. Left ovary measures 2.8 x 2 x 2.4 cm. Color-flow is noted. Multiple follicles are noted in a peripheral location. Minimal fluid is noted in the cul-de-sac. US/US pelvis transvaginal IMPRESSION: 1 normal-appearing uterus and endometrial complex. 2. Multiple follicles in both ovaries which are in a somewhat peripheral location. This could be due to polycystic ovarian syndrome. Clinical correlation is suggested. 3. Minimal fluid in the cul-de-sac. Electronically authenticated by: GLENNY LOPEZ Date: 05/24/2023 10:02 Dictated By: Glenny Lopez M.D. Signed By: 05/24/23 1005 DD/ 1002 TD/TT: Horse Wrangler: Procedure Note Radiology, Radiologist, - 05/24/2023 [place] [address] Ultrasound Report Signed Patient: JOYCE CANTU NMR#: [id number] : 1995Acct:[id number] Age/Sex: 28 / FADM Date: 05/24/23 Loc: US Attending Dr: Neris Law D.O. Ordering Physician: Neris Law D.O. Date of Service: 05/24/23 Procedure(s): US pelvis transvaginal Accession Number(s): [id number] cc: Neris Law D.O.; Shaniqua Del Valle NP [facility] [place] [id number] Patient Name: JOYCE CANTU MRN: [id number] date: 1995 Sex: F Assigned Patient Location: US Current Patient Location: US Accession/Order Number: [id number] Exam Date: 05/24/2023 09:15 Report Date: 05/24/2023 10:02 At the request of: NERIS LAW Procedure: US pelvis transvaginal EXAM: Pelvic ultrasound HISTORY: . Pelvic Pain , Amenorrhea N91.2 . COMPARISON: None. TECHNIQUE: Transvaginal scanning was performed FINDINGS: Scanning of the pelvis demonstrates an anteverted uterusmeasuring 7.3 x 3.7 x 5.1 cm. Endometrial complex measures 9 mm. Right ovary measures 4.8 x 2.2 x 2.1 cm. Color-flow is noted. Multiple follicles are noted and a peripheral location. Left ovary measures 2.8 x 2 x 2.4 cm. Color-flow is noted. Multiplefollicles are noted in a peripheral location. Minimal fluid is noted in the cul-de-sac. US/US pelvis transvaginal IMPRESSION: 1 normal-appearing uterus and endometrial complex. 2. Multiple follicles in both ovaries which are in a somewhat peripheral location. This could be due to polycystic ovarian syndrome. Clinical correlation is suggested. 3. Minimal fluid in the cul-de-sac. Electronically authenticated by: GLENNY LOPEZ Date: 05/24/2023 10:02 Dictated By: Glenny Lopez M.D. Signed By:05/24/23 1005 DD/ 1002 TD/TT: Horse Wrangler: us Neris Ani DO CLINISYNC IMAGING Final Result * [facility] PROLACTIN (05/24/2023 9:41 AM EST) PROLACTIN 10.1 4.8 - 23.3 ng/mL [facility] Comment: Effective June 03, 2023 Prolactin reference interval will be changing to: Age Male (ng/mL) Female (ng/mL) 0 - 30 days 4.3 - 32.8 4.5 - 24.4 1 - 6 mos 5.4 - 51.4 5.4 - 51.4 7m - 1 yrs 5.3 - 28.9 4.8 - 33.4 2 - 12 yrs 1.8 - 44.2 4.8 - 33.4 13 - 30 yrs 3.6 - 31.5 4.8 - 33.4 31 - 50 yrs 3.9 - 22.7 4.8 - 33.4 51 - 80 yrs 3.6 - 25.2 3.6 - 25.2 >80 yrs 3.6 - 32.0 3.6 - 32.0 Performed at: [facility] [address] [id number] Operator Technician: Antoni Valentin PhD, Phone: [phone] 05/24/2023 9:41 AM EST 05/24/2023 9:42 AM EST Narrative CLINISYNC - 05/25/2023 4:07 AM EST Neris Ani DO CLINISYNC Final Result Performing Organization Address City/[facility] Co de Phone Number [facility] * [facility]H PREG QUANT HCG (05/24/2023 9:41 AM EST) HCG QUANTITATIVE <1 mIU/mL TBH Comment: 5-50 0.2-1 WEEK 50-500 1-2 WEEKS 100-5,000 2-3 WEEKS 500-10,000 3-4 WEEKS 1,000-50,000 4-5 WEEKS 10,000-100,000 5-6 WEEKS 15,000-200,000 6-8 WEEKS 10,000-100,000 2-3 MONTHS 05/24/2023 9:41 AM EST 05/24/2023 9:42 AM EST Narrative CLINISYNC - 05/24/2023 10:25 AM EST Neris Ani DO CLINISYNC Final Result Performing Organization Address [facility] Co de Phone Number CL[facility]NC [facility] * ALL THYROID STIM HORMONE (05/24/2023 9:41 AM EST) THYROID STIMULATING HORMONE 1.421 0.358 - 3.740 uIU/mL TB 05/24/2023 9:41 AM EST 05/24/2023 9:42 AM EST Narrative CLINISYNC - 05/24/2023 10:25 AM EST Neris Ani DO CLINISYNC Final Result Performing Organization Address [facility] Co de Phone Number [facility] * (ABNORMAL) ALL CBC WITH AUTO DIFF (05/24/2023 9:41 AM EST) TBH WBC 6.7 4.0 - 11.0 10 3/uL TB TB RBC 4.20 4.20 - 5.40 10 6/uL TBH TBH HGB 12.6 12.0 - 16.0 g/dL TBH TBH HCT 37.1 36.0 - 48.0 % TBH TBH MCV 88.3 81.0 - 99.0 fL TBH TBH MCH 30.0 26.7 - 34.0 pg TBH TBH MCHC 34.0 29.9 - 35.2 g/dL TBH TBH RDW 11.5 11.0 - 15.0 % TBH TBH PLT 287 150 - 450 10 3/uL TBH TBH MPV 9.0(L) 9.5 - 13.5 fL TBH NEUTROPHILS PERCENT AUTO 39.0(L) 43.0 - 75.0 % TBH LYMPHOCYTES PERCENT AUTO 51.6 20.5 - 60.0 % TBH MONOCYTES PERCENT AUTO 6.8 1.7 - 12.0 % TBH TBH EO % 1.6 0.9 - 7.0 % TBH BASOPHILS PERCENT AUTO 0.7 0.2 - 2.0 % TBH IMMATURE GRANULOCYTES PCT AUTO 0.3 0.0 - 0.5 % TBH NEUTROPHILS ABSOLUTE AUTO 2.6 1.4 - 6.5 10 3/uL TBH LYMPHOCYTES ABSOLUTE AUTO 3.5 1.2 - 3.8 10 3/uL TBH MONOCYTES ABSOLUTE AUTO 0.5 0.3 - 0.8 10 3/uL TBH TBH EO # 0.1 0.0 - 0.7 10 3/uL TBH BASOPHILS ABSOLUTE AUTO 0.1 0.0 - 0.1 10 3/uL TBH IMMATURE GRANULOCYTES ABS AUTO 0.02 0.00 - 0.03 10 3/uL TBH 05/24/2023 9:41 AM EST 05/24/2023 9:42 AM EST Narrative CLINISYNC - 05/24/2023 10:24 AM EST us Neris Ani DO CLINISYNC Final Result CLINISYNC TB documented in this encounter Visit Diagnoses Not on filedocumented in this encounter
--- OUTSIDE RECORDS SUMMARY | 2024-11-25 14:31 | XMS_ITS | Clinical Summary ---
Author Organization [facility] Address [address] [place] [address] Care Team Providers Care Field Installer Name Role Phone Unavailable Primary Care Provider Unavailabl e Allergies Active Allergy Reactions Criticality Noted Date Comments Penicillins Hives 05/08/2024 Other Reaction(s): Unknown Medications sertraline (Zoloft) 50 MG tablet 02/16/20 24 Active Vit-Fe Fumarate-FA ( Vitamins) 28-0.8 MG tabletIndications: First trimester Take 1 tablet by mouth Daily 30 tablet 3 06/08/20 24 025 Active ondansetron ODT (Zofran-ODT) 4 MG disintegrating tabletIndications: Vomiting of , unspecified DISSOLVE 1 TABLET UNDER TONGUE EVERY 6 HOURS IF NEEDED FOR NAUSEA OR VOMITING 30 tablet 4 08/19/19 25 Active metoclopramide (Reglan) 10 MG tabletIndications: Nausea Take 1 tablet (10 mg) by mouth in the morning and 1 tablet (10 mg) at noon and 1 tablet (10 mg) in the evening. Take before meals. Take 1 tablet by mouth 30 minutes prior to meals 3 times daily as needed for nausea. 90 tablet 3 10/20/19 25 025 Discontinued Encounters Date Type Department Care Team Description 11/25/2024 1:10 PM EDT Routine [facility] OB [address] [place] [address] Neris Law DO 35 weeks gestation of ; Third trimester 11/25/2024 Bamboo flowsheet [facility] OB [address] [place] [address] [place] [address] Neris Law, DO 11/25/2024 Travel 11/12/2024 Abstract [facility] [address] [place] [address] Neris Law, DO 11/12/2024 Abstract [facility] [address] [place] [address] Neris Law, DO 11/11/2024 3:30 PM EDT Routine [facility]OM[facility] [address] [place] [address] Neris Law, DO 33 weeks gestation of ; Third trimester ; Heart palpitations 11/11/2024 Bamboo flowsheet [facility]OM[facility] [address] [place] [address] Neris Law, DO 10/28/2024 2:30 PM EDT Routine [facility]OM[facility] [address] [place] [address] Maribell Guillen, ANA PAULA 31 weeks gestation of ; Third trimester 10/28/2024 Bamboo flowsheet [facility]OM[facility] [address] [place] [address] Maribell Guillen, ANA PAULA 10/28/2024 Travel 10/21/[address] [address] [place] [address] Neris Law, DO 10/19/2024 Clinisync Result Encounter [facility] External Department Unsolicited Neris Law, DO 10/19/[address] [address] [place] [address] Neris Law, DO 10/18/2024 Clinisync Result Encounter [facility] External Department Unsolicited Neris Law, DO 10/14/2024 2:00 PM EDT Routine NOM[facility] [address] [place] [address] Neris Law, Third trimester ; 29 weeks gestation of ; Excessive growth affecting management of , antepartum, single or unspecified fetus 10/14/2024 Bamboo flowsheet [facility] OB [address] [place] [address] Neris Law, 09/30/2024 2:50 PM EDT Routine [facility] OB [address] [place] [address] Neris Law, Second trimester ; 27 weeks gestation of 09/30/2024 Clinisync Result Encounter [facility] External Department Unsolicited Neris Law, 09/30/2024 Travel 09/28/2024 Telephone [facility] OB [address] [place] [address] Neris Law, DO 09/28/2024 Clinisync Result Encounter [facility] External Department Unsolicited Neris Law, DO 09/02/2024 3:10 PM EDT Routine [facility] OB [address] [place] [address] Neris Law, 23 weeks gestation of ; Second trimester ; Diabetes mellitus screening 09/02/2024 Bamboo flowsheet [facility] OB [address] [place] [place] [address] Neris Law DO from Last 3 Months Family History Medical History Relation Name Comments Diabetes Maternal Grandfather Hypertension Maternal Grandfather Heart problems Paternal Grandfather Hypertension Paternal Grandfather Cancer Paternal Grandmother Relation Name Status Comments Father Alive Maternal Grandfather Mother Alive Paternal Grandfather Paternal Grandmother Social History Tobacco Use Types Packs/Day Years Used Date Smoking Tobacco: Never Smokeless Tobacco: Never Tobacco Cessation:Counseling Given: Not Answered Alcohol Use Standard Drinks/Week Comments Never 0 (1 standard drink = 0.6 oz pur e alcohol) Estimated Date of Delivery Comme nts Yes 12/24/2024 Based on Ultraso und Sex and Gender Information Value Date Recorded Sex Assigned at Not on file Legal Sex Female 11:47 PM EDT Gender Identity Not on file Sexual Orientation Not on file Last Filed Vital Signs Vital Sign Reading Time Taken Comments Blood Pressure 120/78 11/25/2024 1:08 PM EDT Pulse - - Temperature - - Respiratory Rate - - Oxygen Saturation - - Inhaled Oxygen Concentration - - Weight 91.5 kg (201 lb 12.8 oz) 11/25/2024 1:08 PM EDT Height 170.2 cm (5' 7 ) 10/15/2022 12:0 0 PM EDT Body Mass Index 31.61 10/15/2022 12:00 PM EDT Plan of Treatment Upcoming Encounters Date Type Department Care Team (Late st Contact Info) Description 12/02/2024 3:10 PM EDT Routine [facility] OB [address] [place] [phone] AniNeris wallace, DO [address] [place] [address] Dr [address] [place], [place] [phone] Health Maintenance Due Date Last Done Comments Influenza Vaccine Completed 07/13/2024, , 03/20/2022, Additional history exists Procedures Procedure Name Priority Date/Time Associated Diagnosis Comments POCT URINALYSIS DIPSTICK Routine 11/25/2024 1:14 PM EDT 35 weeks gestation of Third trimester POCT URINALYSIS DIPSTICK Routine 11/11/2024 4:05 PM EDT 33 weeks gestation of Third trimester POCT URINALYSIS DIPSTICK Routine 10/28/2024 2:41 PM EDT 31 weeks gestation of Third trimester MHPT DIFFERENTIAL Routine 10/19/2024 5:1 5 PM EDT ALL CBC WITH AUTO DIFF Routine 10/19/2024 5:15 PM EDT CCF LIPASE Routine 10/19/2024 5:15 PM EDT ALL AMYLASE Routine 10/19/2024 5:15 PM EDT [facility] CMP (CMP) (FOR REMOTE [facility] USE) Routine 10/19/2024 5:15 PM EDT TBH UA (CLEAN/CATCH) ROLL HAULER/MICRO IF IND. Routine 10/19/2024 2:30 PM EDT US OB GROWTH 10/18/2024 8:30 PM EDT POCT URINALYSIS DIPSTICK Routine 10/14/2024 2:49 PM EDT Third trimester POCT URINALYSIS DIPSTICK Routine 09/30/2024 3:06 PM EDT Second trimester GLUCOSE TOLERANCE 3 HOUR Routine 09/30/2024 10:58 AM EDT GLUCOSE 1 HOUR Routine 09/28/2024 8:52 AM EDT ALL CBC WITH AUTO DIFF Routine 09/28/2024 8:52 AM EDT POCT URINALYSIS DIPSTICK Routine 09/02/2024 3:37 PM EDT 23 weeks gestation of Second trimester from Last 3 Months Results * (ABNORMAL) POCT urinalysis dipstick manually resulted (11/25/2024 1:14 PM EDT) Only the most recent of6 resultswithin the time period is included. Color, UA Yellow Clarity, UA Clear Glucose, UA Negative Negative - 2000(110) ++++ mg/dL Bilirubin, UA Negative Negative - 4(70) +++ mg/dL Ketones, UA Positive Negative - 160(16) ++++ mg/dL Spec Grav, UA 1.015 1 - 1.03 Blood, UA Negative Negative - 50 Brett/mcL pH, UA 7.0 5 - 9 Protein, UA Trace Negative - 1999(20) ++++ mg/dL Urobilinogen, UA 1.0 0.2 - 12 mg/dL Leukocytes, UA Trace Negative - 500+++ Torsten/mcL Nitrite, UA Negative Negative - Positive Urine 11/25/2024 1:14 PM EDT Neris Ani DO POINT OF CARE TEST ENTER/EDIT OR DERABLES Final Result * (ABNORMAL) MHPT DIFFERENTIAL (10/19/2024 5:15 PM EDT) SEGMENTED NEUTROPHILS % MANUAL 86.0(H) 43.0 - 75.0 TBH LYMPHOCYTES PERCENT MANUAL 10.0(L) 20.5 - 60.0 % TBH MONOCYTES PERCENT MANUAL 4.0 1.7 - 12.0 % TBH EOSINOPHILS PERCENT MANUAL 0.0(L) 0.9 - 7.0 % TBH BASOPHILS PERCENT MANUAL 0.0(L) 0.2 - 2.0 % TBH SEGMENTED NEUT ABSOLUTE MANUAL 6.36 1.4 - 6.5 10 3/uL TBH LYMPHOCYTES ABSOLUTE MANUAL 0.74(L) 1.20 - 3.80 10 3/uL TBH MONOCYTES ABSOLUTE MANUAL 0.29(L) 0.30 - 0.80 10 3/uL TBH EOSINOPHILS ABSOLUTE MANUAL 0.00 0.00 - 0.70 10 3/uL TBH BASOPHILS ABS MANUAL 0.00 0.00 - 0.10 10 3/uL TBH 10/19/2024 5:15 PM EDT 10/19/2024 5:35 PM EDT Narrative CLINISYNC - 10/19/2024 6:06 PM EDT Neris Ani DO CLINISYNC Final Result CLINISYNC TBH * (ABNORMAL) CCF LIPASE (10/19/2024 5:15 PM EDT) LIPASE 14.0(L) 16.0 - 77.0 U/L TBH 10/19/2024 5:15 PM EDT 10/19/2024 5:35 PM EDT Narrative CLINISYNC - 10/19/2024 6:02 PM EDT us Neris Ani DO CLINISYNC Final Result CLINISYNC TBH * (ABNORMAL) [facility] CMP (CMP) (FOR REMOTE [facility] USE) (10/19/2024 5:15 PM EDT) SODIUM 135(L) 136 - 145 mmol/L TBH POTASSIUM 3.7 3.5 - 5.1 mmol/L TBH Comment:SPECIMEN IS SLIGHTLY HEMOLYZED CHLORIDE 101 98 - 107 mmol/L TBH CARBON DIOXIDE 23.1 21.0 - 32.0 mmol/L TBH ANION GAP 14.6 TBH GLUCOSE 68(L) 74 - 106 mg/dL TBH BLOOD UREA NITROGEN 6.0(L) 7.0 - 18.0 mg/dL TBH CREATININE 0.47(L) 0.55 - 1.02 mg/dL TBH TBH EGFR-AF LITHUANIAN >60 >=60 mL/min/1. 73m 2 TBH TBH EGFR-NON AF LITHUANIAN >60 >=60 mL/min/1. 73m 2 TBH BUN CREATININE RATIO 12.8 TBH CALCIUM 8.1(L) 8.5 - 10.1 mg/dL TBH BILIRUBIN TOTAL 0.6 0.2 - 1.0 mg/dL TBH ASPARTATE AMINO TRANSFERASE 39(H) 15 - 37 U/L TBH ALANINE AMINOTRANSFERASE 24 14 - 59 U/L TBH ALKALINE PHOSPHATASE 128(H) 46 - 116 U/L TBH TOTAL PROTEIN 5.6(L) 6.4 - 8.2 g/dL TBH ALBUMIN LEVEL 2.4(L) 3.4 - 5.0 g/dL TBH GLOBULIN 3.2 g/dL TBH ALBUMIN GLOBULIN RATIO 0.8 TBH 10/19/2024 5:15 PM EDT 10/19/2024 5:35 PM EDT Narrative CLINISYNC - 10/19/2024 6:02 PM EDT us Neris Ani DO CLINISYNC Final Result CLINISYNC TBH * (ABNORMAL) ALL CBC WITH AUTO DIFF (10/19/2024 5:15 PM EDT) Only the most recent of2 resultswithin the time period is included. Pathologist [facility] TB WBC 7.4 4.0 - 11.0 10 3/uL TBH TBH RBC 3.70(L) 4.20 - 5.40 10 6/uL TBH TBH HGB 11.6(L) 12.0 - 16.0 g/dL TBH TBH HCT 33.7(L) 36.0 - 48.0 % TBH TBH MCV 91.1 81.0 - 99.0 fL TBH TBH MCH 31.4 26.7 - 34.0 pg TBH TBH MCHC 34.4 29.9 - 35.2 g/dL TBH TBH RDW 13.5 11.0 - 15.0 % TBH TBH PLT 245 150 - 450 10 3/uL TBH TBH MPV 10.3 9.5 - 13.5 fL TBH 10/19/2024 5:15 PM EDT 10/19/2024 5:35 PM EDT Narrative CLINISYNC - 10/19/2024 6:06 PM EDT Neris Ani DO CLINISYNC Final Result [facility] * ALL AMYLASE (10/19/2024 5:15 PM EDT) Pathologist [facility] AMYLASE 72 25 - 115 U/L TB 10/19/2024 5:15 PM EDT 10/19/2024 5:35 PM EDT Narrative CLINISYNC - 10/19/2024 6:02 PM EDT Neris Ani DO CLINISYNC Final Result [facility] * (ABNORMAL) TBH UA (CLEAN/CATCH) ROLL HAULER/MICRO IF IND. (10/19/2024 2:30 PM EDT) COLOR URINE DK. ORANGE YELLOW TBH CLARITY URINE CLEAR CLEAR TBH SPECIFIC GRAVITY URINE 1.025 1.005 - 1.025 TBH PH URINE 6.0 5.0 - 9.0 TBH PROTEIN URINE 100(A) NEG/TRACE mg/dL TBH GLUCOSE URINE UA NEGATIVE NEGATIVE mg/dL TBH BILIRUBIN URINE MODERATE(A) NEGATIVE TBH KETONES URINE >=80(A) NEGATIVE mg/dL TBH BLOOD URINE NEGATIVE NEGATIVE TBH NITRITE URINE NEGATIVE NEGATIVE TBH UROBILINOGEN URINE 2.0(A) 0.2 - 1.0 EU/dL TBH LEUKOCYTE ESTERASE URINE NEGATIVE NEGATIVE TBH URINE MICROSCOPIC INDICATED NO TBH 10/19/2024 2:30 PM EDT 10/19/2024 3:04 PM EDT Narrative CLINISYNC - 10/19/2024 3:20 PM EDT us Neris Law DO CLINISYGENNY Final Result Performing Organization Address City/State/[facility] Co de Phone Number [facility] * US OB GROWTH (10/18/2024 8:30 PM EDT) Anatomical Region Laterality Modality Other 10/18/2024 8:30 PM EDT Narrative 10/19/2024 11:23 AM EDT [address] [address] Ultrasound Report Signed Patient: JOYCE CANTU MR#: [id number] : 1995 Acct:[id number] Age/Sex: 29 / F ADM Date: 10/17/24 Loc: US Attending Dr: Neris Law D.O. Ordering Physician: Neris Law D.O. Date of Service: 10/17/24 Procedure(s): US OB growth Accession Number(s): [id number] cc: Neris Law D.O.; Shaniqua Del Valle NP [address] [address] Patient Name: JOYCE CANTU MRN: TBH:[id number] date: 1995 Sex: F Assigned Patient Location: US Current Patient Location: Accession/Order Number: [id number] Exam Date: 10/18/2024 20:28 Report Date: 10/18/2024 20:30 At the request of: NERIS LAW DO Procedure: US OB growth Growth ultrasound. Reason for exam: Excessive growth. COMPARISON: Ultrasound 05/09/2024 technique: Transabdominal imaging of the gravid uterus was obtained. FINDINGS: Single live intrauterine measuring 31 weeks 4 days by anatomic measurements. Estimated weight is 1739 g. heart rate is 163 bpm. TIGIST is normal at 12.99 cm. position is cephalic at time of scanning. US/US OB growth IMPRESSION: Single live intrauterine 31 weeks 4 days by anatomic measurements. Appropriate growth by dating. Impression dictated by: Arnav Smith Jr., D.O. 10/18/2024 8:30 PM Dictation Location: [place] [address] Electronically authenticated by: [id number] Y Date: 10/18/2024 20:30 Dictated By: Arnav Smith M.D. Signed By: 10/19/24 1123 DD/ 2030 TD/TT: Plant Operations Engineer: Procedure Note Radiology, Radiologist, - 10/19/2024 [place] [address] Ultrasound Report Signed Patient: JOYCE CANTU NMR#: [id number] : 1995Acct:[id number] Age/Sex: 29 / FADM Date: 10/17/24 Loc: US Attending Dr: Neris Law D.O. Ordering Physician: Neris Law D.O. Date of Service: 10/17/24 Procedure(s): US OB growth Accession Number(s): [id number] cc: Neris Law D.O.; Shaniqua Del Valle NP [place] [address] Patient Name: JOYCE CANTU MRN: [facility]:[id number] date: 1995 Sex: F Assigned Patient Location: US Current Patient Location: Accession/Order Number: [id number] Exam Date: 10/18/2024 20:28 Report Date: 10/18/2024 20:30 At the request of: NERIS LAW DO Procedure: US OB growth Growth ultrasound. Reason for exam: Excessive growth. COMPARISON: Ultrasound 05/09/2024 technique: Transabdominal imaging of the gravid uterus was obtained. FINDINGS: Single live intrauterine measuring 31 weeks 4 days by anatomic measurements. Estimated weight is 1739 g. heartrate is 163 bpm. TIGIST is normal at 12.99 cm. position is cephalic at timeof scanning. US/US OB growth IMPRESSION: Single live intrauterine 31 weeks 4 days by anatomic measurements. Appropriate growth by dating. Impression dictated by: Arnav Smith Jr., DKacyOKacy 10/18/2024 8:30 PM Dictation Location: [place] [address] Electronically authenticated by: [id number] Y Date: 0:30 Dictated By: Arnav Smith M.D. Signed By:10/19/24 112 DD/ 29 TD/TT: Plant Operations Engineer: Neris Law DO CLINISYNC IMAGING Final Result * (ABNORMAL) GLUCOSE TOLERANCE 3 HOUR (09/30/2024 10:58 AM EDT) GLUCOSE TOLERANCE 3 HOUR (H) mg/dL TB Comment: GLU FAST 76 (<95) Col: 09/30/24 1058 GLU 1HR 166 (<180) Col: 09/30/24 1159 GLU 2HR 158H (<155) Col: 09/30/24 1259 GLU 3HR 120 (<140) Col: 09/30/24 1358 09/30/2024 10:5 8 AM EDT 09/30/2024 11:01 AM EDT Narrative CLIN[facility] - 09/30/2024 2:33 PM EDT Neris Ani DO LAB BLOOD ORDERABLES Final Resul t [facility] * (ABNORMAL) GLUCOSE 1 HOUR (09/28/2024 8:52 AM EDT) GLUCOSE 1 HOUR 154(H) <130 mg/dL [facility] 09/28/2024 8:5 2 AM EDT 09/28/2024 8:54 AM EDT Narrative [facility] - 09/28/2024 9:20 AM EDT us Neris Law DO LAB BLOOD ORDERABLES [facility] Mon[facility]
--- OUTSIDE RECORDS SUMMARY | 2024-11-25 14:31 | XMS_ITS | Encounter Summary ---
Author Organization [facility] Address [address] [facility] [place] [address] Care Team Providers Care Beehive Kiln [employer] Name Role Phone Unavailable Primary Care Provider Unavailabl e Encounter Details Date Type Department Care Team (Late st Contact Info) Description 06/01/2024 Abstract [facility] [address] [place] [address] Domenic Law DO [facility] Patrick Miguel, [id number] Social History Tobacco Use Types Packs/Day Years [...] Routine [facility] [address] [place] [address] Domenic Law DO [facility] Patrick Miguel, [id number] documented as of this encounter Visit Diagnoses Not on filedocumented in this encounter
--- OUTSIDE RECORDS SUMMARY | 2024-11-25 14:31 | XMS_ITS | Encounter Summary ---
Author Organization [facility] Address [address] [facility] [place] [address] Care Team Providers Care Manager Operational Name Role Phone Unavailable Primary Care Provider Unavailabl e Encounter Details Date Type Department Care Team (Late st Contact Info) Description 11/25/2024 Bamboo flowsheet [facility] OB [address] [place] [address] Domenic Law [facility] [place] Reanna Miguel, [place] [address] Social History Tobacco Use Types Packs/Day Years [...] PM EDT Routine [facility] [address] [facility] [place] [address] Domenic Law [facility] Patrick Miguel, [facility]11 documented as of this encounter Visit Diagnoses Not on filedocumented in this encounter
--- OUTSIDE RECORDS SUMMARY | 2024-11-25 14:31 | XMS_ITS | Encounter Summary ---
Author Organization [facility] Address [address] [facility] [place] [address] Care Team Providers Care Director Maternal Child Name Role Phone Unavailable Primary Care Provider Unavailabl e Encounter Details Date Type Department Care Team (Late st Contact Info) Description 11/23/2022 Abstract [facility] BCP OB [address] [place] [address] Domenic Law, [address] Jo[place] Miguel, [facility]11 Social History Tobacco Use Types Packs/Day Years [...] Routine [facility] BCP OB [address] [place] [phone] Domenic Law DO [address] Jo[address] Miguel, [place] [id number] documented as of this encounter Visit Diagnoses Not on filedocumented in this encounter
--- OUTSIDE RECORDS SUMMARY | 2024-11-25 14:31 | XMS_ITS | Encounter Summary ---
Author Organization [facility] Address [address] [facility] [place] [address] Care Team Providers Care Java Security Architect Name Role Phone Unavailable Primary Care Provider Unavailabl e Encounter Details Date Type Department Care Team (Late st Contact Info) Description 06/01/2024 Abstract [facility] BCP OB [address] [place] [address] Domenic Law DO [facility] Patrick Miguel, [facility]11 Social History Tobacco Use Types Packs/Day Years [...] Routine [facility] BCP OB [address] [place] [address] Domenic Law DO [facility] Patrick Miguel, [facility]11 documented as of this encounter Visit Diagnoses Not on filedocumented in this encounter
--- OUTSIDE RECORDS SUMMARY | 2024-11-25 14:31 | XMS_ITS | Encounter Summary ---
Author Organization [facility] Address [address] [facility] [place] [address] Care Team Providers Care Quality Assurance Coach Name Role Phone Unavailable Primary Care Provider Unavailabl e Encounter Details Date Type Department Care Team (Late st Contact Info) Description 05/08/2024 Abstract [facility] BCP OB [address] [place] [address] Domenic Law DO [facility] Patrick Miguel, [facility]11 Social History Tobacco Use Types Packs/Day [...] [place] [address] Domenic Law DO [facility] Patrick Miguel, [facility]11 documented as of this encounter Visit Diagnoses Not on filedocumented in this encounter
--- OUTSIDE RECORDS SUMMARY | 2024-11-25 14:31 | XMS_ITS | Encounter Summary ---
Author Organization [facility] Address [address] [facility] [place] [address] Care Team Providers Care Stock Receiver Name Role Phone Unavailable Primary Care Provider Unavailabl e Encounter Details Date Type Department Care Team (Late st Contact Info) Description 06/19/2024 Abstract [facility] BCP OB [address] [place] [address] Domenic Law DO [facility] Patrick Miguel, [facility]11 Social History Tobacco Use Types Packs/Day [...] Routine [facility] BCP OB [address] [place] [address] Domenic Law DO [facility] Patrick Miguel, [facility]11 documented as of this encounter Visit Diagnoses Not on filedocumented in this encounter
--- OUTSIDE RECORDS SUMMARY | 2024-11-25 14:31 | XMS_ITS | Encounter Summary ---
Author Organization [facility] Address [address] [facility] [place] [address] Care Team Providers Care Buffing And Polishing Wheel Repairer Name Role Phone Unavailable Primary Care Provider Unavailabl e Encounter Details Date Type Department Care Team (Late st Contact Info) Description 06/01/2024 Abstract [facility] BCP OB [address] [place] [address] Domenic Law DO [facility] Patrick Miguel, [facility]11 Social History Tobacco Use Types [...] Routine [facility] BCP OB [address] [place] [address] Domenic Law DO [facility] Patrick Miguel, [facility]11 documented as of this encounter Visit Diagnoses Not on filedocumented in this encounter
--- OUTSIDE RECORDS SUMMARY | 2024-11-25 14:31 | XMS_ITS | Encounter Summary ---
Author Organization [facility] Address [address] [facility] [place] [address] Care Team Providers Care Sleeve Fixer Name Role Phone Unavailable Primary Care Provider Unavailabl e Encounter Details Date Type Department Care Team (Late st Contact Info) Description 06/01/2024 Abstract [facility] BCP OB [address] [place] [address] Domenic Law DO [facility] Patrick Miguel, [facility]11 Social History Tobacco Use Types Packs/Day Years [...] [place] [address] Domenic Law DO [facility] Patrick Miguel, [facility]11 documented as of this encounter Visit Diagnoses Not on filedocumented in this encounter
--- OUTSIDE RECORDS SUMMARY | 2024-11-25 14:31 | XMS_ITS | Encounter Summary ---
Author Organization [facility] Address [address] [facility] [place] [address] Care Team Providers Care Wool Grader Name Role Phone Unavailable Primary Care Provider Unavailabl e Encounter Details Date Type Department Care Team (Late st Contact Info) Description 05/09/2024 Clinisync Result Encounter [facility] External Department Unsolicited Neris Law, DO [address] [place] [address] Social History Tobacco Use Types Packs/Day Years [...] Routine [facility] BCP OB [address] [place] [phone] Neris Law DO [address] [place] [address] [place] [address] documented as of this encounter Procedures Procedure Name Priority Date/Time Associated Diagnosis Comments US OB TRANSVAGINAL 05/09/2024 5: 02 AM EST documented in this encounter Results * US OB TRANSVAGINAL (05/09/2024 5:02 AM EST) Anatomical Region Laterality Modality Other 05/09/2024 5:02 AM EST Narrative 05/09/2024 5:04 [place] [address] Ultrasound Report Signed Patient: JOYCE CANTU MR#: [id number] : 1995 Acct:[id number] Age/Sex: 29 / F ADM Date: 05/08/24 Loc: [facility] Attending Dr: Neris Law D.O. Ordering Physician: Neris Law D.O. Date of Service: 05/08/24 Procedure(s): US OB transvaginal Accession Number(s): [id number] cc: Neris Law D.O.; Shaniqua Del Valle NP [place] [address] Patient Name: JOYCE CANTU MRN: [id number] date: 1995 Sex: F Assigned Patient Location: [facility] Current Patient Location: Accession/Order Number: [id number] Exam Date: 05/08/2024 09:08 Report Date: 05/09/2024 05:02 At the request of: NERIS LAW Procedure: US OB transvaginal EXAMINATION: US OB transvaginal HISTORY: MISSED MENSES COMPARISON: No relevant comparison available. FINDINGS: GESTATIONAL SAC: Present and normal appearing. YOLK SAC: Present and normal appearing. POLE: Present and normal appearing. CARDIAC: Present. UTERUS: Normal size and appearance. OVARIES: Right: Normal. Left: Normal. CERVIX: 4.0 cm in length and closed. CUL-DE-SAC: Normal. OTHER: Trace amount of free fluid within pelvic cul-de-sac, likely physiologic. AGE BY LMP: 8 weeks 1 day JAGJIT BY LMP: 12/17/2024 AGE BY US CRL: 7 weeks 1 day JAGJIT BY US CRL: 12/24/2024 US/US OB transvaginal IMPRESSION: 1. Single live intrauterine . Electronically authenticated by: ESTRADA CASTRO Date: 05/09/2024 05:02 Dictated By: Estrada Castro M.D. Signed By: 05/09/24503 DD/ 1 TD/TT: Client Relations Representative: Procedure Note Radiology, Radiologist, - 05/09/2024 [place] [address] Ultrasound Report Signed Patient: JOYCE CANTU NMR#: [id number] : 1995Acct:[id number] Age/Sex: 29 / FADM Date: 05/08/24 Loc: [facility] Attending Dr: Neris Law D.O. Ordering Physician: Neris Law D.O. Date of Service: 05/08/24 Procedure(s): US OB transvaginal Accession Number(s): [id number] cc: Neris Law D.O.; Shaniqua Del Valle NP [place] [address] Patient Name: JOYCE CANTU MRN: [id number] date: 1995 Sex: F [facility] Current Patient Location: Accession/Order Number: [id number] Exam Date: 05/08/2024 09:08 Report Date: 05/09/2024 05:02 At the request of: NERIS LAW Procedure: US OB transvaginal EXAMINATION: US OB transvaginal HISTORY: MISSED MENSES COMPARISON: No relevant comparison available. FINDINGS: GESTATIONAL SAC: Present and normal appearing. YOLK SAC: Present and normal appearing. POLE: Present and normal appearing. CARDIAC: Present. UTERUS: Normal size and appearance. OVARIES: Right: Normal. Left: Normal. CERVIX: 4.0 cm in length and closed. CUL-DE-SAC: Normal. OTHER: Trace amount of free fluid within pelvic cul-de-sac, likely physiologic. AGE BY LMP: 8 weeks 1 day JAGJIT BY LMP: 12/17/2024 AGE BY US CRL: 7 weeks 1 day JAGJIT BY US CRL: 12/24/2024 US/US OB transvaginal IMPRESSION: 1. Single live intrauterine . Electronically authenticated by: ESTRADA CASTRO Date: 05/09/2024 05:02 Dictated By: Estrada Castro M.D. Signed By:05/09/24 0504 DD/ 1 TD/TT: Client Relations Representative: us Neris Ani DO [facility] Final Result documented in this encounter Visit Diagnoses Not on filedocumented in this encounter
--- OUTSIDE RECORDS SUMMARY | 2024-11-25 14:32 | XMS_ITS | Encounter Summary ---
Author Organization [facility] Address [address] [facility] [place] [address] Care Team Providers Care Surgery Consultant Name Role Phone Unavailable Primary Care Provider Unavailabl e Encounter Details Date Type Department Care Team (Latest Contact Info) Description 11/25/2024 Travel Social History Tobacco Use Types Packs/Day Years [...] PM EDT Routine [facility] BCP OB [address] [facility] [place] [address] Domenic Law, DO [address] [facility] [address] Lashonda Miguel, [facility]11 documented as of this encounter Visit Diagnoses Not on filedocumented in this encounter
--- OUTSIDE RECORDS SUMMARY | 2024-11-25 14:32 | XMS_ITS | Encounter Summary ---
Author Organization [facility] Address [address] [facility] [place] [address] Care Team Providers Care Survey Research Teacher Name Role Phone Unavailable Primary Care Provider Unavailabl e Encounter Details Date Type Department Care Team (Late st Contact Info) Description 11/11/2024 Bamboo flowsheet [facility] OB [address] [place] [address] Domenic Law [facility] [place] Reanna Miguel, [place] [address] Social History Tobacco Use Types Packs/Day Years [...] PM EDT Routine [facility] BCP OB [address] [place] [address] Domenic Law [facility] Patrick Miguel, [facility]11 documented as of this encounter Visit Diagnoses Not on filedocumented in this encounter
--- OUTSIDE RECORDS SUMMARY | 2024-11-25 14:32 | XMS_ITS | Encounter Summary ---
Author Organization [facility] Address [address] [facility] [place] [address] Care Team Providers Care Microbiology Analyst Name Role Phone Unavailable Primary Care Provider Unavailabl e Encounter Details Date Type Department Care Team (Late st Contact Info) Description 11/12/2024 Abstract [facility] BCP OB [address] [place] [address] Domenic Law DO [facility] Patrick Miguel, [facility]11 Social History Tobacco Use Types Packs/Day [...] Routine [facility] BCP OB [address] [place] [address] Domenic Law DO [facility] Patrick Miguel, [facility]11 documented as of this encounter Visit Diagnoses Not on filedocumented in this encounter
--- OUTSIDE RECORDS SUMMARY | 2024-11-25 14:32 | XMS_ITS | Encounter Summary ---
Author Organization [facility] Address [address] [facility] [place] [address] Care Team Providers Care Clinical Data Coordinator Name Role Phone Unavailable Primary Care Provider Unavailabl e Encounter Details Date Type Department Care Team (Late st Contact Info) Description 07/17/2024 Orders Only [facility] BCP OB [address] [facility] [place] [place] [phone] Bisi Corley MA [address] [place] [address] [place] [address] Social History Tobacco Use Types Packs/Day Years [...] PM EDT Routine [facility] BCP OB [address] [facility] [place] [place] [address] Domenic Law DO [address] [place], [place] [address] [place], [place] [phone] documented as of this encounter Procedures Procedure Name Priority Date/Time Associated Diagnosis Comments PAP SMEAR Routine 07/06/2024 12:00 AM EST documented in this encounter Results * Pap Smear (07/06/2024 12:00 AM EST) Swab Cervical swab / Unknown us [facility] ORDERABLES Final Re sult EXTERNAL LAB documented in this encounter Visit Diagnoses Not on filedocumented in this encounter
--- OUTSIDE RECORDS SUMMARY | 2024-11-25 14:32 | XMS_ITS | Encounter Summary ---
Author Organization [facility] Address [address] [facility] [place] [address] Care Team Providers Care Buffing And Sueding Machine Operator Name Role Phone Unavailable Primary Care Provider Unavailabl e Encounter Details Date Type Department Care Team (Late st Contact Info) Description 11/22/2022 Abstract [facility] OB [address] [facility] [place] [address] Sofia Peralta PA [address] [facility] [address] [place], [facility]11 Social History Tobacco Use Types Packs/Day [...] PM EDT Routine [facility] BCP OB [address] [facility] [place] [address] Domenic Law DO [address] [facility] [address] Lashonda Miguel, [facility]11 documented as of this encounter Visit Diagnoses Not on filedocumented in this encounter
--- OUTSIDE RECORDS SUMMARY | 2024-11-25 14:32 | XMS_ITS | Encounter Summary ---
Author Organization [facility] Address [address] [facility] [place] [address] Care Team Providers Care Upholstery Repairer Name Role Phone Unavailable Primary Care Provider Unavailabl e Encounter Details Date Type Department Care Team (Late st Contact Info) Description 11/12/2024 Abstract [facility] BCP OB [address] [place] [address] Domenic Law DO [facility] Patrick Miguel, [facility]11 Social History Tobacco Use Types Packs/Day Years [...] Routine [facility] BCP OB [address] [place] [address] Domenic Law DO [facility] Patrick Miguel, [facility]11 documented as of this encounter Visit Diagnoses Not on filedocumented in this encounter
--- OUTSIDE RECORDS SUMMARY | 2024-11-25 14:32 | XMS_ITS | Encounter Summary ---
Author Organization [facility] Address [address] [facility] [place] [address] Care Team Providers Care Matte Cutter Name Role Phone Unavailable Primary Care Provider Unavailabl e Encounter Details Date Type Department Care Team (Late st Contact Info) Description 07/08/2024 Abstract [facility] BCP OB [address] [place] [address] Domenic Law DO [facility] Patrick Miguel, [facility]11 Social History Tobacco Use Types Packs/Day [...] Routine [facility] BCP OB [address] [place] [address] Domenic Law DO [facility] Patrick Miguel, [facility]11 documented as of this encounter Visit Diagnoses Not on filedocumented in this encounter
== END 2024-11-25 14:29 | disposition home or self-care (01) ==
LOC: LAB 14:28
PROVIDERS: PCP Nurse Practitioner Family; Visit Provider Obstetrics & Gynecology
DX: Z34.93 Encounter for supervision of normal pregnancy, unspecified, third trimester (principal); Z3A.35 35 weeks gestation of pregnancy
CPT/HCPCS: 87081

== ENCOUNTER 2024-12-02 13:32 | Observation (INO) | payer BC, SELFPAY ==
--- OUTSIDE RECORDS SUMMARY | 2024-08-12 04:18 | XMS_ITS | Continuity of Care Document ---
Author Organization [facility] Address [address] [place] [address] Phone Care Team Providers Care Business And Financial Counsel Name Role Phone Eligio GOSS, Shaniqua Unavailable [...] 130 MM HG MED LIST DOCD IN [facility] RVW MEDS BY RX/DR IN [facility] TOBACCO NON-USER IMMUNIZATION ADMIN FLU VACCINE NO PRESERV 3 & > OFFICE/OUTPATIENT VISIT, EST DIAST BP 80-89 MM HG SYST BP < 130 MM HG MED LIST DOCD IN [facility] RVW MEDS BY RX/DR IN [facility] TOBACCO NON-USER Pos clin depres scrn f/u doc OFFICE/OUTPATIENT VISIT, EST OFFICE/OUTPATIENT VISIT, EST Bp scrn perf rec interval DIAST BP < 80 MM HG SYST BP < 130 MM HG Pos clin depres scrn f/u doc OFFICE/OUTPATIENT VISIT, EST LDL-C 100-129 MG/DL DIAST BP 80-89 MM HG SYST BP >=130-139MM HG MED LIST DOCD IN [facility] RVW MEDS BY RX/DR IN [facility] TOBACCO NON-USER Pos clin depres scrn f/u doc OFFICE/OUTPATIENT VISIT, EST Bp scrn perf rec interval LDL-C 100-129 MG/DL DIAST BP < 80 MM HG SYST BP < 130 MM HG MED LIST DOCD IN [facility] RVW MEDS BY RX/DR IN [facility] TOBACCO NON-USER Pt inelig neg scrn depres [...] on Encounter PREV VISIT, EST, AGE 18-39 [facility], [address] [place] [address], [id number] , [place] tel:[phone] [facility] (chief complaint) Body mass index [BMI] 31.0-31.9, adultAnxiety with depressionEncounter for general adult medical examination without abnormal findings 5 Eligio Mcgovern. [address] [place] [address], [id number] , [place]. tel:[phone] [facility], [address] [place] [address], [id number] , [place] tel: [phone] [facility] No Information 5 Alexis Simpson. [address] [place], [place], [id number] , [place]. tel: [phone] [facility], [address] [place], [place], [id number] , [place] tel: [phone] [facility] No Information 5 Eligio Mcgovern. [address] [place] [address], [id number] , [place]. tel: [phone] OFFICE/OUTPA TIENT VISIT, [facility], [address] [place] [address], [id number] , [place] tel: [phone] [facility] anxiety/dep ression f/u (chief complaint) Anxiety with depressionBody mass index [BMI] 31.0-31.9, adult Oct- 4 Eligio Mcgovern. [address] [place] [address], [id number] , [place]. tel: [phone] OFFICE/OUTPA TIENT VISIT, [facility], [address] [place] [address], [id number] , [place] tel: [phone] [facility] medication (chief complaint) Disturbance of skin sensation 4 Eligio Mcgovern. [address] [place] [address], [id number] , [place]. tel:+ [phone] OFFICE/OUTPA TIENT VISIT, [facility], [address] [place] [address], [id number] , [place] tel:+ [phone] [facility] med f/u (chief complaint) Body mass index [BMI] 31.0-31.9, adultAnxiety with depressionMajor depression in remission 4 Eligio Mcgovern. [address] [place] [address], [id number] , [place]. tel:+ [phone] OFFICE/OUTPA TIENT VISIT, [facility], [address] [place], [place], [id number] , [place] tel:+ [phone] [facility] check up (chief complaint) Body mass index [BMI] 31.0-31.9, adultAnxiety with depression 4 Eligio Mcgovern. [address] [place] [address], [id number] , [place]. tel:+ [phone] OFFICE/OUTPA TIENT VISIT, [facility], [address], [place], [id number] , [place] tel:+ [phone] [facility] sick visit (chief complaint)S ore throat (chief complaint) Body mass index [BMI] 31.0-31.9, adultStrep pharyngitisLymphade nopathy 4 Eligio Mcgovern. [address] [place] [address], [id number] , [place]. tel: [phone] [facility], [address] [place] [address], [id number] , [place] tel: [phone] [facility] Encounter For Screening For Covid-19Acute pharyngitis, unspecified 4 Visci DO Deangelo. [address] [place] [address], [id number] , [place]. tel: [phone] [facility], [address] [place] [address], [id number] , [place] tel: [phone] [facility] No Information 3 Visci DO Deangelo. [address] [place] [address], [id number] , [place]. tel:[phone] [facility], [address] [place] [address], [id number] , [place] tel:+ [phone] [facility] Encounter For Screening For Covid-19 3 Visci DO Deangelo. [address] [place] [address], [id number] , [place]. tel: [phone] [facility], [address] [place], [place], [id number] , [place] tel: [phone] [facility] Encounter For Screening For Covid-19 3 Alexis Simpson. [address] [place], [place], [id number] , [place]. tel:+ [phone] OFFICE/OUTPA TIENT VISIT, [facility], [address] [place], [place], [id number] , [place] tel:+ [phone] [facility] moods (chief complaint) Mood disturbanceAnxiety with depression 3 Eligoi Mcgovern. [address] [place], [place], [id number] , [place]. tel:+ [phone] OFFICE/OUTPA TIENT VISIT, [facility], [address], [place], [id number] , [place] tel: [phone] [facility] Establish care (chief complaint)L ab draw (chief complaint) Fatigue, unspecified typeBody mass index [BMI] 29.0-29.9, adult 3 Eligio SUPERVISOR COOLER SERVICE Shaniqua. [address] [place], [place], [id number] , [place]. tel: [phone] [facility], [address] [place], [place], [id number] , [place] tel: [phone] [facility] Encounter for screening for other viral diseasesEncounter for screening for other viral diseases 3 Eligio GOSS Shaniqua. [address] [place], [place], [id number] , [place]. tel:+ [phone] [facility], [address] [place], [place], [id number] , [place] tel:+ [phone] [facility] No Information 3 Alexis Simpson. [address] [place], [place], [id number] , [place]. tel:+ [phone] [facility], [address] [place], [place], [id number] , [place] tel:+ [phone] [facility] Encounter for screening for respiratory tuberculosis 3 Viscjorge Simpson. [address] [place], [place], [id number] , [place]. tel: [phone] [facility], [address], [place], [id number] , [place] tel: [phone] [facility] No Information 3 Viscjorge Simpson. [address] [place], [place], [id number] , [place]. tel: [phone] [facility], [address] [place], [place], [id number] , [place] tel: [phone] [facility] No Information 2 Viscjorge Simpson. [address] [place], [place], [id number] , [place]. 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 [address] [place], [address], [place]. tel: [phone] [facility], [address] [place] [address], [id number] , [place] tel: [phone] [facility] No Information 2 Alexis Simpson. [address], [place], [id number] , [place]. tel: [phone] [facility], [address], [place], [id number] , [place] tel: [phone] [facility] Encounter For Screening For Covid-19 Feb- 2 Viscjorge Simpson. [address] [place] [address], [id number] , [place]. tel: [phone] [facility], [address] [place] [address], [id number] , [place] tel: [phone] [facility] Encounter For Screening For Covid-19 Sep-0 7-202 2 Viscjorge Simpson. [address] [place], [place], [id number] , [place]. tel:+ [phone] [facility], [address], [place], [id number] , [place] tel: [phone] [facility] Encounter For Screening For Covid-19 2 Viscjorge Simpson. [address], [place], [id number] , [place]. tel: [phone] [facility], [address], [place], [id number] , [place] tel: [phone] [facility] Encounter for screening for other viral diseases 1 Alexis Simpson. [address] [place], [place], [id number] , [place]. tel: [phone] [facility], [address], [place], [id number] , [place] tel: [phone] [facility] No Information 1 Alexis Simpson. [address], [place], [id number] , [place]. tel: [phone] [facility], [address], [place], [id number] , [place] tel: [phone] [facility] Encounter For Screening For Covid-19 1 Alexis Simpson. [address], [place], [id number] , [place]. tel: [phone] [facility], [address], [place], [id number] , [place] tel: [phone] [facility] No Information 1 Alexis Simpson. [address], [place], [id number] , [place]. tel: [phone] [facility], [address], [place], [id number] , [place] tel: [phone] [facility] Encounter for screening for respiratory tuberculosis 1 Alexis Simpson. [address], [place], [id number] , [place]. tel: [phone] [facility], [address], [place], [id number] , [place] tel: [phone] [facility] Encounter for screening for respiratory tuberculosis 1 Alexis Simpson. [address], [place], [id number] , [place]. tel: [phone] [facility], [address] [place] [address], [id number] , [place] tel: [phone] [facility] No Information 1 Alexis Simpson. [address], [place], [id number] , [place]. tel: [phone] [facility], [address] [place] [address], [id number] , [place] tel: [phone] [facility] Encounter for screening for respiratory tuberculosis 1 Alexis Simpson. [address], [place], [id number] , [place]. tel: [phone] [facility], [address] [place] [address], [id number] , [place] tel: [phone] [facility] No Information 1 Alexis Simpson. [address] [place] [address], [id number] , [place]. tel: [phone] [facility], [address] [place] [address], [id number] , [place] tel: [phone] [facility] No Information 0 Alexis Simpson. [address] [place] [address], [id number] , [place]. tel: [phone] Family History Family Member Type Diagnosis Age [...] meningococcal MCV4P administered Source: Other Registry Novel [id number], nasal administer ed Source: Other Registry Influenza, [...] egistry Payers Payer name Insurance type Covered green party ID Authorkarla ticathryn(s) [place] [id number] [facility] [id number] [place] [id number] [place] [id number] [place] [id number] [place] [id number] [place] [id number] [place] CI [id number] [place] CI [id number] Social History Type Description Quantity Date Captured [...] healthy and has no health concerns. LMiller SUPERVISOR COOLER SERVICE Reason For Referral Reason For Referral No [...] healthy and has no health concerns. 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 Pt report being very tired. Drinking [...] L GOSS Lab draw Lab draw from [facility] x 1 attempt, tolerated well, pressure dressing [...] Mental Status Date Cognitive Assessment Orientation - [place] ed to time, place, person, situation. Patient Care Teams Name Effective Dates (start - stop) Status Members No Information
--- OUTSIDE RECORDS SUMMARY | 2024-11-25 13:10 | XMS_ITS | Encounter Summary ---
Author Organization [facility] Address [address] [facility] [place] [address] Care Team Providers Care Parts Sales Associate Name Role Phone Unavailable Primary Care Provider Unavailabl e Reason for Visit * Reason Comments Routine Visit Encounter Details Date Type Department Care Team (Late st Contact Info) Description 11/25/2024 1:10 PM EDT Routine [facility] [address] [place] [phone] Domenic Law, DO [address] [place] [address] 35 weeks gestation of ([facility]); Third trimester ([facility]) Social History Tobacco Use Types Packs/Day Years [...] this encounter Progress Notes * Halina Mustafa, SIZER HAND - 11/25/2024 1:10 PM EDT Reason for [...] nursing note reviewed. Exam conducted with a baker present. Vitals: Estimated body mass index is [...] Routine [facility] [address] [place] [address] Domenic Law DO [address] [place] [address] Scheduled Orders Name Type Priority Associated Diagnoses Orde r Schedule CULTURE, GROUP B STREP WITH SUSCEPTIBLITY Lab Routine Third trimester ([facility]) Expected: 11/25/2024, Expires: 11/25/2025 documented as of this encounter Procedures Procedure Name Priority Date/Time Associated Diagnosis Comments POCT URINALYSIS DIPSTICK Routine 11/25/2024 1:14 PM EDT 35 weeks gestation of ([facility]) Third trimester ([facility]) documented in this encounter Results * (ABNORMAL) [...] - Positive Urine 11/25/2024 1:14 PM EDT us Domenic Law DO POINT OF CARE TEST ENTER/EDIT OR DERABLES Final Result documented in this encounter Visit Diagnoses Diagnosis 35 weeks gestation of ([facility]) Third trimester ([facility]) state, incidental documented in this encounter
--- OUTSIDE RECORDS SUMMARY | 2024-12-02 13:36 | XMS_ITS | Encounter Summary ---
Author Organization [facility] Address [address] [facility] [place] [address] Care Team Providers Care Electronic Game Developer Name Role Phone Unavailable Primary Care Provider Unavailabl e Encounter Details Date Type Department Care Team (Late st Contact Info) Description 06/01/2024 Abstract [facility] BCP OB [address] [place] [address] Domenic Law DO [facility] Patrick Miguel, [facility]11 Social History Tobacco Use Types Packs/Day Years [...] Routine [facility] BCP OB [address] [place] [address] Domenic Law DO [facility] Patrick Miguel, [facility]11 documented as of this encounter Visit Diagnoses Not on filedocumented in this encounter
--- OUTSIDE RECORDS SUMMARY | 2024-12-02 13:36 | XMS_ITS | Encounter Summary ---
Author Organization [facility] Address [address] [facility] [place] [address] Care Team Providers Care Cover Inspector Name Role Phone Unavailable Primary Care Provider Unavailabl e Encounter Details Date Type Department Care Team (Late st Contact Info) Description 06/01/2024 Abstract [facility] BCP OB [address] [place] [address] Domenic Law DO [facility] Patrick Miguel, [facility]11 Social History Tobacco Use Types Packs/Day Years [...] Routine [facility] BCP OB [address] [place] [address] Domenic Law DO [facility] Patrick Miguel, [facility]11 documented as of this encounter Visit Diagnoses Not on filedocumented in this encounter
--- OUTSIDE RECORDS SUMMARY | 2024-12-02 13:37 | XMS_ITS | Encounter Summary ---
Author Organization [facility] Address [address] [facility] [place] [address] Care Team Providers Care Chrome Polisher Name Role Phone Unavailable Primary Care Provider Unavailabl e Encounter Details Date Type Department Care Team (Late st Contact Info) Description 11/22/2022 Abstract [facility] BCP OB [address] [place] [address] Sofia Peralta PA [address] [facility] [address] [place], [facility]11 Social History Tobacco Use Types [...] PM EDT Routine N[facility] BCP OB [address] [facility] [place] [address] Domenic Law DO [address] [facility] [address] Lashonda Miguel, [facility]11 documented as of this encounter Visit Diagnoses Not on filedocumented in this encounter
--- OUTSIDE RECORDS SUMMARY | 2024-12-02 13:37 | XMS_ITS | Encounter Summary ---
Author Organization [facility] Address [address] [facility] [place] [address] Care Team Providers Care Network Support Technician Name Role Phone Unavailable Primary Care Provider Unavailabl e Encounter Details Date Type Department Care Team (Late st Contact Info) Description 06/01/2024 Abstract [facility] BCP OB [address] [place] [address] Domenic Law DO [facility] Patrick Miguel, [facility]11 Social History Tobacco Use Types Packs/Day Years [...] Routine [facility] BCP OB [address] [place] [address] Domenic Law DO [facility] Patrick Miguel, [facility]11 documented as of this encounter Visit Diagnoses Not on filedocumented in this encounter
--- OUTSIDE RECORDS SUMMARY | 2024-12-02 13:37 | XMS_ITS | Encounter Summary ---
Author Organization [facility] Address [address] [email or web address] [place] [address] Care Team Providers Care Curing Supervisor Name Role Phone Unavailable Primary Care Provider Unavailabl e Encounter Details Date Type Department Care Team (Late st Contact Info) Description 07/17/2024 Orders Only [facility] BCP OB [address] [facility] [place] [phone] Bisi Corley MA [address] [place] [address] [place] [address] Social History Tobacco Use Types Packs/Day Years [...] PM EDT Routine NOM[facility] BCP OB [address] [facility] [place] [address] Domenic Law DO [address] [place], [place] [address] [place] [address] Lash[place], [place] [phone] documented as of this encounter Procedures Procedure [...]
--- OUTSIDE RECORDS SUMMARY | 2024-12-02 13:37 | XMS_ITS | Encounter Summary ---
Author Organization [facility] Address [address] [facility] [address] Care Team Providers Care Sales Promotion Director Name Role Phone Unavailable Primary Care Provider Unavailabl e Encounter Details Date Type Department Care Team (Late st Contact Info) Description 07/08/2024 Abstract [facility] BCP OB [address] [place] [address] Domenic Law DO [facility] Patrick Miguel, [facility]11 Social History Tobacco Use Types [...] Routine [facility] BCP OB [address] [place] [address] Domenic Law DO [facility] Patrick Miguel, [facility]11 documented as of this encounter Visit Diagnoses Not on filedocumented in this encounter
--- OUTSIDE RECORDS SUMMARY | 2024-12-02 13:37 | XMS_ITS | Encounter Summary ---
Author Organization [facility] Address [address] [facility] [place] [address] Care Team Providers Care Produce Department Manager Name Role Phone Unavailable Primary Care Provider Unavailabl e Encounter Details Date Type Department Care Team (Late st Contact Info) Description 06/01/2024 Abstract [facility] BCP OB [address] [place] [address] Domenic Law DO [facility] Patrcik Miguel, [facility]11 Social History Tobacco Use Types Packs/Day Years [...] Routine [facility] BCP OB [address] [place] [address] Domenic Law DO [facility] Patrick Miguel, [facility]11 documented as of this encounter Visit Diagnoses Not on filedocumented in this encounter
--- OUTSIDE RECORDS SUMMARY | 2024-12-02 13:37 | XMS_ITS | Encounter Summary ---
Author Organization [facility] Address [address] [facility] [place] [address] Care Team Providers Care Healthcare Associate Name Role Phone Unavailable Primary Care Provider Unavailabl e Encounter Details Date Type Department Care Team (Late st Contact Info) Description 11/12/2024 Abstract [facility] BCP OB [address] [place] [address] Domenic Law DO [facility] Patrick Miguel, [facility]11 Social History Tobacco Use Types Packs/Day [...] Routine [facility] BCP OB [address] [place] [address] Domenic Law DO [facility] Patrick Miguel, [facility]11 documented as of this encounter Visit Diagnoses Not on filedocumented in this encounter
--- OUTSIDE RECORDS SUMMARY | 2024-12-02 13:37 | XMS_ITS | Encounter Summary ---
Author Organization [facility] Address [address] [facility] [place] [address] Care Team Providers Care Electronics Engineer Name Role Phone Unavailable Primary Care Provider [...] PM EDT Routine [facility] BCP OB [address] [facility] [place] [phone] Domenic Law, DO [address] [facility] [address] Lashonda Miguel, [facility]11 documented as of this encounter Visit Diagnoses Not on filedocumented in this encounter
--- OUTSIDE RECORDS SUMMARY | 2024-12-02 13:37 | XMS_ITS | Encounter Summary ---
Author Organization [facility] Address [address] [facility] [place] [address] Care Team Providers Care High Lift Operator Name Role Phone Unavailable Primary Care Provider Unavailabl e Encounter Details Date Type Department Care Team (Late st Contact Info) Description 11/12/2024 Abstract [facility] BCP OB [address] [place] [address] Domenic Law DO [facility] Patrick Miguel, [facility]11 Social History Tobacco Use Types Packs/Day [...] Routine [facility] BCP OB [address] [place] [address] Domenic Law DO [facility] Patrick Miguel, [facility]11 documented as of this encounter Visit Diagnoses Not on filedocumented in this encounter
--- OUTSIDE RECORDS SUMMARY | 2024-12-02 13:37 | XMS_ITS | Encounter Summary ---
Author Organization [facility] Address [address] [facility] [place] [address] Care Team Providers Care Malt House Operator Name Role Phone Unavailable Primary Care Provider Unavailabl e Encounter Details Date Type Department Care Team (Late st Contact Info) Description 06/01/2024 Abstract [facility] BCP OB [address] [place] [address] Domenic Law DO [facility] Patrick Miguel, [facility]11 Social History Tobacco Use Types Packs/Day [...] Routine [facility] BCP OB [address] [place] [address] Domenic Law DO [facility] Patrick Miguel, [facility]11 documented as of this encounter Visit Diagnoses Not on filedocumented in this encounter
--- OUTSIDE RECORDS SUMMARY | 2024-12-02 13:37 | XMS_ITS | Encounter Summary ---
Author Organization [facility] Address [address] [facility] [place] [address] Care Team Providers Care Plasma Processing Technician Name Role Phone Unavailable Primary Care Provider Unavailabl e Encounter Details Date Type Department Care Team (Late st Contact Info) Description 11/23/2022 Abstract [facility] BCP OB [address] [place] [address] Domenic Law, [address] Miguel, [facility]11 Social History Tobacco Use Types [...] Routine [facility] BCP OB [address] [place] [address] Domenic Law DO [address] Miguel, [place] [address] documented as of this encounter Visit Diagnoses Not on filedocumented in this encounter
--- OUTSIDE RECORDS SUMMARY | 2024-12-02 13:37 | XMS_ITS | Encounter Summary ---
Author Organization [facility] Address [address] [facility] [place] [address] Care Team Providers Care Manager Ems Name Role Phone Unavailable Primary Care Provider Unavailabl e Encounter Details Date Type Department Care Team (Late st Contact Info) Description 05/09/2024 Clinisync Result Encounter NOMS External Department Unsolicited Neris Law, DO [address] [place] [address] Social History Tobacco Use Types Packs/Day Years [...] Routine [facility]S BCP OB [address] [place] [phone] Neris Law DO [address] [place] [address] [place] [address] documented as of this encounter Procedures Procedure Name Priority Date/Time Associated Diagnosis Comments US OB TRANSVAGINAL 05/09/2024 5: 02 AM EST documented in this encounter Results * US OB TRANSVAGINAL (05/09/2024 5:02 AM EST) Anatomical Region Laterality Modality Other 05/09/2024 5:02 AM EST Narrative 05/09/2024 5:04 [place] [address] Ultrasound Report Signed Patient: JOYCE CANTU MR#: [id number] : 1995 Acct:[id number] Age/Sex: 29 / F ADM Date: 05/08/24 Loc: NOMS Attending Dr: Neris Law D.O. Ordering Physician: Neris Law D.O. Date of Service: 05/08/24 Procedure(s): US OB transvaginal Accession Number(s): [id number] cc: Neris Law D.O.; Shaniqua Del Valle NP [place] [address] Patient Name: JOYCE CANTU MRN: [id number] date: 1995 Sex: F Assigned Patient [facility] Current Patient Location: Accession/Order Number: [id number] Exam Date: 05/08/2024 09:08 Report Date: 05/09/2024 [...] M.D. Signed By: 05/09/24503 DD/ 1 TD/TT: [employer] Salesperson: Procedure Note Radiology, Radiologist, - 05/09/2024 [place] [address] Ultrasound Report Signed Patient: JOYCE CANTU NMR#: [id number] : 1995Acct:[id number] Age/Sex: 29 / FADM Date: 05/08/24 Loc: NOMS Attending Dr: Neris Law D.O. Ordering Physician: Neris Law D.O. Date of Service: 05/08/24 Procedure(s): US OB transvaginal Accession Number(s): [id number] cc: Neris Law D.O.; Shaniqua Del Valle NP The [place] [address] Patient Name: JOYCE CANTU MRN: [id number] date: 1995 Sex: F Assigned Patient Location: [facility] Current Patient Location: Accession/Order Number: [id number] Exam Date: 05/08/2024 09:08 Report Date: 05/09/2024 [...] live intrauterine . Electronically authenticated by: ESTRADA CATSRO Date: 05/09/2024 05:02 Dictated By: Estrada Castro M.D. Signed By:05/09/24 0504 DD/ 1 TD/TT: [employer] Salesperson: us Neris Ani DO [facility] Final Result documented in this encounter Visit Diagnoses Not on filedocumented in this encounter
--- OUTSIDE RECORDS SUMMARY | 2024-12-02 13:37 | XMS_ITS | Encounter Summary ---
Author Organization [facility] Address [address] [facility] [place] [address] Care Team Providers Care Embroidery Specialist Name Role Phone Unavailable Primary Care Provider Unavailabl e Encounter Details Date Type Department Care Team (Late st Contact Info) Description 05/24/2023 Clinisync Result Encounter NOMS External Department Unsolicited Neris Law, DO [address] [place] [address] Social History Tobacco Use Types Packs/Day Years [...] PM EDT Routine [facility] BCP OB [address] [facility] [place] [phone] Neris Law, DO [address] [place] [address] documented as of this encounter Procedures Procedure [...] EST Narrative 05/24/2023 10:05 [place] [address] Ultrasound Report Signed Patient: JOYCE CANTU MR#: [id number] : 1995 Acct:[id number] Age/Sex: 28 / F ADM Date: 05/24/23 Loc: US Attending Dr: Neris Law D.O. Ordering Physician: Neris Law D.O. Date of Service: 05/24/23 Procedure(s): US pelvis transvaginal Accession Number(s): [id number] cc: Neris Law D.O.; Shaniqua Del Valle NP [address] [address] Patient Name: JOYCE CANTU MRN: [id number] date: 1995 Sex: F Assigned Patient Location: US Current Patient Location: US Accession/Order Number: [id number] Exam Date: 05/24/2023 09:15 Report Date: 05/24/2023 [...] Signed By: 05/24/23 1005 DD/ 1002 TD/TT: Rubber Stamp Assembler: Procedure Note Radiology, Radiologist, - 05/24/2023 [place] [address] Ultrasound Report Signed Patient: JOYCE CANTU NMR#: [id number] : 1995Acct:[id number] Age/Sex: 28 / FADM Date: 05/24/23 Loc: US Attending Dr: Neris Law D.O. Ordering Physician: Neris Law D.O. Date of Service: 05/24/23 Procedure(s): US pelvis transvaginal Accession Number(s): [id number] cc: Neris Law D.O.; Shaniqua Del Valle NP The [place] [id number] Patient Name: JOYCE CANTU MRN: [id number] date: 1995 Sex: F Assigned Patient Location: US Current Patient Location: US Accession/Order Number: [id number] Exam Date: 05/24/2023 09:15 Report Date: 05/24/2023 [...] M.D. Signed By:05/24/23 1005 DD/ 1002 TD/TT: Rubber Stamp Assembler: us Neris Ani DO [facility] Final Result * [facility] PROLACTIN (05/24/2023 9:41 AM EST) PROLACTIN 10.1 4.8 - 23.3 ng/mL [facility] Comment: Effective June 03, 2023 Prolactin reference [...] - 32.0 3.6 - 32.0 Performed at: [facility] [id number] Electrical Electronics Engineer: Antoni Valentin PhD, Phone: [phone] 05/24/2023 9:41 AM EST 05/24/2023 9:42 AM EST Narrative [facility] - 05/25/2023 4:07 AM EST Neris Ani DO [facility] Final Result Performing Organization Address City/[facility] Co de Phone Number [facility] * [facility] PREG QUANT HCG (05/24/2023 9:41 AM EST) HCG QUANTITATIVE <1 mIU/mL [facility] Comment: 5-50 0.2-1 WEEK 50-500 1-2 WEEKS 100-5,000 2-3 WEEKS 500-10,000 3-4 WEEKS 1,000-50,000 4-5 WEEKS 10,000-100,000 5-6 WEEKS 15,000-200,000 6-8 WEEKS 10,000-100,000 2-3 MONTHS 05/24/2023 9:41 AM EST 05/24/2023 9:42 AM EST Narrative [facility] - 05/24/2023 10:25 AM EST Neris Ani DO [facility] Final Result Performing Organization Address [facility] Co de Phone Number [facility] * ALL THYROID STIM HORMONE (05/24/2023 9:41 AM EST) THYROID STIMULATING HORMONE 1.421 0.358 - 3.740 uIU/mL TB 05/24/2023 9:41 AM EST 05/24/2023 9:42 AM EST Narrative [facility] - 05/24/2023 10:25 AM EST Neris Ani DO [facility] Final Result Performing Organization Address [facility] Co de Phone Number [facility] * (ABNORMAL) ALL CBC WITH AUTO DIFF [...]
--- OUTSIDE RECORDS SUMMARY | 2024-12-02 13:37 | XMS_ITS | Encounter Summary ---
Author Organization [facility] Address [address] [facility] [place] [address] Care Team Providers Care Egg Smeller Name Role Phone Unavailable Primary Care Provider Unavailabl e Encounter Details Date Type Department Care Team (Late st Contact Info) Description 11/25/2024 Bamboo flowsheet [facility] BCP OB [address] [place] [address] Domenic Law [facility] Locust Reanna Miguel, [place] [address] Social History Tobacco Use Types Packs/Day Years [...] PM EDT Routine [facility] BCP OB [address] [facility] [address] Domenic Law [facility] Patrick Miguel, [facility]11 documented as of this encounter Visit Diagnoses Not on filedocumented in this encounter
--- OUTSIDE RECORDS SUMMARY | 2024-12-02 13:37 | XMS_ITS | Encounter Summary ---
Author Organization [facility] Address [address] [facility] [place] [address] Care Team Providers Care Awning Craftsman Name Role Phone Unavailable Primary Care Provider Unavailabl e Encounter Details Date Type Department Care Team (Late st Contact Info) Description 05/08/2024 Abstract [facility] BCP OB [address] [place] [address] Domenic Law DO [facility] Patrick Miguel, [facility]11 Social History Tobacco Use Types Packs/Day Years [...] [place] [address] Domenic Law DO [facility] Patrick Miguel, [facility]11 documented as of this encounter Visit Diagnoses Not on filedocumented in this encounter
--- OUTSIDE RECORDS SUMMARY | 2024-12-02 13:37 | XMS_ITS | Clinical Summary ---
Author Organization [facility] Address [address] [place] [address] Care Team Providers Care Metalizing Machine Operator Automatic Name Role Phone Unavailable Primary Care Provider Unavailabl e Allergies Active Allergy Reactions Criticality Noted Date Comments Penicillins Hives 05/08/2024 Other Reaction(s): Unknown Medications sertraline (Zoloft) 50 MG tablet 02/16/20 24 Active Vit-Fe Fumarate-FA ( Vitamins) 28-0.8 MG tabletIndications: First trimester ([facility]) Take 1 tablet by mouth Daily 30 tablet 3 06/08/20 24 025 Active ondansetron ODT (Zofran-ODT) 4 MG disintegrating tabletIndications: Vomiting of , unspecified ([facility]) DISSOLVE 1 TABLET UNDER TONGUE EVERY 6 [...] Description 11/25/2024 1:10 PM EDT Routine [facility] BCP OB [address] [place] [address] [place] [address] Neris Law DO 35 weeks gestation of ([facility]); Third trimester ([facility]) 11/25/2024 Bamboo flowsheet N[facility] OB [address] [place] [address] [place] [address] Neris Law, DO 11/25/2024 Travel 11/12/2024 Abstract N[facility]S [facility] OB [address] [place] [address] [place] [address] Neris Law, DO 11/12/2024 Abstract NOMS [address] [place] [address] Neris Law, DO 11/11/2024 3:30 PM EDT Routine NOMS [address] [place] [address] Neris Law, DO 33 weeks gestation of ([facility]); Third trimester ([facility]); Heart palpitations 11/11/2024 Bamboo flowsheet NOMS [address] [place] [address] Neirs Law, DO 10/28/2024 2:30 PM EDT Routine NOMS [address] [place] [address] Maribell Guillen, ANA PAULA 31 weeks gestation of ([facility]); Third trimester ([facility]) 10/28/2024 Bamboo flowsheet NOMS [address] [place] [address] Maribell Guillen, ANA PAULA 10/28/2024 Travel 10/21/2024 Telephone [facility] OB [address] [place] [address] [place] [address] Neris Law, DO 10/19/2024 Clinisync Result Encounter NOMS External Department Unsolicited Neris Law, DO 10/19/2024 Telephone [facility] OB [address] [place] [address] [place] [address] Neris Law, DO 10/18/2024 Clinisync Result Encounter NOMS External Department Unsolicited Neris Law, DO 10/14/2024 2:00 PM EDT Routine [facility] BCP OB [address] [place] [address] Neris Law, Third trimester ([facility]); 29 weeks gestation of ([facility]); Excessive growth affecting management of , antepartum, single or unspecified fetus ([facility]) 10/14/2024 Bamboo flowsheet NOM[facility] OB [address] [place] [address] Neris Law, DO 09/30/2024 2:50 PM EDT Routine NOMS [facility] OB [facility] [place] [address] Neris Law, Second trimester ([facility]); 27 weeks gestation of ([facility]) 09/30/2024 Clinisync Result Encounter NOMS External Department Unsolicited Neris Law, DO 09/30/2024 Travel 09/28/2024 Telephone [facility] OB [address] [place] [address] Neris Law, 09/28/2024 Clinisync Result Encounter NOMS External Department Unsolicited Neris Law, DO 09/02/2024 3:10 PM EDT Routine [facility] BCP OB [address] [place] [address] Neris Law, 23 weeks gestation of ([facility]); Second trimester ([facility]); Diabetes mellitus screening 09/02/2024 Bamboo flowsheet [facility]OM[facility] BCP OB [address] [place] [address] Neris Law, from Last 3 Months Family History Medical [...] PM EDT Routine NOMS BCP OB [address] [facility] [place] [address] Neris Law, DO [address] [facility] [place] [address] Health Maintenance Due Date Last Done Comments Influenza Vaccine Completed 07/13/2024, , 03/20/2022, Additional history exists Procedures Procedure Name Priority Date/Time Associated Diagnosis Comments POCT URINALYSIS DIPSTICK Routine 11/25/2024 1:14 PM EDT 35 weeks gestation of ([facility]) Third trimester ([facility]) POCT URINALYSIS DIPSTICK Routine 11/11/2024 4:05 PM EDT 33 weeks gestation of ([facility]) Third trimester ([facility]) POCT URINALYSIS DIPSTICK Routine 10/28/2024 2:41 PM EDT 31 weeks gestation of ([facility]) Third trimester ([facility]) MHPT DIFFERENTIAL Routine 10/19/2024 5:1 5 PM EDT ALL CBC WITH AUTO DIFF Routine 10/19/2024 5:15 PM EDT [facility] LIPASE Routine 10/19/2024 5:15 PM EDT ALL AMYLASE Routine 10/19/2024 5:15 PM EDT [facility] CMP (CMP) (FOR REMOTE [facility] USE) Routine 10/19/2024 5:15 PM EDT [facility] UA (CLEAN/CATCH) PRENATAL TEACHER/MICRO IF IND. Routine 10/19/2024 2:30 PM EDT US OB GROWTH 10/18/2024 8:30 PM EDT POCT URINALYSIS DIPSTICK Routine 10/14/2024 2:49 PM EDT Third trimester ([facility]) POCT URINALYSIS DIPSTICK Routine 09/30/2024 3:06 PM EDT Second trimester ([facility]) GLUCOSE TOLERANCE 3 HOUR Routine 09/30/2024 10:58 AM EDT GLUCOSE 1 HOUR Routine 09/28/2024 8:52 AM EDT ALL CBC WITH AUTO DIFF Routine 09/28/2024 8:52 AM EDT POCT URINALYSIS DIPSTICK Routine 09/02/2024 3:37 PM EDT 23 weeks gestation of ([facility]) Second trimester ([facility]) from Last 3 Months Results * (ABNORMAL) [...] - Positive Urine 11/25/2024 1:14 PM EDT [facility] Ani DO POINT OF CARE TEST ENTER/EDIT [...] Narrative [facility] - 10/19/2024 6:06 PM EDT us Neris Ani DO [facility] Final Result [facility] * (ABNORMAL) [facility] LIPASE (10/19/2024 5:15 PM EDT) LIPASE 14.0(L) 16.0 - 77.0 U/L [facility] 10/19/2024 5:15 PM EDT 10/19/2024 5:35 PM EDT Narrative [facility] - 10/19/2024 6:02 PM EDT Neris Ani DO [facility] Final Result [facility] * (ABNORMAL) [facility] CMP (CMP) (FOR REMOTE [facility] USE) (10/19/2024 5:15 PM EDT) SODIUM 135(L) [...] 0.55 - 1.02 mg/dL TBH TBH EGFR-AF [place] >60 >=60 mL/min/1. 73m 2 TBH TBH EGFR-NON AF [place] >60 >=60 mL/min/1. 73m 2 TBH BUN [...] Narrative [facility] - 10/19/2024 6:02 PM EDT [facility] DO [facility] Final Result Performing Organization Address City/[facility]/ZIP Co de Phone Number [facility] * (ABNORMAL) ALL CBC WITH AUTO DIFF (10/19/2024 5:15 PM EDT) Only the most recent of2 resultswithin the time period is included. [facility] WBC 7.4 4.0 - 11.0 10 3/uL [...] Narrative [facility] - 10/19/2024 6:06 PM EDT [facility] DO [facility] Final Result [facility] * ALL AMYLASE (10/19/2024 5:15 PM EDT) AMYLASE 72 25 - 115 U/L [facility] 10/19/2024 5:15 PM EDT 10/19/2024 5:35 PM EDT Narrative [facility] - 10/19/2024 6:02 PM EDT us Neris Law DO [facility] Final Result [facility] * (ABNORMAL) TBH UA (CLEAN/CATCH) PRENATAL TEACHER/MICRO IF IND. (10/19/2024 2:30 PM EDT) COLOR [...] 3:20 PM EDT us Neris Law DO [facility] Final Result Performing Organization Address City/[facility]/ZIP Co de Phone Number [facility] * US OB GROWTH (10/18/2024 8:30 PM EDT) Anatomical Region Laterality Modality Other 10/18/2024 8:30 PM EDT Narrative 10/19/2024 11:23 AM EDT [address] [address] Ultrasound Report Signed Patient: JOYCE CANTU MR#: [id number] : 1995 Acct:[id number] Age/Sex: 29 / F ADM Date: 10/17/24 Loc: US Attending Dr: Neris Law D.O. Ordering Physician: Neris Law D.O. Date of Service: 10/17/24 Procedure(s): US OB growth Accession Number(s): [id number] cc: Neris Law D.O.; Shaniqua Del Valle NP The [place] [id number] Patient Name: JOYCE CANTU MRN: [facility]:[id number] date: 1995 Sex: F Assigned Patient Location: US Current Patient Location: Accession/Order Number: [id number] Exam Date: 10/18/2024 20:28 Report Date: 10/18/2024 [...] Jr., D.O. 10/18/2024 8:30 PM Dictation Location: [place] [address] Electronically authenticated by: [id number] Y Date: 10/18/2024 20:30 Dictated By: Arnav Smith M.D. Signed By: 10/19/24 1123 DD/ 2030 TD/TT: Electric Sign Wirer: Procedure Note Radiology, Radiologist, MD - 10/19/2024 [place] [address] Ultrasound Report Signed Patient: JOYCE CANTU NMR#: [id number] : 1995Acct:[id number] Age/Sex: 29 / FADM Date: 10/17/24 Loc: US Attending Dr: Neris Law D.O. Ordering Physician: Neris Law D.O. Date of Service: 10/17/24 Procedure(s): US OB growth Accession Number(s): [id number] cc: Neris Law D.O.; Shaniqua Del Valle NP [address] [address] Patient Name: JOYCE CANTU MRN: [facility]:[id number] date: 1995 Sex: F Assigned Patient Location: Current Patient Location: Accession/Order Number: [id number] Exam Date: 10/18/2024 20:28 Report Date: 10/18/2024 [...] Jr., D.O. 10/18/2024 8:30 PM Dictation Location: [place] [address] Electronically authenticated by: [id number] Y Date: 0:30 Dictated By: Arnav Smith M.D. Signed By:10/19/24 112 DD/ 29 TD/TT: Electric Sign Wirer: Neris Law DO [facility] Final Result [...] Narrative [facility] - 09/30/2024 2:33 PM EDT us Neris Ani DO LAB BLOOD ORDERABLES Final Resul t [facility] TB * (ABNORMAL) GLUCOSE 1 HOUR (09/28/2024 8:52 AM EDT) GLUCOSE 1 HOUR 154(H) <130 mg/dL TB[facility] 09/28/2024 8:52 AM EDT 09/28/2024 8:54 AM EDT Narrative [facility] - 09/28/2024 9:20 AM EDT us Neris Ani DO LAB BLOOD ORDERABLES Final Resul t Performing Organization Address City/[facility]/ZIP Co de Phone Number [facility] TB from Last 3 Months Insurance [facility]
[2024-12-02 14:20] LABS: Bilirubin Urine NEGATIVE (NEGATIVE); Blood Urine NEGATIVE (NEGATIVE); Clarity Urine CLEAR (CLEAR); Color Urine YELLOW (YELLOW); Glucose Urine UA NEGATIVE (NEGATIVE); Ketones Urine NEGATIVE (NEGATIVE); Leukocyte Esterase Urine NEGATIVE (NEGATIVE); Nitrite Urine NEGATIVE (NEGATIVE); Protein Urine TRACE mg/dL (NEG/TRACE); Specific Gravity Urine 1.015 (1.005-1.025); Urobilinogen Urine 0.2 EU/dL (0.2-1.0)
[2024-12-02 14:20] LABS: Amnisure NEGATIVE (NEGATIVE); Internal Control Within Normal Limits
[2024-12-02 14:21] LABS: Urine Microscopic Indicated NO
[2024-12-02 16:05] VITALS: BP 118/70; PULSE 68
== END 2024-12-02 16:17 | disposition home or self-care (01) ==
PROVIDERS: Admitting Provider Obstetrics & Gynecology; PCP Nurse Practitioner Family; Visit Provider Obstetrics & Gynecology
DX: O47.9 False labor, unspecified (principal); Z3A.00 Weeks of gestation of pregnancy not specified
CPT/HCPCS: 81003; 84112; G0378; G0379

== ENCOUNTER 2024-12-14 08:59 | Inpatient (IN) | payer BC, SELFPAY ==
--- OUTSIDE RECORDS SUMMARY | 2024-12-03 11:40 | XMS_ITS | Encounter Summary ---
Author Organization [facility] Address [address] [facility] [place] [address] Care Team Providers Care Radar Air Traffic Controller Name Role Phone Unavailable Primary Care Provider Unavailabl e Reason for Visit * Reason Comments Routine Visit Encounter Details Date Type Department Care Team (Late st Contact Info) Description 12/03/2024 11:40 AM EDT Routine [facility] OB [address] [facility] [place] [address] Domenic Law, DO [address] [facility] [place] [address] Third trimester ([facility]); 37 weeks gestation of ([facility]) Social History Tobacco Use Types Packs/Day [...] Sign Reading Time Taken Comments Blood Pressure 120/74 12/03/2024 11:52 AM EDT Pulse - - Temperature - - Respiratory Rate - - Oxygen Saturation - - Inhaled Oxygen Concentration - - Weight 91.7 kg (202 lb 1.9 oz) 12/03/2024 11:52 AM EDT Height - - Body Mass Index 31.66 10/15/2022 12:00 PM EDT documented in this encounter Progress Notes * Aliya Aguilar, SUPERVISOR POLISHING - 12/03/2024 11:40 AM EDT Reason for Appointment: Patient ID: Emy [...] nursing note reviewed. Exam conducted with a bridge opener present. Vitals: Estimated body mass index is 31.66 kg/m?? as calculated from the following: Height as of 10/15/22: 5' 7 . Weight as of this encounter: 202 lb 1.9 oz. BP: 120/74 Patient's last menstrual period was 03/12/2024. ASSESSMENT & PLAN ICD-10-CM 1. Third trimester ([facility]) Z34.93 2. 37 weeks gestation of ([facility]) Z3A.37 Patient presents today for a routine obstetrics appointment. Patient is currently 37w0d with a Estimated Date of Delivery: 12/24/24. Pelvic exam revealed 3-4cm dilated. Discussed IOL on 12/14/2024. Patient to return to clinic in 1 week for return OB appointment. Documented by Domenic Law DO documented in this encounter Plan of Treatment Not on file documented as of this encounter Visit Diagnoses Diagnosis Third trimester ([facility]) state, incidental 37 weeks gestation of ([facility]) documented in this encounter
--- OUTSIDE RECORDS SUMMARY | 2024-12-09 15:00 | XMS_ITS | Encounter Summary ---
Author Organization [facility] Address [address] [facility] [place] [address] Care Team Providers Care Veterinary Practitioner Name Role Phone Unavailable Primary Care Provider Unavailabl e Reason for Visit * Reason Comments Routine Visit Encounter Details Date Type Department Care Team (Late st Contact Info) Description 12/09/2024 3:00 PM EDT Routine [facility] OB [address] [place] [phone] Domenic Law, DO [address] [place] [address] Third trimester ([facility]); 37 weeks gestation of ([facility]) Social History Tobacco Use Types Packs/Day Years [...] Sign Reading Time Taken Comments Blood Pressure 130/84 12/10/2024 9:14 AM EDT Pulse - - Temperature - - Respiratory Rate - - Oxygen Saturation - - Inhaled Oxygen Concentration - - Weight 92 kg (202 lb 12.8 oz) 12/10/2024 9:14 AM EDT Height - - Body Mass Index 31.76 10/15/2022 12:00 PM EDT documented in this encounter Progress Notes * LUCINA Singletary - 12/09/2024 3:00 PM EDT Reason for Appointment: Patient ID: Emy Vega is a 29 y.o. female who presents for Routine Visit Patient presents today for Return OB appointment. MEDICATIONS Current Outpatient Medications Medication Instructions ??? ondansetron ODT (Zofran-ODT) 4 MG disintegrating tablet DISSOLVE 1 TABLET UNDER TONGUE EVERY 6 HOURS IF NEEDED FOR NAUSEA OR VOMITING ??? Vit-Fe Fumarate-FA ( Vitamins) 28-0.8 MG tablet 1 tablet, Oral, Daily ??? sertraline (Zoloft) 50 MG tablet ALLERGIES Allergies Allergen Reactions ??? Penicillins Hives Other Reaction(s): Unknown PROBLEMS Active Ambulatory Problems Diagnosis Date Noted ??? No Active Ambulatory Problems Resolved Ambulatory Problems Diagnosis Date Noted ??? No Resolved Ambulatory Problems Past Medical History: Diagnosis Date ??? Anxiety HISTORY PAST MEDICAL HISTORY SOCIAL HISTORY Past Medical History: Diagnosis Date ??? Anxiety Social History Tobacco Use ??? Smoking status: Never ??? Smokeless tobacco: Never Substance Use Topics ??? Alcohol use: Never ??? Drug use: Never FAMILY HISTORY Family History Problem Relation Name Age of Onset ??? Hypertension Maternal Grandfather ??? Diabetes Maternal Grandfather ??? Cancer Paternal Grandmother ??? Other (Heart problems) Paternal Grandfather ??? Hypertension Paternal Grandfather SURGICAL HISTORY Past Surgical History: Procedure Laterality Date ??? WISDOM TOOTH EXTRACTION 04/19/2017 wisdom teeth REVIEW OF SYSTEMS Review of Systems: Review of Systems Constitutional: Negative. HENT: Negative. Eyes: Negative. Respiratory: Negative. Cardiovascular: Negative. Gastrointestinal: Negative. Genitourinary: Negative. Musculoskeletal: Negative. Skin: Negative. Neurological: Negative. All other systems reviewed and are negative. Hematological: Negative. Endocrine: Negative. Allergic/Immunologic: Negative. OBJECTIVE Objective: Physical Exam Constitutional: Appearance: Normal appearance. She is normal weight. Genitourinary: Right Adnexa: not tender and no mass present. Left Adnexa: not tender and no mass present. No cervical discharge. HENT: Head: Normocephalic. Nose: Nose normal. Mouth/Throat: Mouth: Mucous membranes are moist. Cardiovascular: Rate and Rhythm: Normal rate. Pulses: Normal pulses. Pulmonary: Effort: Pulmonary effort is normal. Breath sounds: Normal breath sounds. Abdominal: General: Bowel sounds are normal. Palpations: Abdomen is soft. Musculoskeletal: General: Normal range of motion. Cervical back: Normal range of motion. Neurological: General: No focal deficit present. Mental Status: She is alert and oriented to person, place, and time. Skin: General: Skin is warm and dry. Psychiatric: Mood and Affect: Mood normal. Behavior: Behavior normal. Thought Content: Thought content normal. Judgment: Judgment normal. Vitals and nursing note reviewed. Exam conducted with a clinical project leader present. Vitals: Estimated body mass index is 31.66 kg/m?? as calculated from the following: Height as of 10/15/22: 5' 7 . Weight as of 12/03/24: 202 lb 1.9 oz. BP: Patient's last menstrual period was 03/12/2024. ASSESSMENT & PLAN ICD-10-CM 1. Third trimester ([facility]) Z34.93 POCT urinalysis dipstick manually resulted 2. 37 weeks gestation of ([facility]) Z3A.37 Return OB: Patient presents today for a routine obstetrics appointment. Patient is currently 38w0d . Patient states she is doing well but has complaints of being tired due to current . Patient has verbalizes frequent movement. labor precautions was discussed/given and patient was instructed to perform kick counts three times a day. Orders Placed This Encounter Procedures ??? POCT urinalysis dipstick manually resulted Follow Up: Patient is to return to office in 1 week for routine OB appointment. Documented by LUCINA Singletary on behalf of: Domenic Law DO documented in this encounter Plan of Treatment Not on file documented as of this encounter Procedures Procedure Name Priority Date/Time Associated Diagnosis Comments POCT URINALYSIS DIPSTICK Routine 12/09/2024 3:27 PM EDT Third trimester ([facility]) documented in this encounter Results * (ABNORMAL) POCT urinalysis dipstick manually resulted (12/09/2024 3:27 PM EDT) Color, UA Yellow Clarity, UA Clear Glucose, UA Negative Negative - 2000(110) ++++ mg/dL Bilirubin, UA Negative Negative - 4(70) +++ mg/dL Ketones, UA Negative Negative - 160(16) ++++ mg/dL Spec Grav, UA 1.025 1 - 1.03 Blood, UA Negative Negative - 50 Brett/mcL pH, UA 6.0 5 - 9 Protein, UA Positive Negative - 1999(20) ++++ mg/dL Comment:30mg/dL Urobilinogen, UA 1.0 0.2 - 12 mg/dL Leukocytes, UA Negative Negative - 500+++ Torsten/mcL Nitrite, UA Negative Negative - Positive Urine 12/09/2024 3:27 PM EDT Domenic Law DO POINT OF CARE TEST ENTER/EDIT OR DERABLES Final Result documented in this encounter Visit Diagnoses Diagnosis Third trimester ([facility]) state, incidental 37 weeks gestation of ([facility]) documented in this encounter
[2024-12-14] VITALS (41 sets, daily range): BP systolic 96–140; BP diastolic 58–83; PULSE 58–90; TEMP 35.8–36.7
--- OUTSIDE RECORDS SUMMARY | 2024-12-14 08:10 | XMS_ITS | Encounter Summary ---
Author Organization [facility] Address [address] [facility] [place] [address] Care Team Providers Care Cut Off Saw Operator Name Role Phone Unavailable Primary Care Provider Unavailabl e Reason for Visit * Reason Comments Routine Visit Encounter Details Date Type Department Care Team (Late st Contact Info) Description 12/14/2024 8:10 AM EDT Routine [facility] OB [address] [place] [phone] Domenic Law, DO [address] [place] [address] Third trimester ([facility]); 38 weeks gestation of ([facility]) Social History Tobacco Use Types Packs/Day Years [...] Sign Reading Time Taken Comments Blood Pressure 128/80 12/14/2024 8:29 AM EDT Pulse - - Temperature - - Respiratory Rate - - Oxygen Saturation - - Inhaled Oxygen Concentration - - Weight 91.6 kg (202 lb) 12/14/2024 8:29 AM EDT Height - - Body Mass Index 31.64 10/15/2022 12:00 PM EDT documented in this encounter Plan of Treatment Not on file documented as of this encounter Visit Diagnoses Diagnosis Third trimester ([facility]) state, incidental 38 weeks gestation of ([facility]) documented in this encounter
--- OUTSIDE RECORDS SUMMARY | 2024-12-14 09:04 | XMS_ITS | Encounter Summary ---
Author Organization [facility] Address [address] [facility] [place] [address] Care Team Providers Care Jewelry Repairer Name Role Phone Unavailable Primary Care Provider Unavailabl e Encounter Details Date Type Department Care Team (Late st Contact Info) Description 11/23/2022 Abstract [facility] OB [address] [phone] Domenic Law, DO [address] [place] [address] Social History Tobacco Use Types Packs/Day Years Used Date Smoking Tobacco: Never Assessed Comments Unknown Sex and Gender Information Value Date Recorded Sex Assigned at Not on file Legal Sex Female 11:47 PM EDT Gender Identity Not on file Sexual Orientation Not on file documented as of this encounter Plan of Treatment Not on file documented as of this encounter Visit Diagnoses Not on filedocumented in this encounter
--- OUTSIDE RECORDS SUMMARY | 2024-12-14 09:04 | XMS_ITS | Encounter Summary ---
Author Organization [facility] Address [address] [facility] [place] [address] Care Team Providers Care Batch Or Continuous Still Operator Name Role Phone Unavailable Primary Care Provider Unavailabl e Encounter Details Date Type Department Care Team (Late st Contact Info) Description 11/12/2024 Abstract [facility] OB [address] [place] [phone] Domenic Law, DO [address] [place] [address] Social History Tobacco Use Types Packs/Day Years [...]
--- OUTSIDE RECORDS SUMMARY | 2024-12-14 09:04 | XMS_ITS | Encounter Summary ---
Author Organization [facility] Address [address] [facility] [place] [address] Care Team Providers Care Production Designer Name Role Phone Unavailable Primary Care Provider Unavailabl e Encounter Details Date Type Department Care Team (Late st Contact Info) Description 11/12/2024 Abstract [facility] OB [address] [phone] Domenic Law, DO [address] [place] [address] Social History Tobacco Use Types Packs/Day Years [...]
--- OUTSIDE RECORDS SUMMARY | 2024-12-14 09:04 | XMS_ITS | Encounter Summary ---
Author Organization [facility] Address [address] [facility] [place] [address] Care Team Providers Care Lav Crewman Name Role Phone Unavailable Primary Care Provider Unavailabl e Encounter Details Date Type Department Care Team (Late st Contact Info) Description 05/08/2024 Abstract [facility] OB [address] [place] [phone] Domenic Law, DO [address] [place] [address] Social History Tobacco Use Types Packs/Day Years [...]
--- OUTSIDE RECORDS SUMMARY | 2024-12-14 09:04 | XMS_ITS | Encounter Summary ---
Author Organization [facility] Address [address] [facility] [place] [address] Care Team Providers Care Azure Developer Name Role Phone Unavailable Primary Care Provider Unavailabl e Encounter Details Date Type Department Care Team (Late st Contact Info) Description 06/01/2024 Abstract [facility] OB [address] [place] [phone] Domenic Law, DO [address] [place] [address] Social History Tobacco Use Types Packs/Day Years [...]
--- OUTSIDE RECORDS SUMMARY | 2024-12-14 09:04 | XMS_ITS | Encounter Summary ---
Author Organization [facility] Address [address] [facility] [place] [address] Care Team Providers Care Child And Family Therapist Name Role Phone Unavailable Primary Care Provider Unavailabl e Encounter Details Date Type Department Care Team (Late st Contact Info) Description 06/19/2024 Abstract [facility] OB [address] [place] [phone] Domenic Law, DO [address] [place] [address] Social History Tobacco Use Types Packs/Day Years [...]
--- OUTSIDE RECORDS SUMMARY | 2024-12-14 09:04 | XMS_ITS | Encounter Summary ---
Author Organization [facility] Address [address] [facility] [place] [address] Care Team Providers Care Contract Administration Specialist Name Role Phone Unavailable Primary Care Provider Unavailabl e Encounter Details Date Type Department Care Team (Late st Contact Info) Description 12/14/2024 Bamboo flowsheet [facility] [address] [place] [phone] Domenic Law DO [address] [place] [address] Social History Tobacco Use Types Packs/Day Years [...]
--- OUTSIDE RECORDS SUMMARY | 2024-12-14 09:04 | XMS_ITS | Encounter Summary ---
Author Organization [facility] Address [address] [facility] [place] [address] Care Team Providers Care Deputy Commissioner Name Role Phone Unavailable Primary Care Provider Unavailabl e Encounter Details Date Type Department Care Team (Late st Contact Info) Description 12/02/2024 Clinisync Result Encounter [facility] External Department Unsolicited Domenic Law, DO [address] [place] [address] Social History Tobacco Use Types Packs/Day Years [...] Procedure Name Priority Date/Time Associated Diagnosis Comments [facility] UA (CLEAN/CATCH) NET APPLICATION ARCHITECT/MICRO IF IND. Routine 12/02/2024 1:55 PM EDT AMNISURE Routine 12/02/2024 1:50 PM EDT documented in this encounter Results * [facility] UA (CLEAN/CATCH) NET APPLICATION ARCHITECT/MICRO IF IND. (12/02/2024 1:55 PM EDT) COLOR URINE YELLOW YELLOW TBH CLARITY URINE CLEAR CLEAR [facility] SPECIFIC GRAVITY URINE 1.015 1.005 - 1.025 TBH PH URINE 6.0 5.0 - 9.0 TBH PROTEIN URINE TRACE NEG/TRACE mg/dL TBH GLUCOSE URINE UA NEGATIVE NEGATIVE mg/dL [facility]H BILIRUBIN URINE NEGATIVE NEGATIVE TBH KETONES URINE NEGATIVE NEGATIVE mg/dL TBH BLOOD URINE NEGATIVE NEGATIVE TBH NITRITE URINE NEGATIVE NEGATIVE TBH UROBILINOGEN URINE 0.2 0.2 - 1.0 EU/dL TBH LEUKOCYTE ESTERASE URINE NEGATIVE NEGATIVE TBH URINE MICROSCOPIC INDICATED NO [facility] 12/02/2024 1:55 PM EDT 12/02/2024 2:10 PM EDT Narrative [facility] - 12/02/2024 2:21 PM EDT us Domenic Ani DO CLINISYNC Final Result Performing Organization Address [facility] Co de Phone Number CLINISYNC TB * AMNISURE (12/02/2024 1:50 PM EDT) Pathologist [facility] AMNISURE NEGATIVE NEGATIVE TBH 12/02/2024 1:50 PM EDT 12/02/2024 2:10 PM EDT Narrative [facility] - 12/02/2024 2:20 PM EDT us Domenic Ani DO LAB BLOOD ORDERABLES Final Resul t Performing Organization Address [facility] Co de Phone Number CLINIS[facility]NY TB documented in this encounter Visit Diagnoses Not on filedocumented in this encounter
--- OUTSIDE RECORDS SUMMARY | 2024-12-14 09:04 | XMS_ITS | Encounter Summary ---
Author Organization [facility] Address [address] [facility] [place] [address] Care Team Providers Care Multicraft Operator Name Role Phone Unavailable Primary Care Provider Unavailabl e Encounter Details Date Type Department Care Team (Late st Contact Info) Description 05/09/2024 Clinisync Result Encounter [facility] External Department Unsolicited Neris Law, DO [address] [facility] [place] [address] Social History Tobacco Use Types Packs/Day Years [...] AM EST Narrative 05/09/2024 5:04 AM EST The [address] [address] Ultrasound Report Signed Patient: JOYCE CANTU MR#: [id number] : 1995 Acct:[id number] Age/Sex: 29 / F ADM Date: 05/08/24 Loc: [facility] Attending Dr: Neris Law D.O. Ordering Physician: Neris Law D.O. Date of Service: 05/08/24 Procedure(s): US OB transvaginal Accession Number(s): [id number] cc: Neris Law D.O.; Shaniqua Del Valle NP [place] [id number] Patient Name: JOYCE CANTU MRN: [id number] date: 1995 Sex: F Assigned Patient Location: [facility] Current Patient Location: Accession/Order Number: [id number] Exam Date: 05/08/2024 09:08 Report Date: 05/09/2024 [...] Dictated By: Estrada Castro M.D. Signed By: 05/09/24 0504 DD/ 1 TD/TT: Industrial Workers: Procedure Note Radiology, Radiologist, MD - 05/09/2024 The [place] [id number] Ultrasound Report Signed Patient: JOYCE CANTU NMR#: [id number] : 1995Acct:[id number] Age/Sex: 29 / FADM Date: 05/08/24 Loc: [facility] Attending Dr: Neris Law D.O. Ordering Physician: Neris Law D.O. Date of Service: 05/08/24 Procedure(s): US OB transvaginal Accession Number(s): [id number] cc: Neris Law D.O.; Shaniqua Del Valle NP [place] [address] Patient Name: JOYCE CANTU MRN: [id number] date: 1995 Sex: F Assigned Patient Location: [facility] Current Patient Location: Accession/Order Number: [id number] Exam Date: 05/08/2024 09:08 Report Date: 05/09/2024 [...] 05:02 Dictated By: Estrada Castro M.D. Signed By:05/09/24503 DD/ 1 TD/TT: Industrial Workers: us Neris Law DO [facility] IMAGING Final Result documented in this encounter Visit Diagnoses Not on filedocumented in this encounter
--- OUTSIDE RECORDS SUMMARY | 2024-12-14 09:04 | XMS_ITS | Encounter Summary ---
Author Organization [facility] Address [address] [facility] [place] [address] Care Team Providers Care Pbx Manager Name Role Phone Unavailable Primary Care Provider Unavailabl e Encounter Details Date Type Department Care Team (Late st Contact Info) Description 06/01/2024 Abstract [facility] OB [address] [place] [place] [phone] Domenic Law, DO [address] [place] [address] Social History Tobacco Use Types Packs/Day Years [...]
--- OUTSIDE RECORDS SUMMARY | 2024-12-14 09:04 | XMS_ITS | Encounter Summary ---
Author Organization [facility] Address [address] [facility] [place] [address] Care Team Providers Care Compounding Assistant Name Role Phone Unavailable Primary Care Provider Unavailabl e Encounter Details Date Type Department Care Team (Late st Contact Info) Description 07/17/2024 Orders Only [facility] OB [address] [place] [address] Bisi Corley MA [address] [place] [address] Social History Tobacco Use Types Packs/Day Years [...]
--- OUTSIDE RECORDS SUMMARY | 2024-12-14 09:04 | XMS_ITS | Encounter Summary ---
Author Organization [facility] Address [address] [facility] [place] [address] Care Team Providers Care Nat Instructor Name Role Phone Unavailable Primary Care Provider Unavailabl e Encounter Details Date Type Department Care Team (Latest Contact Info) Description 12/09/2024 Travel Social History Tobacco Use Types Packs/Day [...]
--- OUTSIDE RECORDS SUMMARY | 2024-12-14 09:04 | XMS_ITS | Encounter Summary ---
Author Organization [facility] Address [address] [facility] [address] Care Team Providers Care Electric Gas Appliances Demonstrator Name Role Phone Unavailable Primary Care Provider Unavailabl e Encounter Details Date Type Department Care Team (Late st Contact Info) Description 06/01/2024 Abstract [facility] OB [address] [place] [phone] Domenic Law, DO [address] [place] [address] Social History Tobacco Use Types Packs/Day Years [...]
--- OUTSIDE RECORDS SUMMARY | 2024-12-14 09:04 | XMS_ITS | Encounter Summary ---
Author Organization [facility] Address [address] [facility] [place] [address] Care Team Providers Care Poultry Farm Laborer Name Role Phone Unavailable Primary Care Provider Unavailabl e Encounter Details Date Type Department Care Team (Late st Contact Info) Description 06/01/2024 Abstract [facility] OB [address] [place] [phone] Domenic Law, DO [address] [place] [address] Social History Tobacco Use Types Packs/Day Years [...]
--- OUTSIDE RECORDS SUMMARY | 2024-12-14 09:04 | XMS_ITS | Encounter Summary ---
Author Organization [facility] Address [address] [facility] [place] [address] Care Team Providers Care Esl Teacher Name Role Phone Unavailable Primary Care Provider Unavailabl e Encounter Details Date Type Department Care Team (Late st Contact Info) Description 06/01/2024 Abstract [facility] OB [address] [place] [phone] Domenic Law, DO [address] [place] [address] Social History Tobacco Use Types Packs/Day Years [...]
--- OUTSIDE RECORDS SUMMARY | 2024-12-14 09:04 | XMS_ITS | Encounter Summary ---
Author Organization [facility] Address [address] [facility] [place] [address] Care Team Providers Care Lead Mechanic Name Role Phone Unavailable Primary Care Provider Unavailabl e Encounter Details Date Type Department Care Team (Late st Contact Info) Description 12/09/2024 Bamboo flowsheet [facility] [address] [place] [phone] Domenic Law DO [address] [place] [address] Social History Tobacco Use Types Packs/Day Years [...]
--- OUTSIDE RECORDS SUMMARY | 2024-12-14 09:04 | XMS_ITS | Encounter Summary ---
Author Organization [facility] Address [address] [place] [address] Care Team Providers Care Licensed Occupational Therapist Name Role Phone Unavailable Primary Care Provider Unavailabl e Encounter Details Date Type Department Care Team (Late st Contact Info) Description 11/22/2022 Abstract [facility] OB [address] [place] [address] Sofia Peralta PA [address] [place] [address] Social History Tobacco Use Types Packs/Day Years [...]
--- OUTSIDE RECORDS SUMMARY | 2024-12-14 09:04 | XMS_ITS | Encounter Summary ---
Author Organization [facility] Address [address] [facility] [place] [address] Care Team Providers Care Inspector Government Property Name Role Phone Unavailable Primary Care Provider Unavailabl e Encounter Details Date Type Department Care Team (Late st Contact Info) Description 12/03/2024 Bamboo flowsheet [facility] [address] [place] [phone] Domenic Law DO [address] [facility] [address] [address] [place] [address] Social History Tobacco Use Types Packs/Day Years [...]
--- OUTSIDE RECORDS SUMMARY | 2024-12-14 09:04 | XMS_ITS | Clinical Summary ---
Author Organization [facility] Healthcare Address [address] [place] [address] Care Team Providers Care Test Technician Name Role Phone Unavailable Primary Care Provider Unavailabl e Allergies Active Allergy Reactions Criticality Noted Date Comments Penicillins Hives 05/08/2024 Other Reaction(s): Unknown Medications sertraline (Zoloft) 50 MG tablet 4 Active Vit-Fe Fumarate-FA ( Vitamins) 28-0.8 MG tabletIndications:F irst trimester ([facility]) Take 1 tablet by mouth Daily 30 tablet 3 4 06/08/20 25 Active ondansetron ODT (Zofran-ODT) 4 MG disintegrating tabletIndications:V omiting of , unspecified ([facility]) DISSOLVE 1 TABLET UNDER TONGUE EVERY 6 HOURS IF NEEDED FOR NAUSEA OR VOMITING 30 tablet 4 5 Active Encounters Date Type Department Care Team Description 12/14/2024 8:10 AM EDT Routine [facility] [address] [place] [address] Neris Law DO Third trimester ([facility]); 38 weeks gestation of ([facility]) 12/14/2024 Bamboo flowsheet [place] [address] [place] [address] Neris Law DO 12/09/2024 3:00 PM EDT Routine [facility] [address] [place] [address] Neris Law, DO Third trimester ([facility]); 37 weeks gestation of ([facility]) 12/09/2024 Bamboo flowsheet [facility] [address] [place] [address] Neris Law, DO 12/09/2024 Travel 12/03/2024 11:40 AM EDT Routine [facility] [address] [place] [address] Neris Law, DO Third trimester ([facility]); 37 weeks gestation of ([facility]) 12/03/2024 Bamboo flowsheet [facility] [address] [place] [address] Neris Law, DO 12/02/2024 Clinisync Result Encounter [facility] External Department Unsolicited Neris Law, DO 11/25/2024 1:10 PM EDT Routine [facility] [address] [place] [address] Neris Law, 35 weeks gestation of ([facility]); Third trimester ([facility]) 11/25/2024 Bamboo flowsheet [facility] OB [address] [place] [address] Neris Law, DO 11/25/2024 Travel 11/12/2024 Abstract [facility] [address] [place] [address] Neris Law, DO 11/12/2024 Abstract [facility] [address] [place] [address] Neris Law, DO 11/11/2024 3:30 PM EDT Routine [facility] [address] [place] [address] Neris Law, 33 weeks gestation of ([facility]); Third trimester ([facility]); Heart palpitations 11/11/2024 Bamboo flowsheet [facility] OB [address] [place] [address] Neris Law, 10/28/2024 2:30 PM EDT Routine [facility] OB [address] [place] [address] Maribell Guillen, ANA PAULA 31 weeks gestation of ([facility]); Third trimester ([facility]) 10/28/2024 Bamboo flowsheet [facility] OB [address] [place] [address] Maribell Guillen, ANA PAULA 10/28/2024 Travel 10/21/2024 Telephone [facility] [address] [place] [address] Neris Law, 10/19/2024 Clinisync Result Encounter [facility] External Department Unsolicited Neris Law, DO 10/19/2024 Telephone [facility] OB [address] [place] [address] [place] [address] Neris Law, 10/18/2024 Clinisync Result Encounter [facility] External Department Unsolicited Neris Law, 10/14/2024 2:00 PM EDT Routine [facility] OB [address] [place] [address] Neris Law, DO Third trimester ([facility]); 29 weeks gestation of ([facility]); Excessive growth affecting management of , antepartum, single or unspecified fetus ([facility]) 10/14/2024 Bamboo flowsheet [facility] OB [address] [place] [address] [place] [address] Neris Law, 09/30/2024 2:50 PM EDT Routine [facility] OB [address] [place] [address] Neris Law, DO Second trimester ([facility]); 27 weeks gestation of ([facility]) 09/30/2024 Clinisync Result Encounter [facility] External Department Unsolicited Sadiq Lawy, DO 09/30/2024 Travel 09/28/2024 Telephone [facility] OB [address] [place] [address] Ani Neris, DO 09/28/2024 Clinisync Result Encounter [facility] External Department Unsolicited Neris Law, DO from Last 3 Months Family History [...] (202 lb) 12/14/2024 8:29 AM EDT Height 170.2 cm (5' 7 ) 10/15/2022 12:00 PM EDT Body Mass Index 31.64 10/15/2022 12:00 PM EDT Plan of Treatment Health Maintenance Due Date Last Done Comments Influenza Vaccine Completed 07/13/2024, , 03/20/2022, Additional history exists Procedures Procedure Name Priority Date/Time Associated Diagnosis Comments POCT URINALYSIS DIPSTICK Routine 12/09/2024 3:27 PM EDT Third trimester ([facility]) [facility] UA (CLEAN/CATCH) MEAT MOLDER/MICRO IF IND. Routine 12/02/2024 1:55 PM EDT AMNISURE Routine 12/02/2024 1:50 PM EDT POCT URINALYSIS DIPSTICK Routine 11/25/2024 1:14 PM EDT 35 weeks gestation of ([facility]) Third trimester ([facility]) CULTURE, GROUP B STREP WITH SUSCEPTIBLITY Routine 11/25/2024 12:57 PM EDT Third trimester ([facility]) POCT URINALYSIS DIPSTICK Routine 11/11/2024 4:05 PM EDT 33 weeks gestation of ([facility]) Third trimester ([facility]) POCT URINALYSIS DIPSTICK Routine 10/28/2024 2:41 PM EDT 31 weeks gestation of ([facility]) Third trimester ([facility]) MHPT DIFFERENTIAL Routine 10/19/2024 5:1 5 PM EDT ALL CBC WITH AUTO DIFF Routine 5:15 PM EDT [facility] LIPASE Routine 10/19/2024 5:15 PM EDT ALL AMYLASE Routine 10/19/2024 5:15 PM EDT [facility] CMP (CMP) (FOR REMOTE [facility] USE) Routine 10/19/2024 5:15 PM EDT TBH UA (CLEAN/CATCH) MEAT MOLDER/MICRO IF IND. Routine 10/19/2024 2:30 PM EDT US OB GROWTH 10/18/2024 8:30 PM EDT POCT URINALYSIS DIPSTICK Routine 10/14/2024 2:49 PM EDT Third trimester ([facility]) POCT URINALYSIS DIPSTICK Routine 09/30/2024 3:06 PM EDT Second trimester ([facility]) GLUCOSE TOLERANCE 3 HOUR Routine 09/30/2024 10:58 AM EDT GLUCOSE 1 HOUR Routine 09/28/2024 8:52 AM EDT ALL CBC WITH AUTO DIFF Routine 8:52 AM EDT from Last 3 Months Results * (ABNORMAL) POCT urinalysis dipstick manually resulted (12/09/2024 3:27 PM EDT) Only the most recent of6 [...] - 9 Protein, UA Positive Negative - 2000(20) ++++ mg/dL Comment:30mg/dL Urobilinogen, UA 1.0 0.2 - 12 mg/dL Leukocytes, UA Negative Negative - 500+++ Torsten/mcL Nitrite, UA Negative Negative - Positive Urine 12/09/2024 3:27 PM EDT Neris Ani DO POINT OF CARE TEST ENTER/EDIT OR DERABLES Final Result * TBH UA (CLEAN/CATCH) MEAT MOLDER/MICRO IF IND. (12/02/2024 1:55 PM EDT) Only the most recent of2 resultswithin the time period is included. COLOR URINE YELLOW YELLOW TBH CLARITY URINE [...] CLINISYNC - 12/02/2024 2:21 PM EDT us Neris Ani DO CLINISYNC Final Result Performing Organization Address [facility] Co de Phone Number [facility] * AMNISURE (12/02/2024 1:50 PM EDT) Pathologist [facility] TB AMNISURE NEGATIVE NEGATIVE TBH 12/02/2024 1:50 PM EDT 12/02/2024 2:10 PM EDT Narrative CLINISYNC - 12/02/2024 2:20 PM EDT Neris Ani DO LAB BLOOD ORDERABLES Final Resul t Performing Organization Address [facility] de Phone Number BETYOH TB * CULTURE, GROUP B STREP WITH SUSCEPTIBLITY (11/25/2024 12:57 PM EDT) Swab 11/25/2024 12:5 7 PM EDT Neris Ani DO LAB BLOOD ORDERABLES Final Resul t Performing Organization Address [facility] Co de Phone Number EXTERNAL LAB * (ABNORMAL) MHPT DIFFERENTIAL (10/19/2024 5:15 PM [...] [facility] CMP (CMP) (FOR REMOTE [facility] USE) (10/19/2024 5:15 PM EDT) SODIUM 135(L) [...] 0.55 - 1.02 mg/dL TBH TBH EGFR-AF PALESTINIAN >60 >=60 mL/min/1. 73m 2 TBH TBH EGFR-NON AF PALESTINIAN >60 >=60 mL/min/1. 73m 2 TBH BUN [...] us Neris Ani DO CLINISYNC Final Result [facility] * (ABNORMAL) ALL CBC WITH AUTO DIFF (10/19/2024 5:15 PM EDT) Only the most recent of2 resultswithin the time period is included. TB WBC 7.4 4.0 - 11.0 10 [...] us Neris Ani DO CLINISYNC Final [facility] * ALL AMYLASE (10/19/2024 5:15 PM EDT) AMYLASE 72 25 - 115 U/L TBH 10/19/2024 5:15 PM EDT 10/19/2024 5:35 PM EDT Narrative CLINISYNC - 10/19/2024 6:02 PM EDT us Neris Law DO CLINISYNC Final Result Performing Organization Address [facility] de Phone Number [facility] * US OB GROWTH (10/18/2024 8:30 PM EDT) Anatomical Region Laterality Modality Other 10/18/2024 8:30 PM EDT Narrative 10/19/2024 11:[place] [address] Ultrasound Report Signed Patient: JOYCE CANTU MR#: [id number] : 1995 Acct:[id number] Age/Sex: 29 / F ADM Date: 10/17/24 Loc: US Attending Dr: Neris Law D.O. Ordering Physician: Neris Law D.O. Date of Service: 10/17/24 Procedure(s): US OB growth Accession Number(s): [id number] cc: Neris Law D.O.; Shaniqua Del Valle NP [address] [address] Patient Name: JOYCE CANTU MRN: [id number] date: 1995 Sex: F Assigned Patient Location: US Current Patient Location: Accession/Order Number: [id number] Exam Date: 10/18/2024 20:28 Report Date: 10/18/2024 [...] Jr., D.O. 10/18/2024 8:30 PM Dictation Location: [place] [address] Electronically authenticated by: [id number] Y Date: 10/18/2024 20:30 Dictated By: Arnav Smith M.D. Signed By: 10/19/24 1123 DD/ 2030 TD/TT: [place] Vessel Pilot: Procedure Note Radiology, Radiologist, - 10/19/2024 [place] [address] Ultrasound Report Signed Patient: JOYCE CANTU NMR#: [id number] : 1995Acct:[id number] Age/Sex: 29 / FADM Date: 10/17/24 Loc: US Attending Dr: Neris Law D.O. Ordering Physician: Neris Law D.O. Date of Service: 10/17/24 Procedure(s): US OB growth Accession Number(s): [id number] cc: Neris Law D.O.; Shaniqua Del Valle NP The [place] [id number] Patient Name: JOYCE CANTU MRN: [facility]:[id number] date: 1995 Sex: F Assigned Patient Location: Current Patient Location: Accession/Order Number: [id number] Exam Date: 10/18/2024 20:28 Report Date: 10/18/2024 [...] Jr., D.O. 10/18/2024 8:30 PM Dictation Location: [place] [address] Electronically authenticated by: [id number] Y Date: 0:30 Dictated By: Arnav Smith M.D. Signed By:10/19/24 112 DD/ 29 TD/TT: [place] Vessel Pilot: Neris Law DO CLINISYNC IMAGING Final Result * (ABNORMAL) GLUCOSE TOLERANCE 3 HOUR (09/30/2024 10:58 AM EDT) GLUCOSE TOLERANCE 3 HOUR (H) mg/dL [facility] Comment: GLU FAST 76 (<95) Col: 09/30/24 1058 GLU 1HR 166 (<180) Col: 09/30/24 1159 GLU 2HR 158H (<155) Col: 09/30/24 1259 GLU 3HR 120 (<140) Col: 09/30/24 1358 09/30/2024 10:5 8 AM EDT 09/30/2024 11:01 AM EDT Narrative CLINISYNC - 09/30/2024 2:33 PM EDT Neris Law DO LAB BLOOD ORDERABLES Final Resul t CLINISYNC TB * (ABNORMAL) GLUCOSE 1 HOUR (09/28/2024 8:52 AM EDT) GLUCOSE 1 HOUR 154(H) <130 mg/dL TBH 09/28/2024 8:52 AM EDT 09/28/2024 8:54 AM EDT Narrative CLINISYNC - 09/28/2024 9:20 AM EDT us Neris Law DO LAB BLOOD ORDERABLES Final Resul t CLINISYNC TB from Last 3 Months Insurance [facility]
--- OUTSIDE RECORDS SUMMARY | 2024-12-14 09:04 | XMS_ITS | Encounter Summary ---
Author Organization [facility] Address [address] [facility] [place] [address] Care Team Providers Care General Claims Agent Name Role Phone Unavailable Primary Care Provider Unavailabl e Encounter Details Date Type Department Care Team (Late st Contact Info) Description 05/24/2023 Clinisync Result Encounter [facility] External Department Unsolicited Neris Law, DO [address] [facility] [place] [address] Social History Tobacco Use Types Packs/Day Years [...] AM EST Narrative 05/24/2023 10:05 AM EST [address] [address] Ultrasound Report Signed Patient: JOYCE CANTU MR#: [id number] : 1995 Acct:[id number] Age/Sex: 28 / F ADM Date: 05/24/23 Loc: US Attending Dr: Neris Law D.O. Ordering Physician: Neris Law D.O. Date of Service: 05/24/23 Procedure(s): US pelvis transvaginal Accession Number(s): [id number] cc: Neris Law D.O.; Shaniqua Del Valle NP [address] [address] Patient Name: JOYCE CANTU MRN: [id number] date: 1995 Sex: F Assigned Patient Location: Current Patient Location: US Accession/Order Number: [id number] Exam Date: 05/24/2023 09:15 Report Date: 05/24/2023 [...] Signed By: 05/24/23 1005 DD/ 1002 TD/TT: Book Salesman: Procedure Note Radiology, Radiologist, - 05/24/2023 [place] [address] Ultrasound Report Signed Patient: JOYCE CANTU NMR#: [id number] : 1995Acct:[id number] Age/Sex: 28 / FADM Date: 05/24/23 Loc: US Attending Dr: Neris Law D.O. Ordering Physician: Neris Law D.O. Date of Service: 05/24/23 Procedure(s): US pelvis transvaginal Accession Number(s): [id number] cc: Neris Law D.O.; Shaniqua Del Valle NP [place] [address] Patient Name: JOYCE CANTU MRN: [id number] date: 1995 Sex: F Assigned Patient Location: Current Patient Location: US Accession/Order Number: [id number] Exam Date: 05/24/2023 09:15 Report Date: 05/24/2023 [...] M.D. Signed By:05/24/23 1005 DD/ 1002 TD/TT: Book Salesman: us Neris Ani DO CLINISYNC IMAGING Final Result * TBH PROLACTIN (05/24/2023 9:41 AM EST) PROLACTIN 10.1 4.8 - 23.3 ng/mL TBH Comment: Effective June 03, 2023 Prolactin reference [...] - 32.0 3.6 - 32.0 Performed at: [facility] [address] [id number] Mixer Blender: Antoni Valentin PhD, Phone: [phone] 05/24/2023 9:41 AM EST 05/24/2023 9:42 AM EST Narrative CLINISYNC - 05/25/2023 4:07 AM EST us Neris Ani DO CLINISYNC Final Result [facility] * [facility]H PREG QUANT HCG (05/24/2023 9:41 AM EST) Pathologist [facility] HCG QUANTITATIVE <1 mIU/mL TBH Comment: 5-50 0.2-1 WEEK 50-500 1-2 WEEKS 100-5,000 2-3 WEEKS 500-10,000 3-4 WEEKS 1,000-50,000 4-5 WEEKS 10,000-100,000 5-6 WEEKS 15,000-200,000 6-8 WEEKS 10,000-100,000 2-3 MONTHS 05/24/2023 9:41 AM EST 05/24/2023 9:42 AM EST Narrative CLINISYNC - 05/24/2023 10:25 AM EST Neris Ani DO CLINISYNC Final Result [facility] * ALL THYROID STIM HORMONE (05/24/2023 9:41 AM EST) [facility] THYROID STIMULATING HORMONE 1.421 0.358 - 3.740 uIU/mL TBH 05/24/2023 9:41 AM EST 05/24/2023 9:42 AM EST Narrative CLINISYNC - 05/24/2023 10:25 AM EST [facility] Ani DO CLINISYNC Final Result [facility] * (ABNORMAL) ALL CBC WITH AUTO DIFF (05/24/2023 9:41 AM EST) [facility] TBH WBC 6.7 4.0 - 11.0 10 3/uL TBH TBH RBC 4.20 4.20 - 5.40 10 6/uL [...] - 05/24/2023 10:24 AM EST us Neris Law DO CLINISYNC Final Result [facility]NC [facility] documented in this encounter Visit Diagnoses Not on filedocumented in this encounter
--- OUTSIDE RECORDS SUMMARY | 2024-12-14 09:05 | XMS_ITS | Encounter Summary ---
Author Organization [facility] Address [address] [facility] [address] Care Team Providers Care Time Study Statistician Name Role Phone Unavailable Primary Care Provider Unavailabl e Encounter Details Date Type Department Care Team (Late st Contact Info) Description 07/08/2024 Abstract [facility] OB [address] [facility] [place] [address] Domenic Law, DO [address] [facility] [place] [address] Social History Tobacco Use Types Packs/Day Years [...]
[2024-12-14 10:01] LABS: Hematocrit 36.8 % (36.0-48.0); Hemoglobin 12.8 g/dL (12.0-16.0); Mean Corpuscular HGB Conc 34.8 g/dL (29.9-35.2); Mean Corpuscular Hemoglobin 31.9 pg (26.7-34.0); Mean Corpuscular Volume 91.8 fL (81.0-99.0); Platelet Count 269 10^3/uL (150-450); Red Blood Count 4.01 10^6/uL (4.20-5.40); White Blood Count 8.6 10^3/uL (4.0-11.0)
[2024-12-14 10:20] LABS: Cannabinoid Screen Urine NEGATIVE (NEGATIVE); Methamphetamines Screen Urine NEGATIVE (NEGATIVE); Tricyclic Antidepressant Urine NEGATIVE (NEGATIVE)
[2024-12-14] MEDS: ACETAMINOPHEN 500 MG TABLET 1000 MG PO (10:40)
--- NOTE | 2024-12-14 12:41 | PC.NURSE ---
1230- Pt on left side with peanut ball. Pt sneezes at this time and states her underwear feel wet. Underwear appear wet at this time; fluid light yellow tinged; underwear odor per pt smells of urine. 1240- Pt request to get into shower at this time; IV site covered. Pt up to shower.
--- NOTE | 2024-12-14 12:51 | PC.NURSE ---
09- Pt arrives to [facility] at this time via wheelchair with support person. Pt sent from office for admission to L&D order set to be initiated for onset of labor. RN spoke with prior to pt arrival; orders were confirmed and verified. cervical exam in office 4cm/80%. Pt taken to room 256. Pt states she is feeling cxt's every 15 min. Pt reports movement. Pt given gown and urine specimen cup for sample. RN verifies pt hisotry at this time; admission questions asked. 929- Pt up on birthing ball at this time.
[2024-12-14] MEDS: 0.9 % SODIUM CHLORIDE 1,000 ML 125 ML IV (13:11)
--- NOTE | 2024-12-14 14:44 | PC.NURSE ---
epidural catheter removed per manager parking. procedure restarted.
--- NOTE | 2024-12-14 14:46 | PC.NURSE ---
epidural catheter removed per manager industrial. procedure to be restarted.
[2024-12-14] MEDS: ROPIVACAINE HCL/PF 400 MG/200 ML PREMIX 6 MG EPIDURAL (14:57)
[2024-12-14] MEDS: 0.9 % SODIUM CHLORIDE 1,000 ML 1000 ML IV (15:02)
[2024-12-14] MEDS: OXYTOCIN/0.9 % SODIUM CHLORIDE 10 UNITS/500 ML PLAST..BAG 6 UNIT IV (15:33)
[2024-12-14] MEDS: OXYTOCIN/0.9 % SODIUM CHLORIDE 20 UNITS/1,000 ML PLAST..BAG 125 UNIT IV (17:16)
--- NOTE | 2024-12-14 17:23 | PM.OBPRCVD ---
Procedure Intrapartal events: None Induction method: none Delivery augmentation: rupture of membranes and pitocin Delivery monitor: external FHT and external uterine Route of delivery: Episiotomy Description: none L&D Laceration Description: periurethral - 1st degree Delivery repair: Vicryl Estimated blood loss (mL): 350 Anesthesia type: Epidural Disposition: floor Delivery date: 12/14/24 Gender: female presentation: vertex Placental delivery description: Spontaneous cord description: 3 Vessels
[2024-12-14] MEDS: IBUPROFEN 600 MG TABLET PO (21:16)
[2024-12-14] MEDS: GLYCERIN/WITCH HAZEL PADS 1 PAD TOPICAL (23:10)
[2024-12-14] MEDS: SERTRALINE HCL 50 MG TABLET PO (23:11)
[2024-12-15] MEDS: CALCIUM CARBONATE 500 MG (200MG ELEMENTAL) TAB CHEW PO ×2 (05:13→14:20)
[2024-12-15 06:26] LABS: Hematocrit 30.7 % (36.0-48.0); Hemoglobin 10.7 g/dL (12.0-16.0); Immature Granulocytes Abs Auto 0.06 10^3/uL (0.00-0.03); Immature Granulocytes Pct Auto 0.6 % (0.0-0.5); Lymphocytes Absolute Auto 3.4 10^3/uL (1.2-3.8); Mean Corpuscular HGB Conc 34.9 g/dL (29.9-35.2); Mean Corpuscular Hemoglobin 31.8 pg (26.7-34.0); Mean Corpuscular Volume 91.1 fL (81.0-99.0); Platelet Count 221 10^3/uL (150-450); Red Blood Count 3.37 10^6/uL (4.20-5.40); White Blood Count 9.9 10^3/uL (4.0-11.0)
[2024-12-15 09:30] VITALS: TEMP 36.4
[2024-12-15 09:36] VITALS: BP 108/55; PULSE 67
[2024-12-15] MEDS: DOCUSATE SODIUM 100 MG CAPSULE PO (09:39)
--- NOTE | 2024-12-15 11:56 | PM.OBPN ---
OB - PN: Subj Subjective Patient comments: no complaints [place] status: doing well feeding status: exclusively Exam Constitutional Vital Signs, click to edit/add: Last Vital Signs Temp 97.6 F 12/15/24 09:30 Pulse 67 12/15/24 09:36 Resp 16 12/15/24 09:30 BP 108/55 12/15/24 09:36 O2 Del Method Room Air 12/15/24 09:30 Documenting provider has reviewed patient's vital signs: yes Common normals: no apparent distress, average body habitus and oriented x3 Exam limitations: altered mental status General appearance: cooperative, comfortable, well kempt and well developed Orientation/consciousness: Yes awake, Yes oriented to person, Yes oriented to place and Yes oriented to time HENMT Common normals: normocephalic Head and scalp: normal to inspection Face and sinus: normal facial exam Eye Common normals: EOMs intact bilaterally General eye: normal appearance of both eyes Neck & C-Spine Common normals: full ROM General: normal visual inspection Lymph Lymphatic: no lymphadenopathy noted Chest Common normals: inspection of chest normal Respiratory Common normals: normal respiratory effort, no retractions, no use of accessory muscles, clear to auscultation bilaterally and percussion normal Effort & inspection: able to speak in complete sentences Cardio Common normals: regular rate and regular rhythm Rate: regular rate Rhythm: regular rhythm GI Common normals: Normal to inspection, nondistended, normoactive bowel sounds present and soft to palpation Inspection: normal to inspection Auscultation: normoactive bowel sounds Palpation: soft Percussion: normal to percussion Common normals: no CVA tenderness Back & Pelvis Common normals: no CVA tenderness Thoracic spine/upper back: normal to inspection Extremity Common normals: normal to inspection and full ROM General: normal exam except as noted Neuro Common normals: oriented x3 Sensorium/orientation: awake, alert, oriented to person, oriented to place and oriented to time Psych Common normals: mental status grossly normal, thought process normal, cooperative, affect normal, speech normal, activity/motor behavior normal, denies hallucinations, denies homicidal ideation and denies suicidal ideation Appearance: grossly normal Attitude: calm and engaged Activity/motor behavior: appropriate eye contact Speech: normal speech Mood and affect: euthymic mood Thought process: normal thought process Thought content: normal thought content Results Labs Labs: Short CBC 12/15/24 Range/Units 06:14 WBC 9.9 (4.0-11.0) 10^3/uL Hgb 10.7 L (12.0-16.0) g/dL Hct 30.7 L (36.0-48.0) % Plt Count 221 (150-450) 10^3/uL Urinary Catheter Management Urinary Catheter Management Urethral: Cath placed during this visit: yes, but has since been removed by the nurse Insertion date: 12/14/24 Insertion time: 15:20 Removal date: 12/14/24 Removal time: 17:01 OB - PN: A/P Plan - Vaginal Delivery day: 1 Plan: discharge home Time Spent with Patient Time: Total time spent is greater than 50% in coordination of care (as documented) at patient's floor/unit and/or counseling patient: Total time spent with greater than 50% in coordination of care (as documented) at patient's floor/unit and/or counseling patient: less than 15 minutes
--- NOTE | 2024-12-15 13:36 | W.PC.ACHO ---
Registration Status: ADM IN Primary Language: Australian Preferred Language: Australian Report given to David ASTORGA at 1300. Care relinquished at this time. Active Medications Generic Name Dose Route Start Last Admin Trade Name Heather PRN Reason Stop Dose Admin Acetaminophen 1,000 mg 12/14/24 09:56 12/14/24 10:40 Acetaminophen 500 Mg Tablet PO 1,000 mg Q6H PRN Administration Pain Acetaminophen 650 mg 12/14/24 17:24 Acetaminophen 325 Mg Tablet PO Q6H PRN Mild Pain Al Hydroxide/Mg Hydroxide 2,400 mg 12/14/24 17:24 Magnesium Hydroxide 2,400 Mg/10 Ml Oral.Susp PO Q6H PRN Dyspepsia Benzocaine/Menthol 1 applic 12/14/24 17:24 Benzocaine/Menthol 85 Gram Lolita Bottle TOPICAL Q2H PRN Pain Calcium Carbonate 500 mg 12/15/24 04:48 12/15/24 05:13 Calcium Carbonate 500 Mg (200mg Elemental) Tab Chew PO 500 mg TID PRN Administration heart burn Carboprost Tromethamine 250 mcg 12/14/24 09:30 Carboprost Tromethamine 250 Mcg/Ml 1 Ml Vial IM 12/15/24 18:00 Q15M PRN Bleeding Diphtheria/Pertussis/Tetanus Vacc 0.5 ml 12/16/24 09:00 Adacel Diph,Pertuss(Acell),Tet Vac/Pf 0.5 Ml Adult Syringe IM 12/16/24 09:01 .ONCE ONE Docusate Sodium 100 mg 12/15/24 09:00 12/15/24 09:39 Docusate Sodium 100 Mg Capsule PO 100 mg BID JOELLE Administration Tranexamic Acid 1,000 mg/ 110 mls @ 440 mls/hr 12/14/24 09:30 Sodium Chloride IV 12/15/24 18:00 ONCE PRN Uterine Bleeding Sodium Chloride 1,000 mls @ 125 mls/hr 12/14/24 09:30 12/14/24 15:02 Sodium Chloride 0.9% 1,000 Ml IV Infused .Q8H JOELLE Infusion Ibuprofen 600 mg 12/14/24 17:24 12/14/24 21:16 Ibuprofen 600 Mg Tablet PO 600 mg Q6H PRN Administration Moderate Pain Measles/Mumps/Rubella Vaccine Live 0.5 ml 12/16/24 09:00 Measles,Mumps,Rubella Vacc/Pf 0.5 Ml Vial SQ 12/16/24 09:01 .ONCE ONE Methylergonovine Maleate 0.2 mg 12/14/24 09:30 Methylergonovine Maleate 0.2 Mg/Ml Ampule IM 12/15/24 18:00 ONCE PRN Uterine Contractility/Contract Methylergonovine Maleate 0.2 mg 12/14/24 09:30 Methylergonovine Maleate 0.2 Mg Tablet PO 12/15/24 18:00 Q4H PRN Uterine Contractility/Contract Misoprostol 600 mcg 12/14/24 09:30 Misoprostol 100 Mcg Tablet PO 12/15/24 18:00 ONCE PRN Uterine Bleeding Misoprostol 800 mcg 12/14/24 09:30 Misoprostol 100 Mcg Tablet SL 12/15/24 18:00 ONCE PRN Uterine Bleeding Misoprostol 1,000 mcg 12/14/24 09:30 Misoprostol 100 Mcg Tablet AL 12/15/24 18:00 ONCE PRN Uterine Bleeding Ondansetron HCl 4 mg 12/14/24 09:30 12/14/24 16:45 Ondansetron Pf 4 Mg/2 Ml Vial IV 4 mg Q6H PRN Administration Nausea And Vomiting Ondansetron HCl 4 mg 12/14/24 09:30 Ondansetron 4 Mg Rapdis Tablet SL Q6H PRN Nausea And Vomiting Oxytocin 10 unit 12/14/24 09:30 Oxytocin 10 Unit/Ml Vial IM 12/15/24 18:00 ONCE PRN Bleeding Senna 17.2 mg 12/14/24 20:00 Sennosides 8.6 Mg Tablet PO QHS PRN Constipation Sertraline HCl 50 mg 12/14/24 22:30 12/15/24 10:31 Sertraline Hcl 50 Mg Tablet PO Not Given QD JOELLE Simethicone 80 mg 12/14/24 17:24 Simethicone 80 Mg Tab.Chew PO QID PRN Abdominal Distention Temazepam 15 mg 12/14/24 17:24 Temazepam 15 Mg Capsule PO QHS PRN Sleep Witch Lori/Glycerin 1 pad 12/14/24 17:24 12/14/24 23:10 Glycerin/Witch Lori Pads TOPICAL 1 pad Q2H PRN Administration Pain Diet Category Date Time Status Regular Consistency Diet Diet 06/30/25 17:24 Active IV Insertion/Site Date of IV Line Insertion [ 12/14/24 Short PIV (<1.75 in) 20g right Forearm] IV Insertion Time [Short PIV ( 14:15 <1.75 in) 20g right Forearm] Respiratory Oxygen Delivery Method Room Air Oxygen Delivery Method Room Air Oxygen Delivery Method Room Air Cardiology Heart Sounds Regular,Strong Renal Bladder Pattern Continent Catheter Urinary Catheter Date of 12/14/24 Insertion [Urethral] Urinary Catheter Date of 12/14/24 Insertion [Urethral] Urinary Catheter Time of 15:20 Insertion [Urethral] Urinary Catheter Time of 15:20 Insertion [Urethral] Date Urinary Catheter Removed 12/14/24 [Urethral] Date Urinary Catheter Removed 12/14/24 [Urethral] Time Urinary Catheter 17:01 Discontinued [Urethral] Time Urinary Catheter 17:01 Discontinued [Urethral]
[2024-12-15] MEDS: IBUPROFEN 600 MG TABLET PO (15:25)
[2024-12-15 16:30] VITALS: PULSE 82; TEMP 36.7
[2024-12-15 16:45] VITALS: BP 108/68; PULSE 80
[2024-12-15 16:48] VITALS: TEMP 36.1
--- NOTE | 2024-12-15 19:51 | PC.NURSE ---
1944 - RN to bedside. Pt in car seat. RN assessed and was secured appropriately with safety straps in correct positioning and secured tightly. Pt, stated and were then escorted to awaiting personal vehicle. Pt declined wheelchair escort and ambulated to Hospital main exit with steady gait without s/s of complications. [place] carried per to exit. RN to personal vehicle. Base of car seat positioned appropriately in rear cattle driver's side seat. Base secured with seatbelt. Car seat locks in securely. is rear facing. Pt and discharged home in care of family.
== END 2024-12-15 19:45 | disposition home or self-care (01) | DRG 807 ==
PROVIDERS: Admitting Provider Obstetrics & Gynecology; PCP Nurse Practitioner Family; Visit Provider Obstetrics & Gynecology
DX: O70.0 First degree perineal laceration during delivery (principal); Z37.0 Single live birth; Z3A.38 38 weeks gestation of pregnancy
CPT/HCPCS: 36415; 59050; 59410; 80307; 85025; 85027; 86850; 86900; 86901; J2405; J2795

== ENCOUNTER 2025-05-28 09:00 | Outpatient (OUT) | payer BC, SELFPAY ==
--- OUTSIDE RECORDS SUMMARY | 2025-05-28 09:05 | XMS_ITS | CCD ---
Author Organization [facility] Care Team Providers Care Coagulator Name Role Phone MIKIE OHARA Referring Unavailable MIKIE OHARA Primary Care Unavailable Mikie Ohara Primary Care Provider [phone] CHAD VAZQUEZ Attending Unavailable LEV, MIKIE Primary Care Unavailable LEV, DR MIKIE Olguin Primary Care Unavailable OHARA, DR MIKIE Olguin Consulting Unavailable LEV, DR MIKIE Olguin Attending Unavailable LEV, DR MIKIE Olguin Admitting Unavailable FABIAN ., SOFIA Attending Unavailable FABIAN ., SOFIA Admitting Unavailable LEV, DR MIKIE Olguin Primary Care Unavailable FABIAN .SOFIA Consulting Unavailable ANI ., DR CORDON Attending Unavailable OHARA, DR MIKIE Olguin Primary Care Unavailable ANI ., DR CORDON Admitting Unavailable ANI ., DR CORDON Consulting Unavailable ANI ., DR CORDON Attending Unavailable ANI ., DR CORDON Admitting Unavailable OHARA, DR MIKIE Olguin Primary Care Unavailable ANI ., DR CORDON Attending Unavailable OHARA, DR MIKIE Olguin Primary Care Unavailable ANI ., DR CORDON Admitting Unavailable ANI ., DR CORDON Attending Unavailable OHARA, DR MIKIE Olguin Primary Care Unavailable ANI ., DR CORDON Admitting Unavailable ANI ., DR CORDON Attending Unavailable ANI ., DR CORDON Admitting Unavailable OHARA, DR MIKIE Olguin Primary Care Unavailable ANI ., DR CORDON Attending Unavailable ANI ., DR CORDON Admitting Unavailable ANI ., DR CORDON Consulting Unavailable LEV, DR MIKIE Olguin Primary Care Unavailable EMILY II, JOCELYN Consulting Unavailable ANI ., DR CORDON Procedure Practitioner Unavail able ANI ., DR CORDON Attending Unavailable ANI ., DR CORDON Admitting Unavailable GLENNY TORRES V Consulting Unavailable LEV, DR MIKIE Olguin Primary Care Unavailable ANI ., DR CORDON Consulting Unavailable OHARA, DR MIKIE Olguin Primary Care Unavailable ANI ., DR CORDON Consulting Unavailable ANI ., DR CORDON Attending Unavailable ANI ., DR CORDON Admitting Unavailable FABIAN ., SOFIA Attending Unavailable FABIAN ., SOFIA Admitting Unavailable FABIAN ., SOFIA Consulting Unavailable OHARA, DR MIKIE Olguin Primary Care Unavailable ANI ., DR CORDON Attending Unavailable ANI ., DR CORDON Admitting Unavailable GLENNY TORRES V Consulting Unavailable OHARA, DR MIKIE Olguin Primary Care Unavailable ANI ., DR CORDON Consulting Unavailable ANI ., DR CORDON Attending Unavailable ANI ., DR CORDON Admitting Unavailable ANI ., DR CORDON Consulting Unavailable OHARA, DR MIKIE Olguin Primary Care Unavailable Karsten Rawls Consulting Unavailable ANI ., DR CORDON Attending Unavailable OHARA, DR MIKIE Olguin Primary Care Unavailable BRIAN, GLENNY Gamino Consulting Unavailable ANI ., DR CORDON Admitting Unavailable ANI ., DR CORDON Consulting Unavailable Unavailable Primary Care Provider Unavailgeorge Del Valle CENTERLESS GRINDER SET UP OPERATOR, Shaniqua Unavailable Unavailable ANI, DOMENIC Attending Unavailable FABIAN, SOFIA Referring Unavailable ANI, DOMENIC Attending Unavailable ANI, DOMENIC Attending Unavailable ANI, DOMENIC Attending Unavailable CADEN GUILLEN Attending Unavailable ANI, DOMENIC Attending Unavailable ANI, DOMENIC Attending Unavailable ANI, DOMENIC Attending Unavailable ANI, DOMENIC Attending Unavailable ANI, DOMENIC Attending Unavailable ANI, DOMENIC Attending Unavailable ANI, DOMENIC Attending Unavailable SOFIA PERALTA Attending Unavailable Eligio CENTERLESS GRINDER SET UP OPERATOR, Shaniqua Braswell Attending Unavailgeorge Del Valle CENTERLESS GRINDER SET UP OPERATOR, Shaniqua Braswell Primary Care Unavailgeorge olguin Allergies Allergy ClassificationReported Allergen(s)Allergy TypeDate of OnsetReaction(s) Facility (1 source)PenicillinsPropensity to adverse reactions to pnag06-55-0049[facility] [place] [place] (1 source)AmoxicillinDrug AllergyThe [facility] (2 sources)PenicillinDrug Mzlrovd11-08-3160Hug [facility] (20 sources)PenicillinsDrug Yiyiusg63-88-5715UucmuWXKJ Healthcare Medications Current Medications MedicationDrug Class(es)DatesSig (Normalized)Sig (Original)benzoyl peroxide 0.025 mg/mg / clindamycin phosphate 0.012 mg/mg topical gel (1 source)Lincosamide AntibacterialStart: 94-16-6741RTUNRC 1.2-2.5 % GELethinyl estradiol 0.035 mg / norgestimate 0.25 mg oral tablet (1 source)Progestin, EstrogenStart: 02-66-9888jwns 1 tablet by mouth once daily norgestimate-ethinyl estradiol (ORTHO-CYCLEN, 28,) 0.25-35 MG-MCG per tablet Indications: Dysmenorrhea in adolescent Take 1 tablet by mouth daily 1 packet 12 01/10/2016 Activeibuprofen 800 mg oral tablet (1 source)Nonsteroidal Anti-inflammatory DrugStart: 07-12-2020 End: 17-88-7391srcf 1 tablet by mouth every eight hours as needed for pain ibuprofen (ADVIL;MOTRIN) 800 MG tablet Take 1 tablet by mouth every 8 hours as needed for Pain 30 tablet 0 07/12/2020 07/22/2020 Activeminocycline 100 mg oral capsule (1 source)Tetracycline-class Drugminocycline (MINOCIN;DYNACIN) 100 MG capsule Take 50 mg by mouth daily 0 Activepolysaccharide iron complex 391 mg oral capsule (3 sources)Start: 07-30-2024 End: 15-24-2070vnwf 1 capsule by mouth once dailyiron polysaccharides (ProFe) 391.3 (180 Fe) MG capsule Indications: Iron deficiency anemia, unspecified iron deficiency anemia type Take 1 capsule (391.3 mg) by mouth Daily 30 capsule 3 07/30/2024 08/29/2024 ActivePrenatal Vit-Fe Fumarate-FA (PNV Plus Multivitamin) 27-1 MG tablet (6 sources)Start: 06-08-2024 End: 92-35-1161thhs 1 tablet by mouth once dailyPrenatal Vit-Fe Fumarate-FA (PNV Plus Multivitamin) 27-1 MG tablet Indications: First trimester Take 1 tablet by mouth Daily 30 tablet 11 06/08/2024 07/08/2024 Active Vit-Fe Fumarate-FA ( Vitamins) 28-0.8 MG tablet (20 sources)Start: 06-08-2024 End: 32-17-8496muyx 1 tablet by mouth once dailyPrenatal Vit-Fe Fumarate-FA ( Vitamins) 28-0.8 MG tablet Indications: First trimester ([facility]) Take 1 tablet by mouth Daily 30 tablet 3 06/08/2024 06/08/2025 Active Start: 06-08-2024 End: 95-47-0052vmaz 1 tablet by mouth once dailyPrenatal Vit-Fe Fumarate-FA ( Vitamins) 28-0.8 MG tablet Indications: First trimester Take 1 tablet by mouth Daily 30 tablet 3 06/08/2024 06/08/2025 Activesertraline 50 mg oral tablet (20 sources)Serotonin Reuptake InhibitorStart: 70-10-2855hlxcoxziwe (Zoloft) 50 MG tablet 02/16/2024 Active Completed/Discontinued Medications MedicationDrug Class(es)DatesSig (Normalized)Sig (Original)24 hr buPROPion hydrochloride 150 mg extended release oral tablet (5 sources)AminoketoneStart: 01-15-2024 End: 78-48-2667ueow 1 tablet by mouth once dailybuPROPion XL (Wellbutrin XL) 150 MG 24 hr tablet Take 150 mg by mouth Daily 01/15/2024 07/06/2024 Discontinued (Other)FLUoxetine 20 mg oral capsule (12 sources)Serotonin Reuptake InhibitorStart: 02-04-2024 End: 88-31-2973ytfy 1 capsule by mouth once daily in the morningFLUoxetine (PROzac) 20 MG capsule TAKE 1 CAPSULE BY MOUTH EVERY DAY IN THE MORNING 02/04/2024 09/02/2024 Discontinuedmetoclopramide 10 mg oral tablet (12 sources)Dopamine-2 Receptor AntagonistStart: 10-19-2024 End: 42-96-7485bihvvfjulwrxpe (Reglan) 10 MG tablet Indications: Nausea Take 1 tablet (10 mg) by mouth in the morning and 1 tablet (10 mg) at noon and 1 tablet (10 mg) in the evening. Take before meals. Take 1 tablet by mouth 30 minutes prior to meals 3 times daily as needed for nausea. 90 tablet 3 10/19/2024 05/01/2025 DiscontinuedStart: 07-07-2024 End: 07-58-0539baeqkpdqapwwtk (Reglan) 10 MG tablet Indications: Nausea and vomiting in Take 1 tablet (10 mg) by mouth in the morning and 1 tablet (10 mg) at noon and 1 tablet (10 mg) in the evening. Takebefore meals. Take 1 tablet by mouth 30 minutes prior to meals 3 times daily as needed for nausea..90 tablet 07/07/2024 09/02/2024 Discontinuednitrofurantoin, macrocrystals 25 mg / nitrofurantoin, monohydrate 75 mg oral capsule (3 sources)Nitrofuran AntibacterialStart: 05-25-2024 End: 68-08-5223nxzf 1 capsule by mouth in the morningnitrofurantoin, macrocrystal-monohydrate, (Macrobid) 100 MG capsule Indications: UTI symptoms Take 1 capsule (100 mg) by mouth in the morning and 1 capsule (100 mg) before bedtime. Do all this for 7 days. 14 capsule 05/25/2024 06/08/2024 Discontinued (Therapy completed)ondansetron 4 mg disintegrating oral tablet (20 sources)Serotonin-3 Receptor AntagonistStart: 08-18-2024 End: 85-60-8689nhymcdqrsrv ODT (Zofran-ODT) 4 MG disintegrating tablet Indications: Vomiting of , unspecified ([facility]) DISSOLVE 1 TABLET UNDER TONGUE EVERY 6 HOURS IF NEEDED FOR NAUSEA OR VOMITING 30 tablet 4 08/18/2024 01/27/2025 DiscontinuedStart: 04-23-2024 End: 43-20-4249ngrs 1 tablet by mouth every six hours for nauseaondansetron ODT (Zofran-ODT) 4 MG disintegrating tablet Indications: Nausea and vomiting in Take 1 tablet (4 mg) by mouth every 6 (six) hours if needed for nausea or vomiting 30 tablet 2 04/23/2024 05/23/2024 Activepromethazine hydrochloride 12.5 mg oral tablet (20 sources)PhenothiazineStart: 06-08-2024 End: 07-44-3513lcry 1 tablet by mouth every four hourspromethazine (Phenergan) 12.5 MG tablet Indications: Nausea and vomiting in Take 1 tablet(12.5 mg) by mouth every 4 (four) hours 180 tablet 1 06/08/2024 09/02/2024 DiscontinuedStart: 06-08-2024 End: 65-94-5049tidt 1 tablet by mouth every six hours as needed for nausea and nausea, then take 1 tablet by mouthevery six hours as needed for nausea and nauseapromethazine (Phenergan) 12.5 MG tablet Indications: First trimester Take 1 tablet (12.5 mg) by mouth every 6 (six) hours if needed for nausea or vomiting for up to 30 doses Take 1 tablet by mouth every 6 hours as needed for nausea. 30 tablet 2 06/08/2024 09/02/2024 Discontinued Problems Active Problems Problem ClassificationProblemDateDocumented DateEpisodic/Chronic Administrative/social admission (2 sources)Encounter for examination for admission to educational institution; Translations: [Encounter for examination for admission to educational institution]Onset: 22-50-6578ZlqycwluCcsfeca disorders (2 sources)Other specified anxiety disordersChronicCardiac dysrhythmias (4 sources)Palpitations; Translations: [Palpitations]88-41-1333Zyjxvltj Conditions associated with dizziness or vertigo (2 sources)Lightheadedness; Translations: [Dizziness and giddiness]07-30-2024 EpisodicDeficiency and other anemia (2 sources)Iron deficiency anemia; Translations: [Iron deficiency anemia, unspecified]91-14-3246TzkipgxpRtqvtveleimwl symptoms and ill-defined conditions (2 sources)Urinary symptoms ; Translations: [Unspecified symptoms and signs involving the genitourinary system]73-21-6858IceskkkdBicyfwnykzmib and screening for infectious disease (11 sources)Encounter for screening for human papillomavirus (HPV); Translations: [Encounter for screening for infections with a predominantly sexual mode of transmission]Onset: 90-43-1166RjrbunraDhjnxmdsq disorders (6 sources)Irregular menstruation, unspecified; Translations: [Secondary amenorrhea]Onset: 71-48-5014WbhgyywGY-related trauma to perineum and vulva (2 sources)First degree perineal laceration during delivery; Translations: [Other specified trauma to perineumand vulva]Onset: 21-72-6068SwcbxvmqPkbzc complications of (4 sources)Uterine size-date discrepancy, third trimester; Translations: [UTERINE SZ-DATE DISCREPANCY 3RD TRI]Onset: 15-98-2314UxqgkyqpMzrhe complications of (2 sources)Vomiting of , unspecified; Translations: [Unspecified vomiting of , unspecified as to episode of care or not applicable] 48-17-5903QktlzsriBygzs complications of (2 sources)Excessive growth affecting management of mother; Translations: [Maternal care for excessive growth, unspecified trimester, not applicable or unspecified]48-30-5479JoyqckasQtlku female genital disorders (2 sources)Vaginal discharge; Translations: [Other specified noninflammatory disorders of vagina]87-90-8152MtbavidyOcngr nutritional; endocrine; and metabolic disorders (2 sources)Body mass index (BMI) 30.0-30.9, adultOnset: 191886-10-5910 ChronicOther nutritional; endocrine; and metabolic disorders (1 source)Body mass index (BMI) 28.0-28.9, adult; Translations: [Body mass index [BMI] 28.0-28.9, adult]Onset: 47-73-2479JexwtnlpMaaax and delivery including normal (20 sources)Encounter for care and examination of lactating mother; Translations: [Encounter for routine follow-up]Onset: 01-01-2022 EpisodicOther screening for suspected conditions (not mental disorders or infectious disease) (13 sources)Encounter for screening for malignant neoplasm of cervix; Translations: [Encounter for other specified screening]Onset: 09-61-9597IxcmudndVyzzbtqw codes; unclassified (1 source)39 weeks gestation of ; Translations: [39 WEEKS GESTATION OF ]Onset: 11-43-2780CvmcgolhPglsbxjn codes; unclassified (1 source)38 weeks gestation of ; Translations: [38 WEEKS GESTATION OF ]Onset: 77-07-5293GeeqbgljNxkmtwby codes; unclassified (2 sources)Gestation period, 11 weeks; Translations: [11 weeks gestation of ]25-50-3271JiugilbdMwfsgydl codes; unclassified (2 sources)Gestation period, 16 weeks; Translations: [16 weeks gestation of ]13-31-0374AzwvhdraHmowlbhf codes; unclassified (2 sources)Gestation period, 19 weeks; Translations: [19 weeks gestation of ]92-57-1948QnwppmniVxcefcuj codes; unclassified (2 sources)Gestation period, 23 weeks; Translations: [23 weeks gestation of ]41-11-7361WmbrtirqGufgtgax codes; unclassified (2 sources)Gestation period, 27 weeks; Translations: [27 weeks gestation of ]67-38-2535CvawlxlvHmlvkywq codes; unclassified (2 sources)Gestation period, 29 weeks; Translations: [29 weeks gestation of ]86-17-0599NkkxluirLwuduptw codes; unclassified (2 sources)Gestation period, 31 weeks; Translations: [31 weeks gestation of ]01-35-8131AfelxhahPyqqvqpm codes; unclassified (2 sources)Gestation period, 35 weeks; Translations: [35 weeks gestation of ]97-02-4874AhcmxwrzIvouikpj codes; unclassified (2 sources)Gestation period, 33 weeks; Translations: [33 weeks gestation of ]77-76-4515XugyfmmhTnwnuspd codes; unclassified (4 sources)Gestation period, 37 weeks; Translations: [37 weeks gestation of ]86-01-0805PbkizlnjFxssxbwj codes; unclassified (2 sources)Gestation period, 38 weeks; Translations: [38 weeks gestation of ]30-88-0110DgvezaixGxswrufmoqo injury; contusion (1 source)Insect bite (nonvenomous), right lower leg, initial encounter; Translations: [Insect bite of right lower leg, initial encounter]Onset: 57-45-1129TzvsiwudNnvpsrprrtiv (1 source)Sprain of left ankle; Translations: [Sprain of left ankle, unspecified ligament, initial encounter]Unclassified (1 source)Bitten or stung by nonvenomous insect and other nonvenomous arthropods, initial encounter; Translations: [Bitten or stung by nonvenomous insect and other nonvenomous arthropods, initial encounter]Onset: 04-19-2025 Past or Other Problems Problem ClassificationProblemDateDocumented DateEpisodic/ChronicMalaise and fatigue (1 source)Other fatigue; Translations: [OTHER FATIGUE]Onset: 02-80-1794Klfnzdbr Other complications of (1 source)Other specified related conditions, unspecified trimester; Translations: [OTH SPEC PREG RELATED COND UNS TRI]Onset: 58-49-2004BvijfbypMstlt female genital disorders (1 source)Other specified noninflammatory disorders of vagina; Translations: [OTH SPEC NONINFLAMMATORY D/O VAGINA]Onset: 35-95-0053RgpzelgeQqkutkxr codes; unclassified (1 source)34 weeks gestation of ; Translations: [34 WEEKS GESTATION OF ]Onset: 31-37-0768WosygddeIqbpgnud codes; unclassified (1 source)Family history of diabetes mellitus; Translations: [FAMILY HISTORY OF DIABETES MELLITUS]Onset: 87-29-8439VievpwdmZxiuggsbgcxi (1 source)Office visit (chief complaint)Onset: 12-17-2024 Results Test NameValueInterpretationReference RangeFacilityALL CBC WITH AUTO DIFFon 86-05-7358SMMANVZAS ABSOLUTE AUTO0.1NOMS HealthcareBasophils/100 WBC (Bld)0.5 % 0.2 - 2.0 %[facility]OM[facility] HealthcareEosinophils/100 WBC (Bld)0.7 %Low0.9 - 7.0 %NOM HealthcareErythrocyte distribution width (RBC) [Ratio]13.5 %11.0 - 15.0 %[facility]S HealthcareHematocrit (Bld) [Volume fraction]30.7 %Low36.0 - 48.0 %NOM HealthcareHemoglobin (Bld) [Mass/Vol]10.7 g/dLLow12.0 - 16.0 g/dLNOCox Branson IMMATURE GRANULOCYTES ABS AUTO0.06HighNOAL HealthcareImmature granulocytes/100 WBC (Bld)0.6 %High0.0 - 0.5 %[facility] HealthcareInterpretation and review of laboratory resultsAbnormalNOAL HealthcareLYMPHOCYTES ABSOLUTE AUTO3.4NOMS HealthcareLymphocytes/100 WBC (Bld)34.6 %20.5 - 60.0 %NOMFitzgibbon HospitalMCH (RBC) [Entitic mass]31.8 pg26.7 - 34.0 pgNOMS [facility] HospitalMCHC (RBC) [Mass/Vol]34.9 g/dL 29.9 - 35.2 g/dLNOCox BransonMCV (RBC) [Entitic vol]91.1 fL81.0 - 99.0 fLNOCox BransonMONOCYTES ABSOLUTE AUTO0.6[facility] CenterMonocytes/100 WBC (Bld)6.2 % 1.7 - 12.0 %[facility] CenterNEUTROPHILS ABSOLUTE AUTO5.7[facility] Neutrophils/100 WBC (Bld)57.4 %43.0 - 75.0 %[facility] CenterPlatelet mean volume (Bld) [Entitic vol]10.5 fL9.5 - 13.5 fLGeneral [facility] Army [facility] Hospital EO #0.1NOMS [facility] TBH [id number] [facility] State Hospital RBC3.37LowGeneral Leonard [facility] WBC9.9[facility] CLINISYHillside HospitalHP CBC WITH PLATELET NO DIFFERENTIALon 12-14-2024 Erythrocyte distribution width (RBC) [Ratio]13.5 %11.0 - 15.0 %[facility] Hematocrit (Bld) [Volume fraction]36.8 %36.0 - 48.0 %[facility] CenterHemoglobin (Bld) [Mass/Vol]12.8 g/dL12.0 - 16.0 g/dLSoutheast Missouri Community Treatment CenterInterpretation and review of laboratory resultsAbHuron [facility] (RBC) [Entitic mass]31.9 pg26.7 - 34.0 pgSaint John's Regional Health CenterHC (RBC) [Mass/Vol]34.8 g/dL29.9 - 35.2 g/dL [facility] CenterV (RBC) [Entitic vol]91.8 fL81.0 - 99.0 fLSoutheast [facility] Treatment Center Platelet mean volume (Bld) [Entitic vol]10.4 fL9.5 - 13.5 fLGeneral Leonard Wood Army Community Hospital [id number] [facility] Hospital RBC4.01LowGeneral Leonard Wood Army Community Hospital WBC8.6[facility] CLINISYNewport Medical CenterUrinalysis macro (dipstick) panel (U)on 12-09-2024 Bilirubin, UANegativeNegative - 4(70) +++ mg/dLSoutheast Missouri Community Treatment CenterBlood, UANegative Negative - 50 Brett/mcLLAYTON HOSPITAL HealthcareClarity, UAClearLAYTON HOSPITAL HealthcareColor, UA YellowNOAL HealthcareGlucose, UANegativeNegative - 2000(110) ++++ mg/dLLAYTON HOSPITAL HealthcareInterpretation and review of laboratory resultsAbHenry [facility] Ketones, UANegativeNegative - 160(16) ++++ mg/dLNOMS HealthcareLeukocytes, UA NegativeNegative - 500+++ Torsten/mcLNOMS HealthcareNitrite, UANegativeNegative - PositiveNOMS HealthcarepH, UA65 - 9NOMS HealthcareProtein, UAPositiveNegative - 2000(20) ++++ mg/dLNOMS HealthcareComment on above:30mg/dLSpec Grav, UA1.0251 - 1.03NOMS HealthcareUrobilinogen, UA1.00.2 - 12 mg/dLNOMS HealthcareNOMS HealthcareAMNISUREon 38-13-5387NKO AMNISURENegativeNEGATIVENOMS Healthcare CLINISYNCNOMS HealthcareUrinalysis macro (dipstick) panel (U)on 11-25-2024 Bilirubin, UANegativeNegative - 4(70) +++ mg/dLNOMS HealthcareBlood, UANegative Negative - 50 Brett/mcLNOMS HealthcareClarity, UAClearNOMS HealthcareColor, UA YellowNOMS HealthcareGlucose, UANegativeNegative - 1999(110) ++++ mg/dLNOMS HealthcareInterpretation and review of laboratory resultsAbnormalNOAL Healthcare Ketones, UAPositiveNegative - 160(16) ++++ mg/dLNOMS HealthcareLeukocytes, UA TraceNegative - 500+++ Torsten/mcLNOMS HealthcareNitrite, UANegativeNegative - PositiveNOMS HealthcarepH, UA75 - 9NOMS HealthcareProtein, UATraceNegative - 2000(20) ++++ mg/dLNOMS HealthcareSpec Grav, UA1.0151 - 1.03[facility] Urobilinogen, UA1.00.2 - 12 mg/dLNOMS HealthcareNOMS HealthcareUrinalysis macro (dipstick) panel (U)on 66-83-0828Migraeobg, UANegativeNegative - 4(70) +++ mg/dL N[facility] HealthcareBlood, UANegativeNegative - 50 Brett/mcLNOMS HealthcareClarity, UA ClearNOMS HealthcareColor, UAYellowNOMS HealthcareGlucose, UANegativeNegative - 1999(110) ++++ mg/dLNOMS HealthcareInterpretation and review of laboratory resultsAbnormalNOMS HealthcareKetones, UANegativeNegative - 160(16) ++++ mg/dL N[facility]S HealthcareLeukocytes, UANegativeNegative - 500+++ Torsten/mcLNOMS Healthcare Nitrite, UANegativeNegative - PositiveNOMS HealthcarepH, UA65 - 9[facility] Protein, UATraceNegative - 2000(20) ++++ mg/dLNOMS HealthcareSpec Grav, UA1.0251 - 1.03NOMS HealthcareUrobilinogen, UA0.20.2 - 12 mg/dLNOMS HealthcareNOMS HealthcareUrinalysis macro (dipstick) panel (U)on 35-39-3925Ezfaviohk, UA NegativeNegative - 4(70) +++ mg/dLNOMS HealthcareBlood, UANegativeNegative - 50 Brett/mcLNOMS HealthcareClarity, UAClearNOMS HealthcareColor, UAYellowNOMS HealthcareGlucose, UANegativeNegative - 2000(110) ++++ mg/dLNOMS Healthcare Interpretation and review of laboratory resultsAbnormalNOMS HealthcareKetones, UAPositiveNegative - 160(16) ++++ mg/dLNOMS HealthcareComment on above:trace Leukocytes, UANegativeNegative - 500+++ Torsten/mcLNOMS HealthcareNitrite, UA NegativeNegative - PositiveNOMS HealthcarepH, UA65 - 9NOMS HealthcareProtein, UA PositiveNegative - 2000(20) ++++ mg/dLNOMS HealthcareComment on above:30Spec Grav, UA1.031 - 1.03NOMS HealthcareUrobilinogen, UA0.20.2 - 12 mg/dLNOMS HealthcareNOMS HealthcareTBH UA (CLEAN/CATCH) SENIOR WRITER/MICRO IF IND.on 10-19-2024 BILIRUBIN URINEMODERATEAbnormalNEGATIVENOMS HealthcareBLOOD URINENegative NEGATIVENOMS HealthcareClarity (U)CLEARCLEARNOMS HealthcareColor (U)DK. ORANGE YELLOWNOMS HealthcareGLUCOSE URINE UANegativeNEGATIVE mg/dLNOMS Healthcare Interpretation and review of laboratory resultsAbnormalNOMS HealthcareKetones Ql (U)>=80AbnormalNEGATIVE mg/dLNOMS HealthcareLeukocyte esterase Test strip Ql (U) NegativeNEGATIVENOMS HealthcareNITRITE URINENegativeNEGATIVENOMS HealthcarepH (U)6.0 [pH]5.0 - 9.0NOMS HealthcareProtein (U) [Mass/Vol]100 mg/dLAbnormal NEG/TRACENOMS HealthcareSPECIFIC GRAVITY URINE1.0251.005 - 1.025N[facility] URINE MICROSCOPIC INDICATEDNONOMS HealthcareUROBILINOGEN URINE2.0 EU/dLAbnormal 0.2 - 1.0 EU/dLNOMS HealthcareCLINISYNCNOMS HealthcareUS OB GROWTHon 10-19-2024 [place] [address] Ultrasound Report Signed Patient: EMY CANTU MR#: [id number] : 1995 Acct:[id number] Age/Sex: 29 / F ADM Date: 10/17/24 Loc: US Attending Dr: Domenic Law D.O. Ordering Physician: Domenic Law D.O. Date of Service: 10/17/24 Procedure(s): US OB growth Accession Number(s): [id number] cc: Domenic Law D.O.; Shaniqua Del Valle NP [place] [address] Patient Name: EMY CANTU MRN: [id number] date: 1995 Sex: F Assigned Patient Location: Current Patient Location: Accession/Order Number: [id number] Exam Date: 10/18/2024 20:28 Report Date: 10/18/2024 20:30 At the request of: DOMENIC LAW DO Procedure: US OB growth Growth [...] Appropriate growth by dating. Impression dictated by: Gonsalo Winslow Jr.OKacy 10/18/2024 8:30 PM Dictation Location: [facility] Electronically authenticated by: [id number] Y Date: 10/18/2024 20:30 Dictated By: Arnav Smith M.D. Signed By: 10/19/24 1123 DD/ 29 TD/TT: High School Librarian:FRANCadiologklaus, Radiologist, - 10/19/2024 [place] [address] Ultrasound Report Signed Patient: EMY CANTU MR#: [id number] : 1995 Acct:[id number] Age/Sex: 29 / F ADM Date: 10/17/24 Loc: US Attending Dr: Domenic Law D.O. Ordering Physician: Domenic Law D.O. Date of Service: 10/17/24 Procedure(s): US OB growth Accession Number(s): [id number] cc: Domenic Law D.O.; Shaniqua Del Valle NP [facility] [place] [address] Patient Name: EMY CANTU MRN: [id number] date: 1995 Sex: F Assigned Patient Location: Current Patient Location: Accession/Order Number: [id number] Exam Date: 10/18/2024 20:28 Report Date: 10/18/2024 20:30 At the request of: DOMENIC LAW DO Procedure: US OB growth Growth [...] Jr., D.O. 10/18/2024 8:30 PM Dictation Location: [facility] Electronically authenticated by: [id number] Y Date: 10/18/2024 20:30 Dictated By: Arnav Smith M.D. Signed By: 10/19/24 112 DD/ 29 TD/TT: High School Librarian: KEISHA Akins OB GROWTHOrdered By: Radiologist Radiology on 21-39-2669[facility] Work Phone: US OB GROWTHon [phone] Study observation (narrative)[facility] HealthcareUrinalysis macro (dipstick) panel (U)on 10-14-2024 Bilirubin, UANegativeNegative - 4(70) +++ mg/dLNOMS HealthcareBlood, UANegative Negative - 50 Brett/mcLNOMS HealthcareClarity, UAClearNOMS HealthcareColor, UA YellowNOMS HealthcareGlucose, UANegativeNegative - 2000(110) ++++ mg/dLNOAL HealthcareInterpretation and review of laboratory resultsAbnormalSoutheast [facility] Ketones, UAPositiveNegative - 160(16) ++++ mg/dLNOMS HealthcareComment on above: TraceLeukocytes, UANegativeNegative - 500+++ Torsten/mcLNOMS HealthcareNitrite, UA NegativeNegative - PositiveNOMS HealthcarepH, UA65 - 9NOMS HealthcareProtein, UA TraceNegative - 2000(20) ++++ mg/dLNOMS HealthcareSpec Grav, UA1.0251 - 1.03NOMS HealthcareUrobilinogen, UA1.00.2 - 12 mg/dLNOMS HealthcareNOMS Healthcare GLUCOSE TOLERANCE 3 HOURon 09-48-4674VOIAUQX TOLERANCE 3 HOURHighmg/dLNOMS HealthcareComment on above:GLU FAST 76 (<95) Col: 09/30/24 1058 GLU 1HR 166 (<180) Col: 09/30/24 1159 GLU 2HR 158H (<155) Col: 09/30/24 1259 GLU 3HR 120 (<140) Col: 09/30/24 1358 Interpretation and review of laboratory resultsAbnormalNOAL HealthcareCLINISYNC NOMS HealthcareUrinalysis macro (dipstick) panel (U)on 60-27-4387Fyizdunau, UA PositiveNegative - 4(70) +++ mg/dLNOMS HealthcareComment on above:smallBlood, UA NegativeNegative - 50 Brett/mcLNOMS HealthcareClarity, UAClearNOMS Healthcare Color, UAYellowNOMS HealthcareGlucose, UANegativeNegative - 2000(110) ++++ mg/dL N[facility] HealthcareInterpretation and review of laboratory resultsAbnormalNOAL HealthcareKetones, UAPositiveNegative - 160(16) ++++ mg/dLNOMS HealthcareComment on above:TraceLeukocytes, UANegativeNegative - 500+++ Torsten/mcLNOAL Healthcare Nitrite, UANegativeNegative - PositiveNOMS HealthcarepH, UA65 - 9NO[facility] Protein, UAPositiveNegative - 2000(20) ++++ mg/dLNOMS HealthcareComment on above:30mg/dLSpec Grav, UA1.0251 - 1.03NOAL HealthcareUrobilinogen, UA0.20.2 - 12 mg/dLNOMS HealthcareNOMS HealthcareALL CBC WITH AUTO DIFFon 09-28-2024 BASOPHILS ABSOLUTE SHLY6MNHN HealthcareBasophils/100 WBC (Bld)0.4 %0.2 - 2.0 % NOMS HealthcareEosinophils/100 WBC (Bld)1 %0.9 - 7.0 %NOMS HealthcareErythrocyte distribution width (RBC) [Ratio]12.9 %11.0 - 15.0 %NOMS HealthcareHematocrit (Bld) [Volume fraction]33.7 %Low36.0 - 48.0 %N[facility]S HealthcareHemoglobin (Bld) [Mass/Vol]11.6 g/dLLow12.0 - 16.0 g/dLNOAL HealthcareIMMATURE GRANULOCYTES ABS AUTO0.1HighNOAL HealthcareImmature granulocytes/100 WBC (Bld)1.2 %High0.0 - 0.5 %N[facility]S HealthcareInterpretation and review of laboratory resultsAbnormalNOAL HealthcareLYMPHOCYTES ABSOLUTE AUTO2.3NOMS HealthcareLymphocytes/100 WBC (Bld)28 %20.5 - 60.0 %NOMS HealthcareMCH (RBC) [Entitic mass]31.3 pg26.7 - 34.0 pgSaint John's Regional Health CenterHC (RBC) [Mass/Vol]34.4 g/dL29.9 - 35.2 g/dLSoutheast Missouri Community Treatment CenterMCV (RBC) [Entitic vol]90.8 fL81.0 - 99.0 fLLAY[facility] HealthcareMONOCYTES ABSOLUTE AUTO0.4NOMS HealthcareMonocytes/100 WBC (Bld)4.7 %1.7 - 12.0 %N[facility] HealthcareNEUTROPHILS ABSOLUTE AUTO5.2NOMS HealthcareNeutrophils/100 WBC (Bld)64.7 %43.0 - 75.0 %NOMS HealthcarePlatelet mean volume (Bld) [Entitic vol]8.8 fLLow9.5 - 13.5 fLLAYTON [facility] HealthcareTBH EO #0.1NOMS HealthcareTBH [id number] HealthcareTB RBC3.71LowNOAL HealthcareTB WBC8.1NOMS HealthcareCLINISYNCNMERCY HOSPITAL ADA – ADA HealthcareUrinalysis macro (dipstick) panel (U)on 77-75-2622Wyaobfkbo, UANegativeNegative - 4(70) +++ mg/dL N[facility] HealthcareBlood, UANegativeNegative - 50 Brett/mcLNOMS HealthcareClarity, UA ClearNOMS HealthcareColor, UAYellowNOMS HealthcareGlucose, UANegativeNegative - 2000(110) ++++ mg/dLNOMS HealthcareInterpretation and review of laboratory resultsAbnormalNOMS HealthcareKetones, UANegativeNegative - 160(16) ++++ mg/dL N[facility] HealthcareLeukocytes, UATraceNegative - 500+++ Torsten/mcLNOMS Healthcare Nitrite, UANegativeNegative - PositiveNOMS HealthcarepH, UA6.55 - 9NOMS HealthcareProtein, UANegativeNegative - 2000(20) ++++ mg/dLNOMS HealthcareSpec Grav, UA1.021 - 1.03NOMS HealthcareUrobilinogen, UA1.00.2 - 12 mg/dLNOMS HealthcareNOMS HealthcareUS OB 14+ WEEKS ANATOMY SCANon 53-83-8451TN OB 14+ WEEKS ANATOMY SCANTITLE OF EXAM: OB Ultrasound: REASON FOR EXAM: [...] skeleton. No appreciable abnormality of these structures. Three- vessel umbilical cord. Placental cord insertion appears to be distantfrom the placental edge. No appreciable placenta previa or abruptio. IMPRESSION: Single live intrauterine gestation sonographically measuring 19.7 weeks. No appreciable anatomic abnormality of the observed and maternal structures. Notable weight 90th percentile. Dictated and transcribed 07/31/24/dpd This report has been electronically signed and approved by the interpreting radiologist.NormalNot AvailableComment on above:Order Comment: US OB ANATOMY SINGLE W US OB CERVICAL LENGTH Estimated Date of Delivery: 12/24/24 Gestational Age as of 07/06/2024: [id number] CBC WITH AUTO DIFFon 07-30-2024 BASOPHILS ABSOLUTE KEAB5CICV HealthcareBasophils/100 WBC (Bld)0.2 %0.2 - 2.0 % [facility] CenterEosinophils/100 WBC (Bld)0.7 %Low0.9 - 7.0 %[facility] Erythrocyte distribution width (RBC) [Ratio]12 %11.0 - 15.0 %[facility] Hematocrit (Bld) [Volume fraction]35.7 %Low36.0 - 48.0 %[facility] Hemoglobin (Bld) [Mass/Vol]12.4 g/dL12.0 - 16.0 g/dLSoutheast Missouri Community Treatment CenterIMMATURE GRANULOCYTES ABS AUTO0.04HighSoutheast Missouri Community Treatment CenterImmature granulocytes/100 WBC (Bld) 0.7 %High0.0 - 0.5 %[facility] CenterInterpretation and review of laboratory resultsAbnormalSoutheast Missouri Community Treatment CenterLYMPHOCYTES ABSOLUTE AUTO2.2NOMS [facility] Lymphocytes/100 WBC (Bld)36.7 %20.5 - 60.0 %[facility] CenterH (RBC) [Entitic mass]31.2 pg26.7 - 34.0 pgSaint John's Regional Health CenterHC (RBC) [Mass/Vol]34.7 g/dL29.9 - 35.2 g/dLSaint John's Regional Health CenterV (RBC) [Entitic vol]89.7 fL81.0 - 99.0 fLSoutheast Missouri Community Treatment CenterMONOCYTES ABSOLUTE AUTO0.4NOCox BransonMonocytes/100 WBC (Bld)6.4 % 1.7 - 12.0 %[facility] CenterNEUTROPHILS ABSOLUTE AUTO3.3NOMS [facility] Neutrophils/100 WBC (Bld)55.3 %43.0 - 75.0 %[facility] CenterPlatelet mean volume (Bld) [Entitic vol]9.3 fLLow9.5 - 13.5 fLSoutheast Missouri Community Treatment CenterTB EO #0NOMS [facility] TB NML808ROCNEastern [facility] State Hospital RBC3.98LowNOEastern [facility] RAH6TOKISoutheast [facility] CLINISYNCLAYTON [facility] HealthcareIGP,APTIMA HPV,AGE GDLNon 40-04-2653GAY GDLN ACOG TESTINGNote.[facility] HealthcareComment on above:TESTS RESULT FLAG UNITS REF RANGE LAB Clinician Provided Cytology Information Source.............Cervix No. of containers..01 ThinPrep Vial Age Monik SUAREZ Jordyn... FLAG LEGEND: L-Low Normal,H-High Normal,LL-Alert Low,HH-Alert High <-Panic Low,>-Panic High,A-Abnormal,AA-Critical Abnormal Performed at: 01 =[facility] [address] Carie Hartman MD, IGP, RFX APTIMA HPV ASCUNote.[facility] HealthcareComment on above:TESTS RESULT FLAG UNITS REF RANGE LAB DIAGNOSIS: 02 NEGATIVE FOR INTRAEPITHELIAL LESION OR MALIGNANCY. Specimen adequacy: 02 Satisfactory for evaluation. No endocervical component is identified. Performed by: 02 August Lentz, Training And Quality Manager ([facility]) . 02 Note: Note 02 The Pap [...] <-Panic Low,>-Panic High,A-Abnormal,AA-Critical Abnormal Performed at: [address] [address] Carie Hartman MD, Performed at: =[facility] [id number] General House Worker: Carie Hartman MD, Phone: [phone] Performed at: [address] [id number] General House Worker: Carie Hartman MD, Phone: [phone] SPATULA-ALONE CERVIX CLINISYNCNOMS HealthcareRECURRENT VAGINITIS (HTRX)on 03-31-5596VHGBJDIHI VAGINAE 0NOMS HealthcareATOPOBIUM VAGINAENot detectedNOMS HealthcareBVAB 2,3 (BACTERIAL VAGINOSIS ASSOCIATED BACTERIA 2, 3); MOBILUNCUS NWH2CUSG HealthcareBVAB 2,3 (BACTERIAL VAGINOSIS ASSOCIATED BACTERIA 2, 3); MOBILUNCUS SPPNot detectedNOMS HealthcareCANDIDA ALBICANS, PARAPSILOSIS, ARKYRQZNUS8YQAQ HealthcareCANDIDA ALBICANS, PARAPSILOSIS, TROPICALISNot detectedNOMS HealthcareCANDIDA GLABRATA0 N[facility]S HealthcareCANDIDA GLABRATANot detectedNOMS HealthcareCANDIDA IZHRUG3GAFK HealthcareCANDIDA KRUSEINot detectedNOMS HealthcareCHLAMYDIA WWDUZPPIUTR6NARY HealthcareCHLAMYDIA TRACHOMATISNot detectedNOMS HealthcareGARDNERELLA VAGINALIS0 NOMS HealthcareGARDNERELLA VAGINALISNot detectedNOMS HealthcareMEGASPHAERA (TYPES 1, 2)0NOMS HealthcareMEGASPHAERA (TYPES 1, 2)Not detectedNOMS Healthcare MYCOPLASMA VDIFMSSJNL1TVMN HealthcareMYCOPLASMA GENITALIUMNot detectedNOMS HealthcareNEISSERIA ERKHCVZTXRJ6FFVI HealthcareNEISSERIA GONORRHOEAENot detected NOMS HealthcareTRICHOMONAS JOKSVXNSX5HFKH HealthcareTRICHOMONAS VAGINALISNot detectedNOMS HealthcareNOMS HealthcareBOX TESTon 50-21-0453NNM TEST SENT OUT UNITYNOMS HjgznrofqtKSX8WGWXLNBKH TvnpkotkqrVZA257/16/2024NOMS HealthcareUNITY BOX CLINISYNCNOMS HealthcareUS OB TRANSVAGINALon 91-52-4081[place] [address] Ultrasound Report Signed Patient: EMY CANTU MR#: [id number] : 1995 Acct:[id number] Age/Sex: 29 / F ADM Date: 05/08/24 Loc: [facility] Attending Dr: Domenic Law D.O. Ordering Physician: Domenic Law D.O. Date of Service: 05/08/24 Procedure(s): US OB transvaginal Accession Number(s): [id number] cc: Domenic Law D.O.; Shaniqua Del Valle NP [place] [address] Patient Name: EMY CANTU MRN: [id number] date: 1995 Sex: F Assigned Patient Location: [facility] Current Patient Location: Accession/Order Number: [id number] Exam Date: 05/08/2024 09:08 Report Date: 05/09/2024 05:02 At the request of: DOMENIC LAW Procedure: US OB transvaginal EXAMINATION: US [...] Single live intrauterine . Electronically authenticated by: KARSTEN RAWLS Date: 05/09/2024 05:02 Dictated By: Karsten Rawls M.D. Signed By: 05/09/24503 DD/ 1 TD/TT: High School Librarian:TBHRadiology, Radiologist, MD - 05/09/2024 [place] [address] Ultrasound Report Signed Patient: EMY CANTU MR#: [id number] : 1995 Acct:[id number] Age/Sex: 29 / F ADM Date: 05/08/24 Loc: [facility] Attending Dr: Domenic Law D.O. Ordering Physician: Domenic Law D.O. Date of Service: 05/08/24 Procedure(s): US OB transvaginal Accession Number(s): [id number] cc: Domenic Law D.O.; Shaniqua Del Valle NP [facility] [place] [address] Patient Name: EMY CANTU MRN: [facility]:[id number] date: 1995 Sex: F Assigned Patient Location: [facility] Current Patient Location: Accession/Order Number: [id number] Exam Date: 05/08/2024 09:08 Report Date: 05/09/2024 05:02 At the request of: DOMENIC LAW Procedure: US OB transvaginal EXAMINATION: US [...] Single live intrauterine . Electronically authenticated by: KARSTEN RAWLS Date: 05/09/2024 05:02 Dictated By: Karsten Rawls M.D. Signed By: 05/09/24503 DD/ 1 TD/TT: High School Librarian: KEISHA [facility] HospitalRadiology Study observation (narrative)[facility] CenterUS OB TRANSVAGINALOrdered By: Radiologist Radiology on 74-36-8995QBASSoutheast Missouri Community Treatment Center Work Phone: HCG ( test) Ql (U)on 85-01-4454Chrhhywcnwosda and review of laboratory resultsAbnormalNOAL HealthcarePreg Test, UrPositive NegativeNOCooper County Memorial Hospital HealthcareUrinalysis macro (dipstick) panel (U)on 78-31-2082Wzsbyyrje, UANegativeNegative - 4(70) +++ mg/dLNOAL HealthcareBlood, UANegativeNegative - 50 Brtet/mcLNOAL HealthcareClarity, UAClearNOMS Healthcare Color, UAYellowNOAL HealthcareGlucose, UANegativeNegative - 2000(110) ++++ mg/dL [facility] HealthcareInterpretation and review of laboratory resultsNormalNOAL HealthcareKetones, UANegativeNegative - 160(16) ++++ mg/dLLAYTON [facility]OSPITAL Healthcare Leukocytes, UANegativeNegative - 500+++ Torsten/mcLNOMS HealthcareNitrite, UA NegativeNegative - PositiveNOMS HealthcarepH, UA5.55 - 9NOMS HealthcareProtein, UANegativeNegative - 2000(20) ++++ mg/dLNOAL HealthcareSpec Grav, UA1.021 - 1.03 NOM HealthcareUrobilinogen, UA1.00.2 - 12 mg/dLNOAL HealthcareNOAL Healthcare PAP ACOG PANEL 2: 21 to 29on 05-08-2023..NormalThe [facility] on above:Performed By: #### CBC #### [facility] [address] [place] [address] Dr. Missy Goodwin Gdln ACOG Gjzdlxm08-27RmwthyZhbHighland District Hospital on above:Performed By: #### CBC #### [facility] [address] [place] [address] Dr. Missy GonzalezDIAGNOSIS:CommentHighland District Hospital on above: Result Comment: NEGATIVE FOR INTRAEPITHELIAL LESION OR MALIGNANCY.Performed By: #### CBC #### [facility] [address] [place] [address] Dr. Missy GonzalezMethodology:CommentHighland District Hospital on above: Result Comment: This liquid based ThinPrep(R) pap test was screened with the use of an image guided system.Performed By: #### CBC #### [facility] [address] [place] [address] Dr. Missy GonzalezNote:CommentHighland District Hospital on above:Result Comment: The Pap smear is a screening test designed to aid in the detection of premalignant and malignant conditions of the uterine cervix. It is not a diagnostic procedure and should not be used as the sole means of detecting cervical cancer. Both false-positive and false-negative reports do occur. .Performed By: #### CBC #### [facility] [address] [place] [address] Dr. Missy GonzalezPerformed by:CommentHighland District Hospital on above: Result Comment: Cindy Blum CytotechnologistPerformed By: #### CBC #### [facility] [address] [place] [address] Dr. Missy GonzalezReflex Criteria:CommentHighland District Hospital on above:Result Comment: The HPV DNA reflex criteria were not met with this specimen result therefore, no HPV testing was performed. .Performed By: #### CBC #### [facility] [address] [place] [address] Dr. Yilan ChangSpecimen adequacy:CommentNormalThJ.W. Ruby Memorial HospitalComment on above:Result Comment: Satisfactory for evaluation. No endocervical component is identified.Performed By: #### CBC #### [facility] [address] [address] [address] Missy Sorenson AUTO DIFFon 59-77-5415CNXN #0.1 103/ulNormal0.0-0.1The [facility] HospitalComment on above:Performed By: #### CBC #### [facility] [address] [place] [address] Dr. Missy GonzalezBasophils/100 WBC (Bld)0.4 %Normal0.2-2.0[facility] Comment on above:Performed By: #### CBC #### [facility] [address] [place] [address] Dr. Louis ChangEYelena #0.1 103/ulNormal0.0-0.7The [facility] HospitalComment on above: Performed By: #### CBC #### [facility] [address] [place] [address] Dr. Missy Henryosinophils/100 WBC (Bld)0.9 %Normal0.9-7.0[facility] Comment on above:Performed By: #### CBC #### [facility] [address] [place] [address] Dr. Missy Henryrythrocyte distribution width (RBC) [Ratio]13.7 %Ceabst49.0-15.0 [facility] Hospitalment on above:Performed By: #### CBC #### [facility] [address] [place] [address] Dr. Missy GonzalezHematocrit (Bld) [Volume fraction]28.9 %Critically low36.0-48.0 [facility] on above:Performed By: #### CBC #### [facility] [address] [place] [address] Dr. Missy GonzalezHemoglobin (Bld) [Mass/Vol]10.0 g/dLCritically low12.0-16.0[facility] HospitalComment on above:Performed By: #### CBC #### [facility] [address] [address] [address] Missy Killian #0.15 10e3/ulCritically high0.00-0.03The [facility] Comment on above:Performed By: #### CBC #### [facility] [address] [address] [address] Missy Killian %1.2 %Critically high0.0-0.5The [facility] HospitalComment on above:Performed By: #### CBC #### [facility] [address] [address] [address] Missy Castillo #2.7 103/ulNormal1.2-3.8The [facility] HospitalComment on above:Performed By: #### CBC #### [facility] [address] [place] [address] Dr. Missy Glezhocytes/100 WBC (Bld)21.4 %Itjxux96.5-60.0The [facility] HospitalComment on above:Performed By: #### CBC #### [facility] [address] [place] [address] Dr. Missy SamuelUAL DIFF REQNONormalThe [facility] HospitalComment on above: Performed By: #### CBC #### [facility] [address] [place] [address] Dr. Missy Odom (RBC) [Entitic mass]31.7 lsLxnltu87.7-34.0The [facility] HospitalComment on above:Performed By: #### CBC #### [facility] [address] [place] [address] Dr. Missy Odom (RBC) [Mass/Vol]34.6 g/kMRyyder94.9-35.2The [facility] HospitalComment on above:Performed By: #### CBC #### [facility] [address] [place] [address] Dr. Missy Odom (RBC) [Entitic vol]91.7 jPZmmxvi81.0-99.0The [facility] HospitalComment on above:Performed By: #### CBC #### [facility] [address] [address] [address] Missy Sexton #0.9 103/ulCritically high0.3-0.8The [facility] Comment on above:Performed By: #### CBC #### [facility] [address] [address] [address] Missy Hoffmanocytes/100 WBC (Bld)6.8 %Normal1.7-12.0[facility] Comment on above:Performed By: #### CBC #### [facility] [address] [place] [address] Dr. Missy Lopez #8.9 103/ulCritically high1.4-6.5The [facility] Comment on above:Performed By: #### CBC #### [facility] [address] [place] [address] Dr. Missy Dashutrophils/100 WBC (Bld)69.3 %Qrfmlb48.0-75.0The [facility] HospitalComment on above:Performed By: #### CBC #### [facility] [address] [place] [address] Dr. Missy Terry mean volume (Bld) [Entitic vol]10.8 fLNormal9.5-13.5The [facility] HospitalComment on above:Performed By: #### CBC #### [facility] [address] [place] [address] Dr. Missy GonzalezPLT235 103/nlHybhfm000-432Itg [facility] HospitalComment on above: Performed By: #### CBC #### [facility] [address] [place] [address] Dr. Missy GonzalezRBC3.15 106/ulCritically low4.20-5.40The [facility] HospitalComment on above:Performed By: #### CBC #### [facility] [address] [place] [address] Dr. Missy GonzalezWBC12.8 103/ulCritically high4.0-11.0The [facility] HospitalComment on above:Performed By: #### CBC #### [facility] [address] [place] [address] Dr. Missy Sorenson AUTO DIFFon 35-33-1360ZAHR #0.1 103/ulNormal0.0-0.1The [facility] HospitalComment on above:Performed By: #### PREG #### [facility] [address] [place] [address] Dr. Missy GonzalezBasophils/100 WBC (Bld)0.6 %Normal0.2-2.0[facility] Comment on above:Performed By: #### PREG #### [facility] [address] [place] [address] Dr. Missy Peña #0.1 103/ulNormal0.0-0.7The [facility] HospitalComment on above: Performed By: #### PREG #### [facility] [address] [place] [address] Dr. Missy Henryosinophils/100 WBC (Bld)0.9 %Normal0.9-7.0The [facility] Comment on above:Performed By: #### PREG #### [facility] [address] [place] [address] Dr. Missy Henryrythrocyte distribution width (RBC) [Ratio]13.0 %Tpawej37.0-15.0 [facility] HospitalComment on above:Performed By: #### PREG #### [facility] [address] [place] [address] Dr. Missy GonzalezHematocrit (Bld) [Volume fraction]34.6 %Critically low36.0-48.0 The [facility]ess HospitalComment on above:Performed By: #### PREG #### [facility] [address] [place] [address] Dr. Missy GonzalezHemoglobin (Bld) [Mass/Vol]12.3 g/tJIzhamo03.0-16.0[facility] HospitalComment on above:Performed By: #### PREG #### [facility] [address] [place] [address] Dr. Missy Killian #0.05 10e3/ulCritically high0.00-0.03The [facility] Comment on above:Performed By: #### PREG #### [facility] [address] [place] [address] Dr. Missy Killian %0.6 %Critically high0.0-0.5The [facility] HospitalComment on above:Performed By: #### PREG #### [facility] [address] [place] [address] Dr. Missy Castillo #2.3 103/ulNormal1.2-3.8The [facility]coll HospitalComment on above:Performed By: #### PREG #### [facility] [address] [place] [address] Dr. Missy Glezhocytes/100 WBC (Bld)27.9 %Xsjlnr66.5-60.0The [facility] HospitalComment on above:Performed By: #### PREG #### [facility] [address] [place] [address] Dr. Missy Isaacs DIFF REQNONormalThe [facility] HospitalComment on above: Performed By: #### PREG #### [facility] [address] [place] [address] Dr. Missy Seymour (RBC) [Entitic mass]31.6 lpDvteax73.7-34.0The [facility] HospitalComment on above:Performed By: #### PREG #### [facility] [address] [place] [address] Dr. Missy Jones (RBC) [Mass/Vol]35.5 g/dLCritically high29.9-35.2The [facility] HospitalComment on above:Performed By: #### PREG #### [facility] [address] [place] [address] Dr. Missy Alvarado (RBC) [Entitic vol]88.9 bXBnipaz47.0-99.0The [facility] HospitalComment on above:Performed By: #### PREG #### [facility] [address] [place] [address] Dr. Missy Sexton #0.6 103/ulNormal0.3-0.8The [facility] HospitalComment on above:Performed By: #### PREG #### [facility] [address] [place] [address] Dr. Missy Hoffmanocytes/100 WBC (Bld)6.9 %Normal1.7-12.0The [facility] Comment on above:Performed By: #### PREG #### [facility] [address] [place] [address] Dr. Missy DashUT #5.2 103/ulNormal1.4-6.5The [facility] HospitalComment on above:Performed By: #### PREG #### [facility] [address] [place] [address] Dr. Missy Mcnealophils/100 WBC (Bld)63.1 %Qirsoz77.0-75.0The [facility] HospitalComment on above:Performed By: #### PREG #### [facility] [address] [place] [address] Dr. Missy GonzalezPlatelet mean volume (Bld) [Entitic vol]10.2 fLNormal9.5-13.5The [facility] HospitalComment on above:Performed By: #### PREG #### [facility] [address] [place] [address] Dr. Missy GonzalezPLT245 103/taLzgwgi348-619Nxq [facility] HospitalComment on above: Performed By: #### PREG #### [facility] [address] [place] [address] Dr. Missy GonzalezRBC3.89 106/ulCritically low4.20-5.40The [facility] HospitalComment on above:Performed By: #### PREG #### [facility] [address] [place] [address] Dr. Missy GonzalezWBC8.2 103/ulNormal4.0-11.0The [facility] HospitalComment on above: Performed By: #### PREG #### [facility] [address] [place] [address] Dr. Missy Greenfield SCREEN RAPID (URINE)on [id number]N [facility] on above:Performed By: #### DRUGRPD #### [facility] [address] [place] [address] Dr. Missy GonzalezBARNegativeNormalNEGVeterans Health Administration on above: Performed By: #### DRUGRPD #### [facility] [address] [place] [address] Dr. Missy GonzalezBUPNegativeNormalNEGVeterans Health Administration on above: Performed By: #### DRUGRPD #### [facility] [address] [place] [address] Dr. Missy GonzalezBZONegativeVotawNEGVeterans Health Administration on above: Performed By: #### DRUGRPD #### [facility] [address] [place] [address] Dr. Missy TylerCNegativermmiNEGVeterans Health Administration on above: Performed By: #### DRUGRPD #### [facility] [address] [place] [address] Dr. Missy TomasEast Liverpool City HospitalComformerly [facility] on above: Result Comment: AMP (Amphetamine): 500ng/mL, BAR (Barbituates): 200 ng/mL, BZO (Benzodiazepines): 150 ng/mL, BUP (Buprenorphine): 10 ng/mL, MCKENNA (Cocaine): 150 ng/mL, mAMP (Methamphetamine): 500 ng/mL, MTD (Methadone): 200 ng/mL, OPI (Opiates): 100 ng/mL, OXY (Oxycodone): 100 ng/mL, PCP (Phencyclidine): 25 ng/mL, PPX (Propoxyphene): 300 ng/mL, THC (Cannabinoids): 50 ng/mL, TCA (Trycyclic Antidepressants): 300 ng/mLPerformed By: #### DRUGRPD #### [facility] [address] [place] [address] Dr. Missy Greenfield CUT HEADERDRUG CLASS TEST SYSTEM CUT-OFF CONCENTRATIONS ARE FOLLOWS:NormalThe [facility] HospitalComment on above:Performed By: #### DRUGRPD #### [facility] [address] [address] [address] Missy GonzalezmAMPNegativeNormalNEGATIVEDelaware County HospitalComment on above: Performed By: #### DRUGRPD #### [facility] [address] [address] [address] Missy GonzalezMTDNegativeNormalNEGATIVEDelaware County HospitalComment on above: Performed By: #### DRUGRPD #### [facility] [address] [address] [address] Missy GonzalezOPINegativeNormalNEGATIVEDelaware County HospitalComment on above: Performed By: #### DRUGRPD #### [facility] [address] [address] [address] Missy GonzalezOXYNegativeNormalNEGOhioHealth Van Wert HospitalComment on above: Performed By: #### DRUGRPD #### [facility] [address] [place] [address] Dr. Missy GonzalezPCPNegativeNormalNEGOhioHealth Van Wert HospitalComment on above: Performed By: #### DRUGRPD #### [facility] [address] [address] [address] Missy GonzalezPPXNegativeNormalNEGOhioHealth Van Wert HospitalComformerly [facility] on above: Performed By: #### DRUGRPD #### [facility] [address] [place] [address] Dr. Missy GonzalezTCANegativeNormalNEGATIVECleveland Clinic Mentor Hospital HospitalComment on above: Performed By: #### DRUGRPD #### [facility] [address] [address] [address] Missy GonzalezTHCNegativeNormalNEGOhioHealth Van Wert HospitalComformerly [facility] on above: Performed By: #### DRUGRPD #### [facility] [address] [address] [address] Missy GonzalezTYPE AND SCREENon 86-68-3277JPYF AND SCREENNegativeNormalThe [facility] HospitalComment on above:Performed By: #### CBC #### [facility] [address] [place] [address] Dr. Missy Gomez PREG GROWTHon 52-25-8422WV PREG GROWTHEXAMINATION: US PREG GROWTH HISTORY: Uterine size for [...] Electronically authenticated by: GLENNY TORRES Date: 2022-07-31 13:[address] [place], [place] [address]CHLAMYDIA/GONOCOCCUS CEDRIC (SWAB/URINE/PAPon 89-84-5256Vrkbtgwcn trachomatis, NAANegativeNormalNegativeThe [facility] HospitalComment on above: Performed By: #### PREG #### [facility] [address] [place] [address] Dr. Missy GonzalezNeisseria gonorrhoeae, NAANegativeNormalNegativeThe [facility] HospitalComment on above:Performed By: #### PREG #### [facility] [address] [place] [address] Dr. Missy GonzalezVAGINITIS/VAGINOSIS DNA PROBEon 08-35-5349Phelsmn speciesNegative NormalNegativeThe [facility] HospitalComment on above:Performed By: #### VAGINT #### [facility] [address] [place] [address] Dr. Missy Brooks vaginalisNegativeNormalNegativeDelaware County Hospital Comment on above:Performed By: #### VAGINT #### [facility] [address] [place] [address] Dr. Missy Escobar vaginalisNegativeNormalNegativeDelaware County Hospital Comment on above:Performed By: #### VAGINT #### [facility] [address] [place] [address] Dr. Missy GonzalezGROUP B STREP CULTUREon 07-16-2022S. agalactiae Ag Ql (Unsp spec) Culture Observations: NEGATIVE FOR GROUP B STREPTOCOCCUS.NormalDelaware County HospitalComment on above: Performed By: #### CBC #### [facility] [address] [place] [address] Dr. Missy Gomez PREG CERVICAL LENGTHon 42-04-8648SJ PREG CERVICAL LENGTH EXAMINATION: US PREG CERVICAL LENGTH HISTORY: Uterine size for dates discrepancy COMPARISON: No relevant comparison available. FINDINGS: Cervix: 3.9 cm, closed IMPRESSION: Closed cervix measuring 3.9 cm Electronically authenticated by: GLENNY TORRES Date: 2022-07-03 16:13NoTogus VA Medical CenterUS PREG GROWTHon [id number] PREG GROWTHEXAMINATION: US PREG GROWTH HISTORY: Uterine size for [...] Electronically authenticated by: GLENNY TORRES Date: 2022-07-03 16:12[facility] SystemUS PREG ANATOMY SINGLEon 30-93-0928WV PREG ANATOMY SINGLE EXAMINATION: US PREG ANATOMY [...] with growth detailed above. Electronically authenticated by: KARSTEN RAWLS Date: 2022-03-27 22:23[facility] SystemHEP B SURFACE ANTIGEN SCREENon 24-74-5725IYhTo ScreenNegative NormalNegativeThe [facility] HospitalComment on above:Performed By: #### PREG #### [facility] [address] [place] [address] Dr. Missy Gordon C VIRUS AB W/ REFLEX QUANTon 88-24-8057GYJ AB0.1 s/co ratioNormal0.0-0.9The [facility] on above:Performed By: #### PREG #### [facility] [address] [place] [address] Dr. Missy GonzalezInterpretation:CommentNormalThe [facility] on above:Result Comment: Negative Not infected with HCV, unless recent infection is suspected or other evidence exists to indicate HCV infection.Performed By: #### PREG #### [facility] [address] [place] [address] Dr. Missy GonzalezHIV 1 AND 2 WITH REFLEXon 53-02-2741KAY Screen 4th Generation wRfxNon-ReactiveNormalNon ReactiveThe [facility] on above:Result Comment: HIV Negative HIV-1/HIV-2 antibodies and HIV-1 p24 antigen were NOT detected. There is no laboratory evidence of HIV infection.Performed By: #### PREG #### [facility] [address] [place] [address] Dr. Missy GonzalezRPR QUANTon 49-42-8875Oipgp Plasma Reagin, QuantNon-Reactive NormalNonRea<1:1The [facility] on above:Result Comment: Please Note: This test does not meet current guidelines for screening and diagnosis of syphilis. This test is intended for following treatment response in patients being treated for syphilis infection. To screen for syphilis infection, a reflex cascade that includes both RPR and a treponema-specific assay should be utilized, such as Treponema pallidum (Syphilis) Screening [place] (593716) or Rapid Plasma Reagin (RPR) Test With Reflex to Quantitative RPR and Confirmatory Treponema pallidum Antibodies (770904).Performed By: #### PREG #### [facility] [address] [place] [address] Dr. Missy AugustinBELLA AB IGGon 25-51-7533Pmwbbqd Antibodies, IgG1.27 index NormalImmune >0.99The [facility] on above:Result Comment: Non- immune <0.90 Equivocal 0.90 - 0.99 Immune >0.99Performed By: #### PREG #### [facility] [address] [place] [address] Dr. Missy GonzalezCBC AUTO DIFFon 20-11-9887QMHW #0.0 103/ulNormal0.0-0.1The [facility] HospitalComment on above:Performed By: #### PREG #### [facility] [address] [place] [address] Dr. Missy GonzalezBasophils/100 WBC (Bld)0.3 %Normal0.2-2.0The [facility] Comment on above:Performed By: #### PREG #### [facility] [address] [place] [address] Dr. Missy Peña #0.1 103/ulNormal0.0-0.7The [facility] HospitalComment on above: Performed By: #### PREG #### [facility] [address] [place] [address] Dr. Missy Henryosinophils/100 WBC (Bld)0.8 %Critically low0.9-7.0The [facility] HospitalComment on above:Performed By: #### PREG #### [facility] [address] [place] [address] Dr. Missy Henryrythrocyte distribution width (RBC) [Ratio]11.3 %Knpucv08.0-15.0 The [facility] HospitalComment on above:Performed By: #### PREG #### [facility] [address] [place] [address] Dr. Missy GonzalezHematocrit (Bld) [Volume fraction]35.2 %Critically low36.0-48.0 The [facility] HospitalComment on above:Performed By: #### PREG #### [facility] [address] [place] [address] Dr. Missy GonzalezHemoglobin (Bld) [Mass/Vol]12.0 g/uFPslpay09.0-16.0The [facility] HospitalComment on above:Performed By: #### PREG #### [facility] [address] [place] [address] Dr. Missy iKllian #0.03 10e3/ulNormal0.00-0.03The [facility] HospitalComment on above:Performed By: #### PREG #### [facility] [address] [place] [address] Dr. Missy Killian %0.4 %Normal0.0-0.5The [facility] HospitalComment on above: Performed By: #### PREG #### [facility] [address] [place] [address] Dr. Missy Castillo #1.9 103/ulNormal1.2-3.8The [facility] HospitalComment on above:Performed By: #### PREG #### [facility] [address] [place] [address] Dr. Missy Glezhocytes/100 WBC (Bld)24.3 %Mbcnhm33.5-60.0The [facility] HospitalComformerly [facility] on above:Performed By: #### PREG #### [facility] [address] [place] [address] Dr. Missy SamuelUAL DIFF REQNONormalThe [facility] HospitalComment on above: Performed By: #### PREG #### [facility] [address] [place] [address] Dr. Missy Odom (RBC) [Entitic mass]30.8 gfSxvvkm51.7-34.0The [facility] HospitalComformerly [facility] on above:Performed By: #### PREG #### [facility] [address] [place] [address] Dr. Missy Odom (RBC) [Mass/Vol]34.1 g/jGHrqxie02.9-35.2[facility] on above:Performed By: #### PREG #### [facility] [address] [place] [address] Dr. Missy Odom (RBC) [Entitic vol]90.5 bMEmydkg32.0-99.0The [facility] HospitalComformerly [facility] on above:Performed By: #### PREG #### [facility] [address] [place] [address] Dr. Missy Sexton #0.5 103/ulNormal0.3-0.8The [facility] HospitalComment on above:Performed By: #### PREG #### [facility] [address] [place] [address] Dr. Missy Hoffmanocytes/100 WBC (Bld)6.3 %Normal1.7-12.0The [facility] Comment on above:Performed By: #### PREG #### [facility] [address] [place] [address] Dr. Missy DashUT #5.4 103/ulNormal1.4-6.5The [facility] HospitalComment on above:Performed By: #### PREG #### [facility] [address] [place] [address] Dr. Missy Dashutrophils/100 WBC (Bld)67.9 %Pjjult70.0-75.0The [facility] HospitalComment on above:Performed By: #### PREG #### [facility] [address] [place] [address] Dr. Missy GonzalezPlatelet mean volume (Bld) [Entitic vol]9.5 fLNormal9.5-13.5The [facility] HospitalComment on above:Performed By: #### PREG #### [facility] [address] [place] [address] Dr. Missy GonzalezPLT320 103/akEanxxu230-839Afd [facility] HospitalComment on above: Performed By: #### PREG #### [facility] [address] [place] [address] Dr. Missy GonzalezRBC3.89 106/ulCritically low4.20-5.40The [facility] HospitalComment on above:Performed By: #### PREG #### [facility] [address] [place] [address] Dr. Missy GonzalezWBC8.0 103/ulNormal4.0-11.0The [facility] HospitalComment on above: Performed By: #### PREG #### [facility] [address] [place] [address] Dr. Missy GonzalezCULTYURI URINEon 39-95-9179CYXXTHU URINECulture Observations: LIGHT GROWTH OF MIXED GENITAL JOSE. NO POTENTIAL PATHOGENS SEEN.NormalThe [facility] HospitalComment on above:Performed By: #### URCX #### [facility] [address] [place] [address] Dr. Missy GonzalezGLYCOHEMOGLOBIN A1Con 88-97-0623EWB RECOMMENDATIONSEE BELOWNormal The [facility] HospitalComment on above:Result Comment: ADA RECOMMENDED LIMIT 4.0 - 6.0 ADA THERAPEUTIC TARGET < 7.0 ACTION SUGGESTED > 7.0Performed By: #### A1C #### [facility] [address] [place] [address] Dr. Missy GonzalezGlucose [Mass/Vol]103 mg/dLNoTogus VA Medical CenterComment on above:Performed By: #### A1C #### [facility] [address] [place] [address] Dr. Missy GonzalezHbA1c (Bld) [Mass fraction]5.2 %Normal4.5-6.2The [facility] HospitalComment on above:Performed By: #### A1C #### [facility] [address] [place] [address] Dr. Missy El BOX TEST PT SEND OUTon 91-54-5395XTHE TO REF LAB01/23/2022 NormalThe [facility] HospitalComformerly [facility] on above:Performed By: #### CBC #### [facility] [address] [place] [address] Dr. Missy GonzalezTYPE AND SCREENon 69-36-8015CCTL AND SCREENNegativeNoTogus VA Medical CenterComformerly [facility] on above:Performed By: #### CBC #### [facility] [address] [place] [address] Dr. Missy GonzalezUS PREG TVon 54-27-4075IV PREG TVEXAMINATION: US PREG TV HISTORY: Missed period COMPARISON: [...] Electronically authenticated by: GLENNY TORRES Date: 2021-12-29 16:46NormalThJ.W. Ruby Memorial HospitalVIT D 1 25 DIHYDROXYon 49-41-6871Wxrysvrjqn(1,25 di-OH Vit D) 72.5 pg/iYOywdwn06.9-79.3The [facility] HospitalComment on above:Result Comment: Effective November 20, 2021 Calcitriol(1,25 di-OH Vit D) reference interval will be changing to: pg/mL . 0 - 6 months: 44.3 - 212.9 7 months - 1 year: 40.3 - 112.4 >1 year: 24.8 - 81.5Performed By: #### PREG #### [facility] [address] [place] [address] Dr. Missy Sorenson AUTO DIFFon 79-83-6957HUNS #0.1 103/ulNormal0.0-0.1[facility] HospitalComment on above:Performed By: #### CBC #### [facility] [address] [place] [address] Dr. Missy Willissophils/100 WBC (Bld)0.7 %Normal0.2-2.0[facility] Comment on above:Performed By: #### CBC #### [facility] [address] [place] [address] Dr. Missy Peña #0.1 103/ulNormal0.0-0.7The [facility] HospitalComment on above: Performed By: #### CBC #### [facility] [address] [place] [address] Dr. Missy Henryosinophils/100 WBC (Bld)0.7 %Critically low0.9-7.0The [facility] HospitalComment on above:Performed By: #### CBC #### [facility] [address] [place] [address] Dr. Missy Henryrythrocyte distribution width (RBC) [Ratio]11.2 %Dwoiot09.0-15.0 The [facility] HospitalComment on above:Performed By: #### CBC #### [facility] [address] [place] [address] Dr. Missy GonzalezHematocrit (Bld) [Volume fraction]40.4 %Twhudb83.0-48.0The [facility] HospitalComment on above:Performed By: #### CBC #### [facility] [address] [place] [address] Dr. Missy GonzalezHemoglobin (Bld) [Mass/Vol]13.4 g/eKNubogo69.0-16.0The [facility] HospitalComment on above:Performed By: #### CBC #### [facility] [address] [place] [address] Dr. Missy Killian #0.02 10e3/ulNormal0.00-0.03The [facility] HospitalComment on above:Performed By: #### CBC #### [facility] [address] [place] [address] Dr. Missy Killian %0.3 %Normal0.0-0.5The [facility] HospitalComment on above: Performed By: #### CBC #### [facility] [address] [place] [address] Dr. Missy Castillo #2.6 103/ulNormal1.2-3.8The [facility] HospitalComment on above:Performed By: #### CBC #### [facility] [address] [place] [address] Dr. Missy Randolphmphocytes/100 WBC (Bld)36.6 %Gtctbp44.5-60.0The [facility] HospitalComment on above:Performed By: #### CBC #### [facility] [address] [place] [address] Dr. Missy SamuelUAL DIFF REQNONormalThe [facility] HospitalComment on above: Performed By: #### CBC #### [facility] [address] [place] [address] Dr. Missy Seymour (RBC) [Entitic mass]30.7 wiNqineq55.7-34.0The [facility] HospitalComment on above:Performed By: #### CBC #### [facility] [address] [place] [address] Dr. Missy Odom (RBC) [Mass/Vol]33.2 g/fSKuphmx82.9-35.2The [facility] HospitalComment on above:Performed By: #### CBC #### [facility] [address] [place] [address] Dr. Missy Odom (RBC) [Entitic vol]92.7 oYYvfxyr63.0-99.0The [facility] HospitalComment on above:Performed By: #### CBC #### [facility] [address] [place] [address] Dr. Missy Sexton #0.5 103/ulNormal0.3-0.8The [facility] HospitalComment on above:Performed By: #### CBC #### [facility] [address] [place] [address] Dr. Missy Hoffmanocytes/100 WBC (Bld)6.5 %Normal1.7-12.0The [facility] Comment on above:Performed By: #### CBC #### [facility] [address] [place] [address] Dr. Missy Lopez #3.9 103/ulNormal1.4-6.5The [facility] HospitalComment on above:Performed By: #### CBC #### [facility] [address] [place] [address] Dr. Missy Dashutrophils/100 WBC (Bld)55.2 %Corywk13.0-75.0The [facility] HospitalComment on above:Performed By: #### CBC #### [facility] [address] [place] [address] Dr. Missy Thomaslet mean volume (Bld) [Entitic vol]8.7 fLCritically low 9.5-13.5The [facility] HospitalComment on above:Performed By: #### CBC #### [facility] [address] [address] [address] Missy GonzalezPLT294 103/vhTpbxoz333-296Xmo [facility] HospitalComformerly [facility] on above: Performed By: #### CBC #### [facility] [address] [place] [address] Dr. Missy GonzalezRBC4.36 106/ulNormal4.20-5.40The [facility] on above:Performed By: #### CBC #### [facility] [address] [address] [address] Missy GonzalezWBC7.1 103/ulNormal4.0-11.0The [facility] HospitalComformerly [facility] on above: Performed By: #### CBC #### [facility] [address] [place] [address] Dr. Missy GonzalezGLYCOHEMOGLOBIN A1Con 55-09-2681HSC RECOMMENDATIONSEE BELOWNormal [facility] HospitalComformerly [facility] on above:Result Comment: ADA RECOMMENDED LIMIT 4.0 - 6.0 ADA THERAPEUTIC TARGET < 7.0 ACTION SUGGESTED > 7.0Performed By: #### A1C #### [facility] [address] [place] [address] Dr. Missy GonzalezGlucose [Mass/Vol]100 mg/dLNormalThe [facility] HospitalComformerly [facility] on above:Performed By: #### A1C #### [facility] [address] [place] [address] Dr. Missy GonzalezHbA1c (Bld) [Mass fraction]5.1 %Normal4.5-6.2The [facility] HospitalComformerly [facility] on above:Performed By: #### A1C #### [facility] [address] [place] [address] Dr. Missy GonzalezPREG HCG QUALon 80-53-1051HGLLYFJCP, QUALNegativeNormalNEGATIVE [facility] HospitalComformerly [facility] on above:Performed By: #### PREG #### [facility] [address] [place] [address] Dr. Missy GonzalezPROF 14(COMP METB)on 11-19-2556Qnorqgz [Mass/Vol]4.6 g/dLNormal 3.4-5.0The [facility] HospitalComment on above:Performed By: #### TSH, CMP #### [facility] [address] [place] [address] Dr. Missy GonzalezAlbumin/Globulin [Mass ratio]1.2 {ratio}NormalThe [facility] HospitalComment on above:Performed By: #### TSH, CMP #### [facility] [address] [address] [address] Missy Caldwell [Catalytic activity/Vol]69 U/UKdtejx07-616Zjm [facility] HospitalComment on above:Performed By: #### TSH, CMP #### [facility] [address] [place] [address] Dr. Missy Frank [Catalytic activity/Vol]30 U/ANhmnwh25-69Sif [facility] HospitalComment on above:Performed By: #### TSH, CMP #### [facility] [address] [place] [address] Dr. Missy Dumont gap [Moles/Vol]15.0 mmol/LNormalThe [facility] Comment on above:Performed By: #### TSH, CMP #### [facility] [address] [place] [address] Dr. Missy Brenner [Catalytic activity/Vol]20 U/PKuudcb87-86Yvw [facility] on above:Performed By: #### TSH, CMP #### [facility] [address] [place] [address] Dr. Missy GonzalezBilirubin [Mass/Vol]0.4 mg/dLNormal0.2-1.0The [facility] Comment on above:Performed By: #### TSH, CMP #### [facility] [address] [place] [address] Dr. Missy GonzalezCalcium [Mass/Vol]9.1 mg/dLNormal8.5-10.1The [facility] Comment on above:Performed By: #### TSH, CMP #### [facility] [address] [place] [address] Dr. Missy GonzalezChloride [Moles/Vol]102 mmol/BYpvdya52-395Ngr [facility] Comment on above:Performed By: #### TSH, CMP #### [facility] [address] [address] [address] Missy GonzalezCO2 [Moles/Vol]27.3 mmol/GSpoatz85.0-32.0The [facility] Comment on above:Performed By: #### TSH, CMP #### [facility] [address] [place] [address] Dr. Missy GonzalezCreatinine [Mass/Vol]0.63 mg/dLNormal0.55-1.02The [facility] HospitalComment on above:Performed By: #### TSH, CMP #### [facility] [address] [place] [address] Dr. Missy HenryGFR-AF ICELANDIC>60Normal>=60The [facility] HospitalComment on above:Performed By: #### TSH, CMP #### [facility] [address] [place] [address] Dr. Missy Aguilar-NON AF ICELANDIC>60Normal>=60The [facility] HospitalComment on above:Performed By: #### TSH, CMP #### [facility] [address] [place] [address] Dr. Missy GonzalezGlobulin (S) [Mass/Vol]3.8 g/dLNormalThe [facility] HospitalComment on above:Performed By: #### TSH, CMP #### [facility] [address] [place] [address] Dr. Missy GonzalezGlucose [Mass/Vol]86 mg/vMNbisou00-227AvnDelaware County Hospital Comment on above:Performed By: #### TSH, CMP #### [facility] [address] [place] [address] Dr. Missy GonzalezPotassium [Moles/Vol]4.3 mmol/LNormal3.5-5.1The [facility] Comment on above:Performed By: #### TSH, CMP #### [facility] [address] [place] [address] Dr. Missy GonzalezProtein [Mass/Vol]8.4 g/dLCritically high6.4-8.2The [facility] HospitalComment on above:Performed By: #### TSH, CMP #### [facility] [address] [place] [address] Dr. Missy Hadleydium [Moles/Vol]140 mmol/CYreywl910-262Szc [facility] Comment on above:Performed By: #### TSH, CMP #### [facility] [address] [place] [address] Dr. Missy Ayoub nitrogen [Mass/Vol]11.0 mg/dLNormal7.0-18.0The [facility] HospitalComment on above:Performed By: #### TSH, CMP #### [facility] [address] [place] [address] Dr. Missy Ayoub nitrogen/Creatinine [Mass ratio]17.5 mg/mgNoTogus VA Medical CenterComment on above:Performed By: #### TSH, CMP #### [facility] [address] [place] [address] Dr. Missy Manzano 42-59-7745BPS8.070 uIU/mLNormal0.358-3.740The [facility] HospitalComment on above:Performed By: #### TSH, CMP #### [facility] [address] [place] [address] Dr. Missy [facility]ina [facility] BELOWMount Carmel Health SystemComment on above: Result Comment: <0.34 UIU/ml HYPERTHYROID 0.34-5.60 UIU/ml EUTHYROID >5.60 UIU/ml HYPOTHYROIDPerformed By: #### TSH, CMP #### [facility] [address] [place] [address] Dr. Missy Swan Summary.on 55-36-9185Whlioo Summary.CODING DATE: 08/23/2020 FINAL [facility] STATUS: Home (Routine DC) PAYOR: Self Pay [...] Maria Guevara CphT Date Saved: 08/23/2020 07:49 amNormalVan Wert County HospitalXR ANKLE LEFT (MIN 3 VIEWS)on 64-12-7915JJ ANKLE LEFT (MIN 3 VIEWS)X-RAY: LEFT ANKLE, THREE VIEWS REASON FOR EXAMINATION: Left ankle pain after tripping and falling a lot work. COMPARISONS: None available. FINDINGS: No fracture, dislocation or osseous destruction is seen. The ankle mortise is well maintained. Soft tissue swelling laterally. IMPRESSION: NO FRACTURE OR DISLOCATION. SOFT TISSUES LUNG LATERALLY. Interpreted by: Thelma Del Valle MD Signed by: Thelma Del Valle MD 07/12/20 Final resultNormalRegency Hospital ToledoNO FRACTURE OR DISLOCATION. SOFT TISSUES LUNG LATERALLY.[facility] HospitalOneName [facility] Medical CenterJASPREETX-RAY: LEFT ANKLE, THREE VIEWS REASON FOR EXAMINATION: Left ankle pain after tripping and falling alot work. COMPARISONS: None available. FINDINGS: No fracture, dislocation or osseous destruction is seen. The ankle mortise is well maintained. Soft tissue swelling laterally.[facility] HospitalVida Systems NJEarlene Chpo Incoming Radiant Results From [employer] - 07/12/2020 1:16 PM EST X-RAY: LEFT ANKLE, THREE VIEWS REASON FOR EXAMINATION: Left ankle pain after tripping and falling a lot work. COMPARISONS: None available. FINDINGS: No fracture, dislocation or osseous destruction is seen. The ankle mortise is well maintained. Soft tissue swelling laterally. IMPRESSION: NO FRACTURE OR DISLOCATION. SOFT TISSUES LUNG LATERALLY. WattbotJASPREETLab Miscellaneous-LCon 22-58-2921Zwsi Saen360394IibvpnVan Wert County HospitalComment on above:Performed By: #### [id number] #### [facility] [address] [place], [place] [address]Jcff NameIG PAP RFLX HPVVan Wert County HospitalComment on above:Performed By: #### [id number] #### [facility] [address] [place] [address]Kijocuqva Orderon 00-58-2899Bdoknmfqk Order [id number]#1.00CD:127NormalAba [facility] Midtown CampusMeasles (Rubeola) Imon 39-11-0916Tpugede (Rubeola) Im2.18Normal>1.09[facility] HospitalComment on above:Result Comment: Interpretation: IMMUNE Reference Range: <0.91 Not Immune 0.91-1.09 Equivocal >1.09 ImmunePerformed By: #### GUILLERMO, RAOUL, VZI, EMELI #### [facility] [address] [place], [place] [address] General House Worker: CATRACHITO Pereaumps,Immun,Abon 12-91-4682Tgcbe,Immun,Ab3.24 Normal>1.09[facility] Seattle HospitalComment on above:Result Comment: Interpretation: IMMUNE Reference Range: <0.91 Not Immune 0.91-1.09 Equivocal >1.09 ImmunePerformed By: #### GUILLERMO, RAOUL, VZI, EMELI #### [facility] [address] [place], [place] [address] General House Worker: IGNACIA Perea Immunityon 24-16-4891MD Immunity1.31Normal >1.09[facility] Seattle HospitalComment on above:Result Comment: Interpretation: IMMUNE Reference Range: <0.91 Not Immune 0.91-1.09 Equivocal >1.09 ImmunePerformed By: #### GUILLERMO, RAOUL, VZI, EMELI #### [facility] [address] [place], [place] [address] General House Worker: Megan Perea B Surf Abon 07-86-5396Uxq B Surf Ab88.71 mIU/mLHigh<10[facility] Seattle HospitalComment on above:Result Comment: REFERENCE RANGE: <10.0 NON-REACTIVE/NOT IMMUNE >=10.0 REACTIVE/IMMUNE The presence of Anti-HBs usually indicates recovery from acute or chronic HBV infection or acquired immunity from HBV vaccination. Positive results (quantitative levels of equal to or greater than 10.0 mIU/mL) indicate an adequate immunity from previous infection, vaccination or immune globulin adminstration. Anti-HBc would help define positivity due to Hepatitis B infection.Performed By: #### AHBS #### [facility] [address] [place], [place] [address] General House Worker: Magdalene Perea, IgGon 69-79-9839Bqqgvdf Ab, IgG78.6 IU/mLNKettering Health TroyComment on above:Result Comment: REFERENCE RANGE: <5.0 NON-REACTIVE (non-immune) 5.0 TO 9.9 EQUIVOCAL >=10.0 REACTIVE (immune)Performed By: #### GUILLERMO, RAOUL, VZI, EMELI #### [facility] [address] [place], [place] [address] General House Worker: Jacques Carpenter MD Vital Signs Date TimeVital SignValuePerforming JlobyubkjJtkzcueh13-59-5651 13:16-0400Body mass index (BMI) [Ratio]28.35 kg/h6Rbdji [employer] DO Work Phone: [facility] CenterSqtcrotspk78-65-9190 13:16-0400Body .1 kg DomenicBizzabo Work Phone: [facility] CenterRgbqesxuxj31-92-7167 13:16-0400Diastolic blood ejjzcwge71 mm[Hg][employer]omenic[employer]o DO Work Phone: [facility] CenterEnyjkvjilv74-71-5732 13:16-0400Systolic blood jsljibje408 mm[Hg][employer] DO Work Phone: [facility] CenterZmgqndkowp34-13-2771 14:53-0400Body uxsjjf255.18 Tanna Del Valle CENTERLESS GRINDER SET UP OPERATOR Work Phone: [facility]07-03-2025 14:53-0400Body mass index (BMI) [Ratio]30.38 kg/m2Shaniqua Del Valle CENTERLESS GRINDER SET UP OPERATOR Work Phone: [facility]07-03-2025 14:53-0400Body cqdqacezfni92.01 [degF]Shaniqua Del Valle CENTERLESS GRINDER SET UP OPERATOR Work Phone: 1(125)[address]07-03-2025 14:53-0400Body mvvfni08 kgShaniqua Del Valle CENTERLESS GRINDER SET UP OPERATOR Work Phone: 1(840)[address] [place], [place] [address]40[address]7-03-2025 14:53-0400Diastolic blood ozftkade04 mm[Hg]Shaniqua Del Valle CENTERLESS GRINDER SET UP OPERATOR Work Phone: 1(694)[address] [place], [place] [address]7-03-2025 14:53-0400Heart rate85 /Sussy Eligio CENTERLESS GRINDER SET UP OPERATOR Work Phone: 1(609)[address] [place], [place] [address]7-03-2025 14:53-0400Respiratory rate18 /Sussy Eligio CENTERLESS GRINDER SET UP OPERATOR Work Phone: 1(321)[address] [place], [place] [address]7-03-2025 14:53-3499OwK1% (BldA) [Mass fraction]97 %Shaniqua Del Valle CENTERLESS GRINDER SET UP OPERATOR Work Phone: 1(007)[address] [place], [place] [address]7-03-2025 14:53-0400Systolic blood kuztbehl402 mm[Hg]Shaniqua Del Valle CENTERLESS GRINDER SET UP OPERATOR Work Phone: 1(157)[address] [place], [place] 7403006-30-2025 08:29-0400Body mass index (BMI) [Ratio]31.64 kg/g0Rnsfi Ani DO Work Phone: [facility] CenterDwmatvwxlk41-97-1887 08:29-0400Body xoalyg83.63 kgCorey Ani DO Work Phone: [facility] CenterIqkmkkhkyq03-77-9713 08:29-0400Diastolic blood ougynkig01 mm[Hg]Domenic Ani DO Work Phone: [facility] CenterCzwgzcfpns83-48-2740 08:29-0400Systolic blood ajftopgf573 mm[Hg]Domenic Ani DO Work Phone: [facility] CenterRgvmjpuylg32-62-4355 09:14-0400Body mass index (BMI) [Ratio]31.76 kg/l4Iyhss Ani DO Work Phone: 1(189)795-[address] [place], [place] [address]Prvjpamnwq57-14-5004 09:14-0400Body ehcfrg07.99 kgCorey Ani DO Work Phone: [facility] CenterTockeujgas76-27-3165 09:14-0400Diastolic blood cxncrjmy75 mm[Hg]Domenic Ani DO Work Phone: [facility] CenterIywrokqnjm89-12-2634 09:14-0400Systolic blood edznsnqa740 mm[Hg]Domenic Ani DO Work Phone: 1(517)328-[address] [place], [place] [address]Voeafgwszr90-15-2303 11:52-0400Body mass index (BMI) [Ratio]31.66 kg/u2Guxma Ani DO Work Phone: 1(411)206-[address] [place], [place] [address]Bsujepnbtl38-34-4313 11:52-0400Body vkkdyx51.68 kgCorey Ani DO Work Phone: 1(824)563-[address] [place], [place] [address]Mhuakvnkli33-52-1332 11:52-0400Diastolic blood uitbtwyh08 mm[Hg]Domenic Ani DO Work Phone: 1(625)014-[address] [place], [place] [address]Qndwlktotq79-83-5146 11:52-0400Systolic blood ymncccoi160 mm[Hg]Domenic Ani DO Work Phone: 1(080)538-[address] [place], [place] [address]Sgwolealxd65-40-4315 13:08-0400Body mass index (BMI) [Ratio]31.61 kg/c2Xyvzu Ani DO Work Phone: 1(222)798-[address] [place], [place] [address]Nohfxqphpi38-52-5707 13:08-0400Body mbdack22.54 kgCorey Ani DO Work Phone: 1(457)020-[address] [place], [place] [address]Lrilflcpgy03-07-6496 13:08-0400Diastolic blood ynyafieh61 mm[Hg]Domenic Ani DO Work Phone: 1(262)899-[address] [place], [place] [address]Ozfmpskrne52-57-4287 13:08-0400Systolic blood sxdloczl250 mm[Hg]Domenic Ani DO Work Phone: 1(721)413-[facility] CenterLinbtbtqeo09-74-0676 15:58-0400Body mass index (BMI) [Ratio]31.61 kg/b7Lhjlr Ani DO Work Phone: 1(996)083-[address] [place], [place] [address]Zbkihyiudc86-87-5733 15:58-0400Body blyjvp46.54 kgCorey Ani DO Work Phone: 1(550)951-[address] [place], [place] [address]Wxbnpedaxr48-40-2725 15:58-0400Diastolic blood drikbcgj08 mm[Hg]Domenic Ani DO Work Phone: 1(943)645-[address] [place], [place] [address]Uvlsrorxjw78-34-7310 15:58-0400Systolic blood hhaazadn301 mm[Hg]Domenic Ani DO Work Phone: 1(490)821-[address] [place], [place] [address]Ubrupoweib48-33-2048 14:36-0400Body mass index (BMI) [Ratio]30.67 kg/d5TfchfeagCaden Guillen CENTERLESS GRINDER SET UP OPERATOR Work Phone: 1(322)[facility] [place], [place] [address]Fohtqcizcl32-96-2265 14:36-0400Body lyevwe82.81 kgKrbrijesh Guillen CENTERLESS GRINDER SET UP OPERATOR Work Phone: 1(206)[facility] [place], [place] [address]Fovvlkagzq03-98-2150 14:36-0400Diastolic blood mm[Hg]Caden Guillen CENTERLESS GRINDER SET UP OPERATOR Work Phone: 1(245)[facility] [place], [place] [address]Xhisofppli11-17-5637 14:36-0400Systolic blood sygdcckm863 mm[Hg]Caden Guillen CENTERLESS GRINDER SET UP OPERATOR Work Phone: 1(530)[facility] [place], [place] [address]Mybvdfxctz22-86-0848 14:18-0400Body mass index (BMI) [Ratio]31.01 kg/l4Asnwe Ani DO Work Phone: 1(530)[facility] [place], [place] [address]Lunpefflxf41-92-1620 14:18-0400Body afwmnm63.81 kgCorey Ani DO Work Phone: 1(651)[facility] [place], [place] [address]Ufjwlolikh46-12-7813 14:18-0400Diastolic blood ssuqaurn19 mm[Hg]Domenic Ani DO Work Phone: 1(419)[facility] [place], [place] [address]Wpsvmatwuv36-53-9908 14:18-0400Systolic blood gnxkedge073 mm[Hg]Domenic Ani DO Work Phone: 1(419)[facility] [place], [place] [address]Kwrkcjbtbk55-91-7868 14:48-0400Body mass index (BMI) [Ratio]30.62 kg/k6Savfr Ani DO Work Phone: 1(263)655-[address] [place], [place] [address]Fobggsbfwk09-98-1134 14:48-0400Body exirjo52.68 kgCorey Ani DO Work Phone: 1(915)[facility] [place], [place] [address]Kdeyfatdql98-15-4559 14:48-0400Diastolic blood gsnxvybd23 mm[Hg]Domenic Ani DO Work Phone: 1(923)[facility] [place], [place] [address]Mrasjeswby46-44-7312 14:48-0400Systolic blood nlumcxxk865 mm[Hg]Domenic Ani DO Work Phone: 1(116)[facility] [place], [place] [address]Sohcjeqpmo53-57-8384 15:31-0400Body mass index (BMI) [Ratio]31.29 kg/o4Verax Ani DO Work Phone: 1(329)[facility] [place], [place] [address]Qjdhlfrqbj32-50-2709 15:31-0400Body fwzyun10.63 kgCorey Ani DO Work Phone: 1(708)[facility] [place], [place] [address]Zexmzgyscl87-09-9750 15:31-0400Diastolic blood mm[Hg]Domenic Ani DO Work Phone: 1(409)[facility] [place], [place] [address]Aaphhfqumx91-32-3595 15:31-0400Systolic blood kdarrynt465 mm[Hg]Domenic Ani DO Work Phone: 1(181)[facility] [place], [place] [address]Niaegxxggh88-11-2073 15:39-0500Body mass index (BMI) [Ratio]30.85 kg/u7Yegsw Ani DO Work Phone: 1(985)[address] [place], [place] 6194202-13-2025 15:39-0500Body sofefj19.36 kgCorey Ani DO Work Phone: 1(340)[facility] [place], [place] [address]Ambnknpjro58-55-9757 15:39-0500Diastolic blood mm[Hg]Domenic Ani DO Work Phone: 1(776)[facility] [place], [place] [address]Klzybnceyq89-26-9638 15:39-0500Systolic blood gebathey668 mm[Hg]Domenic Ani DO Work Phone: 1(805)[address] [place], [place] 6194201-20-2025 16:11-0500Body mass index (BMI) [Ratio]31.59 kg/m2Sofia Peralta PA Work Phone: [facility] CenterRmdgpzvhsq11-73-5249 16:11-0500Body mvezik11.49 kgSofia Peralta PA Work Phone: [facility] CenterVmwabxmeds59-21-3568 16:11-0500Diastolic blood zxsuifoe54 mm[Hg]Sofia Peralta PA Work Phone: [facility] CenterDsfcxlkuvh43-37-0106 16:11-0500Systolic blood ynwwgzga174 mm[Hg]Sofia Peralta PA Work Phone: [facility] CenterLtcesuxvrz54-51-0747 16:05-0500Body mass index (BMI) [Ratio]31.48 kg/p7Yainj Ani DO Work Phone: [facility] CenterEitzfqfkbi03-21-8329 16:05-0500Body bccyjn77.17 kgCorey Ani DO Work Phone: [facility] CenterYsafamnqsn89-77-9602 16:05-0500Diastolic blood xzsmiuix55 mm[Hg]Domenic Ani DO Work Phone: [facility] CenterQayplztfrh25-90-8690 16:05-0500Systolic blood yunnwplw314 mm[Hg]Domenic Ani DO Work Phone: [facility] CenterKbfcrjjkrv96-23-7314 12:46-0500BMI (Body Mass Index)31.01 kg/j7FpzviUniversity Hospitals [facility], EH17-64-4660 12:46-0500Body Ftsteryepny51.3 [degF][facility], FK40-99-2700 12:46-0500Body uvywuk58.81 kgUniversity Hospitals [facility], NW61-81-5112 12:46-0500BP Kirybkjnz935 mm[Hg][facility], MS99-63-8141 12:46-0500BP Cpudzjfu145 mm[Hg] [facility], TV66-39-0303 12:46-0437Pktrbh803.2 cmUniversity Hospitals [facility], VF05-19-9377 12:46-0500Pulse (Heart Rate)66 /minUniversity Hospitals Cleveland [facility] Center, KW17-17-2236 12:46-0500Pulse Gksbeyla36 %Chad [facility], IA76-18-3263 12:46-0500Respiratory Rate20 /minUniversity Hospitals [facility], [place] 07-11-2020 17:08-0500Body mass index (BMI) [Ratio]COMMENTFisher [facility] Midtown CampusComment on above:Result Comment: Test Ordered: [id number] IGP,rfx Aptima HPV all pth IGP,rfx Aptima HPV all pth Note WB TESTS RESULT FLAG UNITS REF RANGE LAB Clinician Provided Cytology Information No. of containers..01 ThinPrep Vial DIAGNOSIS: 01 NEGATIVE FOR INTRAEPITHELIAL LESION OR MALIGNANCY. CELLULAR CHANGES ASSOCIATED WITH INFLAMMATION ARE PRESENT. 01 Satisfactory for evaluation. Endocervical and/or squamous metaplastic cells (endocervical component) are present. 01 Phuong Campbell, Training And Quality Manager ([facility]) 01 Note 01 The Pap smear is [...] <-Panic Low,>-Panic High,A-Abnormal,AA-Critical Abnormal Performed at: [address] [id number] Carie Hartman MD, Performed at: [facility] [id number] MD Minnie DarnellPerformed By: #### [id number] #### [place] [facility] [address] [place] [address] Encounters Encounter DateEncounter TypeCare ProviderFacilityStart: 35-71-9564qulwyhfppfMyzz Marie Miller [facility] DEPARTMENTStart: 01-27-2025 End: 07-40-0649upwvxknwkkDNVEI FAZIONot AvailableStart: 01-27-2025 End: 39-75-6061Oglkwcnwnb care visitCorey Ani DO Work Phone: noms Naveed OBGYNComment on above:6 weeks follow-up ([facility])Start: 41-57-4134Qsmmuv outpatient visit 10 Blayne Del Valle [facility] DEPARTMENTStart: 12-17-2024 End: 96-10-8843Mcekzr outpatient visit 15 Blayne Braswell Del Valle CENTERLESS GRINDER SET UP OPERATOR Work Phone: ECJFSStart: 12-15-2024 End: 41-78-3075Ycwokczix Result EncounterCorey Ani DO Work Phone: noms External Department UnsolicitedStart: 12-15-2024 End: 77-57-7624Yrxytrlwr Result EncounterCorey Ani DO Work Phone: noms External Department UnsolicitedStart: 12-14-2024 End: 88-51-4172Sygwns flowsheetCorey Ani DO Work Phone: noms BCP OBStart: 12-14-2024 End: 92-09-1691Jnaaxu flowsheetCorey Ani DO Work Phone: NOMS BCP OBStart: 12-14-2024 End: 33-01-6558Xmpkxgnch Result EncounterCorey Ani DO Work Phone: NOMS External Department UnsolicitedStart: 12-14-2024 End: 51-23-1770idaqdvhjooRSVYE FAZIONot AvailableStart: 12-14-2024 End: 08-31-5248Hympjknl flow sheetCorey Ani DO Work Phone: NOMS BCP OBComment on above:Third trimester ([facility]); 38 weeks gestation of ([facility])Start: 12-09-2024 End: 48-76-5554Sqmuznue flow sheetCorey Ani DO Work Phone: N[facility] BCP OBComment on above:Third trimester ([facility]); 37 weeks gestation of ([facility])Start: 12-09-2024 End: 62-48-9042fgxevnlgqgZCPNB FAZIONot AvailableStart: 12-09-2024 End: 07-15-4650Amynuv flowsheetCorey Ani DO Work Phone: [facility] BCP OBStart: 12-09-2024 End: 21-87-0657Ovbkls flowsheetCorey Ani DO Work Phone: [facility] BCP OBStart: 12-03-2024 End: 34-61-8287Cnlvat flowsheetCorey Ani DO Work Phone: [facility] BCP OBStart: 12-03-2024 End: 13-96-0308Qghges flowsheetCorey Ani DO Work Phone: [facility] BCP OBStart: 12-03-2024 End: 90-31-6674Zqjlhkvm flow sheetCorey Ani DO Work Phone: [facility] BCP OBComment on above:Third trimester ([facility]); 37 weeks gestation of ([facility])Start: 12-03-2024 End: 66-57-6425eknoabaawtBTVWV FAZIONot AvailableStart: 12-02-2024 End: 36-02-9646Iownkinhd Result EncounterCorey Ani DO Work Phone: NOMS External Department UnsolicitedStart: 12-02-2024 End: 60-55-4262Toatzrxcl Result EncounterCorey Ani DO Work Phone: NOMS External Department UnsolicitedStart: 11-25-2024 End: 20-70-7912Gftwxi flowsheetCorey Ani DO Work Phone: [facility] BCP OBStart: 11-25-2024 End: 89-30-4303Cfftvq flowsheetCorey Ani DO Work Phone: [facility] BCP OBStart: 11-25-2024 End: 30-86-6569Dlsfaikm flow sheetCorey Ani DO Work Phone: NOEA BCP OBComment on above:35 weeks gestation of ; Third trimester pregnancyStart: 11-25-2024 End: 26-84-7545svhdsahqaqPGLND FAZIONot AvailableStart: 11-11-2024 End: 49-62-6979qejpjthgafPPYJQ FAZIONot AvailableStart: 11-11-2024 End: 70-87-0944Mpufknam flow sheetCorey Ani DO Work Phone: [facility] BCP OBComment on above:33 weeks gestation of ([facility]); Third trimester ([facility]); Heart palpitationsStart: 11-11-2024 End: 89-49-7052Fqnvrp flowsheetCorey Ani DO Work Phone: [facility] BCP OBStart: 11-11-2024 End: 38-01-8728Zgxmtu flowsheetCorey Ani DO Work Phone: [facility] BCP OBStart: 10-28-2024 End: 83-36-8342Onihdlaz flow sheetCaden Guillen CENTERLESS GRINDER SET UP OPERATOR Work Phone: [facility] BCP OBComment on above:31 weeks gestation of ; Third trimester pregnancyStart: 10-28-2024 End: 46-91-2168rlxqqkqduwXTLITHPT EBERLYNot AvailableStart: 10-28-2024 End: 41-89-8830Fqilsg flowsheetKristina Mindy CENTERLESS GRINDER SET UP OPERATOR Work Phone: NOTN BCP OBStart: 10-28-2024 End: 40-43-2026Xrxbey flowsheetKristina Mindy CENTERLESS GRINDER SET UP OPERATOR Work Phone: NOUO BCP OBStart: 10-19-2024 End: 51-80-5047Urhtqtgjq Result EncounterCorey Ani DO Work Phone: NOZR External Department UnsolicitedStart: 10-19-2024 End: 27-57-6270Sxqeovxca Result EncounterCorey Ani DO Work Phone: noms External Department UnsolicitedStart: 10-18-2024 End: 87-16-2806Ldptwlzos Result EncounterCorey Ani DO Work Phone: NOZT External Department UnsolicitedStart: 10-18-2024 End: 02-68-6444Cphqvlykp Result EncounterCorey Ani DO Work Phone: noms External Department UnsolicitedStart: 10-14-2024 End: 28-68-0749bqsqxcmmadCIKGG FAZIONot AvailableStart: 10-14-2024 End: 29-56-3015Jnqvgq flowsheetCorey Ani DO Work Phone: NOWZ BCP OBStart: 10-14-2024 End: 48-84-2700Czapun flowsheetCorey Ani DO Work Phone: NOMS BCP OBStart: 10-14-2024 End: 73-67-0586Qwupbudc flow sheetCorey Ani DO Work Phone: NOMS BCP OBComment on above:Third trimester ; 29 weeks gestation of ; Excessive growth affecting management of , antepartum, single or unspecified fetusStart: 09-30-2024 End: 07-25-8224Rgkxrqsf flow sheetCorey Ani DO Work Phone: noms BCP OBComment on above:Second trimester ; 27 weeks gestation of pregnancyStart: 09-30-2024 End: 67-96-8465ckcfwweevzDJPKF FAZIONot AvailableStart: 09-30-2024 End: 36-22-5881Lhxobeehb Result EncounterCorey Ani DO Work Phone: noms External Department UnsolicitedStart: 09-30-2024 End: 24-18-0331Ebxmvoprj Result EncounterCorey Ani DO Work Phone: noms External Department UnsolicitedStart: 09-28-2024 End: 90-29-5486Bkldeptau Result EncounterCorey Ani DO Work Phone: [facility] External Department UnsolicitedStart: 09-28-2024 End: 84-86-1978Dfwzbjrrj Result EncounterCorey Ani DO Work Phone: [facility] External Department UnsolicitedStart: 09-02-2024 End: 63-06-5475Ljziahnh flow sheetCorey Ani DO Work Phone: [facility] OBComment on above:23 weeks gestation of ; Second trimester ; Diabetes mellitus screeningStart: 09-02-2024 End: 11-64-2945vdzatekdomEFUSX FAZIONot AvailableStart: 07-31-2024 End: 19-14-0370actovnzraaTPK RAMEYNot AvailableStart: 07-30-2024 End: 63-96-9079ijunxqgkuyNSGVX FAZIONot AvailableStart: 07-30-2024 End: 52-22-9420Uyglhqdc flow sheetCorey Ani DO Work Phone: [facility] OBComment on above:19 weeks gestation of ; Second trimester ; UTI symptoms; Lightheaded; Iron deficiency anemia, unspecified iron deficiency anemia typeStart: 07-30-2024 End: 31-26-9087Yxijocvrb Result EncounterCorey Ani DO Work Phone: NOYE External Department UnsolicitedStart: 07-30-2024 End: 49-96-0170Bdhjcfots Result EncounterCorey Ani DO Work Phone: [facility] External Department UnsolicitedStart: 07-06-2024 End: 46-65-5431Odozqkf encounter procedureSofia Fabian VERDUGO Work Phone: [facility] Work Phone: Start: 07-06-2024 End: 95-77-8707Mbhjtylv preventive med est patient 18-39 yrsSofia Fabian VERDUGO Work Phone: [facility] BCP OBComment on above:Well woman exam with routine gynecological exam; Second trimester ; 16 weeks gestation of ; Vaginal discharge; STD exposure; Screening, , for anatomic surveyStart: 07-06-2024 End: 97-95-8732amxpimdvriNGH RAMEYNot AvailableStart: 07-06-2024 End: 37-59-8056Bobokj flowsheetSofia VERDUGO Work Phone: [facility] BCP OBStart: 07-06-2024 End: 64-39-7958Icbsyo flowsheetSofia VERDUGO Work Phone: [facility] BCP OBStart: 07-06-2024 End: 80-22-1035Ucknnrxrp Result EncounterSofia Fabian VERDUGO Work Phone: noms External Department UnsolicitedStart: 07-06-2024 End: 44-81-2402Tvgzbhia Result EncounterSofia Fabian EVRDUGO Work Phone: noms External Department UnsolicitedStart: 06-08-2024 End: 86-44-5385mkyejdmgdrMYYZN FAZIONot AvailableStart: 06-08-2024 End: 71-22-9717Tnlaphob flow sheetCorey Ani DO Work Phone: [facility] BCP OBComment on above:First trimester ; 11 weeks gestation of ; Nausea and vomiting in pregnancyStart: 06-08-2024 End: 41-26-7077Sblpmp flowsheetCorey Ani DO Work Phone: [facility] BCP OBStart: 06-08-2024 End: 40-92-0631Chpstf flowsheetCorey Ani DO Work Phone: [facility] BCP OBStart: 06-01-2024 End: 48-70-4565Ospaajhsk Result EncounterCorey Ani DO Work Phone: [facility] External Department UnsolicitedStart: 06-01-2024 End: 15-46-3232Bgszdwyrd Result EncounterCorey Ani DO Work Phone: [facility] External Department UnsolicitedStart: 05-09-2024 End: 01-75-6078Ugtectihp Result EncounterCorey Ani DO Work Phone: [facility] External Department UnsolicitedStart: 05-09-2024 End: 90-22-0038Skrzplcxc Result EncounterCorey Ani DO Work Phone: [facility] External Department UnsolicitedStart: 05-08-2024 End: 09-35-8769hesbzqblknFHXOA FAZIONot AvailableStart: 05-08-2024 End: 65-38-9583Polfqi outpatient visit 5 minutesNoms Bcp Ob Ani NurseNOMS BCP OBComment on above:GA: 0y0zHwile: 10-15-2022 End: 20-85-0205ysqlwwbcznGCA RAMEY .Facility:T3Qcljr: 08-20-2022 End: 68-56-9637nczsenmdnpLP DOMENIC ANI .Facility:B4Rjrio: 08-15-2022 End: 42-89-0763pfvtfevuovFP DOMENIC ANI .Facility:Y6Nzmaj: 37-89-6397ycszsshfmd DR DOMENIC ANI .Facility:N6Qgzqf: 08-06-2022 End: 35-80-9557Nidonytgzp and management of inpatientDR DOMENIC ANI .Facility:H1 Start: 07-31-2022 End: 91-29-4681lkapxxuzbqIA DOMENIC ANI .Facility:M1Jjymn: 07-16-2022 End: 07-82-7780uiahrqizswRNX RAMEY .Facility:U5Mayba: 07-02-2022 End: 28-82-6483htfnbwgfriTR COREY FAZIO .Facility:G8Evtsi: 03-26-2022 End: 39-47-2308nmqlhkcukkST COREY FAZIO .Facility:B3Anrcs: 16-07-7953bkupefejpy DR DOMENIC LAW .Facility:O2Efgcf: 01-23-2022 End: 36-91-5804wqcgocaspmUL MARCIA E BRAUNFacility:R1Wkpba: 12-29-2021 End: 52-12-6573mpugkgsfkuGU COREY FAZIO .Facility:D8Wagzl: 33-93-0579Ucovhjmrn for general adult medical examination without abnormal findingsDR MIKIE OHARA [facility]: 11-16-2021 End: 31-08-5733atmmraetxqMY MIKIE OHARAFacility:J8Uyvpv: 11-16-2021 End: 10-57-4334Pivegmrsk for general adult medical examination without abnormal findingsDR MIKIE OHARAFacility:I7Gssqf: 07-12-2020 End: 73-84-8945Fetsvemdh [facility] Start: 07-12-2020 End: 09-04-7111Ftlqwtipm department [facility] Phone: [facility] EDComment on above:Sprain of left ankle, unspecified ligament, initial encounter (Primary Dx)Start: 10-13-2018 End: 62-10-9419Depzbnk encounter procedureMARCISelect [facility]ty [facility], [facility] Procedures DateProcedureProcedure DetailPerforming ClinicianStart: 70-30-9161SG scrn perf rec intervalShaniqua Del Valle NPStart: 21-47-6267Vvbkrfp tobacco non-user cad cap copd pv dmShaniqua Del Valle NPStart: 42-46-7359Jgcfiqiisj list documented in medical recordShaniqua Del Valle NPStart: 54-40-6158Zfkd recent diastolic blood pressure < 80 mm hgShaniqua Del Valle NPStart: 07-12-1198Ctfd recent systolic blood pressure <130 mm hgShaniqua Del Valle NPStart: 56-06-1770Tgc dep neg, no plan reqdLisa Eligio NPStart: 12-17-2024 End: 49-86-1622DPELQ BP 80-89 MM HGShaniqua Del Valle CENTERLESS GRINDER SET UP OPERATOR Work Phone: Start: 12-17-2024 End: 34-67-0090Cyjvrycstnnmr of current medicationsShaniqua Del Valle CENTERLESS GRINDER SET UP OPERATOR Work Phone: Start: 12-17-2024 End: 71-35-6834JYS LIST DOCD IN Lorri Del Valle CENTERLESS GRINDER SET UP OPERATOR Work Phone: Start: 12-17-2024 End: 55-64-0946KOG MEDS BY RX/DR IN Lorri Del Valle CENTERLESS GRINDER SET UP OPERATOR Work Phone: Start: 12-17-2024 End: 90-07-8869FRLA BP < 130 MM HGShaniqua Del Valle CENTERLESS GRINDER SET UP OPERATOR Work Phone: Start: 12-17-2024 End: 42-01-4283VZNONOV NON-USERShaniqua Del Valle CENTERLESS GRINDER SET UP OPERATOR Work Phone: Start: 33-15-2504MAO CBC WITH AUTO DIFFCorey Ani DO Work Phone: Start: 44-82-5855KSSR CBC WITH PLATELET NO DIFFERENTIALCorey Ani DO Work Phone: Start: 61-17-3661Dkhyl dip stick/tablet rgnt non-auto w/o micrscpCorey Ani DO Work Phone: Start: 32-29-3631FQGYUZGEYsxai Ani DO Work Phone: Start: 59-17-2273Rfcnj dip stick/tablet rgnt non-auto w/o micrscpCorey Ani DO Work Phone: Start: 58-62-2600Qxukv dip stick/tablet rgnt non-auto w/o micrscpCorey Ani DO Work Phone: Start: 51-06-1994Jffxy dip stick/tablet rgnt non-auto w/o micrscpCaden Guillen CENTERLESS GRINDER SET UP OPERATOR Work Phone: Start: 28-13-3769OZD UA (CLEAN/CATCH) SENIOR WRITER/MICRO IF IND.Domenic Ani DO Work Phone: Start: 27-09-5338MN OB GROWTHCorey Ani DO Work Phone: Start: 18-51-7041Xcjdr dip stick/tablet rgnt non-auto w/o micrscpCorey Ani DO Work Phone: Start: 44-13-1570Ccbqx dip stick/tablet rgnt non-auto w/o micrscpCorey Ani DO Work Phone: Start: 76-41-1266SUDWBAH TOLERANCE 3 HOURCorey Ani DO Work Phone: Start: 92-92-3850CYC CBC WITH AUTO DIFFCorey Ani DO Work Phone: Start: 14-38-9423Kqapm dip stick/tablet rgnt non-auto w/o micrscpCorey Ani DO Work Phone: Start: 68-60-0897UTA CBC WITH AUTO DIFFCorey Ani DO Work Phone: Start: 61-48-1654BCVKZLAIP VAGINITIS (HTRX)Sofia VERDUGO Work Phone: Start: 70-15-9625PQC,APTIMA HPV,AGE GDLNAmy Fabian VERDUGO Work Phone: Start: 01-66-9666EDC TESTCorey Ani DO Work Phone: Start: 17-27-8996AO OB TRANSVAGINALCorey Ani DO Work Phone: Start: 05-08-2024 End: 47-01-3784Fzrxa dip stick/tablet rgnt non-auto w/o micrscpAmy Fabian VERDUGO Work Phone: Start: 01-01-2023 End: 74-88-4643Gzwdb Tonny Del Valle NP Work Phone: Start: 99-23-8117Phwflvqs of Products of Conception, External ApproachDR MIKIE Pastranaart: 66-96-5462Cjrpcflk of Amniotic Fluid, Therapeutic from Products of Conception, Via Natural or Artificial OpeningDR MIKIE Pastranaart: 91-93-5258Tkiqfywmuygg of Other Hormone into Peripheral Vein, Percutaneous ApproachDR MIKIE Pastranaart: 83-28-4205Ptjevq Perineum Skin, External ApproachDR MIKIE Pastranaart: 65-03-3764Xajwrr Vulva, External Approach DR MIKIE Pastranaart: 14-53-6112Pfyso ankle complete minimum 3 viewsGlenn W Ray Work Phone: Start: 88-43-3357Gyusoxesu b surf antibody hbsabMARCIA BRAUNStart: 08-20-4265Rnmidmwk mumpsMARCIA BRAUNStart: 84-38-9174Muxuzbvq rubeolaMARCIA BRAUNStart: 97-13-6679Mldxkzlk varicella-zosterMARCIA BRAUNStart: 47-04-8888Uqadutjqvgh infectious agent antibody priyanka nosMARCIA OHARA Plan of Treatment DateCare ActivityDetailAuthorStart: 23-96-4579Dxhzyhkby vaccinationInfluenza Vaccine (#1)[facility] HealthcareStart: 73-34-2766Bevufmi management education, guidance, and counselingDietary management education, guidance, and counseling [facility]start: 04-18-8997[facility]riR[facility] Work Phone: Start: 12-14-2024 End: 85-91-8322Jrjubys encounter ueyzmwyle36/30/2025 8:10 AM EDT Routine [facility] [address] [place] [phone] Domenic Law, DO [address] [place] [address] [facility] OBStart: 12-09-2024 End: 56-39-1075Sgdgqln encounter procedureNOMS BCP OBComment on above:Arrived Start: 12-03-2024 End: 43-42-6646Asqxaga encounter cawjpikhq21/19/2025 11:40 AM EDT Routine [facility] [address] [place] [address] Domenic Law, DO [address] [place] [address] [place] [address] ArrivedNOMS BCP OBComment on above: ArrivedStart: 12-02-2024 End: 47-73-0712Imidaae encounter dvyjuswbo84/18/2025 3:10 PM EDT Routine [facility] [address] [place] [place] [address] Domenic Law, DO [facility] [place] [address] [facility] BCP OBStart: 11-25-2024 End: 40-93-5620Tnlhdav encounter qrpnshixu83/11/2025 2:50 PM EDT Routine [facility] [address] [place] [address] Domenic Law, DO [address] [place] [address] [place] [address] [facility] BCP OBStart: 11-25-2024 End: 11-42-8745NWSDTWK, GROUP B STREP WITH SUSCEPTIBLITYCULTURE, GROUP B STREP WITH SUSCEPTIBLITY Lab Routine Third trimester Expected: 11/25/2024, Expires: 11/25/2025[place]OC[facility] [place] Work Phone: comment on above:Expected: 11/25/2024, Expires: 11/25/2025Start: 11-25-2024 End: 14-78-9512Nmenjyt encounter zbjylsrwv39/11/2025 1:10 PM EDT Routine [facility] [address] [facility] [place] [address] Domenic Law, DO [address] [place], [place] [id number] ArrivedNOAL BCP OBComment on above: ArrivedStart: 11-11-2024 End: 18-04-0964Xdvirsg encounter posudpozb65/28/2025 3:30 PM EDT Routine [facility] [address] [facility] [place] [phone] Domenic Law, DO [address] [place] [address] [facility] BCP OBStart: 11-11-2024 End: lead ECGECG 12 lead unit performed ECG Routine Third trimester ([facility]) Heart palpitations Expected: 11/11/2024 (Approximate), Expires: 11/11/2025[facility] Work Phone: comment on above:Expected: 11/11/2024 (Approximate), Expires: 11/11/2025Start: 11-11-2024 End: 93-35-7710Jyjrudkqtvqyvc 2D completeEchocardiogram 2D complete Echocardiography Routine Third trimester ([facility]) Heart palpitations Expected: 11/11/2024 (Approximate), Expires: 11/11/2026N[facility] HealthcareComment on above:Expected: 11/11/2024 (Approximate), Expires: 11/11/2026Start: 10-28-2024 End: 89-26-1514Hpnalvf encounter procedureNOAL BCP OBComment on above:Arrived Start: 10-14-2024 End: 61-07-9294Qspfvlw encounter albedwjxa46/30/2025 2:00 PM EDT Routine [facility] [address] [facility] [place] [place] [address] Domenic Law, DO [address] [place] [address] [facility] BCP OBStart: 10-14-2024 End: 62-90-3637LM for pregnancyUS OB follow up transabdominal approach Imaging Routine Excessive growth affecting managementof , antepartum, single or unspecified fetus Expected: 10/14/2024, Expires: 02/13/2025[facility] Work Phone: comment on above:Expected: 10/14/2024, Expires: 02/13/2025Start: 09-30-2024 End: 04-04-2361Tkddwoz encounter fxlhuwmsx07/16/2025 2:50 PM EDT Routine [facility] [address] [facility] [place] [address] Domenic Law, DO [facility] [address] [place], [place] [id number] [facility] BCP OBStart: 09-02-2024 End: 16-82-0598FKC panel - Blood by Automated countCBC Lab Routine Diabetes mellitus screening Expected: 09/02/2024 (Approximate), Expires: 09/02/2025[facility] Work Phone: comment on above:Expected: 09/02/2024 (Approximate), Expires: 09/02/2025Start: 09-02-2024 End: 20-28-8581Rwyparddhom of glucose 1 hour after glucose challenge for glucose tolerance testGlucose tolerance, 1 hour Lab Routine Diabetes mellitus screening Expected: 09/02/2024 (Approximate), Expires: 09/02/2025[facility] HealthcareComment on above:Expected: 09/02/2024 (Approximate), Expires: 09/02/2025Start: 08-10-2024 End: 81-11-8262Achqzit encounter wvclcvozv02/24/2025 3:20 PM EST Routine [facility] [address] [place] [address] Domenic Law, DO [address] [place], [place] [id number] [facility] BCP OBStart: 08-10-2024 End: 06-73-7404Rrflniaswnxz / ancillary services lnlvkahkbk76/24/2025 2:30 PM EST Ancillary Procedure [facility] [address] [place] [address] [facility] BCP OBStart: 07-31-2024 End: 17-19-2103Tbasnwzgwzjb / ancillary services raaudvtovn65/14/2025 10:30 AM EST Ancillary Procedure [facility] [address] [place] [address] [facility] BCP OBStart: 07-06-2024 End: 58-88-0828Slwybbn encounter procedureNOTAHOE FOREST HOSPITAL OBComment on above:Arrived Start: 07-06-2024 End: 02-67-4003Rzbzj fetoprotein, maternalAlpha fetoprotein, maternal Lab Routine Second trimester 16 weeks gestation of Expected: 07/06/2024 (Approximate), Expires: 01/03/2025NO[facility] HealthcareComment on above: Expected: 07/06/2024 (Approximate), Expires: 01/03/2025Start: 07-06-2024 End: 06-22-0931VP for pregnancyUS OB 14+ weeks anatomy scan Imaging Routine Screening, , for anatomic survey Expected: 07/06/2024, Expires: 07/06/2025NO[facility] HealthcareComment on above:Expected: 07/06/2024, Expires: 07/06/2025Start: 06-08-2024 End: 76-87-8319Iqdqatk encounter jqokonhbv64/23/2024 3:30 PM EST Routine [facility] OB [address] [place] [address] Domenic Law, DO [address] [place] [address] [place] [address] [facility] BCP OBStart: 05-08-2024 End: 34-69-6801MAW/RhABO/Rh Lab Routine Missed menses , unspecified gestational age Expected: 05/08/2024 (Approximate), Expires: 05/08/2025[facility] HealthcareComment on above:Expected: 05/08/2024 (Approximate), Expires: 05/08/2025Start: 05-08-2024 End: 46-08-0367Mbbyp type and Indirect antibody screen panel - BloodType and screen Lab Routine Missed menses , unspecified gestational age Expected: 05/08/2024 (Approximate), Expires: 05/08/2025[facility] Work Phone: comment on above:Expected: 05/08/2024 (Approximate), Expires: 05/08/2025Start: 05-08-2024 End: 64-34-5910Mqmxw of abuse panel - Urine by Screen methodRapid drug screen, urine Lab Routine , unspecified gestational age Encounter for supervision of normal first in first trimester Expected: 05/08/2024 (Approximate), Expires: 05/08/2025[facility] HealthcareComment on above:Expected: 05/08/2024 (Approximate), Expires: 05/08/2025Start: 05-08-2024 End: 91-69-9327QM Pelvis transvaginalUS OB transvaginal Imaging Routine Missed menses Expected: 05/08/2024 (Approximate), Expires: 05/08/2025[facility] Comment on above:Expected: 05/08/2024 (Approximate), Expires: 05/08/2025Start: 65-16-6070Vejecgwig vaccinationInfluenza Vaccine (#1)[facility]: 54-15-8261Ffrynszed vaccinationFlu vaccine (#1)[facility]: 64-03-2576TRwM/Tdap/Td vaccine (7 - Tdap)DTaP/Tdap/Td vaccine (7 - Tdap)[facility]: 39-83-5007Uizvhzpit for Chlamydia trachomatisChlamydia [facility]: 94-09-5204Kjwvkuysc for malignant neoplasm of cervixCervical cancer [facility]: 93-07-9254DEX screening HIV screenProvidence Hospital: 86-04-9419FNR vaccine (1 - 2-dose series) HPV vaccine (1 - 2-dose series)[facility]: 18-48-2303Wljhvckha C screeningHepatitis C [place], [place]Bacteria identified in Urine by CultureUrine culture Microbiology Routine Missed menses Ordered: 05/08/2024[facility] HealthcareComment on above:Ordered: 05/08/2024BC W Auto Differential panel - BloodCBC and differential Lab Routine Missed menses , unspecified gestational age Ordered: 05/08/2024[facility] HealthcareComment on above:Ordered: 05/08/2024BC W Auto Differential panel - BloodCBC and differential Lab Routine 19 weeks gestation of Second trimester UTI symptoms Lightheaded Ordered: 07/30/2024[facility] HealthcareComment on above:Ordered: 07/30/2024HLAMYDIA TRACHOMATIS (GENITO/STI)CHLAMYDIA TRACHOMATIS (GENITO/STI) Lab Routine STD exposure Ordered: 07/06/2024[facility] HealthcareComment on above: Ordered: 07/06/2024omprehensive metabolic 2000 panel - Serum or Plasma Comprehensive metabolic panel Lab Routine 19 weeks gestation of Second trimester UTI symptoms Lightheaded Ordered: 07/30/2024[facility] Work Phone: comment on above:Ordered: 07/30/2024ytology Cervical or vaginal smear or scraping studyPap Smear Pathology and Cytology Routine Well woman exam with routine gynecological exam Ordered: 07/06/2024[facility] Comment on above:Ordered: 07/06/2024Ferritin [Mass/volume] in Serum or Plasma Ferritin Lab Routine 19 weeks gestation of Second trimester UTI symptoms Lightheaded Ordered: 07/30/2024[facility] HealthcareComment on above: Ordered: 07/30/2024Hemoglobin A1c/Hemoglobin.total in BloodHemoglobin A1c Lab Routine Missed menses , unspecified gestational age Ordered: 05/08/2024 [facility] HealthcareComment on above:Ordered: 05/08/2024Hepatitis B virus surface Ag [Presence] in Serum or Plasma by ImmunoassayHepatitis B surface antigen Lab Routine Missed menses , unspecified gestational age Ordered: 05/08/2024 [facility] HealthcareComment on above:Ordered: 05/08/2024Hepatitis C virus Ab [Presence] in Serum or Plasma by ImmunoassayHepatitis C antibody Lab Routine Missed menses , unspecified gestational age Ordered: 05/08/2024[facility] HealthcareComment on above:Ordered: 05/08/2024HIV-1/HIV-2 antigen/antibody combination immunoassayHIV-1 and HIV-2 antibodies Lab Routine Missed menses , unspecified gestational age Ordered: 05/08/2024[facility] HealthcareComment on above:Ordered: 05/08/2024Neisseria gonorrhoeae DNA [Presence] in Unspecified specimen by CEDRIC with probe detectionNeisseria gonorrhea DNA probe, direct Lab Routine STD exposure Ordered: 07/06/2024[facility] HealthcareComment on above:Ordered: 07/06/2024Reagin Ab [Presence] in Serum by RPRRPR Lab Routine Missed menses , unspecified gestational age Ordered: 05/08/2024[facility] HealthcareComment on above:Ordered: 05/08/2024ubella antibody, IgGRubella antibody, IgG Lab Routine Missed menses , unspecified gestational age Ordered: 05/08/2024 [facility] HealthcareComment on above:Ordered: 05/08/2024SURESWAB(R) ADVANCED VAGINITIS PLUS, TMASURESWAB(R) ADVANCED VAGINITIS PLUS, TMA Pathology and Cytology Routine Vaginal discharge Ordered: 07/06/2024[facility] Work Phone: comment on above:Ordered: 07/06/2024Thyrotropin [Units/volume] in Serum or PlasmaTSH Lab Routine 19 weeks gestation of Second trimester UTI symptoms LightheadedOrdered: 07/30/2024[facility] HealthcareComment on above:Ordered: 07/30/2024 Immunizations Immunization DateImmunizationNotesCare RxjsfjgeAyajcxem56-97-0541kobkrutsu, seasonal, injectable; Translations: [Influenza vaccine]Shaniqua Del Valle CENTERLESS GRINDER SET UP OPERATOR Work Phone: [facility]01-27-2025influenza virus vaccine, unspecified formulationCorey Ani DO Work Phone: [facility] CenterRzagatvjzf71-84-1819inbspuvih virus vaccine, unspecified formulationBear River [facility] Hospital NurseSoutheast [facility] Community Treatment CenterHoumgbmlxr15-78-7853eyhdppo toxoid, reduced diphtheria toxoid, and acellular pertussis vaccine, adsorbed; Translations:[Tdap Vaccine]Shaniqua Del Valle CENTERLESS GRINDER SET UP OPERATOR Work Phone: [facility] Payers DatePayer CategoryPayerPolicy [id number] Member Subscriber Plan / Payer (Effective 2022-Present) Name: Emy Cantu Relation to Subscriber: Spouse Name: DINO CANTU Date of : 1993 Address: [address] [place] [address] Payer ID: Not on file Type: Not on file Address: [facility] [address] [place] [id number] [id number] 1.2.840.325236.1.13.239.2.7.3.027[id number] 2.840.1.572312.3.579.[id number] 2.16840.1.321446.3.579.[id number] 2.16840.1.720123.3.579.[id number] 2.0.1.345536.3.579.2.06471-87-1378Bqfedvx7002864 2.16840.1.501676.3.579.2.91510-24-0094Zcckydx8428105 2.16840.1.744099.3.579.2.24266-50-1235Zhsjypb2562787 2.16840.1.751479.3.579.2.32919-48-6060Elhofyf6987015 2.840.1.099909.3.579.2.96566-92-4728Jlcduld6875893 2.16.840.1.477751.3.579.2.28140-42-6512Kfmqjgr3403808 2.16.840.1.891908.3.579.2.13182-33-0609Llbgpie2681088 2.16.840.1.626177.3.579.2.93336-29-9198Jcykndt8453674 2.16.840.1.150844.3.579.2.68563-91-6812Tzdxgzz3526218 2.16.840.1.826352.3.579.[id number] 2.16.840.1.912216.3.579.[id number] 2.16.840.1.022639.3.579.2.30941-93-6526Bwujfjl91138565 2.16.840.1.254462.3.579.2.648636-59-9905Ubjrkzi89439852 2.16.840.1.565938.3.579.2.313274-16-3741Ksaxokz02290907 2.16.840.1.857900.3.579.2.921223-34-1677Mmvrjhb40874034 2.16.840.1.931737.3.579.2.116335-43-5654Gmoigti36534925 2.16.840.1.381353.3.579.2.777089-95-5408Hcxvpdz5890833 2.16.840.1.308056.3.579.2.358495-57-6036Wjotbqp4796098 2.16.840.1.967763.3.579.2.103074-72-1486Vympyxc4484119 2.16.840.1.390851.3.579.2.688964-03-3555Jgdyyub4922534 2.16.840.1.887695.3.579.2.198649-71-6348Lgwleor6317880 2.16.840.1.033345.3.579.2.448112-45-7983Txnheog3575069 2.16.840.1.812414.3.579.2.817213-61-5560Akaetvd8007034 2.16.840.1.047549.3.579.2.788082-40-6486Nkfmkhd3667009 2.16.840.1.446027.3.579.2.688307-13-5170Mqhbavc3409592 2.16.840.1.589831.3.579.2.370700-56-4130Sbaxaij9237196 2.16.840.1.480443.3.579.2.532709-26-1779Zradiun64059165 2.16.840.1.959472.3.579.2.75568-51-2501Oqap-[id number] 02-48-7015JyrisnoFFV533J55005102719CyvfyztIVC931P2829060-25-2007Ipfkjsk305670647Ecvcppb2621108 2..840.1.095375.3.579.2.593 Social History DateTypeDetailFacilityStart: 07-12-2020 End: 22-15-9430Dreygqz smoking status NHISNever smokerLAYTON HOSPITAL HealthcareStart: 07-12-2020 End: 16-93-4933Fwhzvat use and exposureNever usedProv[facility]: 07-43-6030Voaormi intakeCurrent non-drinker of alcohol (finding)[facility]: 51-19-2888Ykz Assigned At [place]Not [place] Exposure to SARS-CoV-2 (event)Not sureLakeHealth Beachwood Medical Centerart: 05-08-2024 End: 04-09-9049Oimuxdssh beverage intakeLifetime non-drinker (finding)[facility] HealthcareStart: 06-06-2023 End: 49-46-5422Wjbmsdy of Social functionNOMS HealthcareStart: 06-06-2023 End: 28-89-1722Ksseoui use panelNOAL HealthcareStart: 70-60-6771BrvjantqjAAMX HealthcareStart: 75-07-9027Ukajpf-related behavior (observable entity)[facility]affeine Use [facility]: 62-01-0657Xpzwtrg use and exposureNon-Smoking Tobacco Use [facility]ex Assigned At BirthMargaretville Memorial Hospitalexual Orientation Straight or heterosexualRangely District Hospital Work Phone: Start: 32-55-1871Baoovj identityMargaretville Memorial Hospitaltart: 58-19-0571VjxOjwzbzRGNW HealthcareNEGATED: Highlighted rowStart: 52-06-5143Kknuyix smoking status NHISUnknown if ever smokedRangely District HospitalNEGATED: Highlighted rowAlcohol intake Alcohol Use [facility]NE[facility]: Highlighted row Start: 82-53-6776Uckferb of tobacco useCurrent non-smokerRangely District Hospital Clinical Notes 05-08-2024 to 01-27-2025 Note Date & PnwnFnbdPxoqnwkc66-58-4098 History of Present illness Narrative* Caden Guillen NP - 01/27/2025 1:10 PM EDT Reason for Appointment: Patient ID: Emy Cantu is a 29 y.o. female who presents for 6wks PP Patient presents today for Post Follow Up appointment. MEDICATIONS Current Outpatient Medications Medication Instructions Vit-Fe Fumarate-FA ( Vitamins) 28-0.8 MG tablet [...] nursing note reviewed. Exam conducted with a tube heater present. Vitals: Estimated body mass index is 28.35 kg/m as calculated from the following: Height as of 10/15/22: 5' 7 . Weight as of this encounter: 181 lb. BP: 122/76 Patient's last menstrual period was 03/12/2024. ASSESSMENT & PLAN ICD-10-CM 1. 6 weeks follow-up ([facility]) Z39.2 Post Follow Up: Patient is doing well and without complaints. Patient presents today for 6 week visit. Patient is s/p Vaginal delivery. Patient states depression but denies suicidal and homicidal ideations. All options were discussed with the patient regarding control and patient desires no control at this time. She would like to discuss the ParaGard IUD vs Mirena IUD. Options were discussed and she is going to discuss further with her and schedule in the future. Follow Up: Patient is to return for annual unless needed otherwise. Documented by Caden Guillen NP on behalf of: Domenic Law DO documented in this encounterSoutheast Missouri Community Treatment [id number] Evaluation note* Type Assessment Date assessment Body mass index [BMI] 30.0-30.9, adult assessment Anxiety with depression 025 impression Stable. Doing very w ell. No changes indicated at this time. Continue zoloft. Follow up 6 months, sooner if needed. [facility] Work Phone: 1(275) 454-575607-03-2025 History of Present illness Narrative* Encounter Date Complaint History Of Prese nt Illness Office visit Patient presents 3 days post-. Patient states she is doing really well. Patient states she has had lab work done this year. Patient has no complaints. --CALVIN Walkeroted above. She remains on zoloft and iron. She had her 2nd baby earlier this week and is feeling great. She has no current physical or emotional health concerns other than her recovery from .Jose L GOSS [facility] Work Phone: 1(754) 255-467707-03-2025 Instructions* Date Instruction Additional Infor genoveva Giving encouragement to exercise Related to Body mass index [BMI] 30.0-30.9, adult Dietary management e ducation, guidance, and counseling Related to Body mass index [BMI] 30.0-30.9, adult [facility] Work Phone: 1(583) 831-207406-30-2025 History of Present illness Narrative* Halina Mustafa LPN - 12/14/2024 8:10 AM EDT Reason for Appointment: Patient ID: Emy Cantu [...] nursing note reviewed. Exam conducted with a tube heater present. Vitals: Estimated body mass index is 31.64 kg/m as calculated from the following: Height as of 10/15/22: 5' 7 . Weight as of this encounter: 202 lb. BP: 128/80 Patient's last menstrual period was 03/12/2024. ASSESSMENT & PLAN ICD-10-CM 1. Third trimester ([facility]) Z34.93 2. 38 weeks gestation of ([facility]) Z3A.38 Return OB: Patient presents today for a routine obstetrics appointment. Patient is currently 38w4d . Patient states she is doing well but has complaints of being tired due to current . Patient has verbalizes frequent movement. Pt has complaints of contractions. Pt being sent to [facility], pt is 4 cm dilated. labor precautions was discussed/given and patient was instructed to performfetal kick counts three times a day. No orders of the defined types were placed in this encounter. Follow Up: Patient is to return to office in 1 week for routine OB appointment. Documented by Halina Mustafa LPN on behalf of: Domenic Law DO documented in this encounterSoutheast Missouri Community Treatment [id number] History of Present illness Narrative* LUCINA Singletary - 12/09/2024 3:00 PM EDT Reason for Appointment: Patient ID: Emy Cantu [...] nursing note reviewed. Exam conducted with a tube heater present. Vitals: Estimated body mass index is 31.66 kg/m as calculated from the following: Height as of 10/15/22: 5' 7 . Weight as of 12/03/24: 202 lb 1.9 oz. BP: Patient's last menstrual period was 03/12/2024. ASSESSMENT & PLAN ICD-10-CM 1. Third trimester ([facility]) Z34.93 POCT urinalysis dipstick manually resulted 2. 37 weeks gestation of ([facility]) Z3A.37 Return OB: Patient presents today for a routine obstetrics appointment. Patient is currently 38w0d . Patient states she is doing well but has complaints of being tired due to current . Patient has verbalizes frequent movement. labor precautions was discussed/given and patient was instructed to perform kick counts three times a day. Orders Placed This Encounter Procedures POCT urinalysis dipstick manually resulted Follow Up: Patient is to return to office in 1 week for routine OB appointment. Documented by LUCINA Singletary on behalf of: Domenic Law DO documented in this encounterSoutheast Missouri Community Treatment [id number] History of Present illness Narrative* Aliya Aguilar LPN - 12/03/2024 11:40 AM EDT Reason for Appointment: Patient ID: Emy Cantu [...] nursing note reviewed. Exam conducted with a tube heater present. Vitals: Estimated body mass index is 31.66 kg/m as calculated from the following: Height as of 10/15/22: 5' 7 . Weight as of this encounter: 202 lb 1.9 oz. BP: 120/74 Patient's last menstrual period was 03/12/2024. ASSESSMENT & PLAN ICD-10-CM 1. Third trimester ([facility]) Z34.93 2. 37 weeks gestation of ([facility]) Z3A.37 Patient presents today for a routine obstetrics appointment. Patient is currently 37w0d with a Estimated Date of Delivery: 12/24/24. Pelvic exam revealed 3-4cm dilated. Discussed IOL on 12/14/2024. Patient to return to clinic in 1 week for return OB appointment. Documented by Domenic Law DO documented in this encounterSoutheast Missouri Community Treatment [id number] History of Present illness Narrative* Halina Mustafa LPN - 11/25/2024 1:10 PM EDT Reason for Appointment: Patient ID: Emy Cantu [...] nursing note reviewed. Exam conducted with a tube heater present. Vitals: Estimated body mass index is 31.61 kg/m as calculated from the following: Height [...] of: Domenic Law DO documented in this encounterSoutheast Missouri Community Treatment [id number] History of Present illness Narrative* Aliya Aguilar LPN - 11/11/2024 3:30 PM EDT Reason for Appointment: Patient ID: Emy Cantu [...] nursing note reviewed. Exam conducted with a tube heater present. Vitals: Estimated body mass index is 31.61 kg/m as calculated from the following: Height as of 10/15/22: 5' 7 . Weight as of this encounter: 201 lb 12.8 oz. BP: 120/82 Patient's last menstrual period was 03/12/2024. ASSESSMENT & PLAN ICD-10-CM 1. 33 weeks gestation of Z3A.33 POCT urinalysis dipstick manually resulted 2. Third trimester Z34.93 POCT urinalysis dipstick manually resulted ECG 12 lead unit performed Echocardiogram 2D complete Echocardiogram 2D complete 3. Heart palpitations R00.2 ECG 12 lead unit performed Echocardiogram 2D complete Echocardiogram 2D complete Patient presents today for a routine obstetrics appointment. Patient is currently 33w6d with a Estimated Date of Delivery: 12/24/24. Patient voiced to provider today that she has been having heart palpitations. Patient advised she will be given orders for ECHO/EKG along with referral to [facility] ardiology. Patient was notified of referral process. Documented by Aliya Aguilar LPN on behalf of: Caden Guillen, MSN, DIE CAST ENGINEER-BC * Domenic Law, - 11/11/2024 3:30 PM EDT Reason for Appointment: Patient ID: Emy Cantu [...] HENT: Negative. Eyes: Negative. Respiratory: Negative. Cardiovascular: Positive for palpitations. Reports palpitations once a week for the last several weeks. Denies shortness of breath or pleuritic chest pain Gastrointestinal: Negative. Genitourinary: Negative. Musculoskeletal: Negative. Skin: [...] nursing note reviewed. Exam conducted with a tube heater present. Vitals: Estimated body mass index is 31.61 kg/m as calculated from the following: Height as of 10/15/22: 5' 7 . Weight as of this encounter: 201 lb 12.8 oz. BP: 120/82 Patient's last menstrual period was 03/12/2024. ASSESSMENT & PLAN ICD-10-CM 1. 33 weeks gestation of Z3A.33 POCT urinalysis dipstick manually resulted 2. Third trimester Z34.93 POCT urinalysis dipstick manually resulted ECG 12 lead unit performed Echocardiogram 2D complete Echocardiogram 2D complete 3. Heart palpitations R00.2 ECG 12 lead unit performed Echocardiogram 2D complete Echocardiogram 2D complete Return OB: Patient presents today for a routine obstetrics appointment. Patient is currently 33w6d . Patient states she is doing well but has complaints of being tired due to current . Patient has verbalizes frequent movement. labor precautions was discussed/given and patient was instructed to perform kick counts three times a day. Orders Placed This Encounter Procedures POCT urinalysis dipstick manually resulted ECG 12 lead unit performed Echocardiogram 2D complete Follow Up: Patient is to return to office in 2 week for routine OB appointment. Patient given order for EKG and Echocardiogram and our office will reach out to Cardiology for referral after testing complete. Patient reports no Chest pain, dizziness or syncope. Documented by Caden Guillen NP on behalf of: Domenic Law DO documented in this encounterSoutheast Missouri Community Treatment [id number] History of Present illness Narrative* Caden Guillen NP - 10/28/2024 2:30 PM EDT Reason for Appointment: Patient ID: Emy Cantu is a 29 y.o. female who presents for Routine Visit Patient presents today for Return OB appointment. MEDICATIONS Current Outpatient Medications Medication Instructions metoclopramide (REGLAN) 10 mg, Oral, 3 times [...] nursing note reviewed. Exam conducted with a tube heater present. Vitals: Estimated body mass index is 30.67 kg/m as calculated from the following: Height as of 10/15/22: 5' 7 . Weight as of this encounter: 195 lb 12.8 oz. BP: 120/70 Patient's last menstrual period was 03/12/2024. ASSESSMENT & PLAN ICD-10-CM 1. 31 weeks gestation of Z3A.31 POCT urinalysis dipstick manually resulted 2. Third trimester Z34.93 POCT urinalysis dipstick manually resulted Return OB: Patient presents today for a routine obstetrics appointment. Patient is currently 31w6d . Patient states she is doing well but has complaints of being tired due to current . Patient has verbalizes frequent movement. labor precautions was discussed/given and patient was instructed to perform kick counts three times a day. Orders Placed This Encounter Procedures POCT urinalysis dipstick manually resulted Follow Up: Patient is to return to office in 2 week for routine OB appointment. Patient was seen on 10/19/24 at [facility] for Nausea and Vomiting, she is feeling much improved an no longer symptomatic. Labs values werereviewed with patient today. Documented by Caden Guillen NP on behalf of: Caden Guillen NP documented in this encounterSoutheast Missouri Community Treatment [id number] History of Present illness Narrative* Halina Mustafa LPN - 10/14/2024 2:00 PM EDT Reason for Appointment: Patient ID: Emy Cantu [...] nursing note reviewed. Exam conducted with a tube heater present. Vitals: Estimated body mass index is 31.01 kg/m as calculated from the following: Height as of 10/15/22: 5' 7 . Weight as of this encounter: 198 lb. BP: 120/66 Patient's last menstrual period was 03/12/2024. ASSESSMENT & PLAN ICD-10-CM 1. Third trimester Z34.93 POCT urinalysis dipstick manually resulted 2. 29 weeks gestation of Z3A.29 Return OB: Patient presents today for a routine obstetrics appointment. Patient is currently 29w6d . Patient states she is doing well but has complaints of being tired due to current . Patient has verbalizes frequent movement. labor precautions was discussed/given and patient was instructed to perform kick counts three times a day. Orders Placed This Encounter Procedures POCT urinalysis dipstick manually resulted Follow Up: Patient is to return to office in 2 week for routine OB appointment. Documented by Halina Mustafa LPN on behalf of: Domenic Law DO documented in this encounterSoutheast Missouri Community Treatment [id number] History of Present illness Narrative* Halina Mustafa LPN - 09/30/2024 2:50 PM EDT Reason for Appointment: Patient ID: Emy Cantu [...] nursing note reviewed. Exam conducted with a tube heater present. Vitals: Estimated body mass index is 30.62 kg/m as calculated from the following: Height as of 10/15/22: 5' 7 . Weight as of this encounter: 195 lb 8 oz. BP: 116/70 Patient's last menstrual period was 03/12/2024. ASSESSMENT & PLAN ICD-10-CM 1. Second trimester Z34.92 POCT urinalysis dipstick manually resulted 2. 27 weeks gestation of Z3A.27 Return OB: Patient presents today for a routine obstetrics appointment. Patient is currently 27w6d . Patient states she is doing well but has complaints of being tired due to current . Patient has verbalizes frequent movement. labor precautions was discussed/given and patient was instructed to perform kick counts three times a day. Orders Placed This Encounter Procedures POCT urinalysis dipstick manually resulted Follow Up: Patient is to return to office in 2 week for routine OB appointment. Documented by Halina Mustafa LPN on behalf of: Domenic Law DO documented in this encounterSoutheast Missouri Community Treatment [id number] History of Present illness Narrative* Halina Mustafa LPN - 09/02/2024 3:10 PM EDT Reason for Appointment: Patient ID: Emy Cantu [...] nursing note reviewed. Exam conducted with a tube heater present. Vitals: Estimated body mass index is [...] of: Domenic Law DO documented in this encounterSoutheast Missouri Community Treatment [id number] History of Present illness Narrative* Shanae Martin LPN - 07/30/2024 2:50 PM EST Reason for Appointment: Patient ID: Emy Cantu [...] nursing note reviewed. Exam conducted with a tube heater present. Vitals: Estimated body mass index is [...] by Shanae Martin LPN on behalf of: Domenic Law DO documented in this encounterSoutheast Missouri Community Treatment [id number] History of Present illness Narrative* LUCINA Singletary - 07/06/2024 4:00 PM EST Reason for Appointment: Patient ID: Emy Cantu [...] nursing note reviewed. Exam conducted with a tube heater present. Vitals: Estimated body mass index is [...] obtained without difficulty and patient was given msAFP order to have obtained. Orders Placed This Encounter Procedures US OB 14+ weeks anatomy scan CHLAMYDIA TRACHOMATIS (GENITO/STI) Neisseria gonorrhea DNA probe, direct Alpha fetoprotein, maternal Follow Up: Patient is to return to our office in 4 weeks for routine OB appointment Documented by Nell Lockwood LPN on behalf of: LUCINA Singletary documented in this encounterSoutheast Missouri Community Treatment [id number] History of Present illness Narrative* Bisi Corley MA - 06/08/2024 3:30 PM EST Reason for Appointment: Patient ID: Emy Cantu [...] by Bisi Corley MA on behalf of: Domenic Law DO documented in this encounterSoutheast Missouri Community Treatment CenterDzsewdqlaj02-70-3918 History of Present illness Narrative* Nell Lockwood, GRADES 7 8 TUTOR - 05/08/2024 9:30 AM EST Reason for Appointment: Patient ID: Emy Cantu [...] drink 6-8 glasses of water a day, eatno raw or undercooked meat, and stay away from [facility]. Patient has also been advised to not change litter boxes and eat 6 small meals a day. Patient has been consulted regarding the do's and don'ts ofpregnancy. Patient was given labs and all questions [...] by: Nell Lockwood LPN documented in this encounterSoutheast Missouri Community Treatment CenterConsult note* Clinical Note Date No Information [facility] Work Phone: Discharge summary* Clinical Note Date No Information [facility] Work Phone: Evaluation note* Diagnosis Missed menses , unspecified gestational age Encounter for supervision of normal first in first trimester [facility]* Diagnosis First trimester state, incidental 11 weeks gestation of Nausea and vomiting in Unspecified vomiting of , unspecified as to episode of care [facility]* Diagnosis Well woman exam with routine gynecological exam Routine gynecological examination Second trimester state, incidental 16 weeks gestation of Vaginal discharge Leukorrhea, not specified as infective STD exposure Screening, , for anatomic survey Encounter for anatomic survey documented in this encounter [facility]* Diagnosis 19 weeks gestation of Second trimester state, incidental UTI symptoms Lightheaded Dizziness and giddiness Iron deficiency anemia, unspecified iron deficiency anemia type [facility]* Diagnosis 23 weeks gestation of Second trimester state, incidental Diabetes mellitus screening Screening for diabetes mellitus documented [facility]* Diagnosis Second trimester state, incidental 27 weeks gestation of [facility]* Diagnosis Third trimester state, incidental 29 weeks gestation of Excessive growth affecting management of , antepartum, single or unspecified fetus documented [facility]* Diagnosis 31 weeks gestation of Third trimester state, incidental [facility]* Diagnosis 35 weeks gestation of Third trimester state, incidental [facility]* Diagnosis 33 weeks gestation of ([facility]) Third trimester ([facility]) state, incidental Heart palpitations Palpitations documented [facility]* Diagnosis Third trimester ([facility]) state, incidental 37 weeks gestation of ([facility]) [facility]* Diagnosis Third trimester ([facility]) state, incidental 38 weeks gestation of ([facility]) [facility]* Diagnosis 6 weeks follow-up ([facility]) documented in this encounter [facility] HealthcareHistory and physical [facility]* Clinical Note Date No Information [facility] Work Phone: History of Past illness Narrative* Condition Effective Dates (start - stop) O utcome No Information [facility] Work Phone: Progress note* Clinical Note Date No Information [facility] Work Phone: Reason for referral (narrative)* Reason For Referral No Information [facility] Work Phone: Review of systems Narrative - Reported* System Pos/Neg Findings Psych Negative Anxiety, Depress ion and Insomnia. [facility] Work Phone: Summary Purpose Family History No Family History Records Found Family Member Type Diagnosis Age At Onset Mother Problem Prediabetic Advance Directives No Advanced Directives Records FoundDocuments on File TypeDate RecordedPatient RepresentativeExplanationACP-Advance DirectiveACP-Power of Robot Programmer Directive Yes / No Effective Date File Name No Information Discharge Instructions * Attachments The following attachments cannot be sent through Care Everywhere. * Ankle Sprain (Armenian) documented in this encounter Assessments Diagnosis Sprain of left ankle, unspecified ligament, initial encounter- Primary Chief Complaint and Reason for Visit From encounter dated '12/17/2024 14:36'. Office visit (chief complaint). Description: Patient presents 3 days post- . Patient states she is doing really well. Patient states she has had lab work done this year. Patient has no complaints. --Aaron, CALVINoted above. She remains on zoloft and iron. She had her 2nd baby earlier this week and is feeling great. 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 Lymph Detail Normal No cervical or s upraclavicular adenopathy. Respiratory Normal Inspection - Nor mal. Auscultation - Normal. Effort - Normal. Vascular Normal Pulses - Radial: Normal. Capillary refill - Less than 2 seconds. Musculoskeletal Normal Visual overview of all four extremities is normal. Skin Normal Inspection - Nor mal. Psychiatric Normal Orientation - Or iented to time, place, person & situation. Appropriate mood and affect. Cardiovascular Normal Regular rate and rhythm. No murmurs, gallops, or rubs. Additional Source Comments INFORMATION SOURCE (unrecogn ized section and content) DATE CREATED AUTHOR 10/21/2018 [facility] DATE CREATED AUTHOR AUTHOR'S ORGANIZ ATION 07/12/2020 [facility] DATE CREATED AUTHOR AUTHOR'S ORGANIZ ATION 09/29/2020 [facility] DATE CREATED AUTHOR AUTHOR'S ORGANIZ ATION 10/23/2022 [facility] DATE CREATED AUTHOR AUTHOR'S ORGANIZ ATION 01/29/2025 [facility] DATE CREATED AUTHOR AUTHOR'S ORGANIZ ATION 04/20/2025 [facility] Reason for Visit (unrecogniz ed section and content) ReasonCommentsAnkle Painfell while at work and injured left ankleReasonComments AmenorrheaReasonCommentsRoutine VisitReasonCommentsRoutine VisitSTI ScreeningWell Women VisitReasonCommentsRoutine VisitReason [id number] PP Ordered Prescriptions (unrec ognized section and content) PrescriptionSigDispensedRefillsStart DateEnd Date ibuprofen (ADVIL;MOTRIN) 800 MG tablet Take 1 tablet by mouth every 8 hours as needed for Pain 30 tablet FOR RECORDS PERTAINING TO PATIENTS WHO ARE [...] BE BASED ON THE PRIMARY CLINICAL RECORDS. [facility] [employer] [facility]. provides no warranty or guarantee of the accuracy or completeness of information in this document.
--- NOTE | 2025-05-28 09:08 | US_ITS ---
The [address] [address] Patient Name: JOYCE CANTU MRN: [id number] date: 1995 Sex: F Assigned Patient Location: Current Patient Location: US Accession/Order Number: [id number] Exam Date: 05/28/2025 09:07 Report Date: 05/28/2025 11:17 At the request of: HUGO SIFUENTES NP Procedure: US right upper quadrant LIMITED RIGHT UPPER QUADRANT ABDOMINAL ULTRASOUND CLINICAL HISTORY: Epigastric and right upper quadrant pain intermittently for several months COMPARISON: None The gallbladder is physiologically distended. There are multiple mobile, echogenic shadowing gallstones measuring up to 16 mm in size. There is also a hypoechoic, nonshadowing nodular area measuring 2.2 cm toward the fundus which is not mobile. No wall thickening or pericholecystic fluid is seen. No intra- or extrahepatic biliary dilatation is evident. The common duct measures 3 mm. The liver is normal in echogenicity. No intrahepatic masses are seen. There is appropriate hepatopetal flow within the main portal vein. The pancreas shows no significant sonographic abnormality. Cursory evaluation of the right kidney reveals no hydronephrosis or fluid within Jacques's pouch. US/US right upper quadrant IMPRESSION: CHOLELITHIASIS. NONMOBILE HYPOECHOIC NODULAR AREA WITHIN THE GALLBLADDER. IT IS UNCERTAIN IF THIS IS AN ADDITIONAL ADHERENT STONE, POLYP OR OTHER MASS. FOLLOW-UP COULD BE OBTAINED TO ASSESS STABILITY. Impression dictated by: Halina Smith M.D. 05/28/2025 11:17 AM Dictation Location: [place] [address] Electronically authenticated by: [id number] Y Date: 05/28/2025 11:17
== END 2025-05-28 09:01 | disposition home or self-care (01) ==
LOC: US 09:01
PROVIDERS: PCP Nurse Practitioner Family; Visit Provider Nurse Practitioner Family
DX: R10.13 Epigastric pain (principal); K80.20 Calculus of gallbladder without cholecystitis without obstruction
CPT/HCPCS: 76705